=== PATIENT | female | born 1970 | race African-American/Black ===

== ENCOUNTER 2016-12-18 13:47 | Inpatient (IN) ==
[2016-12-18 15:35] LABS: URINE CULTURE PL NEEDED? NO
[2016-12-18 15:44] LABS: MANUAL DIFF NEEDED? NO
[2016-12-18 15:45] LABS: BILIRUBIN URINE NEGATIVE (NEGATIVE); BLOOD URINE NEGATIVE (NEGATIVE); CLARITY CLEAR (CLEAR); COLOR YELLOW; GLUCOSE URINE NEGATIVE (NEGATIVE); LEUKOCYTES URINE NEGATIVE (NEGATIVE); NITRITE URINE NEGATIVE (NEGATIVE); PROTEIN URINE 2+(100 mg/dL) mg/dL (NEGATIVE); SP GRAVITY URINE 1.015; UROBILINOGEN URINE NORMAL
[2016-12-18 15:47] LABS: URINE EPITHELIAL CELLS >10 /HPF (<10); URINE RBC <10 /HPF (<10); URINE WBC <10 /HPF (<10)
[2016-12-18 15:47] LABS: BASO% 0.6 % (0.0-0.8); EOS# 0.23 X1000 (0.0-0.7); EOS% 3.5 % (0.0-10.0); HEMATOCRIT 37.5 % (37.0-47.0); IMM GRAN# 0.02 X1000 (0.0-0.04); IMM GRAN% 0.3 % (0.0-0.5); LYMPH# 1.84 X1000 (1.2-3.4); LYMPH% 28.4 % (20.5-51.1); MCH 28.6 PG (27-31); MCHC 29.3 g/dL (33-37); MCV 97.7 FL (81-99); MONO# 0.51 X1000 (0.11-0.59); MONO% 7.9 % (1.7-9.3); NEUT% 59.3 % (42.2-75.2); PLT 198 X1000 (130-400); RBC 3.84 XMIL (4.2-5.4)
[2016-12-18 15:48] LABS: URINE CAST NONE SEEN /LPF; URINE CRYSTAL NONE SEEN /HPF; URINE SOURCE CLEAN CATCH
[2016-12-18 16:03] LABS: CALCIUM 9.2 mg/dL (8.8-10.2); POTASSIUM 4.4 mmol/L (3.5-5.1); TOTAL BILIRUBIN 0.2 mg/dL (0.20-1.00)
[2016-12-18] MEDS ORDERED: DILAUDID IM ONE (19:01)
[2016-12-18] MEDS ORDERED: ZOFRAN ODT PO ONE (19:01)
[2016-12-18] MEDS ORDERED: RELISTOR SUBQ ONE (19:03)
--- NOTE | 2016-12-18 19:21 | Diag Imaging Result Doc PS360 ---
EXAM: US ABDOMEN-COMPLETE - 12/18/2016 HISTORY: epigastric/RUQ pain TECHNIQUE: Ultrasound abdomen COMPARISON: Ultrasound gallbladder of 07/21/2013 FINDINGS: There is some limitation of detail due to artifacts from the patient's body habitus and bowel gas and due to the limited mobility of the patient. The gallbladder is visualized and demonstrates no definite abnormality. There are no gallstones identified. There is no definite gallbladder wall thickening or pericholecystic fluid identified. The technologist reports negative sonographic Welch's sign. The common bile duct is normal caliber at 3 mm. There are no abnormalities of the liver or spleen identified. There is no ascites seen. The pancreas and abdominal aorta are largely obscured by artifacts. The visualized portion of the IVC is unremarkable. IMPRESSION: There is no definite abnormality identified. Electronically signed by Adan Lind 12/18/2016 7:19 PM
[2016-12-18] MEDS ORDERED: PHENERGAN IM ONE (20:07)
[2016-12-18] MEDS ORDERED: G.I. COCKTAIL PO ONE (20:18)
--- NOTE | 2016-12-18 20:52 | Diag Imaging Result Doc PS360 ---
EXAM: CHEST-2 VIEWS - 12/18/2016 HISTORY: CHEST PAIN TECHNIQUE: Chest two views COMPARISON: Portable exam of 11/21/2016 FINDINGS: There is substantial cardiomegaly similar to the previous exam. There is central vascular congestion similar to the previous exam. There is scattered subsegmental atelectasis which has increased. There is no discrete consolidation, pleural effusion, or pneumothorax identified. IMPRESSION: Cardiomegaly and central vascular congestion similar to the previous exam. Scattered subsegmental atelectasis which has increased. Electronically signed by Adan Lind 12/18/2016 8:50 PM
[2016-12-18 21:11] LABS: BE 8.2 mmoll (-3.0-3.0); BLOOD TYPE ARTERIAL; DRAW SITE R RADIAL; METHB 1.6 % (0.0-1.5); SAMPLE BLOOD; SAO2 57.3 % (95.0-100.0); THB 11.6 g/dL (11.5-17.4); pH(98.6) 7.31 (7.35-7.45)
[2016-12-18 21:17] LABS: PO2(98.6) 23 mmHg (60-100)
[2016-12-18 21:19] LABS: ALLEN TEST YES; MODALITY ROOM AIR; PCO2(98.6) 73 mmHg (35-45)
[2016-12-18] MEDS ORDERED: LASIX IV ONE (22:47)
[2016-12-19 06:25] LABS: BE 7.7 mmoll (-3.0-3.0); BLOOD TYPE ARTERIAL; DRAW SITE R RADIAL; METHB 1.2 % (0.0-1.5); O2(CT) 14.6 mL/dL (15.0-23.0); PO2(98.6) 53 mmHg (60-100); SAMPLE BLOOD; SAO2 91.8 % (95.0-100.0); THB 11.8 g/dL (11.5-17.4); pH(98.6) 7.25 (7.35-7.45)
[2016-12-19 06:25] LABS: BE 7.3 mmoll (-3.0-3.0); BLOOD TYPE ARTERIAL; DRAW SITE R RADIAL; METHB 1.4 % (0.0-1.5); O2(CT) 16.2 mL/dL (15.0-23.0); PO2(98.6) 77 mmHg (60-100); SAMPLE BLOOD; SRATE 16 BPM; THB 12.3 g/dL (11.5-17.4); pH(98.6) 7.21 (7.35-7.45)
[2016-12-19 06:31] LABS: ALLEN TEST YES; MODALITY CANNULA
[2016-12-19 06:33] LABS: ALLEN TEST YES; MODALITY BI PAP
[2016-12-19 07:34] LABS: MANUAL DIFF NEEDED? NO
[2016-12-19 07:36] LABS: BASO% 0.3 % (0.0-0.8); EOS# 0.05 X1000 (0.0-0.7); EOS% 0.7 % (0.0-10.0); HEMATOCRIT 39.8 % (37.0-47.0); HEMOGLOBIN 11.7 g/dL (12.0-16.0); IMM GRAN# 0.02 X1000 (0.0-0.04); IMM GRAN% 0.3 % (0.0-0.5); LYMPH# 1.58 X1000 (1.2-3.4); LYMPH% 21.2 % (20.5-51.1); MCH 28.9 PG (27-31); MCHC 29.4 g/dL (33-37); MCV 98.3 FL (81-99); MONO# 0.42 X1000 (0.11-0.59); MONO% 5.6 % (1.7-9.3); MPV 10.9 FL (7.4-10.4); NEUT% 71.9 % (42.2-75.2); PLT 213 X1000 (130-400); RBC 4.05 XMIL (4.2-5.4)
[2016-12-19 07:57] LABS: ALBUMIN 4.2 g/dL (3.5-5.0); CALCIUM 9.3 mg/dL (8.8-10.2); POTASSIUM 5.2 mmol/L (3.5-5.1); TOTAL BILIRUBIN 0.3 mg/dL (0.20-1.00); TOTAL PROTEIN 9.6 g/dL (6.3-8.3)
[2016-12-19 08:21] LABS: CK INDEX 1.1 (0.0-2.5); CK-MB 2.01 ng/mL (0.0-5.0)
[2016-12-19] MEDS: MORPHINE IV PRN ×2 (08:59→09:20)
[2016-12-19] MEDS: LASIX IV SCH ×3 (08:59→21:55)
[2016-12-19] MEDS: CARDIZEM CD PO SCH (09:21)
[2016-12-19] MEDS ORDERED: LASIX IM ONE (09:36)
[2016-12-19 10:16] LABS: INR 0.97 (0.86-1.15); PROTIME 13.7 Seconds (12.1-15.5)
[2016-12-19] MEDS: ZOFRAN ODT PO PRN (10:23)
[2016-12-19] MEDS ORDERED: NS 250 ML ONE ×2 (10:46→15:07)
[2016-12-19 14:59] LABS: PCO2(98.6) 86 mmHg (35-45)
[2016-12-19 15:04] LABS: PCO2(98.6) 96 mmHg (35-45)
[2016-12-19] MEDS: COREG PO SCH ×2 (15:34→21:55)
[2016-12-19] MEDS ORDERED: SODIUM CHLORIDE 0.9% INJ SCH (16:00)
[2016-12-19] MEDS ORDERED: DUONEB (A & A) INH PRN (16:03)
--- NOTE | 2016-12-19 16:03 | Diag Imaging Result Doc PS360 ---
EXAM: CHEST-PORTABLE HISTORY: dyspnea TECHNIQUE: AP portable COMMENT: The study is suboptimal technically and the inspiration is suboptimal. There is cardiomegaly. Possibility of pulmonary edema or pneumonia in the lung bases cannot be excluded. There is a right internal jugular line was tip in the superior vena cava. IMPRESSION: Technically suboptimal study. Cardiomegaly. Electronically signed by George Gentile 12/19/2016 4:01 PM
[2016-12-19 17:42] LABS: ALLEN TEST YES; BE 12.9 mmoll (-3.0-3.0); BLOOD TYPE ARTERIAL; DRAW SITE R RADIAL; METHB 0.9 % (0.0-1.5); O2(CT) 15.2 mL/dL (15.0-23.0); PO2(98.6) 79 mmHg (60-100); SAMPLE BLOOD; SAO2 97.6 % (95.0-100.0); THB 11.3 g/dL (11.5-17.4); pH(98.6) 7.27 (7.35-7.45)
[2016-12-19 17:43] LABS: MODALITY CANNULA
[2016-12-19 17:45] LABS: PCO2(98.6) 94 mmHg (35-45)
[2016-12-19 18:33] LABS: URINE CULTURE NEEDED? NO; URINE MICRO REVIEW NEEDED? NO; URINE SOURCE CATH
[2016-12-19] MEDS: PROTONIX IV SCH (18:34)
[2016-12-19] MEDS: ASPIRIN PO SCH (18:38)
[2016-12-19] MEDS: DUONEB (A & A) INH SCH ×2 (18:58→22:35)
[2016-12-19 19:11] LABS: BILIRUBIN URINE NEGATIVE (NEGATIVE); BLOOD URINE NEGATIVE (NEGATIVE); COLOR YELLOW; GLUCOSE URINE NEGATIVE (NEGATIVE); LEUKOCYTES URINE NEGATIVE (NEGATIVE); NITRITE URINE NEGATIVE (NEGATIVE); PROTEIN URINE 50 mg/dL (NEGATIVE); SP GRAVITY URINE 1.007; TURBIDITY URINE CLEAR (CLEAR); UR EPITHELIAL CELLS <10 /HPF (<10); URINE BACTERIA NEGATIVE /HPF; URINE RBC <10 /HPF (<10); URINE WBC <10 /HPF (<10); UROBILINOGEN URINE NORMAL (NORMAL)
[2016-12-19] MEDS: XANAX PO SCH (21:55)
[2016-12-20] MEDS: DUONEB (A & A) INH SCH ×6 (03:41→23:10)
[2016-12-20 06:58] LABS: HEMATOCRIT 35.4 % (37.0-47.0); HEMOGLOBIN 10.2 g/dL (12.0-16.0); MCH 29.4 PG (27-31); MCHC 28.8 g/dL (33-37); MPV 11.2 FL (7.4-10.4); RBC 3.47 XMIL (4.2-5.4)
[2016-12-20 07:14] LABS: HEMOGLOBIN A1C 5.3 % (4.8-6.0)
[2016-12-20 07:40] LABS: AGAP 8; BUN 24 mg/dL (8-22); CALCIUM 8.9 mg/dL (8.8-10.2); CHLORIDE 96 mmol/L (98-107); COSMO 288; HDL 36 mg/dL (45-65); LDL 181 mg/dL; POTASSIUM 4.4 mmol/L (3.5-5.1); SODIUM 141 mmol/L (136-145); TCO2 37 mmol/L (25-35); TRIGLYCERIDES 90 mg/dL (35-135); VLDL 18 mg/dL
[2016-12-20] MEDS: COREG PO SCH ×2 (09:09→21:13)
[2016-12-20] MEDS: LASIX IV SCH ×2 (09:09→21:14)
[2016-12-20] MEDS: LOVENOX SUBQ SCH (09:09)
[2016-12-20] MEDS: CARDIZEM CD PO SCH (09:09)
[2016-12-20] MEDS: ASPIRIN PO SCH (09:09)
[2016-12-20] MEDS: PROTONIX IV SCH (11:13)
[2016-12-20] MEDS ORDERED: CALMOSEPTINE OINTMENT TOP PRN (13:38)
[2016-12-20] MEDS: MORPHINE IV PRN (13:50)
[2016-12-20] MEDS: LIPITOR PO SCH (21:13)
[2016-12-20] MEDS: XANAX PO SCH (21:14)
[2016-12-21] MEDS: DUONEB (A & A) INH SCH ×6 (03:46→23:10)
[2016-12-21 04:53] LABS: ALLEN TEST YES; BE 15.7 mmoll (-3.0-3.0); BLOOD TYPE ARTERIAL; DRAW SITE R RADIAL; METHB 0.4 % (0.0-1.5); O2(CT) 13.5 mL/dL (15.0-23.0); PO2(98.6) 52 mmHg (60-100); SAMPLE BLOOD; SAO2 93.9 % (95.0-100.0); THB 10.6 g/dL (11.5-17.4); pH(98.6) 7.42 (7.35-7.45)
[2016-12-21 04:54] LABS: MODALITY BI PAP
[2016-12-21 04:55] LABS: PCO2(98.6) 66 mmHg (35-45)
[2016-12-21 06:56] LABS: HEMATOCRIT 34.6 % (37.0-47.0); HEMOGLOBIN 9.9 g/dL (12.0-16.0); MCH 28.9 PG (27-31); MCHC 28.6 g/dL (33-37); MCV 100.9 FL (81-99); RBC 3.43 XMIL (4.2-5.4)
[2016-12-21 07:11] LABS: CALCIUM 9.3 mg/dL (8.8-10.2); POTASSIUM 3.7 mmol/L (3.5-5.1)
[2016-12-21] MEDS: MORPHINE IV PRN (07:58)
[2016-12-21] MEDS: ZOFRAN IV PRN (08:02)
[2016-12-21] MEDS: COREG PO SCH ×2 (11:54→20:14)
[2016-12-21] MEDS: LASIX IV SCH (11:54)
[2016-12-21] MEDS: ASPIRIN PO SCH (11:54)
[2016-12-21] MEDS: CARDIZEM CD PO SCH (11:54)
[2016-12-21] MEDS: LOVENOX SUBQ SCH (11:55)
[2016-12-21] MEDS: ZOFRAN ODT PO PRN (12:15)
[2016-12-21] MEDS: PROTONIX IV SCH (17:14)
[2016-12-21] MEDS: LIPITOR PO SCH (20:14)
[2016-12-21] MEDS: XANAX PO SCH (20:14)
[2016-12-22] MEDS: DUONEB (A & A) INH SCH ×6 (03:46→23:17)
[2016-12-22 05:02] LABS: ALLEN TEST YES; BE 16.2 mmoll (-3.0-3.0); BLOOD TYPE ARTERIAL; DRAW SITE R RADIAL; METHB 0.9 % (0.0-1.5); O2(CT) 14.7 mL/dL (15.0-23.0); PO2(98.6) 70 mmHg (60-100); SAMPLE BLOOD; SAO2 96.9 % (95.0-100.0); THB 11.1 g/dL (11.5-17.4); pH(98.6) 7.32 (7.35-7.45)
[2016-12-22 05:03] LABS: MODALITY BI PAP; PCO2(98.6) 89 mmHg (35-45)
[2016-12-22 07:02] LABS: HEMATOCRIT 34.1 % (37.0-47.0); HEMOGLOBIN 9.8 g/dL (12.0-16.0); MCH 29.3 PG (27-31); MCHC 28.7 g/dL (33-37); MCV 102.1 FL (81-99); MPV 10.8 FL (7.4-10.4); RBC 3.34 XMIL (4.2-5.4)
[2016-12-22 07:05] LABS: INR 1.07; PROTIME 11.3 Seconds (9.2-11.7)
[2016-12-22 07:30] LABS: FERRITIN 134 ng/mL (13-150)
[2016-12-22 07:31] LABS: MAGNESIUM 1.8 mg/dL (1.5-2.7)
[2016-12-22 07:34] LABS: CALCIUM 8.6 mg/dL (8.8-10.2); POTASSIUM 4.4 mmol/L (3.5-5.1)
[2016-12-22] MEDS: CARDIZEM CD PO SCH (08:07)
[2016-12-22] MEDS: COREG PO SCH ×2 (08:07→20:12)
[2016-12-22] MEDS: LASIX IV SCH (08:08)
[2016-12-22] MEDS: LOVENOX SUBQ SCH (08:08)
[2016-12-22] MEDS: ZOFRAN ODT PO PRN (08:08)
[2016-12-22] MEDS: ASPIRIN PO SCH (08:08)
[2016-12-22] MEDS: MORPHINE IV PRN ×2 (08:09→23:40)
--- NOTE | 2016-12-22 08:39 | Diag Imaging Result Doc PS360 ---
CHEST-PORTABLE - 12/22/2016 INDICATION: SOB TECHNIQUE: COMPARISON: 12/19/2016 FINDINGS: Stable right PICC line in good position. Stable severe cardiomegaly and pulmonary vascular congestion. Detail is poor. IMPRESSION: No definite change from prior. Electronically signed by Dean Virk 12/22/2016 8:37 AM
[2016-12-22] MEDS: PROTONIX IV SCH (16:35)
[2016-12-22] MEDS: LIPITOR PO SCH (20:12)
[2016-12-22] MEDS: XANAX PO SCH (20:12)
[2016-12-22] MEDS: ZOFRAN IV PRN (23:40)
[2016-12-23] MEDS: DUONEB (A & A) INH SCH ×4 (03:15→15:46)
[2016-12-23 07:17] LABS: BASO% 0.3 % (0.0-0.8); EOS# 0.24 X1000 (0.0-0.7); EOS% 3.5 % (0.0-10.0); HEMATOCRIT 35.6 % (37.0-47.0); HEMOGLOBIN 10.1 g/dL (12.0-16.0); LYMPH# 1.69 X1000 (1.2-3.4); LYMPH% 24.8 % (20.5-51.1); MANUAL DIFF NEEDED? YES; MCH 28.6 PG (27-31); MCHC 28.4 g/dL (33-37); MCV 100.8 FL (81-99); MONO# 0.48 X1000 (0.11-0.59); MPV 10.6 FL (7.4-10.4); NEUT% 64.4 % (42.2-75.2); PLT 199 X1000 (130-400); RBC 3.53 XMIL (4.2-5.4)
[2016-12-23 07:33] LABS: CALCIUM 9.5 mg/dL (8.8-10.2); POTASSIUM 4.8 mmol/L (3.5-5.1)
[2016-12-23 07:53] LABS: BANDS 4 % (0-1); EOS 6 % (1-10); LYMPHS 28 % (21-51)
[2016-12-23 08:09] VITALS: BP 135/76
[2016-12-23] MEDS: COREG PO SCH (08:25)
[2016-12-23] MEDS: LASIX IV SCH (08:25)
[2016-12-23] MEDS: CARDIZEM CD PO SCH (08:25)
[2016-12-23] MEDS: ASPIRIN PO SCH (08:25)
[2016-12-23] MEDS: MORPHINE IV PRN (11:15)
[2016-12-23] MEDS: ZOFRAN ODT PO PRN (11:19)
[2016-12-23] MEDS ORDERED: XARELTO PO SCH (17:00)
[2016-12-23] MEDS: PROTONIX IV SCH (18:08)
[2016-12-23] MEDS ORDERED: LASIX PO SCH (21:00)
== END 2016-12-23 18:10 | disposition home or self-care (01) ==
LOC: P.ED 13:47 → SUATTDRO 23:23 → P.MEDSURG 23:23 → 3N 12-19 13:57
PROVIDERS: ATTEND Internal Medicine

== ENCOUNTER 2018-05-08 15:32 | Inpatient (IN) ==
[2018-05-08 16:39] LABS: BASO# 0.04 X1000 (0.0-0.2); BASO% 0.8 % (0.0-0.8); EOS# 0.12 X1000 (0.0-0.7); EOS% 2.5 % (0.0-10.0); HEMATOCRIT 40.4 % (37.0-47.0); HEMOGLOBIN 11.8 g/dL (12.0-16.0); IMM GRAN# 0.01 X1000 (0.0-0.04); IMM GRAN% 0.2 % (0.0-0.5); LYMPH# 1.45 X1000 (1.2-3.4); LYMPH% 30.3 % (20.5-51.1); MCHC 29.2 g/dL (33-37); MCV 89.2 FL (81-99); MONO# 0.29 X1000 (0.11-0.59); MONO% 6.1 % (1.7-9.3); MPV 11.2 FL (7.4-10.4); NEUT# 2.88 X1000 (1.4-6.5); NEUT% 60.1 % (42.2-75.2); PLT 205 X1000 (130-400); RBC 4.53 XMIL (4.2-5.4); RDW 16.7 % (11.5-14.5); WBC 4.79 X1000 (4.8-10.8)
[2018-05-08 16:42] LABS: INR 1.06; PROTIME 14.3 Seconds (11.0-16.0)
[2018-05-08 16:43] LABS: PTT 39.4 Seconds (22.3-41.8)
[2018-05-08] MEDS ORDERED: LABETALOL IV ONE (16:43)
--- NOTE | 2018-05-08 16:43 | PROVIDER DOCUMENTATION ---
HPI-Respiratory General - General Chief Complaint: Shortness of Breath Stated Complaint: SOB Time Seen by Provider: 05/08/18 16:31 Source: patient Allergies/Adverse Reactions: Patient Allergies Allergy/AdvReac Type Severity Reaction Status Date / Time cephalexin monohydrate * Allergy Severe SHORTNESS Verified 05/08/18 15:44 [From Keflex] OF BREATH propoxyphene napsylate * Allergy Mild HIVES Verified 05/08/18 15:44 [From Darvocet-N 100] Home Medications: Home Medication List Medication Instructions Recorded Confirmed Last Taken Type Carvedilol [Coreg] 3.125 mg PO BID #180 tablet 12/23/16 05/08/18 09/01/17 Rx Furosemide [Lasix] 40 mg PO DAILY 09/01/17 05/08/18 09/01/17 History Pantoprazole [Protonix] 40 mg PO DAILY 09/01/17 05/08/18 09/01/17 History Levothyroxine Sodium [Synthroid] 50 mcg PO DAILY #30 tab 10/08/17 05/08/18 Unknown Rx Diltiazem C.d. [Cardizem Cd] 180 mg PO DAILY 11/05/17 05/08/18 Unknown History Hydrocodone/Acetaminophen [[place] 10 - 325 mg PO TID PRN 11/05/17 05/08/18 Unknown History 10-325 Tablet] Nitroglycerin 0.4 mg PO PRN PRN 11/05/17 05/08/18 Unknown History Aspirin [Low Dose Aspirin EC] 81 mg pe PO DAILY 12/31/17 05/08/18 Unknown History Polyethylene Glycol 3350 [Clearlax] 17 gm PO PRN PRN 12/31/17 05/08/18 Unknown History Torsemide 40 mg PO DAILY 12/31/17 05/08/18 Unknown History Zolpidem [Ambien] 10 mg PO HS 12/31/17 05/08/18 Unknown History Sucralfate [Carafate] 1 gm PO Q6H #120 tab 01/03/18 05/08/18 Unknown Rx - History of Present Illness-Resp Nature of Presenting Problem: pt is 47 yo morbidly obese AAF with c/o BARRY, upper abdominal pain, worsening SOB , and elevated BP over past few days, pt. reports worsening pain in abdomen and back but denies productive cough or fever at this time. Quality of Pain: reports: cramping, pressure, sharp Severity in ED: reports: moderate Onset/Duration: reports: 4 days ago Timing: reports: still present, intermittent Cough Quality/Degree: reports: no cough Episode Frequency: chronic episodes Current Respiratory Medication Therapy: Initiated see nurses note Modifying Factors: improves with: exertion, lying down (orthopnea worsening) Associated Symptoms: reports: dizziness, headache, heart racing, shortness of breath Similar Symptoms Previously?: Yes Recently seen or treated by another doctor?: No Review of Systems - Adult - REVIEW OF SYSTEMS - ADULT Constitutional: reports: no symptoms reported Eyes: reports: no symptoms reported Ears, Nose, Mouth & Throat: reports: no symptoms reported Cardiovascular: reports: see HPI Respiratory: reports: see HPI Gastrointestinal: reports: see HPI Genitourinary: reports: no symptoms reported Musculoskeletal: reports: no symptoms reported Integumentary: reports: no symptoms reported Neurological: reports: headache/migraines Psychiatric: reports: no symptoms reported Endocrine: reports: no symptoms reported Hematologic/Lymphatic: reports: no symptoms reported Allergic/Immunologic: reports: no symptoms reported All Other Systems: Reviewed and Negative Past History - Adult - PAST MEDICAL HISTORY-ADULT Review of Records: reports: Old Records Reviewed, Nursing Assessment Review, Medications Reviewed Major Childhood Illnesses: reports: denies history Cardiovascular: reports: CAD, CHF, HTN, MD Respiratory: reports: asthma, COPD, sleep apnea Gastrointestinal: reports: GERD Obstetrical/Gynecological: reports: denies history Genitourinary: reports: dialysis, kidney disease (previous renal failure, with last dialysis 11/2014 which she was told she was done) Musculoskeletal: reports: denies history Neurological: reports: CVA Psychiatric: reports: anxiety, depression Endocrine/Immune: reports: Diabetes, thyroid disorder Other Conditions: reports: denies history Additional History: frequent ER visits - PRIOR SURGERIES/PROCEDURES Surgical/Procedure History: reports: indwelling device (vas cath), other (trach) - IMMUNIZATION STATUS Childhood Immunizations: See Nurse Assessment Flu Vaccine: See Nurse Assessment - FAMILY HISTORY Family History: reviewed, not pertinent - SOCIAL HISTORY Smoking: denies Substance Use: none/never Alcohol Use Frequency: never Physical Exam-General - PHYSICAL EXAM-ADULT Initial Vital Signs Reviewed: Yes (tachycardic, hypertensive, tachypnic) - CONSTITUTIONAL General Appearance: alert, mild distress, other (pt morbidly obese) - EYES Eyes: PERRL/EOMI, pink conjunctivae. negative: anisocoria, conjuctival exudate , photophobia, sclera injected - HEAD, EARS, NOSE, MOUTH & THROAT HENMT: normocephalic/atraumatic, moist mucous membranes, normal ENT inspection - NECK Neck: non-tender, full range of motion, supple - RESPIRATORY Respiratory: decreased breath sounds (bilateral bases), rhonchi, wheezing, increased rate. negative: accessory muscle use, crackles, pain on inspiration, pleural rub, retractions - CARDIOVASCULAR Cardiovascular: normal peripheral pulses, tachycardia, irregularly irregular - GASTROINTESTINAL (ABDOMEN) Abdominal Exam: normal bowel sounds, soft, tenderness (generalized tenderness, exam limited due to morbid obesity). negative: rebound - LYMPHATIC Lymphatic: no adenopathy - MUSCULOSKELETAL Back Exam: normal inspection, no CVA tenderness, no vertebral tenderness Extremity: non-tender, no calf tenderness, inflammation, other (pt has limited ROM due to obesity, states she is ambulatory with assistance, exam limited due to morbid obesity). negative: deformity, erythema Peripheral Pulses: radial (R): 1+, radial (L): 1+, dorsalis-pedis (R): 1+, dorsalis-pedis (L): 1+ - SKIN Integumentary: normal color, normal turgor - NEUROLOGIC Neurologic: grossly normal, no motor/sensory deficits. negative: aphasia, EOM palsy, facial droop, focal weakness, motor weakness, sensory deficit - PSYCHIATRIC Psych/Mental Status: normal mood/affect, normal thought content, normal thought process, oriented x 3 Progress - PLAN OF CARE/RESULTS Progress/Plan/Lab Results: Vital Signs - 8 hr 05/08/18 15:38 05/08/18 18:00 Temperature 98.6 F Pulse Rate 118 H 85 Respiratory Rate 25 H 24 Blood Pressure 159/117 138/98 O2 Sat by Pulse Oximetry 96 94 L Laboratory Results - last 24 hr 05/08/18 05/08/18 05/08/18 16:16 16:16 16:16 WBC 4.79 L RBC 4.53 Hgb 11.8 L Hct 40.4 MCV 89.2 MCH 26.0 L MCHC 29.2 L RDW Std Deviation 16.7 H Plt Count 205 MPV 11.2 H Immature Gran % (Auto) 0.2 Neut % (Auto) 60.1 Lymph % (Auto) 30.3 [place] % (Auto) 6.1 Eos % (Auto) 2.5 Baso % (Auto) 0.8 Immature Gran # (Auto) 0.01 Neut # (Auto) 2.88 Lymph # (Auto) 1.45 [place] # (Auto) 0.29 Eos # (Auto) 0.12 Baso # (Auto) 0.04 PT INR PTT (Actin FS) Specimen Type Sample Site pH pCO2 pO2 HCO3 Base Excess Oxyhemoglobin ABG O2 Sat (Calculated) ABG O2 Saturation ABG Carboxyhemoglobin ABG Methemoglobin Nikunj Test A-a O2 Difference Total Hemoglobin Lactate Liter Flow Blood Gas Modality FiO2 % Sodium 142 Potassium 4.2 Chloride 101 Carbon Dioxide 34 Anion Gap 7 BUN 10 Creatinine 1.0 H Estimated GFR/1.73 m2 59 BUN/Creatinine Ratio 10 Glucose 117 H Calculated Osmolality 283 Calcium 9.4 Total Bilirubin 0.30 AST 15 ALT 9 L Alkaline Phosphatase 125 H Creatine Kinase 113 Troponin T Raj-M-Jxmztgrgdgh Pept 1738 H Total Protein 7.9 Albumin 3.5 Globulin 4.0 Albumin/Globulin Ratio 1.0 Amylase Lipase Plasma Lactate Urine Source Urine Color Urine Clarity Urine pH Ur Specific [place] Urine Protein Urine Ketones Urine Blood Urine Nitrite Urine Bilirubin Urine Urobilinogen Urine Microscopic RBC Urine WBC Urine Microscopic WBC Ur Epithelial Cells Urine Crystals Urine Bacteria Urine Casts Urine Yeast Urine Glucose 05/08/18 05/08/18 05/08/18 16:16 16:16 16:16 WBC RBC Hgb Hct MCV MCH MCHC RDW Std Deviation Plt Count MPV Immature Gran % (Auto) Neut % (Auto) Lymph % (Auto) [place] % (Auto) Eos % (Auto) Baso % (Auto) Immature Gran # (Auto) Neut # (Auto) Lymph # (Auto) [place] # (Auto) Eos # (Auto) Baso # (Auto) PT 14.3 INR 1.06 PTT (Actin FS) 39.4 Specimen Type Sample Site pH pCO2 pO2 HCO3 Base Excess Oxyhemoglobin ABG O2 Sat (Calculated) ABG O2 Saturation ABG Carboxyhemoglobin ABG Methemoglobin [place]j Test A-a O2 Difference Total Hemoglobin Lactate Liter Flow Blood Gas Modality FiO2 % Sodium Potassium Chloride Carbon Dioxide Anion Gap BUN Creatinine Estimated GFR/1.73 m2 BUN/Creatinine Ratio Glucose Calculated Osmolality Calcium Total Bilirubin AST ALT Alkaline Phosphatase Creatine Kinase Troponin T < 0.010 Irq-I-Rwnucephher Pept Total Protein Albumin Globulin Albumin/Globulin Ratio Amylase 99 Lipase 37 Plasma Lactate Urine Source Urine Color Urine Clarity Urine pH Ur Specific [place] Urine Protein Urine Ketones Urine Blood Urine Nitrite Urine Bilirubin Urine Urobilinogen Urine Microscopic RBC Urine WBC Urine Microscopic WBC Ur Epithelial Cells Urine Crystals Urine Bacteria Urine Casts Urine Yeast Urine Glucose 05/08/18 05/08/18 05/08/18 16:36 16:40 17:45 WBC RBC Hgb Hct MCV MCH MCHC RDW Std Deviation Plt Count MPV Immature Gran % (Auto) Neut % (Auto) Lymph % (Auto) [place] % (Auto) Eos % (Auto) Baso % (Auto) Immature Gran # (Auto) Neut # (Auto) Lymph # (Auto) [place] # (Auto) Eos # (Auto) Baso # (Auto) PT INR PTT (Actin FS) Specimen Type ARTERIAL Sample Site R RADIAL pH 7.40 pCO2 61 H* pO2 66 HCO3 33.2 H Base Excess 10.8 H Oxyhemoglobin 92.6 L ABG O2 Sat (Calculated) 15.9 ABG O2 Saturation 96.2 ABG Carboxyhemoglobin 2.50 ABG Methemoglobin 1.2 Nik[place]j Test YES A-a O2 Difference 86.0 Total Hemoglobin 12.2 Lactate 0.60 Liter Flow 4.0 Blood Gas Modality CANNULA FiO2 % 36.0 Sodium Potassium Chloride Carbon Dioxide Anion Gap BUN Creatinine Estimated GFR/1.73 m2 BUN/Creatinine Ratio Glucose Calculated Osmolality Calcium Total Bilirubin AST ALT Alkaline Phosphatase Creatine Kinase Troponin T [id number]-L-Tcshjqnihgo Pept Total Protein Albumin Globulin Albumin/Globulin Ratio Amylase Lipase Plasma Lactate 0.9 Urine Source CATH Urine Color YELLOW Urine Clarity CLEAR Urine pH 8.0 Ur Specific [place] 1.010 Urine Protein 3+(500 mg/dL) A Urine Ketones NEGATIVE Urine Blood NEGATIVE Urine Nitrite NEGATIVE Urine Bilirubin NEGATIVE Urine Urobilinogen NORMAL Urine Microscopic RBC <10 Urine WBC NEGATIVE Urine Microscopic WBC <10 Ur Epithelial Cells <10 Urine Crystals NONE SEEN Urine Bacteria NEGATIVE Urine Casts NONE SEEN Urine Yeast NONE SEEN Urine Glucose NEGATIVE 05/08/18 05/08/18 19:26 19:26 WBC RBC Hgb Hct MCV MCH MCHC RDW Std Deviation Plt Count MPV Immature Gran % (Auto) Neut % (Auto) Lymph % (Auto) [place] % (Auto) Eos % (Auto) Baso % (Auto) Immature Gran # (Auto) Neut # (Auto) Lymph # (Auto) [place] # (Auto) Eos # (Auto) Baso # (Auto) PT INR PTT (Actin FS) Specimen Type Sample Site pH pCO2 pO2 HCO3 Base Excess Oxyhemoglobin ABG O2 Sat (Calculated) ABG O2 Saturation ABG Carboxyhemoglobin ABG Methemoglobin [place] Test A-a O2 Difference Total Hemoglobin Lactate Liter Flow Blood Gas Modality FiO2 % Sodium Potassium Chloride Carbon Dioxide Anion Gap BUN Creatinine Estimated GFR/1.73 m2 BUN/Creatinine Ratio Glucose Calculated Osmolality Calcium Total Bilirubin AST ALT Alkaline Phosphatase Creatine Kinase 107 Troponin T < 0.010 Hbx-V-Zyryxwwhaod Pept Total Protein Albumin Globulin Albumin/Globulin Ratio Amylase Lipase Plasma Lactate Urine Source Urine Color Urine Clarity Urine pH Ur Specific [place] Urine Protein Urine Ketones Urine Blood Urine Nitrite Urine Bilirubin Urine Urobilinogen Urine Microscopic RBC Urine WBC Urine Microscopic WBC Ur Epithelial Cells Urine Crystals Urine Bacteria Urine Casts Urine Yeast Urine Glucose Orders Category Date Time Status Cardiac Monitoring DIRECTED Care 05/08/18 16:25 Active Robison Cath Insertion ORDERED Care 05/08/18 17:30 Active Oxygen Therapy- ED Nursing DIRECTED Care 05/08/18 16:25 Active Saline Loc NOW Care 05/08/18 16:25 Active CHEST-PORTABLE [RAD] Stat Exams 05/08/18 16:25 Completed AMYLASE [CHEM] Stat Lab 05/08/18 16:16 Completed BLOOD CULTURE [BLDCUL] Stat Lab 05/08/18 17:02 Received Blood Gas [ABG] [RESP] Routine Lab 05/08/18 16:40 Completed CBC WITH ELECTRONIC DIFF [HEME] Stat Lab 05/08/18 16:16 Completed CK PROFILE [SP CHEM] Stat Lab 05/08/18 16:16 Completed CK PROFILE [SP CHEM] Stat Lab 05/08/18 19:26 Completed COMPREHENSIVE METABOLIC PANEL [CHEM] Stat Lab 05/08/18 16:16 Completed LACTATE, PLASMA [CHEM] Stat Lab 05/08/18 16:36 Completed LIPASE [CHEM] Stat Lab 05/08/18 16:16 Completed PRO B-NATRIURETIC PEPTIDE Stat Lab 05/08/18 16:16 Completed PROTIME WITH INR [COAG] Stat Lab 05/08/18 16:16 Completed PTT [COAG] Stat Lab 05/08/18 16:16 Completed TROPONIN T Stat Lab 05/08/18 16:16 Completed TROPONIN T Stat Lab 05/08/18 19:[address] W/POSS RFLX CULT [URINALYSIS] Stat Lab 05/08/18 17:45 Completed Furosemide [Lasix] Med 05/08/18 17:30 Discontinued 40 mg IV NOW ONE Labetalol Med 05/08/18 16:43 Discontinued 20 mg IV NOW ONE Lido/Huang Alk/Al&mg Hydrox [G.i. Cocktail] Med 05/08/18 17:35 Discontinued 30 ml PO NOW ONE CP/SOB/Palp >45 yrs of Age Stat Oth 05/08/18 16:22 Ordered EKG [EKG] Stat Ther 05/08/18 16:25 Draft EKG [EKG] Stat Ther 05/08/18 18:55 Ordered Result Diagrams: 05/08/18 16:16 05/08/18 16:16 - EKG 1 Time of EKG reading by physician:: 15:44 EKG Read and Signed by:: Darian Valderrama EKG Interpretation (*Must complete 3 of following elements*): Abnormal Rate: 90 Rhythm: a-fib [place]: normal QRS: normal ST Wave: non-specific ST changes Prior EKG Comparison: changes noted (No a-fib on prior EKG) - XRAY 1 XRAY Study: Chest Impression: Abnormal Comparison with other Films: changes noted XRAY Interpretation: cardiomegaly and pulmonary edema - CONSULTS/PCP/HOSPITALIST Notification #1 *Consult/PCP/Hospitalist*: shady Time Discussed: 22:01 Reason/Comments: CHF exacerbation, abd pain Consult Disposition: Admit Departure - Departure Date of Disposition Decision: 05/08/18 Time of Disposition Decision: 22:01 DIAGNOSIS: CHF (congestive heart failure), A-fib, Epigastric abdominal pain, Hypertension Disposition: ADMITTED INPATIENT 09 Certified Medical Emergency: Emergent Condition: Stable Referrals and Follow-Ups: Otoniel Gamez MD [Primary Care Provider] - Work Excuses: Return to School/Parent Work - Critical Care Note This patient required my direct & personal management of CC.: No Attestation - Physician/ ROSE Attestation Patient care was provided by Advanced Practice Provider:: Yes Advanced Practice Provider:: Filiberto Medina Advanced Practice Provider documentation review:: The Mid-level provider documentation, treatment plan and medical decision making was reviewed by the physician who agrees with all treatment and medical decision making by the MLP. The physician spent face to face time with patient:: No Advanced Practice Provider documentation review:: Supervising physician onsite and consulted in the evaluation and care of this patient. The physician did not have a face to face encounter with the patient.
[2018-05-08 16:54] LABS: ALBUMIN 3.5 g/dL (3.5-5.0); CALCIUM 9.4 mg/dL (8.8-10.2); POTASSIUM 4.2 mmol/L (3.5-5.1); TOTAL BILIRUBIN 0.3 mg/dL (0.20-1.00); TOTAL PROTEIN 7.9 g/dL (6.3-8.3)
[2018-05-08 17:07] LABS: BE 10.8 mmoll (-3.0-3.0); BLOOD TYPE ARTERIAL; HCO3-(ACT) 33.2 mmoll (20.0-26.0); METHB 1.2 % (0.0-1.5); O2(CT) 15.9 mL/dL (15.0-23.0); O2HB 92.6 % (95.0-99.0); PO2(98.6) 66 mmHg (60-100); SAMPLE BLOOD; SAO2 96.2 % (95.0-100.0); THB 12.2 g/dL (11.5-17.4)
[2018-05-08 17:14] LABS: MODALITY CANNULA; PCO2(98.6) 61 mmHg (35-45)
[2018-05-08 17:15] LABS: ALLEN TEST YES
--- NOTE | 2018-05-08 17:22 | Diag Imaging Result Doc PS360 ---
EXAM: CHEST-PORTABLE HISTORY: dyspnea TECHNIQUE: Chest two views COMPARISON: 12/31/2017 FINDINGS: Poor inspiratory effort. The heart is enlarged. There is pulmonary edema. Questionable small left pleural effusion. IMPRESSION: Cardiomegaly with pulmonary edema. Follow-up PA and lateral recommended. Electronically signed by Patrick Cárdenas 05/08/2018 5:20 PM
[2018-05-08] MEDS ORDERED: LASIX IV ONE (17:30)
[2018-05-08 17:34] LABS: AMYLASE 99 U/L (20-200); LIPASE 37 U/L (13-60)
[2018-05-08] MEDS ORDERED: G.I. COCKTAIL PO ONE (17:35)
--- NOTE | 2018-05-08 17:55 | EKG Report ---
Test Performed on : 05/08/2018 3:44:19 PM Test Reason : dyspnea Blood Pressure : / mmHG Vent. Rate : 090 BPM Atrial Rate : 083 BPM P-R Int : 000 ms QRS Dur : 094 ms QT Int : 408 ms P-R-T Axes : 000 -22 080 degrees QTc Int : 499 ms Atrial fibrillation. Nonspecific ST and T wave abnormality Abnormal ECG When compared with ECG of 05-NOV-2017 12:56, (Unconfirmed) Atrial fibrillation. has replaced Sinus rhythm. Unconfirmed Result
[2018-05-08 18:14] LABS: BILIRUBIN URINE NEGATIVE (NEGATIVE); BLOOD URINE NEGATIVE (NEGATIVE); COLOR YELLOW; GLUCOSE URINE NEGATIVE (NEGATIVE); KETONE URINE NEGATIVE (NEGATIVE); LEUKOCYTES URINE NEGATIVE (NEGATIVE); NITRITE URINE NEGATIVE (NEGATIVE); UROBILINOGEN URINE NORMAL
[2018-05-08 18:17] LABS: CLARITY CLEAR (CLEAR); URINE BACTERIA NEGATIVE /HFP; URINE CAST NONE SEEN /LPF; URINE CRYSTAL NONE SEEN /HPF; URINE EPITHELIAL CELLS <10 /HPF (<10); URINE RBC <10 /HPF (<10); URINE SOURCE CATH; URINE WBC <10 /HPF (<10); URINE YEAST NONE SEEN /HPF
--- NOTE | 2018-05-08 22:25 | ED EKG INTERP ---
EKG Interpretation - EKG EKG Read and Signed by:: Jose Antonio Rossi EKG Interpretation (*Must complete 3 of following elements*): Abnormal Rate: 77 Rhythm: a- flutter [place]: normal QRS: normal [place] Interval: normal ST Wave: non-specific ST changes Prior EKG Comparison: changes noted Comments: a flutter Attestation - Physician/ ROSE Attestation Patient care was provided by Advanced Practice Provider:: Yes Advanced Practice Provider:: Filiberto Medina Advanced Practice Provider documentation review:: The Mid-level provider documentation, treatment plan and medical decision making was reviewed by the physician who agrees with all treatment and medical decision making by the MLP. The physician spent face to face time with patient:: No Advanced Practice Provider documentation review:: Supervising physician onsite and consulted in the evaluation and care of this patient. The physician did not have a face to face encounter with the patient.
[2018-05-09] MEDS: ZOFRAN IV PRN (01:03)
[2018-05-09] MEDS: MORPHINE IV PRN ×2 (01:03→20:25)
[2018-05-09] MEDS: LASIX IV SCH ×2 (10:00→20:25)
[2018-05-09] MEDS: COREG PO SCH ×2 (10:00→20:27)
[2018-05-09] MEDS ORDERED: BLISTEX MEDICATED BERRY LIP BALM TOP PRN (16:07)
--- NOTE | 2018-05-09 19:15 | HISTORY AND PHYSICAL ---
CHIEF COMPLAINT: Shortness of breath and abdominal pain. HISTORY OF PRESENT ILLNESS: This is a 47-year-old morbidly obese female who is well known to our service who presents to the emergency room complaining of upper abdominal pain. She points to her epigastric area as area of pain. She states that she has had increasing shortness of breath and blood pressure over the last few days. She describes this pain as a crampy type pressure pain. It is intermittent. She states that it increases with any exertion, lying down flat. She has accompanying dizziness, headache, heart racing. She was found to have cardiomegaly with pulmonary edema on her chest x-ray for which she was given Lasix 40 mg and a [place] was inserted for accurate I and O. On arrival her blood pressure was 159/117. She was given labetalol in the emergency room and blood pressure now is 121/80. PAST MEDICAL HISTORY: Coronary artery disease, congestive heart failure, COPD, hypothyroid, Pickwickian syndrome, gastroesophageal reflux disease, chronic kidney disease stage 3, anxiety, atrial fibrillation and gastroesophageal reflux disease. PAST SURGICAL HISTORY: She has a Vas-Cath placement and removal. SOCIAL HISTORY: She lives at home alone. She denies alcohol, tobacco, or illicit drug use. ALLERGIES: Keflex and propoxyphene. HOME MEDICATIONS: A list will be obtained by the nursing staff and once reviewed will restart as appropriate. REVIEW OF SYSTEMS: Discussed with patient with pertinent positives stated in the HPI. She denies any syncope or dizziness, any vomiting, diarrhea, constipation, diarrhea, black or bloody vomitus or stools, any hematuria, dysuria, frequency, urgency. PHYSICAL EXAMINATION: GENERAL: This is a morbidly obese female who is sitting up in the hospital bed in no distress. VITAL SIGNS: Blood pressure is 121/80 with a heart rate of 88, respirations are 18, temperature is 99 degrees oral with O2 saturation of 100% on 4 L nasal cannula. HEENT: Pupils are equal, round, react to light. EOMs are intact. Sclerae are anicteric. Head is normocephalic, atraumatic. Mucous membranes are moist. NECK: Supple with trachea midline. CARDIOVASCULAR: Irregularly irregular rate and rhythm. S1 and S2 appreciated. PULMONARY: Breath sounds are diminished throughout. She does have some wheezing. ABDOMEN: Large, soft. She has tenderness to the bilateral upper quadrants with bowel sounds in all 4 quadrants. NEUROLOGIC: She is alert, oriented x3. SKIN: Warm and dry. LABS: WBC is 4.7 with hemoglobin 11.8, hematocrit 40.4, platelets of 205,000. Sodium is 142, potassium 4.2, BUN 10, creatinine 1 with a glucose of 117. Troponins are negative on multiple occasions. Her proBNP is 1738. Urinalysis is essentially negative. Chest x-ray reveals pulmonary edema. ASSESSMENT AND PLAN: 1. Congestive heart failure acute exacerbation. 2. Chronic atrial fibrillation. 3. Chronic bilateral epigastric abdominal pain. 4. Hypertension. 5. Chronic hypercarbic respiratory failure, CO2 is 61. 6. Chronic obstructive pulmonary disease with home O2 and nighttime continuous positive airway pressure. 7. Chronic systolic heart failure with an ejection fraction of 30%. 8. Chronic kidney disease stage 3. 9. Pickwickian syndrome. 10. Hypothyroid. 11. Morbid obesity. 12. Diabetes mellitus. PLAN: The patient has been admitted to the medical/surgical floor and we will place her on telemetry. We will identify her home medications and continue as appropriate. We will continue Lasix 40 mg IV b.i.d. We will trend her I and O as well as daily weights. The patient has a known hiatal hernia. She has been told that she is not a surgical candidate. She also states that she has been told that this is the cause of her epigastric pain. She continues to have to take [place] for this pain. We will start Carafate q.6 hours. Give Protonix IV b.i.d. and follow. We will give supplemental oxygen. We will courage her to bring her CPAP to use, give DuoNeb q.4 hours with q.2 p.r.n. with steroids to taper. We will monitor I and O and renal dose medications as appropriate. Further treatments pending hospital course. Dictated by FIONA Ordonez for Bobby Syed MD This chart was documented by, FIONA Ordonez and accurately reflects the services performed, treatment plan and medical decisions as attested by the providers signature Bobby Syed MD. cc: FIONA Ordonez MD
--- NOTE | 2018-05-09 21:40 | HISTORY AND PHYSICAL ---
ADDENDUM: This is a 47-year-old female with CHF exacerbation and medical noncompliance. I saw the patient [id number] and fully agree with the assessment and plan of nurse practitioner Negar Sawyer. cc: Bobby Syed MD
[2018-05-09] MEDS ORDERED: NITROGLYCERIN SL PRN (22:12)
[2018-05-09] MEDS ORDERED: MIRALAX PO PRN (22:12)
[2018-05-09] MEDS ORDERED: AMBIEN PO PRN (22:12)
[2018-05-09] MEDS: CARAFATE PO SCH (23:11)
[2018-05-10] MEDS: CARAFATE PO SCH ×5 (06:50→22:09)
[2018-05-10] MEDS: PRILOSEC PO SCH (06:51)
[2018-05-10] MEDS: ASPIRIN EC PO SCH (09:27)
[2018-05-10] MEDS: COREG PO SCH ×2 (09:27→21:00)
[2018-05-10] MEDS: LASIX IV SCH ×2 (09:27→20:59)
--- NOTE | 2018-05-10 16:00 | PROGRESS NOTE ---
DATE: 05/10/2018 SUBJECTIVE: Patient denies having any acute complaints. She states that her breathing is somewhat better this morning . OBJECTIVE: Vital Signs: Temperature 97.5 degrees, pulse 115, respiratory rate 20 per minute, blood pressure 130/90, pulse oximetry 100% on 4 L of oxygen by nasal cannula. General: Patient is alert, oriented x3. She does not appear to be in any acute distress. Cardiovascular: First and second heart sounds are audible with regular tachycardia. No murmurs are present. Respiratory: No respiratory distress noted. Bilateral lung air entry slightly decreased but there are no rales or rhonchi present on auscultation. Gastrointestinal: Patient is morbidly obese. Abdomen is soft and nondistended. It is nontender on palpation and normal bowel sounds are present . DIAGNOSTIC DATA: No new labs done. IMPRESSION: 1. Dyspnea secondary to acute on chronic diastolic congestive heart failure. 2. Medical noncompliance. 3. Chronic atrial fibrillation. 4. Chronic obstructive pulmonary disease. 5. Hypertension. 6. Stage 3 chronic kidney disease. 7. Type 2 diabetes mellitus . 8. Hypothyroidism. 9. Morbid obesity. PLAN: Patient be continued on IV furosemide 40 mg twice daily since her condition has improved . Will continue with carvedilol 3.125 mg twice daily along with furosemide 40 mg IV twice daily. I am going to add enoxaparin 40 mg subcutaneously every 24 hours since patient is at risk of having venous thromboembolism. We will continue with rest of her routine medications and I am going to add sliding scale lispro insulin since patient is diabetic. We are going to have repeat chest x-ray along with CBC and BMP tomorrow. Further recommendations will be as per hospital course. cc: Bobby Syed MD [facility]
[2018-05-10] MEDS: HUMALOG DOSE (PARKWAY) SUBQ SCH ×2 (17:40→21:11)
[2018-05-10] MEDS: MORPHINE IV PRN (21:00)
[2018-05-10] MEDS: ZOFRAN IV PRN (21:07)
[2018-05-11] MEDS: CARAFATE PO SCH ×3 (04:22→18:27)
[2018-05-11] MEDS: PRILOSEC PO SCH (06:07)
[2018-05-11] MEDS: HUMALOG DOSE (PARKWAY) SUBQ SCH ×4 (06:08→20:08)
--- NOTE | 2018-05-11 06:26 | Diag Imaging Result Doc PS360 ---
EXAM: CHEST-PORTABLE HISTORY: CHF TECHNIQUE: Chest single view COMPARISON: 05/08/2018 FINDINGS: The heart remains enlarged. Vascular distention persists. There are infiltrates or atelectasis in the left base with a small effusion. The appearance is similar to the prior exam. IMPRESSION: No interval improvement. Electronically signed by Patrick Cárdenas 05/11/2018 6:23 AM
[2018-05-11 07:29] LABS: CALCIUM 9.3 mg/dL (8.8-10.2); CREATININE 1.7 mg/dL (0.5-0.9); POTASSIUM 4.7 mmol/L (3.5-5.1)
[2018-05-11 07:30] LABS: BASO# 0.04 X1000 (0.0-0.2); BASO% 0.7 % (0.0-0.8); EOS# 0.19 X1000 (0.0-0.7); EOS% 3.3 % (0.0-10.0); HEMOGLOBIN 10.6 g/dL (12.0-16.0); IMM GRAN# 0.01 X1000 (0.0-0.04); IMM GRAN% 0.2 % (0.0-0.5); LYMPH# 1.71 X1000 (1.2-3.4); LYMPH% 29.4 % (20.5-51.1); MCH 25.5 PG (27-31); MCHC 27.2 g/dL (33-37); MONO# 0.42 X1000 (0.11-0.59); MONO% 7.2 % (1.7-9.3); MPV 10.8 FL (7.4-10.4); NEUT# 3.44 X1000 (1.4-6.5); NEUT% 59.2 % (42.2-75.2); PLT 199 X1000 (130-400); RBC 4.15 XMIL (4.2-5.4); RDW 16.5 % (11.5-14.5); WBC 5.81 X1000 (4.8-10.8)
--- NOTE | 2018-05-11 08:56 | EKG Report ---
Test Performed on : 05/08/2018 7:45:09 PM Test Reason : CP Blood Pressure : / mmHG Vent. Rate : 077 BPM Atrial Rate : 231 BPM P-R Int : 000 ms QRS Dur : 094 ms QT Int : 422 ms P-R-T Axes : 000 -24 101 degrees QTc Int : 477 ms Atrial flutter. with variable AV block. Nonspecific ST and T wave abnormality Abnormal ECG When compared with ECG of 08-MAY-2018 19:44, (Unconfirmed) No significant change was found Unconfirmed Result
[2018-05-11] MEDS: LASIX IV SCH ×2 (09:21→20:12)
[2018-05-11] MEDS: ASPIRIN EC PO SCH (09:21)
[2018-05-11] MEDS: COREG PO SCH ×2 (09:21→20:12)
[2018-05-11] MEDS: MIRALAX PO SCH ×2 (14:23→20:10)
[2018-05-11] MEDS: LACTULOSE PO SCH ×2 (14:23→20:09)
--- NOTE | 2018-05-11 19:35 | PROGRESS NOTE ---
DATE: 05/11/2018 SUBJECTIVE: The patient has a lot of complaints mostly of abdominal pain. Her breathing is stable, somewhat improved but not drastically so. She got upset and I think called her primary care physician because she felt we were not taking care of her. OBJECTIVE: Blood pressure is 128/91, heart rate of 118, respiratory rate of 20, temperature 97.9 degrees, 98% on 4 L. PROBLEM LIST: 1. Diastolic congestive heart failure acute on chronic. We will continue diuresis. Her creatinine has increased but she has chronic renal failure around stage 3 especially based on her weight. 2. Abdominal pain. She has not had a bowel movement in 4 days so I think we are going to work on constipation. She requested abdominal ultrasound. Discussed about doing a CT but she already knows that she will not be able to get a CT because of her weight. Will start off with an abdominal ultrasound and will see how she does subsequently. 3. Morbid obesity with Pickwickian syndrome. We will continue to follow. Obviously there is going be concern over breathing issues. 4. Disposition pending her clinical status. 5. Diabetes is overall well controlled. Continue to monitor closely. cc: Ousmane Sorenson MD
[2018-05-11 20:03] LABS: ALBUMIN 3.3 g/dL (3.5-5.0); CALCIUM 8.9 mg/dL (8.8-10.2); CREATININE 1.6 mg/dL (0.5-0.9); TOTAL BILIRUBIN 0.3 mg/dL (0.20-1.00); TOTAL PROTEIN 7.8 g/dL (6.3-8.3)
[2018-05-11] MEDS: HEPARIN SUBQ SCH (20:12)
[2018-05-12] MEDS: CARAFATE PO SCH ×4 (00:25→17:31)
[2018-05-12] MEDS ORDERED: PREPARATION H OINT TOP PRN (00:33)
[2018-05-12] MEDS: HUMALOG DOSE (PARKWAY) SUBQ SCH ×2 (06:07→11:17)
[2018-05-12] MEDS ORDERED: PRILOSEC PO SCH (07:00)
[2018-05-12 07:23] LABS: BASO# 0.02 X1000 (0.0-0.2); BASO% 0.3 % (0.0-0.8); EOS# 0.18 X1000 (0.0-0.7); EOS% 2.8 % (0.0-10.0); HEMATOCRIT 36.3 % (37.0-47.0); HEMOGLOBIN 9.9 g/dL (12.0-16.0); LYMPH# 1.53 X1000 (1.2-3.4); MCH 25.4 PG (27-31); MCHC 27.3 g/dL (33-37); MCV 93.3 FL (81-99); MONO# 0.34 X1000 (0.11-0.59); MONO% 5.3 % (1.7-9.3); MPV 11.4 FL (7.4-10.4); NEUT# 4.31 X1000 (1.4-6.5); NEUT% 67.6 % (42.2-75.2); PLT 200 X1000 (130-400); RBC 3.89 XMIL (4.2-5.4); RDW 16.4 % (11.5-14.5); WBC 6.38 X1000 (4.8-10.8)
[2018-05-12] MEDS: ASPIRIN EC PO SCH (08:01)
[2018-05-12] MEDS: CARDIZEM CD PO SCH (08:01)
[2018-05-12] MEDS: LACTULOSE PO SCH ×2 (08:01→22:10)
[2018-05-12] MEDS: MIRALAX PO SCH ×2 (08:02→22:10)
[2018-05-12] MEDS: HEPARIN SUBQ SCH ×2 (08:02→22:10)
[2018-05-12] MEDS: COREG PO SCH ×2 (08:02→22:09)
[2018-05-12] MEDS: LASIX IV SCH ×2 (08:18→19:49)
[2018-05-12] MEDS ORDERED: LASIX PO SCH (09:00)
[2018-05-12 10:57] LABS: CALCIUM 9.2 mg/dL (8.8-10.2); CREATININE 1.5 mg/dL (0.5-0.9); POTASSIUM 4.2 mmol/L (3.5-5.1)
[2018-05-12] MEDS ORDERED: G.I. COCKTAIL PO ONE (13:55)
--- NOTE | 2018-05-12 14:25 | Diag Imaging Result Doc PS360 ---
EXAM: US ABDOMEN-COMPLETE HISTORY: abdominal pain TECHNIQUE: Abdominal ultrasound COMPARISON: None. FINDINGS: Difficult exam due to patient's body habitus. Normal inferior vena cava. No focal hepatic lesion. The liver is prominent measuring over 20 cm and there is fatty infiltration. Common bile duct measures 3 mm. Normal gallbladder. No stones. Normal right kidney. No hydronephrosis. Normal left kidney. No hydronephrosis. Spleen measures 13.5 cm in length. Pancreas and aorta are obscured. IMPRESSION: Hepatosplenomegaly. Electronically signed by Patrick Cárdenas 05/12/2018 2:23 PM
--- NOTE | 2018-05-12 14:28 | PROGRESS NOTE ---
DATE: 05/12/2018 SUBJECTIVE: She is still complaining of epigastric pain which I am not sure is not entirely reflux because it is longitudinal pain in her epigastrium up into her chest but no vomiting. OBJECTIVE: Vital signs: Blood pressure is 127/75, heart rate 118, respiratory rate 20, temperature 97.7, and 100% on 4 L. Cardiovascular: Regular rate and rhythm. Pulmonary: Bilateral breath sounds clear to auscultation. GI: Abdomen is soft, nontender, and nondistended. Bowel sounds are positive. LABORATORY DATA: White count is 6, hemoglobin and hematocrit 10 and 36, and platelets 200. Creatinine is 1.5 despite Lasix. Overall, she is improved. PROBLEM LIST: 1. Acute congestive heart failure exacerbation, diastolic. We will continue diuretics and follow. Her kidney function is stable compared to her relative kidney dysfunction. She is morbidly obese and that is definitely having an impact on her. 2. Abdominal pain. This is a fairly chronic issue with her. She has had a bowel movement. She is describing a symptomatology that is more consistent with gastroesophageal reflux disease. There has been no nausea or vomiting. She is on sucralfate. She is on Prilosec which I will increase to twice a day. Abdominal ultrasound is pending. If that is negative we may need to consider an upper gastrointestinal series and follow closely. 3. Diabetes, appears to be relatively stable. I am not sure if she truly has diabetes. They are checking and she is on sliding scale but I do not think she actually has hyperglycemia. 4. Hypothyroidism, stable. DISPOSITION: Pending her clinical status we will see how she does. cc: Ousmane Sorenson MD
[2018-05-12] MEDS ORDERED: DITROPAN PO ONE (19:29)
--- NOTE | 2018-05-12 19:47 | ED EKG INTERP ---
This chart was entered by Erica Freeman Scribe, acting as scribe for Jose Antonio Rossi MD. EKG Interpretation - EKG Time of EKG reading by physician:: 19:45 EKG Read and Signed by:: Jose Antonio Rossi EKG Interpretation (*Must complete 3 of following elements*): Abnormal (non specific st and t wave abnormailty) Rate: 77 Rhythm: atrial flutter with variable AV block [place]: normal Attestation - Physician/ ROSE Attestation Patient care was provided by Advanced Practice Provider:: Yes Advanced Practice Provider documentation review:: The Mid-level provider documentation, treatment plan and medical decision making was reviewed by the physician who agrees with all treatment and medical decision making by the MLP. The physician spent face to face time with patient:: No Advanced Practice Provider documentation review:: Supervising physician onsite and consulted in the evaluation and care of this patient. The physician did not have a face to face encounter with the patient. This chart was documented by the indicated scribe, (Erica Freeman Scribe) and accurately reflects the services I performed and decisions made by me, Jose Antonio Rossi MD, as attested by the provider's signature.
[2018-05-12] MEDS: PRILOSEC PO SCH (22:10)
[2018-05-13] MEDS: CARAFATE PO SCH ×4 (00:05→20:23)
[2018-05-13] MEDS: TYLENOL PO PRN (00:14)
[2018-05-13] MEDS: DITROPAN PO SCH ×3 (06:00→20:24)
[2018-05-13 07:56] LABS: BASO# 0.04 X1000 (0.0-0.2); BASO% 0.8 % (0.0-0.8); EOS# 0.17 X1000 (0.0-0.7); EOS% 3.4 % (0.0-10.0); IMM GRAN# 0.01 X1000 (0.0-0.04); IMM GRAN% 0.2 % (0.0-0.5); LYMPH# 1.32 X1000 (1.2-3.4); LYMPH% 26.5 % (20.5-51.1); MCH 25.3 PG (27-31); MCV 93.4 FL (81-99); MONO# 0.42 X1000 (0.11-0.59); MONO% 8.4 % (1.7-9.3); MPV 11.3 FL (7.4-10.4); NEUT# 3.02 X1000 (1.4-6.5); NEUT% 60.7 % (42.2-75.2); PLT 216 X1000 (130-400); RBC 3.96 XMIL (4.2-5.4); RDW 16.3 % (11.5-14.5); WBC 4.98 X1000 (4.8-10.8)
[2018-05-13 08:03] LABS: CALCIUM 9.1 mg/dL (8.8-10.2); CREATININE 1.4 mg/dL (0.5-0.9); POTASSIUM 4.1 mmol/L (3.5-5.1)
[2018-05-13] MEDS: LACTULOSE PO SCH ×2 (10:19→19:02)
[2018-05-13] MEDS: ASPIRIN EC PO SCH (10:19)
[2018-05-13] MEDS: LASIX IV SCH (10:19)
[2018-05-13] MEDS: CARDIZEM CD PO SCH (10:19)
[2018-05-13] MEDS: COREG PO SCH ×2 (10:19→20:25)
[2018-05-13] MEDS: MIRALAX PO SCH ×3 (10:20→20:24)
[2018-05-13] MEDS: PRILOSEC PO SCH ×2 (10:20→20:24)
[2018-05-13] MEDS: HEPARIN SUBQ SCH ×2 (10:20→20:24)
--- NOTE | 2018-05-13 15:18 | PROGRESS NOTE ---
DATE: 05/13/2018 SUBJECTIVE: The patient has no major complaints, except for her epigastric discomfort. OBJECTIVE: Blood pressure is 127/82, heart rate of 113, respiratory rate is 22, temperature 97.9, 97% on 4 L.Cardiovascular: Regular rate and rhythm. Pulmonary: Bilateral breath sounds. Clear to auscultation Gastrointestinal: Soft, nontender, nondistended. Bowel sounds are positive. White count 4, hemoglobin and hematocrit 10 and 37, platelets 216,000. Creatinine is 1.4 today. PROBLEM LIST: 1. Acute diastolic CHF. We will continue diuretics and follow. 2. Abdominal discomfort, which frankly I think may be related to chronic GERD and possibly constipation. We will continue current medications and follow. 3. Diabetes, appears to be stable. Continue to see how she does and, again, I do not think she actually has diabetes despite her morbid obesity. 4. Hypothyroidism, is currently stable. We will pursue upper GI series. I am going to switch her to p.o. Lasix and we will continue to monitor. If stable, possibly home in the next 1 to 2 days. cc: Ousmane Sorenson MD
[2018-05-13] MEDS: LASIX PO SCH (20:25)
[2018-05-14] MEDS: CARAFATE PO SCH ×3 (00:07→18:55)
[2018-05-14] MEDS: TYLENOL PO PRN ×2 (05:56→17:08)
[2018-05-14] MEDS: PRILOSEC PO SCH ×2 (06:05→20:13)
[2018-05-14 07:39] LABS: CALCIUM 9.2 mg/dL (8.8-10.2); CREATININE 1.4 mg/dL (0.5-0.9)
[2018-05-14 07:55] LABS: BASO# 0.02 X1000 (0.0-0.2); BASO% 0.4 % (0.0-0.8); EOS# 0.15 X1000 (0.0-0.7); EOS% 2.7 % (0.0-10.0); HEMATOCRIT 38.1 % (37.0-47.0); HEMOGLOBIN 10.4 g/dL (12.0-16.0); IMM GRAN# 0.01 X1000 (0.0-0.04); IMM GRAN% 0.2 % (0.0-0.5); LYMPH# 1.41 X1000 (1.2-3.4); LYMPH% 25.5 % (20.5-51.1); MCH 25.4 PG (27-31); MCHC 27.3 g/dL (33-37); MCV 92.9 FL (81-99); MONO# 0.46 X1000 (0.11-0.59); MONO% 8.3 % (1.7-9.3); MPV 10.9 FL (7.4-10.4); NEUT# 3.47 X1000 (1.4-6.5); NEUT% 62.9 % (42.2-75.2); PLT 215 X1000 (130-400); RDW 16.4 % (11.5-14.5); WBC 5.52 X1000 (4.8-10.8)
[2018-05-14] MEDS: HEPARIN SUBQ SCH ×2 (09:22→20:14)
[2018-05-14] MEDS: CARDIZEM CD PO SCH (09:26)
[2018-05-14] MEDS: LASIX PO SCH ×2 (09:26→20:14)
[2018-05-14] MEDS: DITROPAN PO SCH ×2 (09:27→20:14)
[2018-05-14] MEDS: COREG PO SCH ×2 (09:27→20:14)
[2018-05-14] MEDS: ASPIRIN EC PO SCH (09:27)
[2018-05-14] MEDS: MIRALAX PO SCH ×2 (09:27→20:13)
[2018-05-14] MEDS: LACTULOSE PO SCH ×3 (09:27→18:55)
--- NOTE | 2018-05-14 16:12 | PROGRESS NOTE ---
DATE: 05/14/2018 CHIEF COMPLAINT: The patient is complaining of chest pain. It is a different issue most of the days. OBJECTIVE: Vital Signs: Blood pressure is 126/71, heart rate of 89, respiratory rate of 18, temperature was 97.6 degrees. Cardiovascular: Regular rate and rhythm. Pulmonary: Bilateral breath sounds. Clear to auscultation. Gastrointestinal: Abdomen soft, nontender, nondistended. Bowel sounds were positive. LABORATORY DATA: White count 5.5, 10 and 38, platelets 215,000. Creatinine is 1.4. PROBLEM LIST: 1. Acute diastolic heart failure. She is doing a little better, patient doing okay. 2. Abdominal discomfort. We attempted an upper GI series, but she could not cooperate with standing up for the test. The patient is stable. We will just give her Prilosec and have her follow up with GI. DISPOSITION: I think we will probably let her go home soon in the next 24 hours. She has a lot of chronic complaints, but I do not think they are issues that would necessarily keep her in the hospital, at this point. A lot of her complaints I think are related to her weight, unfortunately, and we will see how she does accordingly. In any case, anticipate discharge tomorrow. cc: Ousmane Sorenson MD
--- NOTE | 2018-05-14 16:30 | EKG Report ---
Test Performed on : 05/14/2018 4:11:25 PM Test Reason : CP Blood Pressure : / mmHG Vent. Rate : 117 BPM Atrial Rate : 117 BPM P-R Int : 178 ms QRS Dur : 104 ms QT Int : 296 ms P-R-T Axes : 027 -33 106 degrees QTc Int : 412 ms Sinus tachycardia. Left axis deviation Nonspecific ST and T wave abnormality Abnormal ECG When compared with ECG of 08-MAY-2018 19:45, (Unconfirmed) Sinus rhythm. has replaced Atrial flutter. Vent. rate has increased BY 40 BPM Confirmed by Darian Valderrama MD ([id number]) on 05/17/2018 9:46:46 AM
[2018-05-14] MEDS ORDERED: NORCO-7.5 PO PRN (18:19)
[2018-05-14] MEDS ORDERED: ORAJEL MAXIMUM ST 20% GEL TOP PRN (18:19)
[2018-05-15] MEDS: CARAFATE PO SCH ×3 (00:36→14:08)
[2018-05-15] MEDS: PRILOSEC PO SCH (06:40)
[2018-05-15] MEDS: HEPARIN SUBQ SCH (09:35)
[2018-05-15] MEDS: DITROPAN PO SCH (09:35)
[2018-05-15] MEDS: MIRALAX PO SCH (09:35)
[2018-05-15] MEDS: LACTULOSE PO SCH ×2 (09:35→14:07)
[2018-05-15] MEDS: COREG PO SCH (09:36)
[2018-05-15] MEDS: LASIX PO SCH (09:36)
[2018-05-15] MEDS: ASPIRIN EC PO SCH (09:37)
[2018-05-15] MEDS: CARDIZEM CD PO SCH (09:37)
[2018-05-15 13:31] VITALS: BP 127/96
--- NOTE | 2018-05-15 18:56 | DISCHARGE SUMMARY ---
ADMISSION DATE: 05/08/2018 DISCHARGE DATE: 05/15/2018 ADDENDUM: The patient was examined and discussed. She looks stable and is breathing comfortably. She is giving herself a bath. Blood pressure is 145/105, heart rate 115, and saturations are 96% on 4 L. I think that is her baseline for her problem list. She is stable. I am going to bump up her Coreg to 6.25 mg b.i.d. and increase her Lasix to 40 mg b.i.d. She is to follow up with Otoniel Gamez MD in one week and [facility], her primary maintenance director. This is a [id number] encounter with FIONA Lopez. cc: Ousmane Sorenson MD
--- NOTE | 2018-05-16 09:41 | DISCHARGE SUMMARY ---
ADMISSION DATE: 05/08/2018 DISCHARGE DATE: 05/15/2018 CONSULTATIONS: None. PERTINENT PROCEDURES: 1. Initial chest x-ray, cardiomegaly, with pulmonary edema. 2. Abdominal ultrasound, hepatosplenomegaly. DISCHARGE DIAGNOSES: 1. Acute diastolic heart failure. The patient has been diuresed with IV Lasix, transitioned to oral. She has had a negative I and O balance. Following a healthy heart diet. Her breathing has improved. She will be discharged back home today with home health to follow up with her primary care physician. 2. Abdominal discomfort. Attempted upper GI series, however, the patient could not cooperate with standing for the test. She was started on a PPI. We will have her follow up with GI on an outpatient basis. 3. Diabetes. Stable. Continue home regimen. 4. Hypothyroidism. Stable. Continue proton pump inhibitor. 5. Chronic atrial fibrillation, rate controlled. 6. Hypertension. 7. Chronic hypercarbic respiratory failure, stable. 8. Chronic obstructive pulmonary disease, on home O2, and nighttime continuous positive airway pressure. 9. Chronic kidney disease, stage 3, stable. 10. Pickwickian syndrome. 11. Hypothyroidism. 12. Morbid obesity. The patient has been educated to be compliant with her diet as well as fluid intake. 13. Diabetes mellitus. HOSPITAL COURSE: Briefly, Ms. Rios is a 47-year-old female, who is well known to our service from multiple admissions for congestive heart failure exacerbation. She reported to the ED with complaints of epigastric pain, increasing shortness of breath, as well as elevated blood pressures over a few days. In the ED chest x-ray showed cardiomegaly with pulmonary edema. She was initiated on IV Lasix. She has been diuresed appropriately and transitioned to oral, she is tolerating. Did attempt to address her abdominal pain, however, she did not tolerate standing for the GI series. She will continue on a PPI. Her Coreg was increased to 6.25 b.i.d. She has had a stable hospital course and will be discharged home today with home health. VITAL SIGNS AT TIME OF DISCHARGE: Temperature is 97.6 degrees, blood pressure is 148/91, O2 is 97% on 4 L nasal cannula. DISCHARGE DIET: Healthy heart. DISCHARGE MEDICATIONS: Aspirin 81 mg p.o. daily. Cardizem CD 180 mg p.o. daily. [place] 10/325, one each p.o. q.8 hours p.r.n. Nitroglycerin 0.4 mg p.o. p.r.n. chest pain. Protonix 40 mg p.o. daily. ClearLax 17 g p.o. p.r.n. constipation. Torsemide 40 mg p.o. b.i.d. Ambien 10 mg p.o. at bedtime. Coreg 6.25 mg p.o. b.i.d. Lasix 40 mg p.o. b.i.d. Synthroid 50 mcg p.o. daily. Carafate 1 g p.o. q.6h. FOLLOW UP: Ms. Rios is being discharged home with home health. She is to follow up with her primary care provider, Dr. Otoniel Gamez, as well as her inspector filter tip, within the month. She has been educated on diet compliance as well as fluid volume intake. We have increased her Coreg to 6.25 b.i.d. She will also need to follow up with GI as an outpatient as she was not able to tolerate upper GI series. She can return to the ED or call 911 for any worsening of symptoms. Dictated by FIONA Lopez for Ousmane Sorenson MD cc: MD Otoniel Estrada MD
== END 2018-05-15 16:08 | disposition home health service (06) | DRG 291 ==
LOC: P.ED 15:32 → P.MEDSURG 15:32 → OBSVTOIN 22:52 → SUATTDRO 22:52 → P.MEDSURG 05-09 19:45
PROVIDERS: ATTEND Internal Medicine
CPT/HCPCS: 51702; 71010; 71045; 76700; 80048; 80053; 81001; 82150; 82550; 82805; 82948; 83605; 83690; 83735; 83880; 84484; 85025; 85610; 85730; 87040; 93005; 93010; 94761; 96374; 96375; 99285; A9270; J1644; J1940; J2270; J2405; XXXXX

== ENCOUNTER 2018-06-17 15:30 | Inpatient (IN) ==
--- NOTE | 2018-06-17 18:29 | PROVIDER DOCUMENTATION ---
HPI-Abdominal Pain/GI Problem - General Chief Complaint: N/V/D Stated Complaint: SOB Time Seen by Provider: 06/17/18 18:29 Source: patient Allergies/Adverse Reactions: Patient Allergies Allergy/AdvReac Type Severity Reaction Status Date / Time cephalexin monohydrate * Allergy Severe SHORTNESS Verified 05/08/18 15:44 [From Keflex] OF BREATH propoxyphene napsylate * Allergy Mild HIVES Verified 05/08/18 15:44 [From Darvocet-N 100] Home Medications: Home Medication List Medication Instructions Recorded Confirmed Last Taken Type Pantoprazole [Protonix] 40 mg PO DAILY@1700 09/01/17 06/17/18 09/01/17 History Diltiazem C.d. [Cardizem Cd] 180 mg PO DAILY 11/05/17 06/17/18 Unknown History Aspirin [Low Dose Aspirin EC] 81 mg pe PO DAILY 12/31/17 06/17/18 Unknown History Zolpidem [Ambien] 10 mg PO HS 12/31/17 06/17/18 Unknown History Sucralfate [Carafate] 1 gm PO Q6H #120 tab 01/03/18 06/17/18 Unknown Rx Carvedilol [Coreg] 6.25 mg PO BID #60 tab 05/15/18 06/17/18 Unknown Rx Furosemide [Lasix] 40 mg PO BID #60 tab 05/15/18 06/17/18 Unknown Rx Hydrocodone/Acetaminophen 1 each PO BID 06/17/18 06/17/18 Unknown History [Hydrocodon-Acetaminophn 10-325] Levothyroxine Sodium [Synthroid] 50 mcg PO DAILY@0700 06/17/18 06/17/18 Unknown History - History of Present Illness-ABD Nature of Presenting Problems: Vomiting non bloody non bilious and non bloody not black diarrhea for 5 days with generalized abdominal pain. In the past 24 hours emesis x3 and diarrhea x4, no known fever, has PMH CHF and still taking Lasix as prescribed during this. Report abdominal hernia. Pt feels bad and speaking softly, difficult to get detailed information. LMP 4 months ago Abdominal Pain Onset Location: reports: generalized abdomen Pain Radiation: reports: no radiation Quality of Pain: reports: aching Timing: reports: still present Activities at Onset: reports: none Modifying Factors: improves with: nothing Review of Systems - Adult - REVIEW OF SYSTEMS - ADULT Constitutional: reports: no symptoms reported, fatique. denies: chills, fever, night sweats Eyes: reports: no symptoms reported. denies: discharge Ears, Nose, Mouth & Throat: reports: no symptoms reported. denies: sinus problem, hoarseness Cardiovascular: reports: no symptoms reported. denies: chest pain Respiratory: reports: no symptoms reported, cough, shortness of breath Gastrointestinal: reports: abdominal pain, diarrhea, nausea, poor appetite, vomiting. denies: hematemesis, constipation, difficulty swallowing, frequent heartburn, rectal bleeding Genitourinary: reports: no symptoms reported Musculoskeletal: reports: no symptoms reported. denies: back pain Integumentary: reports: no symptoms reported. denies: rash Neurological: reports: no symptoms reported. denies: ataxia, dizziness/vertigo, loss of balance, numbness, paresthesia, seizure, syncope, tremors Psychiatric: reports: no symptoms reported Endocrine: reports: no symptoms reported Hematologic/Lymphatic: reports: no symptoms reported Allergic/Immunologic: reports: no symptoms reported All Other Systems: Reviewed and Negative Past History - Adult - PAST MEDICAL HISTORY-ADULT Review of Records: reports: Nursing Assessment Review, Medications Reviewed Major Childhood Illnesses: reports: denies history Cardiovascular: reports: CAD, CHF, HTN, MT Respiratory: reports: asthma, COPD, sleep apnea Gastrointestinal: reports: GERD Obstetrical/Gynecological: reports: denies history Genitourinary: reports: dialysis, kidney disease (previous renal failure, with last dialysis 11/2014 which she was told she was done) Musculoskeletal: reports: denies history Neurological: reports: CVA Psychiatric: reports: anxiety, depression Endocrine/Immune: reports: Diabetes, thyroid disorder Other Conditions: reports: denies history Additional History: frequent ER visits - PRIOR SURGERIES/PROCEDURES Surgical/Procedure History: reports: indwelling device (vas cath), other (trach) - IMMUNIZATION STATUS Childhood Immunizations: See Nurse Assessment Flu Vaccine: See Nurse Assessment - FAMILY HISTORY Family History: reviewed, not pertinent Physical Exam-General - PHYSICAL EXAM-ADULT Initial Vital Signs Reviewed: Yes - CONSTITUTIONAL General Appearance: moderate distress, other (morbidly obese) - EYES Eyes: pink conjunctivae - HEAD, EARS, NOSE, MOUTH & THROAT HENMT: other (very dry mucus membranes, cracked lips) - NECK Neck: supple - RESPIRATORY Respiratory: chest non-tender, no respiratory distress, no accessory muscle use, other (distant breath sounds) - CARDIOVASCULAR Cardiovascular: normal peripheral pulses, regular rate, rhythm, no gallop, other (distant cardiac sounds) - GASTROINTESTINAL (ABDOMEN) Abdominal Exam: abnormal bowel sounds (diminished diffusely), other (generalized tenderness with mild rebound tenderness) - MUSCULOSKELETAL Extremity: non-tender Peripheral Pulses: radial (R): 2+, radial (L): 2+ - SKIN Integumentary: warm/dry - NEUROLOGIC Neurologic: grossly normal, no motor/sensory deficits - PSYCHIATRIC Psych/Mental Status: normal mood/affect, normal thought content, normal thought process, oriented x 3, other (speaking softly, difficult to hear) Progress - PLAN OF CARE/RESULTS Progress/Plan/Lab Results: Vital Signs - 8 hr 06/17/18 15:36 06/17/18 15:46 Temperature 97.6 F Pulse Rate 96 H Respiratory Rate 22 Blood Pressure 144/96 O2 Sat by Pulse Oximetry 96 96 Result Diagrams: 06/18/18 05:16 06/18/18 05:16 - CHANGE OF SHIFT REPORT (ED Provider) 1 Report Given and Care Transferred to:: [facility] Time of Transfer: 19:02 Items Pending: Labs, XRAY Results, Pain Control Departure - Departure Date of Disposition Decision: 06/17/18 Time of Disposition Decision: 22:16 DIAGNOSIS: Vomiting and diarrhea Abdominal pain Qualifiers: Abdominal location: unspecified location Qualified Code(s): R10.9 - Unspecified abdominal pain UTI (urinary tract infection) Qualifiers: Urinary tract infection type: site unspecified Hematuria presence: without hematuria Qualified Code(s): N39.0 - Urinary tract infection, site not specified Disposition: ADMITTED INPATIENT 09 Certified Medical Emergency: Emergent Condition: Stable - Critical Care Note This patient required my direct & personal management of CC.: No Attestation - Physician/ RSOE Attestation Patient care was provided by Advanced Practice Provider:: No The physician spent face to face time with patient:: Yes Advanced Practice Provider documentation review:: Supervising physician onsite and consulted in the evaluation and care of this patient. The physician did have a face to face encounter with the patient.
[2018-06-17] MEDS ORDERED: NS 1,000 ML IV ONE (18:40)
[2018-06-17] MEDS ORDERED: ZOFRAN IV ONE (18:41)
[2018-06-17] MEDS ORDERED: DILAUDID IV ONE (18:41)
[2018-06-17 19:50] LABS: BASO# 0.03 X1000 (0.0-0.2); BASO% 0.4 % (0.0-0.8); EOS# 0.12 X1000 (0.0-0.7); EOS% 1.8 % (0.0-10.0); HEMOGLOBIN 11.3 g/dL (12.0-16.0); IMM GRAN# 0.01 X1000 (0.0-0.04); IMM GRAN% 0.1 % (0.0-0.5); LYMPH# 2.08 X1000 (1.2-3.4); LYMPH% 30.9 % (20.5-51.1); MCH 26.3 PG (27-31); MCV 90.7 FL (81-99); MONO# 0.56 X1000 (0.11-0.59); MONO% 8.3 % (1.7-9.3); MPV 10.8 FL (7.4-10.4); NEUT# 3.94 X1000 (1.4-6.5); NEUT% 58.5 % (42.2-75.2); PLT 253 X1000 (130-400); RDW 18.1 % (11.5-14.5); WBC 6.74 X1000 (4.8-10.8)
[2018-06-17 20:07] LABS: ALBUMIN 3.9 g/dL (3.5-5.0); CALCIUM 8.7 mg/dL (8.8-10.2); CREATININE 1.8 mg/dL (0.5-0.9); POTASSIUM 4.4 mmol/L (3.5-5.1); TOTAL BILIRUBIN 0.4 mg/dL (0.20-1.00); TOTAL PROTEIN 7.8 g/dL (6.3-8.3)
--- NOTE | 2018-06-17 20:12 | Diag Imaging Result Doc PS360 ---
EXAM: CHEST-PORTABLE HISTORY: dyspnea TECHNIQUE: Chest single view COMPARISON: 05/11/2018 FINDINGS: The heart is enlarged. The vessels aren't distended. There are small pleural effusions with basilar atelectasis. IMPRESSION: Cardiomegaly with pulmonary edema and small pleural effusions Electronically signed by Patrick Cárdenas 06/17/2018 8:10 PM
[2018-06-17 20:29] LABS: INFLUENZA A NEGATIVE (NEGATIVE); INFLUENZA B NEGATIVE (NEGATIVE)
[2018-06-17] MEDS ORDERED: LASIX IV ONE (21:03)
[2018-06-17 21:24] LABS: BILIRUBIN URINE NEGATIVE (NEGATIVE); BLOOD URINE NEGATIVE (NEGATIVE); CLARITY CLEAR (CLEAR); COLOR YELLOW; GLUCOSE URINE NEGATIVE (NEGATIVE); KETONE URINE TRACE mg/dL (NEGATIVE); LEUKOCYTES URINE 1+ (NEGATIVE); NITRITE URINE NEGATIVE (NEGATIVE); PROTEIN URINE 2+(100 mg/dL) mg/dL (NEGATIVE); UROBILINOGEN URINE 1 mg/dL
[2018-06-17 21:35] LABS: URINE SOURCE CATH
[2018-06-17 21:36] LABS: URINE BACTERIA 4+ /HFP; URINE CAST NONE SEEN /LPF; URINE CRYSTAL NONE SEEN /HPF; URINE EPITHELIAL CELLS <10 /HPF (<10); URINE RBC <10 /HPF (<10); URINE YEAST NONE SEEN /HPF
[2018-06-17] MEDS ORDERED: ZOFRAN IV PRN (22:10)
[2018-06-17] MEDS ORDERED: LEVAQUIN 750 MG/D5W 750 MG/150 ML IVPB IV ONE (22:15)
[2018-06-17] MEDS ORDERED: LASIX IV SCH (22:15)
[2018-06-18 00:01] LABS: BE 5.1 mmoll (-3.0-3.0); BLOOD TYPE ARTERIAL; HCO3-(ACT) 27.9 mmoll (20.0-26.0); METHB 0.9 % (0.0-1.5); O2(CT) 11.1 mL/dL (15.0-23.0); SAMPLE BLOOD; SAO2 62.3 % (95.0-100.0); THB 13.2 g/dL (11.5-17.4)
[2018-06-18 00:06] LABS: pH(98.6) 7.04 (7.35-7.45)
[2018-06-18 00:07] LABS: ALLEN TEST YES; MODALITY NRB; O2HB 59.8 % (95.0-99.0); PCO2(98.6) 150 mmHg (35-45); PO2(98.6) 41 mmHg (60-100)
[2018-06-18] MEDS ORDERED: LASIX ONE ×3 (00:08→03:47)
[2018-06-18] MEDS ORDERED: AMIDATE ONE (00:41)
[2018-06-18] MEDS ORDERED: VERSED ONE (00:41)
[2018-06-18] MEDS ORDERED: NORCURON ONE (00:42)
[2018-06-18] MEDS ORDERED: QUELICIN ONE (00:43)
[2018-06-18] MEDS ORDERED: STERILE WATER INJ. ONE (00:44)
[2018-06-18] MEDS ORDERED: EPINEPHRINE SYRINGE ONE (01:00)
[2018-06-18 01:03] LABS: BE 4.2 mmoll (-3.0-3.0); BLOOD TYPE ARTERIAL; HCO3-(ACT) 27.9 mmoll (20.0-26.0); METHB 1.2 % (0.0-1.5); PO2(98.6) 64 mmHg (60-100); SAMPLE BLOOD; SAO2 87.8 % (95.0-100.0); SRATE 16 BPM; THB 12.7 g/dL (11.5-17.4)
[2018-06-18 01:06] LABS: PCO2(98.6) 141 mmHg (35-45); pH(98.6) 7.05 (7.35-7.45)
[2018-06-18 01:07] LABS: ALLEN TEST YES; MODALITY BI PAP; O2HB 84.1 % (95.0-99.0)
[2018-06-18] MEDS ORDERED: VERSED 100 MG in NS 80 ML IV SCH (01:30)
[2018-06-18] MEDS ORDERED: LASIX IV ONE (03:40)
[2018-06-18] MEDS: LEVOPHED 8 MG in D5 1/2 NS 250 ML IV SCH ×2 (03:40→07:47)
[2018-06-18] MEDS ORDERED: NS ONE ×2 (03:48)
[2018-06-18] MEDS: DIPRIVAN 1% 1,000 MG/100 ML BOTTLE IV SCH ×8 (05:41→21:58)
--- NOTE | 2018-06-18 05:43 | HISTORY AND PHYSICAL ---
REASON FOR ADMISSION: Acute shortness of breath for about a week. PRIMARY CARE PHYSICIAN: Otoniel Gamez MD HISTORY OF PRESENT ILLNESS: Ms. Vicki Rios is a 47-year-old, morbidly obese woman who is well known to our facility and has been admitted on multiple times for congestive heart failure exacerbation. She also has a history of COPD, coronary artery disease, hypothyroidism, atrial fibrillation and CKD stage 3. She was brought into the ER today because she was profoundly short of breath requiring a 100% nonrebreather. She was sent to the medical floor at [facility] initially and later became unresponsive. She then required intubation and then was transferred to our ICU. On arrival here the patient went into cardiac arrest and was coded for about 15-20 minutes. Since regaining the pulse she is on maximum doses of Levophed. She had to be given 200 mg Lasix. Her x-rays showed that she was in florid pulmonary edema. We have had to suction her airway multiple times to achieve optimal oxygenation. She has now been reinstated on the ventilator for now and her blood pressure is in the 120/90 range. Heart rate is 124. Her O2 saturations are 92% on 100% the ventilator. She is deemed to be afebrile. REVIEW OF SYSTEMS: Could not be obtained for obvious reasons. We tried contacting family to get history updated and what the situation was during the code, but nobody picked up their phones. PAST SURGICAL HISTORY: Based on her old records, her surgical history is that she has a Vas-Cath placement and removal. SOCIAL HISTORY: She lives at home and there is no reported history of alcohol, tobacco or illicit drug use. ALLERGIES: Keflex and propoxyphene. HOME MEDICATIONS: List is yet to be officially reconciled. LAB WORK: The most recent chest film now showed florid pulmonary edema, and this is a poorly penetrated film with possible cardiomegaly. Positive findings include BUN of 34, creatinine of 1.8. White count is 6000, hemoglobin 11, hematocrit 39, platelets 253,000. Her blood gas on 100% nonrebreather was 7.04, pCO2 150, pO2 41, bicarbonate 27. This was on 100% nonrebreather prior to intubation. The post code blood gas is pending at this time. PHYSICAL EXAMINATION: GENERAL: Morbidly obese woman who is on ventilator. She has an ET tube in place with lots of copious frothy bloody secretions requiring multiple suctioning. She is barely responsive and occasionally does flinching. CARDIOVASCULAR: First and second heart sounds heard. No gallops, murmurs or rubs appreciated. She has irregular rhythm. CHEST: The patient has decreased air entry in both lung perry with scattered wheezes. ABDOMEN: Pendulous. It is soft. NEUROLOGICAL: Cannot be fully assessed because the patient is sedated and unresponsive. EXTREMITIES: The patient's pulses are barely palpable and irregular. She has trace edema of her lower extremities. No clubbing noted. ASSESSMENT: 1. Acute on chronic respiratory failure secondary to congestive heart failure exacerbation and chronic obstructive pulmonary disease. 2. Cardiac arrest secondary to #1. 3. Chronic kidney disease stage 3. 4. Morbid obesity compounded by sleep apnea. 5. Coronary artery disease. 6. Atrial fibrillation with rapid ventricular rate. PLAN: The patient is going to continue on mechanical ventilation support. Aggressive diuresis will be needed, and if this fails, she will need to proceed with ultrafiltration with Nephrology. The patient is on pressor support at this time to maintain blood pressure. This will allow us to achieve optimal diuresis or ultrafiltration. DuoNebs will be also instituted. Will consult Cardiology, Pulmonology and Nephrology to see the patient. Lab work will need to be monitored closely. Serial ABGs and chest films will be ordered. DVT and ulcer prophylaxes will also be instituted. CRITICAL CARE TIME: A total of 45 minutes including the code. cc: MD Otoniel Patten MD
[2018-06-18] MEDS ORDERED: DIPRIVAN 1% 1,000 MG/100 ML BOTTLE ONE ×2 (05:44)
--- NOTE | 2018-06-18 06:05 | Diag Imaging Result Doc PS360 ---
EXAM: CHEST-PORTABLE HISTORY: tube placement confirmation TECHNIQUE: Portable chest single view COMPARISON: 06/17/2018 FINDINGS: Suboptimal exam due to patient body habitus. Interval placement of an endotracheal tube. The tip is located approximately 4 cm above the damaris. Cardiomegaly remains. Pulmonary edema persists. There is a small left pleural effusion. IMPRESSION: Endotracheal tube in good position. Electronically signed by Patrick Cárdenas 06/18/2018 6:03 AM
[2018-06-18 06:51] LABS: BASO# 0.01 X1000 (0.0-0.2); BASO% 0.1 % (0.0-0.8); EOS# 0.01 X1000 (0.0-0.7); EOS% 0.1 % (0.0-10.0); HEMATOCRIT 44.1 % (37.0-47.0); HEMOGLOBIN 12.1 g/dL (12.0-16.0); IMM GRAN# 0.05 X1000 (0.0-0.04); IMM GRAN% 0.3 % (0.0-0.5); LYMPH# 0.96 X1000 (1.2-3.4); LYMPH% 6.6 % (20.5-51.1); MCH 25.7 PG (27-31); MCHC 27.4 g/dL (33-37); MCV 93.8 FL (81-99); MONO# 1.02 X1000 (0.11-0.59); MPV 11.2 FL (7.4-10.4); NEUT# 12.59 X1000 (1.4-6.5); NEUT% 85.9 % (42.2-75.2); PLT 291 X1000 (130-400); RDW 18.2 % (11.5-14.5); WBC 14.64 X1000 (4.8-10.8)
[2018-06-18 06:54] LABS: CALCIUM 8.7 mg/dL (8.8-10.2); CREATININE 2.2 mg/dL (0.5-0.9); POTASSIUM 4.5 mmol/L (3.5-5.1)
[2018-06-18 07:02] LABS: ALLEN TEST YES; BLOOD TYPE ARTERIAL; HCO3-(ACT) 25.5 mmoll (20.0-26.0); O2(CT) 15.3 mL/dL (15.0-23.0); PO2(98.6) 58 mmHg (60-100); SAMPLE BLOOD; SAO2 93.6 % (95.0-100.0); SRATE 18 BPM; THB 12.1 g/dL (11.5-17.4); TVOL 600 mL; pH(98.6) 7.23 (7.35-7.45)
[2018-06-18 07:03] LABS: PCO2(98.6) 72 mmHg (35-45)
[2018-06-18 07:04] LABS: MODALITY VENTILATOR; O2HB 89.7 % (95.0-99.0)
[2018-06-18 07:07] LABS: INR 1.22; PROTIME 16.4 Seconds (11.0-16.0)
[2018-06-18] MEDS ORDERED: BROVANA NEB ONE (07:25)
[2018-06-18] MEDS: PROTONIX IV SCH (07:26)
[2018-06-18] MEDS: LOVENOX SUBQ SCH (07:27)
[2018-06-18] MEDS: SODIUM CHLORIDE 0.9% INJ SCH (07:27)
[2018-06-18] MEDS: LASIX 100 MG in NS 90 ML IV SCH ×2 (07:47→15:43)
[2018-06-18] MEDS: BROVANA NEB INH SCH ×3 (08:47→19:46)
[2018-06-18] MEDS: ASPIRIN EC PO SCH (08:55)
[2018-06-18] MEDS: COREG PO SCH ×2 (08:55→22:09)
[2018-06-18] MEDS: CARDIZEM CD PO SCH ×2 (08:55→12:07)
[2018-06-18] MEDS ORDERED: DUONEB (A & A) ONE (09:24)
--- NOTE | 2018-06-18 09:35 | EKG Report ---
Test Performed on : 06/17/2018 7:51:02 PM Test Reason : chest pain Blood Pressure : / mmHG Vent. Rate : 095 BPM Atrial Rate : 091 BPM P-R Int : 000 ms QRS Dur : 106 ms QT Int : 368 ms P-R-T Axes : 000 -41 126 degrees QTc Int : 462 ms Atrial fibrillation. with premature ventricular or aberrantly conducted complexes. Left axis deviation Cannot rule out Anterior infarct , age undetermined T wave abnormality, consider lateral ischemia Abnormal ECG When compared with ECG of 14-MAY-2018 16:11, Atrial fibrillation. has replaced Sinus rhythm. Non-specific change in ST segment in Inferior leads Unconfirmed Result
[2018-06-18] MEDS: DUONEB (A & A) INH SCH ×4 (10:03→19:46)
[2018-06-18] MEDS: ZYVOX 600 MG/D5W 600 MG/300 ML IVPB IV SCH ×2 (10:47→22:00)
[2018-06-18] MEDS: MAXIPIME 1 GM in NS 50 ML IV SCH ×2 (10:47→21:58)
--- NOTE | 2018-06-18 10:52 | PROGRESS NOTE ---
DATE: 06/18/2018 SUBJECTIVE: This morning, Ms. Rios is seen in the ICU. She is currently intubated and sedated on propofol. Per the nursing staff, when she is off the propofol, she is very agitated and moving all over. Briefly, Ms. Rios appears to have reported to [facility] yesterday because of shortness of breath and diarrhea for about 5 days. While in the ER, she was found to be altered and ABGs were done which revealed initial pH of 7.04, pCO2 of 150, a PO2 of 41. Patient was put on BiPAP. Repeat ABGs were done which showed pretty much almost the same pCO2, but the PO2 had slightly improved. She subsequently got intubated and transferred over to [facility]. Over here, I understand she went into cardiac arrest. I do not know the circumstances very well yet, but I understand she was down for about 4 minutes. She got about 2 rounds of epinephrine and the ET tube was readjusted. A lot of suctioning was done and apparently that got her back with ROSC. OBJECTIVE: Vital signs: Currently, her blood pressure is 129/98, pulse is 93, respirations 18, temperature is 97.5 degrees. General: Ms. Rios is a 47-year-old, morbidly obese, female. She is in bed, currently intubated and sedated on propofol. HEENT: Mucosa is pink and moist. Anicteric. Acyanotic. Neck: Supple. Chest: Air entry is bilaterally reduced. There is some expiratory wheezing and rhonchi as well as some transmitted sounds from the ventilator. Cardiovascular: Irregularly irregular but rate controlled. Abdomen: Soft, distended. Bowel sounds are present. Extremities: No pedal edema. Central nervous system: The patient is currently intubated and sedated on propofol. She will, however, withdrawal extremities to painful stimulation. Pupils are equal and they are reactive. LABORATORY DATA: WBC is 14.64, hemoglobin is 12.1, platelet count of 299,000. Chemistry is also reviewed. Sodium is 141, potassium is 4.5, chloride is 100, bicarb is 29, creatinine is up to 2.2. The patient's proBNP is 4438. A chest x-ray which was done early this morning did show small pleural effusions and persistent pulmonary edema. ASSESSMENT AND PLAN: 1. Acute on chronic hypercarbic respiratory failure. The patient failed BiPAP therapy and is currently intubated. Pulmonary Medicine is on board. 2. Acute hypoxemic respiratory failure. We will continue with mechanical ventilation. 3. Status post cardiac arrest. I am still yet to know the circumstances and the initial rhythm. I understand the down time was about 4 minutes. 4. Morbid obesity associated with obstructive sleep apnea and possibly obesity hypoventilation syndrome. 5. History of atrial fibrillation. The patient is with a rate of about 100. We are going to put her on a Cardizem drip. Cardiology has been consulted as well. 6. History of coronary artery disease. 7. Altered mental status, likely due to CO2 narcosis. We will re-evaluate this once patient is off sedation and will also be looking out for possibilities of anoxic brain injury. Today, Ms. Rios continues to be critically sick. We will continue with the ventilatory support. We will do a tracheal aspirate for culture and Gram stain. I will prophylactically start the patient on antibiotics. Venous Doppler ultrasounds have been ordered. We will also do an echocardiogram. cc: Zafar Ma MD
--- NOTE | 2018-06-18 11:16 | Diag Imaging Result Doc PS360 ---
EXAM: CHEST-PORTABLE HISTORY: chf TECHNIQUE: Chest single view COMPARISON: 1:40 AM FINDINGS: Suboptimal exam due to the patient's body habitus. Cardiomegaly and pulmonary edema remain. No change in the endotracheal tube or nasogastric tube. There is likely a small left pleural effusion. IMPRESSION: No definite interval change. Electronically signed by Patrick Cárdenas 06/18/2018 11:13 AM
--- NOTE | 2018-06-18 11:58 | Diag Imaging Result Doc PS360 ---
EXAM: CHEST-PORTABLE HISTORY: ET TUBE PLACEMENT TECHNIQUE: Portable chest COMPARISON: 1:40 AM FINDINGS: Suboptimal exam due to the patient's body habitus and technique. Endotracheal tube is in good position with the tip several centimeters above the damaris. There are dense bilateral infiltrates similar to the prior exam. IMPRESSION: Endotracheal tube in good position. Electronically signed by Patrick Cárdenas 06/18/2018 11:56 AM
[2018-06-18] MEDS ORDERED: NS 250 ML ONE (13:45)
--- NOTE | 2018-06-18 14:37 | Diag Imaging Result Doc PS360 ---
EXAM: CHEST-PORTABLE HISTORY: PICC placement TECHNIQUE: Chest single view COMPARISON: 10:54 AM FINDINGS: Interval placement of a right-sided PICC line. The tip overlies the right atrium. There has been no other interval change. IMPRESSION: Right-sided PICC line in good position. Electronically signed by Patrick Cárdenas 06/18/2018 2:34 PM
[2018-06-18] MEDS: CARDIZEM PO SCH (20:03)
--- NOTE | 2018-06-18 20:29 | Extremity Venous Study ---
PROCEDURE NAME: Venous U/S Bilateral Legs - 06/18/2018 BILATERAL LOWER EXTREMITY VENOUS DUPLEX STUDY: REFERRING PHYSICIAN: Dr. Chambers. READING PHYSICIAN: Dr. Hamilton. MEDICAL PROGRAM SPECIALIST: Sameera. INDICATION: Morbid obesity, respiratory failure. FINDINGS: The bindery technician noted that this was an extremely limited study given the patient's body habitus and inability to Valsalva. The right common femoral vein, superficial femoral vein, greater saphenous vein, deep vein were imaged first. They were compressible and appear patent. The distal superficial femoral vein and popliteal vein were really not well visualized. A signal was noted in the right popliteal vein. The posterior tibial and peroneal veins were too deep to see on the right side. On the left side, the left common femoral vein, superficial femoral, greater saphenous, deep femoral veins were compressible and patent and the distal superficial femoral vein was too deep to see. The popliteal and posterior tibial and peroneal veins were too deep to see on the left. INTERPRETATION: Extremely limited study, but no definite proximal deep vein thromboses identified. cc: MD Melinda Graham MD
--- NOTE | 2018-06-18 22:39 | CONSULTATION ---
DATE OF CONSULTATION: 06/18/2018 REQUESTING PROVIDER: Dr. Richi Tapia. REASON FOR CONSULTATION: Acute on chronic respiratory failure. HISTORY OF PRESENT ILLNESS: This is a 47-year-old female with a medical history of morbid obesity with obesity hypoventilation syndrome, chronic obstructive pulmonary disease, coronary artery disease, congestive heart failure, atrial fibrillation, chronic kidney disease, hypothyroidism, gastroesophageal reflux disease, and anxiety. She presented to the [facility] yesterday afternoon with nausea, vomiting, diarrhea, and shortness of breath for 5 days. In the ER, she initially required a nasal cannula at 4 L. Chest x-ray revealed cardiomegaly with pulmonary edema and small pleural effusions. Lab revealed BUN 34, creatinine 1.8, and proBNP 4438. Later at night her respiratory status kept declining, her ABG showed pH 7.04, pCO2 of 150, PO2 of 41, HCO3 of 27.9, base excess 5.1, and oxyhemoglobin 59.8 on a non- rebreather with FiO2 100%. She was intubated today at 0115. She was transferred to the ICU in our facility at 0320. Soon after arrival, the patient went into cardiac arrest and was coded for about 15 to 20 minutes. She is currently sedated with Diprivan. She is also on Lasix drip and Levophed drip. She is unresponsive to verbal or physical stimuli. There is no family at the bedside. All information is obtained from the E-chart. PAST MEDICAL AND SURGICAL HISTORY: 1. Morbid obesity with obesity hypoventilation syndrome, current BMI 70.9. 2. COPD. 3. Coronary artery disease. 4. Congestive heart failure. 5. Atrial fibrillation. 6. Chronic kidney disease stage 3. 7. Hypothyroidism. 8. Gastroesophageal reflux disease. 9. Anxiety. 10. Left cath placement and removal. SOCIAL HISTORY: She lives at home alone. She has no alcohol, tobacco, or illicit drug use. FAMILY HISTORY: Unknown. ALLERGIES: Keflex and propoxyphene. REVIEW OF SYSTEMS: Unable to be obtained. PHYSICAL EXAMINATION: Vital Signs: Temperature 97.5 degrees, blood pressure 129/98, pulse 93, respiratory rate 18, oxygen saturation 99% on AC mechanical ventilator with spontaneous rate 18, FiO2 70%, tidal volume 600, and PEEP 10.0. General: Morbidly obese, intubated, and sedated. HEENT: Atraumatic. Trachea midline. ET tube in place. Mucosa pink and moist. Respiratory: Lung expansion equal bilaterally. Auscultation reveals coarse and diminished breathing sounds bilaterally. Cardiovascular: Sinus tachycardia with regular rate and rhythm. Gastrointestinal: Bowel sounds normoactive in all 4 quadrants. Soft and obese. Extremities: Trace pedal edema. No cyanosis. No clubbing. Neurologic: Sedated, unresponsive to verbal or physical stimuli. IMAGING DATA: Chest x-ray reveals cardiomegaly, stable pulmonary edema, and a small left pleural effusion. LAB DATA: White blood cell 14.64, hemoglobin 12.1, hematocrit 44.1, platelet 291,000. Sodium 141, potassium 4.5, chloride 100, carbon dioxide 29, BUN 36, creatinine 2.2, and glucose 121. ABG, pH 7.23, pCO2 of 72, PO2 of 58, HCO3 of 25.5, base excess 1.0, and oxyhemoglobin 89.7. ASSESSMENT AND PLAN: This is a 47-year-old female with medical history of morbid obesity with obesity hypoventilation syndrome, chronic obstructive pulmonary disease, coronary artery disease, congestive heart failure, atrial fibrillation, chronic kidney disease, hypothyroidism, gastroesophageal reflux disease, and anxiety. She has been admitted to the ICU with respiratory failure, congestive heart failure exacerbation, and status post cardiac arrest. 1. Acute hypoxemic hypercapnic on chronic hypercapnic respiratory failure. Continue AC mechanical ventilator and consider to start weaning trials when appropriate. Follow up with ABG, chest x-ray, CBC, and BMP. 2. Congestive heart failure exacerbation. Continue diuretic. Follow up with BMP for kidney function and proBNP. 3. Status post cardiac arrest, aware. 4. Morbid obesity with obesity hypoventilation syndrome and likely obstructive sleep apnea. Aware. 5. Urinary tract infection. She is already on linezolid and cefepime. 6. Shock. Continue pressor. 7. Continue gastrointestinal and deep venous thrombosis prophylaxis. 8. Further recommendations pending hospital course. Thank you for the courtesy of this consult. Dictated by FIONA Montalvo for Melinda Chambers MD cc: FIONA Montalvo MD [facility]
[2018-06-19] MEDS: DIPRIVAN 1% 1,000 MG/100 ML BOTTLE IV SCH ×4 (00:46→09:07)
[2018-06-19] MEDS: LASIX 100 MG in NS 90 ML IV SCH (01:44)
[2018-06-19] MEDS: CARDIZEM PO SCH ×4 (02:58→20:47)
[2018-06-19] MEDS: DUONEB (A & A) INH SCH ×4 (03:07→21:23)
[2018-06-19 04:25] LABS: ALLEN TEST YES; BE 8.3 mmoll (-3.0-3.0); BLOOD TYPE ARTERIAL; HCO3-(ACT) 31.4 mmoll (20.0-26.0); METHB 0.7 % (0.0-1.5); O2(CT) 15.5 mL/dL (15.0-23.0); O2HB 97.3 % (95.0-99.0); PCO2(98.6) 44 mmHg (35-45); PO2(98.6) 154 mmHg (60-100); SAMPLE BLOOD; SAO2 99.6 % (95.0-100.0); SRATE 18 BPM; THB 11.1 g/dL (11.5-17.4); TVOL 500 mL; pH(98.6) 7.48 (7.35-7.45)
[2018-06-19 04:26] LABS: MODALITY VENTILATOR
[2018-06-19 04:33] LABS: BASO# 0.01 X1000 (0.0-0.2); BASO% 0.1 % (0.0-0.8); EOS# 0.01 X1000 (0.0-0.7); EOS% 0.1 % (0.0-10.0); IMM GRAN# 0.02 X1000 (0.0-0.04); IMM GRAN% 0.2 % (0.0-0.5); LYMPH% 10.7 % (20.5-51.1); MCHC 29.7 g/dL (33-37); MCV 87.5 FL (81-99); MONO# 0.82 X1000 (0.11-0.59); MPV 10.5 FL (7.4-10.4); NEUT% 80.9 % (42.2-75.2); PLT 204 X1000 (130-400); RBC 4.23 XMIL (4.2-5.4); RDW 17.7 % (11.5-14.5); WBC 10.26 X1000 (4.8-10.8)
[2018-06-19 04:52] LABS: CALCIUM 8.9 mg/dL (8.8-10.2); CREATININE 2.1 mg/dL (0.5-0.9); MAGNESIUM 1.9 mg/dL (1.5-2.7); POTASSIUM 3.8 mmol/L (3.5-5.1)
[2018-06-19] MEDS: LEVOPHED 8 MG in D5 1/2 NS 250 ML IV SCH (05:16)
[2018-06-19] MEDS: PROTONIX IV SCH (05:26)
[2018-06-19] MEDS: LOVENOX SUBQ SCH (05:26)
--- NOTE | 2018-06-19 06:51 | Diag Imaging Result Doc PS360 ---
EXAM: CHEST-PORTABLE HISTORY: CHF TECHNIQUE: Portable chest single view COMPARISON: 06/18/2018 FINDINGS: Suboptimal exam due to the patient's body habitus. Endotracheal and nasogastric tubes are in good position. Heart remains enlarged. Pulmonary edema persists. No pleural effusions identified. There is a right-sided PICC line. IMPRESSION: No interval improvement. Electronically signed by Patrick Cárdenas 06/19/2018 6:48 AM
[2018-06-19] MEDS ORDERED: LANOXIN PO ONE (08:33)
[2018-06-19] MEDS: ASPIRIN EC PO SCH (09:06)
[2018-06-19] MEDS: LASIX IV SCH ×2 (09:06→20:46)
--- NOTE | 2018-06-19 09:17 | PROGRESS NOTE ---
DATE: 06/19/2018 SUBJECTIVE: This morning, Ms. Rios continues to be fairly the same. She is intubated and she is in the ICU. There is no family member at the bedside at the time of the encounter. I have been told that Ms. Rios's blood pressure went down yesterday and needed to be started back on Levophed. Her saturation also had gone down to about 88 so they bumped up her FiO2 to 50%. OBJECTIVELY: Current vital signs: Blood pressure is 104/73, pulse is 117, respiration is 18, temperature is 97.7 degrees. General: Ms. Rios is a 47-year-old female, morbidly obese, BMI 70.9. She is in bed, currently intubated and sedated on propofol. HEENT: Mucosa is pink and moist. Anicteric. Acyanotic. Neck: Supple. Respiratory: Air entry is bilaterally reduced. There are some transmitted sounds from the ventilator. Cardiovascular: Irregularly irregular, varies between 122 to 100. Abdomen: Soft, is distended. Bowel sounds present. Extremities: No pedal edema. Central nervous system: Patient is currently under sedation but she would move her extremities to painful stimulation. Pupils are equal and they are reactive. INTAKE AND OUTPUT: Urine output was 2540. The patient is currently negative balance of -591. Venous study done yesterday was limited, but there was no definite DVT noted. LABORATORY DATA: This morning, WBC is 10.26, hemoglobin is 11.0, platelet count of 204,000. pH is 7.48, pCO2 of 44, PaO2 was 154. This was on AC mode at a rate of 18, FiO2 of 50, tidal volume of 500 and a PEEP of 5. Chemistry is also reviewed, unremarkable except for creatinine of 2.1. DIAGNOSTIC STUDIES: A chest x-ray this morning shows no interval improvement but persistence of pulmonary edema. ASSESSMENT: 1. Acute on chronic hypercarbic respiratory failure that failed BiPAP therapy. Patient was subsequently intubated. 2. Acute hypoxemic respiratory failure. 3. Status post cardiac arrest. Down time is about 4 minutes. Per the code sheet, it appears the patient just desaturated, was unable to obtain blood pressure, PEA on monitor, so there was some cardiac activity but no pulse. The type of activity, however, was not documented. It sounded more of respiratory arrest. 4. Morbid obesity with obstructive sleep apnea and obesity hypoventilation syndrome. 5. Chronic atrial fibrillation. The patient is on p.o. medications. Cardiology is on board. 6. History of coronary artery disease. 7. Altered mental status on presentation secondary to CO2 narcosis, improved. 8. Pulmonary edema, likely due to congestive heart failure, presumably with preserved ejection fraction. We are going to repeat an echocardiogram. 9. Acute on chronic kidney failure. Creatinine is 2.1 today. We are going to continue monitoring and also try to avoid any nephrotoxin drugs. 10. Hypotension. Not very clear the cause of this. The patient does not seem to be septic, so I presume it is probably cardiac related. We will try and control the heart rate and also get an echocardiogram to check on the EF. cc: Zafar Ma MD MTDD
[2018-06-19] MEDS: COREG PO SCH ×2 (09:20→20:47)
--- NOTE | 2018-06-19 09:28 | Diag Imaging Result Doc PS360 ---
EXAM: CHEST-1 VIEW HISTORY: SOB TECHNIQUE: Single view COMPARISON: 5:19 AM FINDINGS: Endotracheal and nasogastric tubes are in good position. Right-sided PICC line in good position. Cardiomegaly remains. Pulmonary edema persists although it may be slightly less prominent. There is a small right pleural effusion. IMPRESSION: Slight interval improvement. Electronically signed by Patrick Cárdenas 06/19/2018 9:26 AM
[2018-06-19] MEDS: SOLU-MEDROL IV SCH ×3 (10:09→20:47)
[2018-06-19] MEDS: MAXIPIME 1 GM in NS 50 ML IV SCH (10:09)
[2018-06-19] MEDS: ZYVOX 600 MG/D5W 600 MG/300 ML IVPB IV SCH ×2 (10:51→23:29)
[2018-06-19] MEDS ORDERED: BROVANA NEB ONE (11:00)
[2018-06-19] MEDS: ATIVAN 20 MG in NS 190 ML IV SCH ×2 (11:11→18:32)
[2018-06-19] MEDS: BROVANA NEB INH SCH ×2 (11:37→21:23)
[2018-06-19] MEDS: MERREM 500 MG in NS 50 ML IV SCH ×2 (15:58→22:47)
[2018-06-20] MEDS: CARDIZEM PO SCH ×4 (02:37→20:17)
[2018-06-20] MEDS: SOLU-MEDROL IV SCH ×4 (02:39→22:07)
[2018-06-20] MEDS: ATIVAN 20 MG in NS 190 ML IV SCH ×5 (02:54→23:41)
[2018-06-20] MEDS: DUONEB (A & A) INH SCH ×4 (03:39→21:10)
[2018-06-20 04:46] LABS: ALLEN TEST YES; BE 11.3 mmoll (-3.0-3.0); BLOOD TYPE ARTERIAL; HCO3-(ACT) 33.7 mmoll (20.0-26.0); METHB 1.3 % (0.0-1.5); O2(CT) 12.6 mL/dL (15.0-23.0); O2HB 91.9 % (95.0-99.0); PO2(98.6) 63 mmHg (60-100); SAMPLE BLOOD; SAO2 94.9 % (95.0-100.0); SRATE 18 BPM; THB 9.7 g/dL (11.5-17.4); TVOL 500 mL; pH(98.6) 7.45 (7.35-7.45)
[2018-06-20 04:47] LABS: MODALITY VENTILATOR
[2018-06-20 04:48] LABS: PCO2(98.6) 53 mmHg (35-45)
[2018-06-20 04:53] LABS: HEMATOCRIT 35.2 % (37.0-47.0); HEMOGLOBIN 10.4 g/dL (12.0-16.0); LYMPH# 0.52 X1000 (1.2-3.4); LYMPH% 6.7 % (20.5-51.1); MCH 25.6 PG (27-31); MCHC 29.5 g/dL (33-37); MCV 86.7 FL (81-99); MONO# 0.17 X1000 (0.11-0.59); MONO% 2.2 % (1.7-9.3); MPV 10.8 FL (7.4-10.4); NEUT# 7.06 X1000 (1.4-6.5); NEUT% 91.1 % (42.2-75.2); PLT 211 X1000 (130-400); RBC 4.06 XMIL (4.2-5.4); RDW 17.8 % (11.5-14.5); WBC 7.75 X1000 (4.8-10.8)
[2018-06-20 05:13] LABS: CALCIUM 8.6 mg/dL (8.8-10.2); MAGNESIUM 1.7 mg/dL (1.5-2.7); PHOSPHORUS 3.3 mg/dL (2.7-4.5); POTASSIUM 3.1 mmol/L (3.5-5.1); PREALBUMIN 8.9 mg/dL (20-40)
[2018-06-20] MEDS: SODIUM CHLORIDE 0.9% INJ SCH (06:34)
[2018-06-20] MEDS: PROTONIX IV SCH (06:34)
[2018-06-20] MEDS: LOVENOX SUBQ SCH (06:34)
[2018-06-20] MEDS: MERREM 500 MG in NS 50 ML IV SCH ×4 (07:01→23:52)
--- NOTE | 2018-06-20 07:19 | Diag Imaging Result Doc PS360 ---
EXAM: CHEST-1 VIEW 06/20/2018 HISTORY: SOB TECHNIQUE: AP portable at 0526 COMMENT: There is an endotracheal tube with its tip at thoracic inlet. There is an NG tube which passes below the diaphragm. There is a PICC line on the right with its tip in the right atrium. The heart size is enlarged. Compared to 06/19/2018 there has been some clearing of the right base. There is still hazy opacity throughout both lungs however. IMPRESSION: Improved atelectasis right lower lobe. Pulmonary edema and cardiomegaly. Electronically signed by George Gentile 06/20/2018 7:17 AM
[2018-06-20] MEDS ORDERED: ALBUTEROL NEB ONE (07:27)
[2018-06-20] MEDS ORDERED: BROVANA NEB ONE (07:29)
[2018-06-20] MEDS: BROVANA NEB INH SCH ×2 (07:55→21:10)
[2018-06-20] MEDS: ASPIRIN EC PO SCH (08:35)
[2018-06-20] MEDS: LASIX IV SCH ×2 (08:35→20:18)
[2018-06-20] MEDS ORDERED: MAGNESIUM SULFATE 2 GM/S.W.I. 2 GM/50 ML IVPB IV ONE (08:38)
[2018-06-20] MEDS: COREG PO SCH ×2 (08:45→20:18)
[2018-06-20] MEDS: POTASSIUM CHLORIDE 20 MEQ/SWI 20 MEQ/100 ML IVPB IV SCH ×2 (09:07→10:21)
--- NOTE | 2018-06-20 09:35 | PROGRESS NOTE ---
DATE: 06/20/2018 SUBJECTIVE: This morning Ms. Rios continues to be fairly stable. She is still in the ICU and intubated. No changes overnight and no acute complaints except that the patient's FiO2 was bumped up to 60% late yesterday evening. OBJECTIVE: Vital signs: Blood pressure is 103/78, pulse 83 respiration is 19, temperature 97.6 degrees. Patient is saturating about 94% on mechanical ventilation. General: Ms. Rios is a 47- year-old morbidly obese, female. She is in bed, currently intubated and sedated on propofol. HEENT: Mucosa is pink and moist. Anicteric. Acyanotic. Neck: Supple. Chest: Air entry is bilaterally reduced but no crepitations. No rhonchi. Cardiovascular: Irregularly irregular but rate is controlled. Abdomen: Soft, distended. Bowel sounds are hypoactive. Extremities: No pedal edema. REGIONAL TRAINER: Patient is currently under sedation. Will move extremities to painful stimulation and will actively also move upper extremities. The patient's I's and O's: Urine output is 3575. Patient is currently negative balance of 2159. LABORATORY DATA: WBC is 7.75, hemoglobin is 10.4, platelet count of 221,000. Chemistry is also reviewed. Potassium is 3.1. Creatinine is 2.0. Prealbumin is 8.9. Rest of chemistry is unremarkable. So far blood culture has been 48 hours negative. Urine shows Klebsiella pneumoniae which is ESBL. Sputum is negative. DIAGNOSTIC STUDIES: A chest x-ray this morning shows improved atelectasis right lower lobe. There is pulmonary edema and cardiomegaly. ASSESSMENT: 1. Acute on chronic hypercarbic respiratory failure. The patient failed BiPAP therapy, is currently intubated. 2. Acute hypoxemic respiratory failure, improved. The patient continues to be on mechanical ventilation. FiO2 is 60. 3. Status post cardiopulmonary arrest. Down time was about 4 minutes. Documentation reveals initial rhythm was PEA. It stated that the ET tube was readjust; pull up a few centimeters and patient improved. 4. Morbid obesity with obstructive sleep apnea and obesity hypoventilation syndrome, noted. 5. Chronic atrial fibrillation currently rate controlled. We will continue with the patient's rate control medications. 6. History of coronary artery disease. 7. Altered mental status on presentation secondary to CO2 narcosis. 8. Congestive heart failure with preserved ejection fraction. 9. Acute on chronic kidney failure. Creatinine is down to 2.2 0.0. 10. Hypotension improved. 11. Protein calorie malnutrition with prealbumin of 8.9. Patient is on tube feedings and dietitian is on board. cc: Zafar Ma MD MTDD
[2018-06-20] MEDS: ZYVOX 600 MG/D5W 600 MG/300 ML IVPB IV SCH ×2 (10:21→22:07)
--- NOTE | 2018-06-20 17:54 | ECHO REPORT ---
ORDER DATE: 06/19/2018 INTERPRETING PHYSICIAN: Pavel Reinoso MD ECHOCARDIOGRAPHIC MEASUREMENTS: Interventricular septum 1.3 cm. Left ventricular posterior wall 1.4 cm. Diastolic diameter 4.9 cm. Left atrium 3.4 cm. Aortic root 2.8 cm. SUMMARY OF TWO-DIMENSIONAL IMAGING: Aortic valve leaflets are trileaflet. Pulmonic valve was normal. Tricuspid valve was normal. Technically suboptimal study. Poor acoustic window. Ultrasound was used to assess left ventricular systolic function. Normal left ventricular cavity size. There is concentric left ventricular hypertrophy. Estimated ejection fraction of 45% to 50%. There is mild global hypokinesis. By Doppler studies there is no aortic stenosis or regurgitation. There is mild mitral regurgitation. Mild to moderate tricuspid regurgitation. Peak velocity across the tricuspid valve was 3.7 m/sec. Pulmonary artery systolic pressure of 55 mmHg. Inferior vena cava was dilated, greater than 2.5 cm. Technically suboptimal study. Very poor acoustic window. There is no pericardial effusion. cc: MD Zafar Herrera MD
[2018-06-21] MEDS: CARDIZEM PO SCH ×4 (03:31→19:59)
[2018-06-21] MEDS: SOLU-MEDROL IV SCH ×4 (03:31→20:06)
[2018-06-21] MEDS: DUONEB (A & A) INH SCH ×4 (03:40→21:00)
[2018-06-21 04:58] LABS: HEMATOCRIT 35.2 % (37.0-47.0); HEMOGLOBIN 10.6 g/dL (12.0-16.0); LYMPH# 0.47 X1000 (1.2-3.4); LYMPH% 5.7 % (20.5-51.1); MCH 25.9 PG (27-31); MCHC 30.1 g/dL (33-37); MCV 85.9 FL (81-99); MONO# 0.29 X1000 (0.11-0.59); MONO% 3.5 % (1.7-9.3); NEUT# 7.49 X1000 (1.4-6.5); NEUT% 90.8 % (42.2-75.2); PLT 218 X1000 (130-400); RDW 17.6 % (11.5-14.5); WBC 8.25 X1000 (4.8-10.8)
[2018-06-21 05:17] LABS: ALLEN TEST YES; BE 12.7 mmoll (-3.0-3.0); BLOOD TYPE ARTERIAL; HCO3-(ACT) 34.7 mmoll (20.0-26.0); METHB 1.3 % (0.0-1.5); O2(CT) 13.8 mL/dL (15.0-23.0); PCO2(98.6) 48 mmHg (35-45); PO2(98.6) 59 mmHg (60-100); SAMPLE BLOOD; SAO2 92.9 % (95.0-100.0); SRATE 18 BPM; THB 10.9 g/dL (11.5-17.4); TVOL 500 mL
[2018-06-21 05:20] LABS: MODALITY VENTILATOR
[2018-06-21 05:24] LABS: CALCIUM 8.3 mg/dL (8.8-10.2); CREATININE 1.8 mg/dL (0.5-0.9); POTASSIUM 3.1 mmol/L (3.5-5.1)
[2018-06-21] MEDS: PROTONIX IV SCH (05:34)
[2018-06-21] MEDS: LOVENOX SUBQ SCH (05:35)
[2018-06-21 05:37] LABS: PHOSPHORUS 2.5 mg/dL (2.7-4.5)
[2018-06-21] MEDS: ATIVAN 20 MG in NS 190 ML IV SCH ×5 (05:44→21:57)
--- NOTE | 2018-06-21 07:14 | Diag Imaging Result Doc PS360 ---
EXAM: CHEST-1 VIEW 06/21/2018 HISTORY: SOB TECHNIQUE: AP portable at 0533 COMMENT: There is an endotracheal tube with its tip at thoracic inlet and an NG tube with its tip below the diaphragm. There is alveolar and interstitial pulmonary edema. Compared to 06/20/2018 there is more focal opacity in the mid left lung field. This may be due to atelectasis. IMPRESSION: Cardiomegaly and pulmonary edema. Lingular atelectasis. Electronically signed by George Gentile 06/21/2018 7:12 AM
[2018-06-21] MEDS: LASIX IV SCH ×2 (08:00→20:06)
[2018-06-21] MEDS: ASPIRIN EC PO SCH (08:01)
[2018-06-21] MEDS: MERREM 500 MG in NS 50 ML IV SCH ×2 (08:01→15:31)
[2018-06-21] MEDS: COREG PO SCH ×2 (08:02→20:06)
[2018-06-21] MEDS ORDERED: POTASSIUM PHOSPHATE 30 MEQ in NS 250 ML IV ONE (08:05)
[2018-06-21] MEDS: ZYVOX 600 MG/D5W 600 MG/300 ML IVPB IV SCH (10:04)
--- NOTE | 2018-06-21 10:16 | PROGRESS NOTE ---
DATE: 06/21/2018 SUBJECTIVE: This morning, Ms. Rios continues to be intubated and sedated on Ativan. OBJECTIVE: Vital Signs: Blood pressure is 103/67, pulse 84, respiratory rate is 16, temperature is 97.8 degrees. General Examination: Ms. Rois is a 47-year-old, female, morbidly obese with a BMI of 62.2. She is currently on the ventilator, seems to be synchronizing well. Respiratory System: Good air entry bilaterally. Some transmitted sounds from the ventilator but no wheezing, no rhonchi. Cardiovascular: Irregularly irregular but rate controlled. No murmurs, no rubs, no gallops. GI: Abdomen is soft, distended, slightly hypoactive. Extremities: No pedal edema. 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 Will move all extremities upon stimulation. Is and Os: Urine output was 2575. The patient is tolerating her tube feeding. She is currently negative balance of 1739 during the hospital stay. Laboratory Data: WBC is 8.25, hemoglobin is 10.6, platelet count of 218,000. The pH has been reviewed. Patient is currently on FiO2 of 40% with a tidal volume of 500, a PEEP of 5. Chemistry has been reviewed. Potassium is 3.1, creatinine is down to 1.8. ASSESSMENT: 1. Acute on chronic hypercarbic respiratory failure. The patient did fail BiPAP therapy and was subsequently intubated. 2. Acute hypoxemic respiratory failure, currently under mechanical ventilation. 3. Status post cardiopulmonary arrest. Down time, I understand, was about 4 minutes. Documentation revealed a pulseless electrical activity. It is also stated that the patient had to have her endotracheal tube readjusted. 4. Morbid obesity with obstructive sleep apnea and obesity hypoventilation syndrome. 5. Chronic atrial fibrillation, currently rate controlled. We will continue with her medications. 6. History of coronary artery disease. 7. Altered mental status on presentation secondary to CO2 narcosis. 8. Congestive heart failure with preserved ejection fraction. Continues to be on diuretic therapy. 9. Hypotension on presentation, resolved. 10. Protein calorie malnutrition with prealbumin of 8.9. Patient is on tube feedings. Seems to be tolerating this well. 11. Constipation. The patient has not had any bowel movement at least documented so we will start her on some bowel regimen. 12. Mild hypokalemia and hypophosphatemia. We will replace these. PLAN: Ms. Rios is a 47-year-old, female who initially presented to [facility]. I understand she was found to have altered mental status which got worse, associated with some shortness of breath and patient ended up having to be intubated at [place]. Was brought to [facility] for a higher level of care. Upon arrival to the ICU, she coded, which it looks like it was more of a respiratory arrest than cardiac. At any point, down time was about 4 minutes and since then, Ms. Rios has been in the ICU. She is day 3 on mechanical ventilation. She seems to be fairly stable. We are going to continue to follow up with further recommendations from pulmonary medicine. The patient is being seen by pulmonary medicine. cc: Zafar Ma MD MTDD
[2018-06-21] MEDS: BROVANA NEB INH SCH ×2 (10:55→21:00)
[2018-06-22] MEDS: MERREM 500 MG in NS 50 ML IV SCH ×4 (00:42→23:00)
[2018-06-22] MEDS: ATIVAN 20 MG in NS 190 ML IV SCH ×9 (00:42→23:28)
[2018-06-22] MEDS: DUONEB (A & A) INH SCH ×4 (03:02→18:59)
[2018-06-22] MEDS: CARDIZEM PO SCH ×4 (03:13→20:21)
[2018-06-22] MEDS: SOLU-MEDROL IV SCH ×4 (03:13→20:20)
[2018-06-22 04:53] LABS: ALLEN TEST YES; BE 12.1 mmoll (-3.0-3.0); BLOOD TYPE ARTERIAL; HCO3-(ACT) 34.3 mmoll (20.0-26.0); METHB 1.3 % (0.0-1.5); O2(CT) 14.5 mL/dL (15.0-23.0); O2HB 92.7 % (95.0-99.0); PCO2(98.6) 50 mmHg (35-45); PO2(98.6) 68 mmHg (60-100); SAMPLE BLOOD; SAO2 95.8 % (95.0-100.0); SRATE 18 BPM; THB 11.1 g/dL (11.5-17.4); TVOL 500 mL; pH(98.6) 7.48 (7.35-7.45)
[2018-06-22 04:55] LABS: MODALITY VENTILATOR
[2018-06-22] MEDS: LOVENOX SUBQ SCH (05:54)
[2018-06-22] MEDS: PROTONIX IV SCH (05:54)
[2018-06-22 06:05] LABS: HEMATOCRIT 36.4 % (37.0-47.0); HEMOGLOBIN 10.8 g/dL (12.0-16.0); IMM GRAN# 0.02 X1000 (0.0-0.04); IMM GRAN% 0.3 % (0.0-0.5); LYMPH# 0.34 X1000 (1.2-3.4); LYMPH% 5.2 % (20.5-51.1); MCHC 29.7 g/dL (33-37); MCV 87.7 FL (81-99); MONO# 0.22 X1000 (0.11-0.59); MONO% 3.4 % (1.7-9.3); NEUT# 5.93 X1000 (1.4-6.5); NEUT% 91.1 % (42.2-75.2); PLT 214 X1000 (130-400); RBC 4.15 XMIL (4.2-5.4); RDW 17.6 % (11.5-14.5); WBC 6.51 X1000 (4.8-10.8)
[2018-06-22 06:35] LABS: CALCIUM 8.6 mg/dL (8.8-10.2); CREATININE 1.8 mg/dL (0.5-0.9); POTASSIUM 3.4 mmol/L (3.5-5.1)
--- NOTE | 2018-06-22 07:35 | Diag Imaging Result Doc PS360 ---
EXAM: CHEST-1 VIEW INDICATION: SOB TECHNIQUE: One view COMPARISON: 06/21/2018 FINDINGS: Support tubes and lines are in stable positions. Pulmonary edema is essentially stable. No new consolidation is identified. Cardiac silhouette is stable. IMPRESSION: Essentially stable chest. Electronically signed by Jann Mcknight 06/22/2018 7:33 AM
[2018-06-22] MEDS: BROVANA NEB INH SCH ×2 (07:45→18:59)
[2018-06-22] MEDS: COREG PO SCH ×2 (08:10→20:21)
[2018-06-22] MEDS: ASPIRIN EC PO SCH (08:11)
[2018-06-22 08:37] LABS: LYMPHS 6 % (21-51); MONO 4 % (1-9); SEGS 90 % (42-75)
--- NOTE | 2018-06-22 09:36 | PROGRESS NOTE ---
DATE: 06/22/2018 SUBJECTIVE: This morning, Ms. Rios continues to be in the ICU, intubated. No changes overnight. Per the nursing staff, she is stable. OBJECTIVE: Vital Signs: Blood pressure is 133/79, pulse is 102, respirations are 22, temperature is 97.6 degrees, the patient was saturating about 86 to low 90s on mechanical ventilation. General: Ms. Rios is a 47-year-old, morbidly obese, female. She has a BMI of 62.2. She is intubated and sedated on Ativan. HEENT: Mucosa is pink and moist. Anicteric. Acyanotic. Neck: Supple. No JVD. Respiratory: There is good air entry bilaterally. No crepitations. No rhonchi. There are some transmitted sounds from the ventilator. Cardiovascular: Irregularly irregular, but rate controlled. There are no murmurs, no rubs, no gallops. GI: Abdomen is soft, distended, but nontender. Bowel sounds are present, but hypoactive. Extremities: No pedal edema. 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 I's and O's: Urine output was 2950. The patient has negative balance of 849 during the hospital course. Bowel movement, one has been documented today. LABORATORY DATA: WBC 6.51, hemoglobin is 10.8, platelet count of 218,000. Chemistry is also reviewed. Sodium is 148, potassium is 3.4, chloride is 102, bicarb is 32, BUN is 51, creatinine is 1.8, just like yesterday. MICROBIOLOGY DATA: Blood cultures have been negative for 48 hours. Urine culture is positive for Klebsiella pneumonia, which is positive for ESBL. Sputum culture is no growth. CURRENT MEDICATIONS: Include: 1. Aspirin 81 mg daily. 2. Coreg 6.25 b.i.d. 3. Cardizem 30 mg every 6 hours. 4. Lovenox 40 subcutaneously every 24 hours. 5. Zyvox 600 every 12 hours. 6. Ativan drip. 7. Meropenem 500 every 8 hours. 8. Methylprednisolone 40 mg IV every 6 hours. 9. Protonix 40 mg IV every 12 hours. 10. Lasix has been discontinued this morning. ASSESSMENT: 1. Acute on chronic hypercarbic respiratory failure. The patient failed bilevel positive airway pressure therapy at [place], was subsequently intubated. She is currently day 4 on mechanical ventilation. Pulmonary Medicine is on board. 2. Acute hypoxemic respiratory failure. Will continue with mechanical ventilation. The patient's saturations continue to be low today. Will be waiting on Pulmonary Medicine for readjustment on the parameters. 3. Status post cardiopulmonary arrest. Down time is said to be about 4 minutes with pulseless electrical activity. 4. Morbid obesity with obstructive sleep apnea and obesity hypoventilation syndrome. 5. Chronic atrial fibrillation. Currently rate controlled. The patient is on Coreg and Cardizem. Cardiology is on board. 6. History of coronary artery disease, stable. 7. Altered mental status on presentation secondary to CO2 narcosis. CO2 is now normalized. 8. Congestive heart failure with preserved ejection fraction. The patient's fluid overload status has significantly improved. She is currently in negative balance. We have discontinued the Lasix. 9. Hypotension on presentation, resolved. 10. Protein calorie malnutrition with prealbumin of 8.9. The patient is on tube feedings, and seems to be tolerating this well. 11. Chronic constipation. The patient is on bowel regimen. 12. Hypernatremia with mildly elevated BUN and creatinine. I think this is all a reflection of intravascular depletion from the diuretic therapy. Lasix has been discontinued, and will go up on her flushes through the nasogastric tube feedings. I will be reluctant to start her on any intravenous fluid since she has fluid already in the lung space. In general, Ms. Rios has been here 4 days, was initially admitted to [place] for a day, and transferred to [facility] for higher level of care. She has been remaining in the intensive care unit, intubated since. There is a plan to start spontaneous breathing trials, and hopefully get her extubated in the next couple of days. The patient is being seen by Pulmonary Medicine. Ms. Rios's disposition is going to depend on the rest of her hospital course. cc: Zafar Ma MD
[2018-06-22 09:57] LABS: ALLEN TEST YES; BE 11.9 mmoll (-3.0-3.0); BLOOD TYPE ARTERIAL; HCO3-(ACT) 33.9 mmoll (20.0-26.0); O2(CT) 13.2 mL/dL (15.0-23.0); PO2(98.6) 50 mmHg (60-100); SAMPLE BLOOD; SAO2 85.8 % (95.0-100.0); THB 11.3 g/dL (11.5-17.4); pH(98.6) 7.33 (7.35-7.45)
[2018-06-22 10:00] LABS: MODALITY VENTILATOR; O2HB 83.3 % (95.0-99.0); PCO2(98.6) 77 mmHg (35-45)
[2018-06-22] MEDS: ZYVOX 600 MG/D5W 600 MG/300 ML IVPB IV SCH ×3 (11:28→22:49)
[2018-06-22] MEDS: HALDOL IV PRN ×2 (12:16→20:20)
[2018-06-23] MEDS: ATIVAN 20 MG in NS 190 ML IV SCH ×3 (01:36→07:04)
[2018-06-23] MEDS: CARDIZEM PO SCH ×4 (02:42→21:46)
[2018-06-23] MEDS: SOLU-MEDROL IV SCH ×4 (02:42→21:45)
[2018-06-23] MEDS: DUONEB (A & A) INH SCH ×4 (03:05→21:12)
[2018-06-23 04:42] LABS: ALLEN TEST YES; BE 10.5 mmoll (-3.0-3.0); BLOOD TYPE ARTERIAL; HCO3-(ACT) 33.1 mmoll (20.0-26.0); METHB 1.1 % (0.0-1.5); O2(CT) 15.3 mL/dL (15.0-23.0); O2HB 94.8 % (95.0-99.0); PO2(98.6) 78 mmHg (60-100); SAMPLE BLOOD; SAO2 97.5 % (95.0-100.0); SRATE 18 BPM; THB 11.4 g/dL (11.5-17.4); TVOL 500 mL; pH(98.6) 7.45 (7.35-7.45)
[2018-06-23 04:43] LABS: MODALITY VENTILATOR; PCO2(98.6) 52 mmHg (35-45)
[2018-06-23] MEDS: SODIUM CHLORIDE 0.9% INJ SCH (05:39)
[2018-06-23] MEDS: PROTONIX IV SCH (05:39)
[2018-06-23] MEDS: LOVENOX SUBQ SCH (05:39)
[2018-06-23 05:48] LABS: HEMATOCRIT 38.4 % (37.0-47.0); HEMOGLOBIN 11.1 g/dL (12.0-16.0); LYMPH# 0.38 X1000 (1.2-3.4); LYMPH% 9.5 % (20.5-51.1); MCH 25.8 PG (27-31); MCHC 28.9 g/dL (33-37); MCV 89.3 FL (81-99); MONO# 0.13 X1000 (0.11-0.59); MONO% 3.2 % (1.7-9.3); MPV 10.6 FL (7.4-10.4); NEUT# 3.51 X1000 (1.4-6.5); NEUT% 87.3 % (42.2-75.2); PLT 179 X1000 (130-400); WBC 4.02 X1000 (4.8-10.8)
[2018-06-23 06:47] LABS: CALCIUM 8.1 mg/dL (8.8-10.2); CREATININE 1.5 mg/dL (0.5-0.9); POTASSIUM 3.3 mmol/L (3.5-5.1)
[2018-06-23] MEDS: MERREM 500 MG in NS 50 ML IV SCH ×2 (07:40→15:21)
--- NOTE | 2018-06-23 08:06 | Diag Imaging Result Doc PS360 ---
EXAM: CHEST-1 VIEW - 06/23/2018 HISTORY: SOB TECHNIQUE: Portable chest COMPARISON: 06/22/2018 FINDINGS: There is an endotracheal tube in place with its tip approximately 5 cm above the damaris. There is a nasogastric tube can be followed to the proximal stomach, although the distal tube is located below the bottom the image. PICC remains in place. There is cardiomegaly similar to prior. There is vascular congestion/pulmonary edema which is most prominent on the right, similar to prior. There is no large pleural effusion or pneumothorax identified. IMPRESSION: Cardiomegaly with vascular congestion/pulmonary edema, most prominent on the right, similar to prior. Electronically signed by Adan Lind 06/23/2018 8:04 AM
[2018-06-23] MEDS: COREG PO SCH ×2 (08:11→21:45)
[2018-06-23] MEDS: ASPIRIN EC PO SCH (08:11)
[2018-06-23] MEDS: HALDOL IV PRN (08:58)
[2018-06-23] MEDS ORDERED: POTASSIUM CHLORIDE 40 MEQ/SWI 40 MEQ/100 ML IVPB IV ONE (09:49)
[2018-06-23] MEDS: BROVANA NEB INH SCH ×2 (09:52→19:40)
[2018-06-23] MEDS: ZYVOX 600 MG/D5W 600 MG/300 ML IVPB IV SCH ×2 (10:24→23:24)
[2018-06-23 11:07] LABS: ALLEN TEST YES; BE 9.8 mmoll (-3.0-3.0); BLOOD TYPE ARTERIAL; HCO3-(ACT) 32.5 mmoll (20.0-26.0); O2(CT) 15.3 mL/dL (15.0-23.0); O2HB 91.9 % (95.0-99.0); PO2(98.6) 71 mmHg (60-100); SAMPLE BLOOD; SAO2 94.8 % (95.0-100.0); THB 11.8 g/dL (11.5-17.4); pH(98.6) 7.31 (7.35-7.45)
[2018-06-23 11:08] LABS: MODALITY VENTILATOR; PCO2(98.6) 77 mmHg (35-45)
[2018-06-23] MEDS: ROMAZICON IV ONE ×2 (11:27→11:45)
[2018-06-23] MEDS ORDERED: ROMAZICON ONE (11:44)
--- NOTE | 2018-06-23 12:30 | PROGRESS NOTE ---
DATE: 06/23/2018 HISTORY OF PRESENT ILLNESS: Ms. Rios was admitted on 06/18/2018. She came in with acute shortness of breath. She is followed by Dr. Otoniel Gamez. She is a 47-year-old morbidly obese female, who is well known to our facility, who was admitted multiple times for congestive heart failure exacerbation. She also has a history of COPD, coronary artery disease, hypothyroidism, atrial fibrillation, chronic kidney disease stage 3. She was brought into the emergency room on 06/17/2018 because she was profoundly short of breath, requiring 100% nonrebreather. Sent to the medical floor in [place] and later became unresponsive, required intubation, and the was transferred to our hospital with ICU. On arrival here, she went into cardiac arrest and was coded for about 15 to 20 minutes. She has regained a pulse. Maximum dose Levophed required for blood pressure, and she had been given 200 mg IV of Lasix. She was in florid pulmonary edema, suctioned multiple times. She has been restraints. They are trying to extubate. They failed, I think extubation trial yesterday failed. PAST MEDICAL AND SURGICAL HISTORY: On again a review of her past medical and past surgical history: 1. She has had a Vas-Cath placement and removal in the past. 2. So admitted with acute on chronic respiratory failure secondary to congestive heart failure exacerbation and chronic obstructive pulmonary disease. 3. Cardiac arrest secondary to admitted with acute on chronic respiratory failure secondary to congestive heart failure exacerbation and chronic obstructive pulmonary disease. 4. Chronic kidney disease stage 3. 5. Morbid obesity compound by sleep apnea. 6. Coronary artery disease. 7. Atrial fibrillation with rapid ventricular rate. PHYSICAL EXAMINATION: Vital Signs: Temperature 96.1 degrees, pulse 85, respirations 44, blood pressure 110/75. HEENT: Pupils are equal and round. Lungs: Clear in all lung perry. Cardiovascular: Regular rhythm and rate without murmur or S3. DIAGNOSTIC DATA: Urine output was 3400 mL. Chest x-ray from this morning, cardiomegaly with vascular congestion and pulmonary edema most prominent on the right similar to prior x-ray yesterday. ASSESSMENT AND PLAN: 1. Acute on chronic hypercarbic respiratory failure. The patient failed bilevel positive airway pressure therapy at [place] and was intubated. This is currently the 5th day on mechanical ventilation. Attempting to wean her off of the ventilator. Pulmonary following. 2. Acute hypoxemic respiratory failure. Continue mechanical ventilation. The patient's O2 saturations continue to be fairly low, poor gas exchange. Pulmonary is managing. 3. Status post cardiopulmonary arrest. Down time seems to be about 4 minutes with pulseless electrical activity. 4. Morbid obesity, obstructive sleep apnea, obesity hypoventilation syndrome. 5. Chronic atrial fibrillation, currently rate is controlled. She is on Coreg and Cardizem. Cardiology following. 6. History of coronary artery disease, stable. 7. Altered mental status on presentation secondary to CO2 narcosis. CO2 is now normalized. 8. Congestive heart failure. Preserved ejection fraction. Patient's fluid overload status significantly improved. She has a negative fluid balance. Continue diuresis. 9. Hypotension, which is resolved. She was on pressors initially. 10. Protein-calorie malnutrition with a prealbumin 8.9. Patient is on tube feedings and seems to be tolerating this well. 11. Chronic constipation. She is on a bowel regimen. 12. Hypernatremia with mildly elevated BUN and creatinine, and this probably all reflects her intravascular depletion from diuretic therapy. Lasix has been discontinued, and we will go up, have increased her flushes through the nasogastric tube. I would like to not give her any more intravenous fluids since she already has quite a bit of fluid in the lung space, so continue present management. 13. Review of her orders. She is on diltiazem 30 mg by mouth every 6 hours, nebulized treatment every 6 hours, aspirin 81 mg a day, Coreg 6.25 mg twice daily, meropenem 500 mg intravenously every 8 hours, methylprednisone 40 mg intravenously every 6 hours, Protonix 40 mg daily, linezolid 600 mg intravenously every 12 hours, and Romazicon 0.4 mg, they gave I think a 1 time dose. I think that was probably on admission. cc: Nikunj Pittman MD
[2018-06-23 13:04] LABS: ALLEN TEST YES; BE 8.8 mmoll (-3.0-3.0); BLOOD TYPE ARTERIAL; HCO3-(ACT) 31.6 mmoll (20.0-26.0); METHB 0.5 % (0.0-1.5); O2(CT) 15.2 mL/dL (15.0-23.0); O2HB 90.2 % (95.0-99.0); PO2(98.6) 60 mmHg (60-100); SAMPLE BLOOD; SAO2 92.5 % (95.0-100.0)
[2018-06-23 13:05] LABS: MODALITY VENTILATOR; PCO2(98.6) 77 mmHg (35-45)
[2018-06-23] MEDS: DIPRIVAN 1% 1,000 MG/100 ML BOTTLE IV SCH ×5 (13:19→23:24)
[2018-06-23] MEDS: CALMOSEPTINE OINTMENT TOP PRN (15:36)
[2018-06-23] MEDS ORDERED: BROVANA NEB ONE (21:12)
[2018-06-24] MEDS: MERREM 500 MG in NS 50 ML IV SCH ×4 (00:56→23:37)
[2018-06-24] MEDS: DIPRIVAN 1% 1,000 MG/100 ML BOTTLE IV SCH ×2 (01:42→05:51)
[2018-06-24] MEDS: CARDIZEM PO SCH ×4 (03:02→21:51)
[2018-06-24] MEDS: DUONEB (A & A) INH SCH ×4 (03:15→21:00)
[2018-06-24] MEDS: SOLU-MEDROL IV SCH ×4 (04:00→21:53)
[2018-06-24 04:36] LABS: ALLEN TEST YES; BE 8.9 mmoll (-3.0-3.0); BLOOD TYPE ARTERIAL; HCO3-(ACT) 31.8 mmoll (20.0-26.0); METHB 1.2 % (0.0-1.5); O2(CT) 17.5 mL/dL (15.0-23.0); O2HB 94.1 % (95.0-99.0); PO2(98.6) 77 mmHg (60-100); SAMPLE BLOOD; SRATE 18 BPM; THB 13.2 g/dL (11.5-17.4); TVOL 500 mL; pH(98.6) 7.41 (7.35-7.45)
[2018-06-24 04:37] LABS: MODALITY VENTILATOR; PCO2(98.6) 56 mmHg (35-45)
[2018-06-24 05:38] LABS: HEMATOCRIT 41.6 % (37.0-47.0); HEMOGLOBIN 12.2 g/dL (12.0-16.0); IMM GRAN# 0.03 X1000 (0.0-0.04); IMM GRAN% 0.8 % (0.0-0.5); LYMPH# 0.33 X1000 (1.2-3.4); MCH 25.9 PG (27-31); MCHC 29.3 g/dL (33-37); MCV 88.3 FL (81-99); MONO# 0.16 X1000 (0.11-0.59); MONO% 4.4 % (1.7-9.3); MPV 10.9 FL (7.4-10.4); NEUT# 3.15 X1000 (1.4-6.5); NEUT% 85.8 % (42.2-75.2); PLT 184 X1000 (130-400); RBC 4.71 XMIL (4.2-5.4); RDW 18.1 % (11.5-14.5); WBC 3.67 X1000 (4.8-10.8)
[2018-06-24] MEDS: LOVENOX SUBQ SCH (05:50)
[2018-06-24] MEDS: PROTONIX IV SCH (05:50)
[2018-06-24 05:54] LABS: CALCIUM 8.8 mg/dL (8.8-10.2); CREATININE 1.4 mg/dL (0.5-0.9); POTASSIUM 3.6 mmol/L (3.5-5.1)
[2018-06-24 06:01] LABS: ANISOCYTOSIS 1+; BANDS 1 % (0-1); LYMPHS 10 % (21-51); SEGS 88 % (42-75)
[2018-06-24 06:36] LABS: MAGNESIUM 2.2 mg/dL (1.5-2.7); PHOSPHORUS 2.9 mg/dL (2.7-4.5)
--- NOTE | 2018-06-24 07:52 | Diag Imaging Result Doc PS360 ---
EXAM: CHEST-1 VIEW INDICATION: SOB TECHNIQUE: One view COMPARISON: 06/23/2018 FINDINGS: Support tubes and lines are in stable positions. Pulmonary edema and pulmonary venous congestion is stable. There is stable cardiomegaly. No new consolidation is identified. IMPRESSION: Stable chest. Electronically signed by Jann Mcknight 06/24/2018 7:49 AM
[2018-06-24] MEDS: ASPIRIN EC PO SCH (08:02)
[2018-06-24] MEDS: COREG PO SCH ×2 (08:02→21:52)
[2018-06-24] MEDS ORDERED: BROVANA NEB ONE (09:02)
[2018-06-24] MEDS: BROVANA NEB INH SCH ×2 (09:44→21:00)
--- NOTE | 2018-06-24 10:31 | PROGRESS NOTE ---
DATE: 06/24/2018 SUBJECTIVE: Ms. Rios was still on the ventilator. She is sedated. OBJECTIVE: Lungs are clear in all lung perry anterolateral. Cardiovascular Examination: Regular rhythm and rate without murmur or S3. Abdomen is soft. Temperature 96.3 degrees, pulse 76, respirations 18, blood pressure 110/82. Urine output is 3200 mL. Chest x-ray, stable chest, support lines and tubes all in good position, pulmonary edema, pulmonary venous congestion is stable. Stable cardiomegaly. ASSESSMENT AND PLAN: 1. Acute on chronic hypercapnic respiratory failure. Patient has failed bilevel positive airway pressure therapy and was intubated, and was tried trying to wean her off the ventilator, so far unsuccessful. 2. Acute hypoxemic respiratory failure. Continue mechanical ventilation. 3. Status post cardiopulmonary arrest. Down time seemed to be about 4 minutes. Presently, electrically stable. 4. Morbid obesity, obstructive apnea, obstructive hypoventilation syndrome. 5. Chronic atrial fibrillation, rate is controlled. 6. History of coronary artery disease, stable. 7. Altered mental status on presentation. I suspect that was secondary to the elevated CO2 or CO2 narcosis. CO2 has not normalized. 8. Congestive heart failure, preserved ejection fraction. Her volume status seems to be okay. 9. Hypotension, which is improved. 10. Protein calorie malnutrition. 11. Note, her volume status has improved. The x-ray still suggests some pulmonary venous hypertension. Continue to try to wean her off the ventilator. cc: Nikunj Pittman MD
[2018-06-24] MEDS: ZYVOX 600 MG/D5W 600 MG/300 ML IVPB IV SCH ×2 (10:39→23:38)
[2018-06-24] MEDS: HALDOL IV PRN ×2 (10:40→19:52)
[2018-06-24 11:43] LABS: ALLEN TEST YES; BE 8.9 mmoll (-3.0-3.0); BLOOD TYPE ARTERIAL; HCO3-(ACT) 31.7 mmoll (20.0-26.0); METHB 1.1 % (0.0-1.5); O2(CT) 16.6 mL/dL (15.0-23.0); O2HB 90.2 % (95.0-99.0); PO2(98.6) 62 mmHg (60-100); SAMPLE BLOOD; SAO2 93.2 % (95.0-100.0); THB 13.1 g/dL (11.5-17.4); pH(98.6) 7.36 (7.35-7.45)
[2018-06-24 11:46] LABS: PCO2(98.6) 65 mmHg (35-45)
[2018-06-24 11:47] LABS: MODALITY VENTILATOR
[2018-06-25] MEDS: SOLU-MEDROL IV SCH ×4 (02:38→21:02)
[2018-06-25] MEDS: CARDIZEM PO SCH ×4 (02:40→21:02)
[2018-06-25] MEDS: HALDOL IV PRN ×2 (03:02→21:27)
[2018-06-25] MEDS: DUONEB (A & A) INH SCH ×3 (03:28→15:40)
[2018-06-25 05:12] LABS: HEMATOCRIT 43.2 % (37.0-47.0); HEMOGLOBIN 12.7 g/dL (12.0-16.0); IMM GRAN# 0.02 X1000 (0.0-0.04); IMM GRAN% 0.4 % (0.0-0.5); LYMPH# 0.33 X1000 (1.2-3.4); MCHC 29.4 g/dL (33-37); MCV 88.5 FL (81-99); MONO# 0.09 X1000 (0.11-0.59); MONO% 1.6 % (1.7-9.3); MPV 11.1 FL (7.4-10.4); NEUT# 5.08 X1000 (1.4-6.5); PLT 180 X1000 (130-400); RBC 4.88 XMIL (4.2-5.4); WBC 5.52 X1000 (4.8-10.8)
[2018-06-25 05:18] LABS: ALLEN TEST YES; BE 11.5 mmoll (-3.0-3.0); BLOOD TYPE ARTERIAL; HCO3-(ACT) 33.8 mmoll (20.0-26.0); METHB 1.2 % (0.0-1.5); O2(CT) 17.8 mL/dL (15.0-23.0); O2HB 92.5 % (95.0-99.0); PO2(98.6) 71 mmHg (60-100); SAMPLE BLOOD; SAO2 95.7 % (95.0-100.0); THB 13.7 g/dL (11.5-17.4); pH(98.6) 7.39 (7.35-7.45)
[2018-06-25 05:19] LABS: MODALITY BI PAP; PCO2(98.6) 65 mmHg (35-45)
[2018-06-25 05:34] LABS: ESTIMATED GFR > 60
[2018-06-25 05:39] LABS: AGAP 13; BUN 52 mg/dL (8-22); CALCIUM 8.6 mg/dL (8.8-10.2); CHLORIDE 106 mmol/L (98-107); COSMO 313; CREATININE 1.1 mg/dL (0.5-0.9); GLUCOSE 144 mg/dL (70-104); POTASSIUM 3.7 mmol/L (3.5-5.1); SODIUM 149 mmol/L (136-145); TCO2 30 mmol/L (25-35)
[2018-06-25] MEDS: LOVENOX SUBQ SCH (06:43)
[2018-06-25] MEDS: PROTONIX IV SCH (06:43)
[2018-06-25] MEDS ORDERED: BROVANA NEB ONE (07:20)
--- NOTE | 2018-06-25 07:40 | Diag Imaging Result Doc PS360 ---
EXAM: CHEST-1 VIEW INDICATION: SOB TECHNIQUE: One view COMPARISON: 06/24/2018 FINDINGS: Support tubes and lines are in stable positions. There is stable pulmonary edema and pulmonary venous congestion. No new consolidation is identified. Cardiac silhouette is stable. IMPRESSION: Stable chest. Electronically signed by Jann Mcknight 06/25/2018 7:38 AM
[2018-06-25] MEDS: MERREM 500 MG in NS 50 ML IV SCH ×2 (08:19→15:55)
[2018-06-25] MEDS: COREG PO SCH ×2 (08:19→21:02)
[2018-06-25] MEDS: ASPIRIN EC PO SCH (08:19)
[2018-06-25] MEDS: BROVANA NEB INH SCH (09:51)
--- NOTE | 2018-06-25 09:53 | PROGRESS NOTE ---
DATE: 06/25/2018 SUBJECTIVE: Ms. Rios has been extubated. She is on BiPAP at the present time, appears to be comfortable. OBJECTIVE: Vital signs: She has remained afebrile, temperature 97.6 degrees, pulse 99, respirations 28, blood pressure 117/98. HEENT: Pupils are equal. Lung: Lung perry clear anterolateral but distant breath sounds. Cardiovascular: Regular rhythm and rate without murmur or S3. Abdomen: Soft. Skin: Warm and dry. Genitourinary: Urine output 2600 mL. IMAGING: Chest x-ray. Stable chest. Support tubes and lines stable position. Stable pulmonary edema, pulmonary venous congestion. ASSESSMENT AND PLAN: 1. Acute on chronic hypercapnic respiratory failure. Patient has been extubated and is on BiPAP. Hopefully, can improve her oxygen and gas exchange. 2. Acute hypoxemic respiratory failure. Was on mechanical ventilator, recently wean yesterday. 3. Status post cardiopulmonary arrest. Time down was about 4 minutes. Presently looks in sinus rhythm, stable. 4. Morbid obesity, obstructive apnea, obstructive hypoventilation syndrome. 5. Chronic atrial fibrillation, rate controlled. 6. Coronary artery disease, stable. 7. Altered mental status on presentation with CO2 narcosis suspected. 8. Congestive heart failure. Preserved ejection fraction. She has been diuresed and seems to be improving. Improved pulmonary venous hypertension. 9. Hypotension, which is improved. 10. Protein calorie malnutrition. LABORATORY DATA: Reviewed from today. White count 5520, hematocrit 43, platelet count 180,000. Sodium 149, potassium 3.7, chloride 106, BUN 52, creatinine 1.1, which has come down nicely. Creatinine is 1.1. Renal function is improved. REVIEW OF LABORATORY DATA: She has a PICC line. MEDICATIONS: 1. Cardizem 30 mg q.6 hours. 2. DuoNeb q.6 hours. 3. R-Formoterol inhaler b.i.d. 4. Aspirin 81 mg a day. 5. Coreg 6.25 mg b.i.d. 6. Methylprednisone 40 mg IV q.6 hours. 7. Protonix 40 mg IV q.24 hours. 8. Linezolid 600 mg IV q.12 hours. cc: Nikunj Pittman MD
[2018-06-25] MEDS: ZYVOX 600 MG/D5W 600 MG/300 ML IVPB IV SCH (10:50)
[2018-06-26] MEDS: ZYVOX 600 MG/D5W 600 MG/300 ML IVPB IV SCH ×3 (00:08→21:29)
[2018-06-26] MEDS: MERREM 500 MG in NS 50 ML IV SCH ×4 (00:08→23:39)
[2018-06-26] MEDS: CARDIZEM PO SCH ×4 (02:45→21:29)
[2018-06-26] MEDS: SOLU-MEDROL IV SCH ×4 (03:04→21:29)
[2018-06-26 05:30] LABS: EOS# 0.01 X1000 (0.0-0.7); EOS% 0.2 % (0.0-10.0); HEMATOCRIT 43.6 % (37.0-47.0); HEMOGLOBIN 12.8 g/dL (12.0-16.0); IMM GRAN# 0.03 X1000 (0.0-0.04); IMM GRAN% 0.5 % (0.0-0.5); LYMPH# 0.41 X1000 (1.2-3.4); LYMPH% 6.7 % (20.5-51.1); MCH 26.1 PG (27-31); MCHC 29.4 g/dL (33-37); MONO# 0.17 X1000 (0.11-0.59); MONO% 2.8 % (1.7-9.3); MPV 10.8 FL (7.4-10.4); NEUT# 5.51 X1000 (1.4-6.5); NEUT% 89.8 % (42.2-75.2); PLT 139 X1000 (130-400); WBC 6.13 X1000 (4.8-10.8)
[2018-06-26 05:32] LABS: ALLEN TEST YES; BE 12.1 mmoll (-3.0-3.0); BLOOD TYPE ARTERIAL; HCO3-(ACT) 34.3 mmoll (20.0-26.0); O2(CT) 16.6 mL/dL (15.0-23.0); PO2(98.6) 67 mmHg (60-100); SAMPLE BLOOD; SAO2 96.1 % (95.0-100.0); THB 12.7 g/dL (11.5-17.4); pH(98.6) 7.41 (7.35-7.45)
[2018-06-26 05:33] LABS: MODALITY VENTILATOR; PCO2(98.6) 62 mmHg (35-45)
[2018-06-26] MEDS: LOVENOX SUBQ SCH (05:40)
[2018-06-26] MEDS: PROTONIX IV SCH (05:40)
[2018-06-26 06:07] LABS: CALCIUM 8.6 mg/dL (8.8-10.2); CREATININE 1.3 mg/dL (0.5-0.9); POTASSIUM 3.8 mmol/L (3.5-5.1)
--- NOTE | 2018-06-26 07:35 | Diag Imaging Result Doc PS360 ---
CHEST-1 VIEW - 06/26/2018 INDICATION: SOB COMPARISON: 06/25/2018 FINDINGS: Support line and tube are stable. Stable significant cardiomegaly and pulmonary vascular congestion. There is probably mild pulmonary edema that has improved since prior. IMPRESSION: Improvement in the mild pulmonary edema. Electronically signed by Dean Virk 06/26/2018 7:32 AM
[2018-06-26] MEDS: BROVANA NEB INH SCH ×3 (07:55→22:55)
[2018-06-26] MEDS: ASPIRIN EC PO SCH (08:01)
[2018-06-26] MEDS: COREG PO SCH ×2 (08:01→21:29)
[2018-06-26] MEDS: DUONEB (A & A) INH SCH ×4 (09:15→22:55)
--- NOTE | 2018-06-26 10:29 | PROGRESS NOTE ---
DATE: 06/26/2018 SUBJECTIVE: Ms. Rios is still on BiPAP. Seems to be moving air better, more responsive or awake. OBJECTIVE: Vital Signs: Temperature remains afebrile, temp 97.0 degrees, pulse 99, respirations 27. HEENT: Pupils are equal. Lungs: Clear anterolateral. Cardiovascular: Regular rate without murmur or S3. Abdomen: Soft. Skin: Warm and dry. LABORATORY DATA: Urine output is 3200 mL. Chest x-ray: Improvement in mild pulmonary edema. ASSESSMENT AND PLAN: 1. Acute on chronic hypercapnic respiratory failure. The patient has been extubated 2 days ago and remains on BiPAP. Seems that her oxygen and gas exchange are improving. 2. Acute hypoxemic respiratory failure for a while on a mechanical ventilator, has been extubated, on BiPAP at the present time. 3. Status post cardiopulmonary arrest. She was down about 4 minutes. She remains in sinus rhythm. Hemodynamics look stable. 4. Morbid obesity, obstructive apnea, obstructive hypoventilation syndrome. 5. Chronic atrial fibrillation, rate is controlled. 6. Coronary artery disease. No sign of active ischemia. 7. Altered mental status on presentation. [place] this was CO2 narcosis. 8. Congestive heart failure. Preserved ejection fraction. Aware. Volume status is improving. She is to continue to try and diurese. She does have pulmonary venous hypertension. 9. She had hypotension. This is improved. 10. Protein calorie malnutrition in the face of morbid obesity. REVIEW OF HER ORDERS: I do not see any change. Appears we are making progress. She is on methylprednisone 40 mg q.6 hours. She is on Protonix 40 mg IV q.24 hours, linezolid 600 mg IV q.12, Cardizem 30 mg p.o. q.6 hours, duo nebs q.6 hours, aspirin 81 mg a day, Coreg 6.25 mg twice a day, meropenem 500 mg IV q.8. cc: Nikunj Pittman MD
[2018-06-26] MEDS: CALMOSEPTINE OINTMENT TOP PRN (12:37)
[2018-06-26] MEDS: HALDOL IV PRN (16:51)
[2018-06-27] MEDS: ZYVOX 600 MG/D5W 600 MG/300 ML IVPB IV SCH ×3 (00:29→22:35)
[2018-06-27] MEDS: CARDIZEM PO SCH ×4 (02:29→21:11)
[2018-06-27] MEDS: SOLU-MEDROL IV SCH ×4 (02:29→21:11)
[2018-06-27] MEDS: DUONEB (A & A) INH SCH ×4 (03:20→22:07)
[2018-06-27 04:35] LABS: ALLEN TEST YES; BE 11.6 mmoll (-3.0-3.0); BLOOD TYPE ARTERIAL; HCO3-(ACT) 33.9 mmoll (20.0-26.0); O2(CT) 17.8 mL/dL (15.0-23.0); O2HB 94.8 % (95.0-99.0); PO2(98.6) 80 mmHg (60-100); SAMPLE BLOOD; SAO2 97.5 % (95.0-100.0); THB 13.3 g/dL (11.5-17.4); pH(98.6) 7.44 (7.35-7.45)
[2018-06-27 04:37] LABS: MODALITY BI PAP; PCO2(98.6) 56 mmHg (35-45)
[2018-06-27 04:47] LABS: HEMATOCRIT 42.7 % (37.0-47.0); HEMOGLOBIN 12.8 g/dL (12.0-16.0); IMM GRAN# 0.07 X1000 (0.0-0.04); IMM GRAN% 0.9 % (0.0-0.5); LYMPH# 0.33 X1000 (1.2-3.4); LYMPH% 4.2 % (20.5-51.1); MCH 26.4 PG (27-31); MONO# 0.31 X1000 (0.11-0.59); MONO% 3.9 % (1.7-9.3); NEUT# 7.17 X1000 (1.4-6.5); PLT 163 X1000 (130-400); RBC 4.85 XMIL (4.2-5.4); RDW 18.1 % (11.5-14.5); WBC 7.88 X1000 (4.8-10.8)
[2018-06-27 04:58] LABS: ESTIMATED GFR > 60
[2018-06-27 04:59] LABS: AGAP 10; BUN 59 mg/dL (8-22); CALCIUM 8.8 mg/dL (8.8-10.2); CHLORIDE 107 mmol/L (98-107); COSMO 320; CREATININE 1.1 mg/dL (0.5-0.9); GLUCOSE 169 mg/dL (70-104); POTASSIUM 3.9 mmol/L (3.5-5.1); SODIUM 151 mmol/L (136-145); TCO2 34 mmol/L (25-35)
[2018-06-27] MEDS: HALDOL IV PRN ×2 (05:40→22:00)
[2018-06-27] MEDS: PROTONIX IV SCH (05:41)
[2018-06-27] MEDS: LOVENOX SUBQ SCH (05:41)
--- NOTE | 2018-06-27 08:04 | Diag Imaging Result Doc PS360 ---
CHEST-1 VIEW - 06/27/2018 INDICATION: SOB COMPARISON: 06/26/2018 FINDINGS: Support lines and tubes are stable. Stable cardiomegaly and pulmonary vascular congestion. Stable mild patchy pulmonary edema. No large pleural effusion. IMPRESSION: No change from prior. Electronically signed by Dean Virk 06/27/2018 8:01 AM
[2018-06-27] MEDS: MERREM 500 MG in NS 50 ML IV SCH ×2 (08:15→15:24)
[2018-06-27] MEDS: ASPIRIN EC PO SCH (08:16)
[2018-06-27] MEDS: COREG PO SCH ×2 (08:16→21:11)
[2018-06-27] MEDS: BROVANA NEB INH SCH ×2 (09:45→22:07)
--- NOTE | 2018-06-27 09:55 | PROGRESS NOTE ---
DATE: 06/27/2018 SUBJECTIVE: Ms. Rios is more awake and alert. She is swallowed her pills. I think we can stop her NG tube. She is swallowing liquid okay. OBJECTIVE: Vital signs: Temperature 97.4 degrees, pulse 125, respirations 20, blood pressure 149/126 with previous blood pressures 131/92. HEENT: Pupils are equal. Neck: I do not appreciate distended neck veins. Lungs: Clear anterolateral. Cardiovascular: Regular rhythm and rate without murmur or S3. Abdomen: Soft. Skin: Warm and dry. Genitourinary: Urine output 2800 mL. IMAGING: Her chest x-ray from this morning, no change. Support lines and tubes stable. Stable cardiomegaly. Pulmonary vascular congestion. Stable mild patchy pulmonary edema. No large pleural effusions. ASSESSMENT AND PLAN: 1. Acute on chronic hypercapnic respiratory failure. Patient has been extubated now 3 days, doing well on face mask. Air and gas exchange improved. Radiographically, still some pulmonary venous hypertension and pleural effusions. 2. Acute hypoxemic respiratory failure. For a while was on mechanical ventilator and was extubated and on BiPAP for a while and have been able to go to a face mask, so a definite improvement. 3. Status post cardiopulmonary arrest. Was down about 4 minutes. Her hemodynamics remained stable. She remains in sinus rhythm. 4. Morbid obesity, obstructive apnea, obstructive hypoventilation syndrome. 5. Chronic atrial fibrillation, rate is controlled. 6. Coronary artery disease. No sign of active ischemia. 7. Altered mental status on presentation, CO2 narcosis. This is much better, mind seems to be clear. 8. Congestive heart failure. Preserved ejection fraction. Volume status is improving with diuresis. 9. For a while had hypotension. This is improved. Watch her blood pressure. Adjust for afterload. 10. Protein calorie malnutrition. Was getting NG tube feeding. She is able to swallow so we will stop the NG tube and see how she does on liquids. Maybe can advance her diet. REVIEW OF ORDERS: she is on Cardizem 30 mg p.o. q.6 hours. She gets arformoterol nebulizer 15 mcg b.i.d., aspirin 81 mg a day, Coreg 6.25 mg b.i.d., Lovenox 40 mg subcutaneous q.24 hours for DVT prophylaxis. She is on meropenem 500 mg IV every 8, methylprednisone 40 mg IV q.6, Protonix 40 mg IV q.24 hours, linezolid 600 mg q.12. Continue present regimen. LABORATORY DATA: Review of her lab from this morning. White count 7880, hematocrit is 42, platelet count a 163,000. Sodium 151, potassium 3.9, chloride 107, BUN 59, and creatinine 1.1. cc: Nikunj Pittman MD
[2018-06-27] MEDS: LASIX IV SCH ×2 (11:08→22:36)
--- NOTE | 2018-06-27 14:18 | PULMONOLOGY PROGRESS NOTE ---
DATE: 06/27/2018 SUBJECTIVE: The patient is awake, alert, and conversant. She reports some pain on her left side. She has no increased work of breathing on the non-rebreather mask. OBJECTIVE: HEENT: Pupils are equal and reactive. Oropharynx appears clear. Neck: Supple. Chest: Reveals scattered rhonchi bilaterally. Cardiac: Distant heart sounds. Normal S1, normal S2. Abdomen: Obese and soft. Extremities: Reveal generalized edema. LABORATORIES: Chest x-ray reveals cardiomegaly with vascular congestion. This has not changed from prior x-rays. White blood count 7.8, hemoglobin 12.8 platelet count 163,000. Sodium 151, potassium 3.9, chloride 107, bicarbonate 34, BUN 59, creatinine 1.1. Arterial blood gas on BiPAP, pH 7.44, pCO2 of 56, PO2 of 80. IMPRESSION: 1. 47-year-old with acute hypercapnic respiratory failure. 2. Acute hypoxemic respiratory failure. 3. Chronic hypoxemic and chronic hypercapnic respiratory failure. 4. Status post CPR. 5. Morbid obesity with BMI greater than 71. 6. Obstructive sleep apnea. 7. History of coronary artery disease. 8. Hypernatremia. DISCUSSION: The patient with morbid obesity with acute respiratory failure and cardiopulmonary arrest. Mental status appears to be improving upon reviewing the chart. Long-term prognosis is poor if patient can not successfully lose weight. She currently has rhonchi on exam. RECOMMENDATION: 1. Continue bronchial hygiene. We will initiate incentive spirometry. 2. Continue physical therapy. 3. Continue to cycle BiPAP at bedtime and p.r.n. 4. Long-term prognosis guarded as outlined above. cc: Julien Munroe MD
[2018-06-27] MEDS ORDERED: CARDIZEM PO PRN (16:16)
[2018-06-28] MEDS: MERREM 500 MG in NS 50 ML IV SCH ×4 (00:55→23:35)
[2018-06-28] MEDS: DUONEB (A & A) INH SCH ×4 (03:00→21:06)
[2018-06-28] MEDS: CARDIZEM PO SCH ×4 (04:20→20:38)
[2018-06-28] MEDS: SOLU-MEDROL IV SCH ×4 (04:20→20:26)
[2018-06-28 05:04] LABS: BASO# 0.01 X1000 (0.0-0.2); BASO% 0.1 % (0.0-0.8); HEMATOCRIT 39.1 % (37.0-47.0); HEMOGLOBIN 11.6 g/dL (12.0-16.0); IMM GRAN# 0.09 X1000 (0.0-0.04); IMM GRAN% 0.9 % (0.0-0.5); LYMPH# 0.51 X1000 (1.2-3.4); MCH 26.1 PG (27-31); MCHC 29.7 g/dL (33-37); MCV 87.9 FL (81-99); MONO# 0.41 X1000 (0.11-0.59); MPV 10.8 FL (7.4-10.4); NEUT# 9.12 X1000 (1.4-6.5); PLT 142 X1000 (130-400); RBC 4.45 XMIL (4.2-5.4); RDW 17.5 % (11.5-14.5); WBC 10.14 X1000 (4.8-10.8)
[2018-06-28 05:15] LABS: BLOOD TYPE ARTERIAL; SAMPLE BLOOD; pH(98.6) 7.37 (7.35-7.45)
[2018-06-28 05:16] LABS: HCO3-(ACT) 38.5 mmoll (20.0-26.0); PO2(98.6) 93 mmHg (60-100)
[2018-06-28 05:17] LABS: ALLEN TEST YES; MODALITY NRB; PCO2(98.6) 66 mmHg (35-45)
[2018-06-28 05:21] LABS: CALCIUM 8.6 mg/dL (8.8-10.2); CREATININE 1.2 mg/dL (0.5-0.9); POTASSIUM 3.7 mmol/L (3.5-5.1)
[2018-06-28] MEDS: LOVENOX SUBQ SCH (05:41)
[2018-06-28] MEDS: PROTONIX IV SCH (05:41)
--- NOTE | 2018-06-28 07:46 | Diag Imaging Result Doc PS360 ---
CHEST-1 VIEW - 06/28/2018 INDICATION: SOB COMPARISON: 06/27/2018 FINDINGS: Stable right PICC line in good position. Stable cardiomegaly and pulmonary vascular congestion. Stable mild pulmonary edema. IMPRESSION: No change from prior. Electronically signed by Dean Virk 06/28/2018 7:43 AM
--- NOTE | 2018-06-28 07:57 | PROGRESS NOTE ---
DATE: 06/28/2018 SUBJECTIVE: Ms. Rios is feeling much better. She is on a face mask O2 but breathing, she states, is better. She is stronger. Complains of pain in the left side, the left lower ribcage. It appears to be musculoskeletal chest wall discomfort. She did get chest compressions in the emergency room and has been laying in the bed for several days. PHYSICAL EXAMINATION: Temperature 97.6 degrees, pulse 106, respirations 20, blood pressure 139/97. Pupils are equal. Conjunctivae pink. Lungs are clear anterolateral. Cardiovascular Examination: Regular rhythm and rate without murmur or S3. Abdomen: Soft, nontender. Extremities: No pedal edema that I could appreciate at this time. Urine output was almost 7 L. LAB: White count 10,140, hematocrit is 39, platelet count 142,000. Sodium 147, potassium 3.7, chloride 102, BUN 70, creatinine 1.2 which is stable, calcium 8.6. Chest x-ray from this morning, poor penetration, appears to still have some pulmonary venous hypertension. ASSESSMENT AND PLAN: 1. Acute hypercapnic respiratory failure. Was on the ventilator. Has been extubated. Seems to be making improvement. 2. Acute hypoxemic respiratory failure. 3. Chronic hypoxemic, chronic hypercapnic respiratory failure with hypoventilation syndrome and obstructive apnea. 4. Status post cardiopulmonary resuscitation. 5. Morbid obesity. Body mass index greater than 71. 6. History of coronary artery disease. 7. Hypernatremia. Sodium seems to be coming down. Renal function looks good. I think it would be good if we can try and get her up in a chair, and work on her strength and activity, better air and gas exchange which seems to have improved. MEDICATIONS: Looking over her medications, she is on Cardizem 30 mg q.6 hours, arformoterol which is Brovana nebulizer 1 puff b.i.d., Coreg 6.25 mg twice a day, aspirin 81 mg a day. She is on Lovenox 40 mg subcutaneous q.24 hours for DVT prophylaxis. She is getting meropenem 500 mg q.8 hours, methylprednisone 40 mg IV q.6, Protonix 40 mg daily, linezolid 600 mg q.12. cc: Nikunj Pittman MD
[2018-06-28] MEDS: HALDOL IV PRN ×4 (08:52→22:16)
[2018-06-28] MEDS: BROVANA NEB INH SCH ×2 (09:13→21:06)
[2018-06-28] MEDS ORDERED: LASIX IV ONE (09:15)
[2018-06-28] MEDS ORDERED: MORPHINE IV ONE (09:16)
[2018-06-28] MEDS: ASPIRIN EC PO SCH (09:57)
[2018-06-28] MEDS: COREG PO SCH ×2 (09:57→20:38)
[2018-06-28] MEDS ORDERED: CARDIZEM IV ONE (10:17)
[2018-06-28] MEDS ORDERED: CARDIZEM 100 MG/NS 100 MG/100 ML IVPB IV SCH (10:30)
[2018-06-28] MEDS ORDERED: CARDIZEM 125 MG in NS 100 ML IV SCH ×2 (11:00→14:45)
[2018-06-28] MEDS: ZYVOX 600 MG/D5W 600 MG/300 ML IVPB IV SCH ×2 (11:49→22:17)
--- NOTE | 2018-06-28 12:47 | PULMONOLOGY PROGRESS NOTE ---
DATE: 06/28/2018 SUBJECTIVE: Patient was feeling better this morning, then she had a panic attack with increased work of breathing and oxygen saturation dropped into the 70s. The patient received a dose of morphine, along with a large dose of Lasix. She is starting to calm back down. Her oxygen saturations are now in the mid 90s. There was some confrontation between the nursing staff and her when she was having decompensation, but he is now calm. OBJECTIVE: Vitals: Blood pressure 139/97, heart rate 116, respiratory rate 26, oxygen saturation 95%. HEENT: Pupils are equal and reactive. Oropharynx evaluation is limited with BiPAP in place. Neck: Supple. Chest: Reveals shallow breath sounds bilaterally. Cardiac exam: S1-S2. Abdomen: Obese and soft. Extremities: Reveal generalized edema. LABORATORIES/IMAGING: Chest x-ray reveals cardiomegaly and pulmonary vascular congestion which is unchanged from yesterday. Arterial blood gas: PH 7.37, pCO2 of 66, PO2 of 93. Chemistries: Sodium 147, potassium 3.7, chloride 102, bicarbonate 34, BUN 70, creatinine 1.2. INPUT AND OUTPUT: Intake over the last 24 hours 3320, output 3950. IMPRESSION: A 47-year-old with: 1. Morbid obesity and a BMI greater than 70. 2. Pulmonary hypertension. 3. Acute hypoxemic respiratory failure. 4. Chronic hypoxemic and chronic hypercapnic respiratory failure. 5. Status post CPR in the emergency room. 6. Obstructive sleep apnea. 7. History of coronary artery disease. 8. Hypernatremia. DISCUSSION: A patient with morbid obesity and Pickwickian syndrome and component of heart failure. The patient has had a cardiopulmonary arrest. We continue to struggle with her pulmonary status. I have given additional Lasix this morning, but her BUN is starting to climb. It is not clear that she will tolerate significant diuresis. Her overall prognosis is guarded to poor given her morbid obesity and long history of heart failure. RECOMMENDATION: 1. Continue bronchial hygiene. 2. Cycle BiPAP. 3. Initiate IV medicines for atrial fibrillation with rapid ventricular response. 4. Long-term prognosis is guarded to poor. cc: Julien Munroe MD
[2018-06-28] MEDS: MORPHINE IV PRN ×5 (12:48→22:16)
[2018-06-28 15:06] LABS: MAGNESIUM 2.3 mg/dL (1.5-2.7); POTASSIUM 3.7 mmol/L (3.5-5.1)
[2018-06-29] MEDS: CARDIZEM PO SCH ×4 (01:49→19:18)
[2018-06-29] MEDS: MORPHINE IV PRN ×6 (01:53→21:33)
[2018-06-29] MEDS: SOLU-MEDROL IV SCH ×4 (03:26→21:32)
[2018-06-29] MEDS: DUONEB (A & A) INH SCH ×4 (03:42→21:49)
[2018-06-29 04:44] LABS: ALLEN TEST YES; BE 14.5 mmoll (-3.0-3.0); BLOOD TYPE ARTERIAL; HCO3-(ACT) 36.2 mmoll (20.0-26.0); METHB 0.9 % (0.0-1.5); O2HB 96.4 % (95.0-99.0); PO2(98.6) 115 mmHg (60-100); SAMPLE BLOOD; SAO2 99.3 % (95.0-100.0); THB 11.7 g/dL (11.5-17.4); pH(98.6) 7.38 (7.35-7.45)
[2018-06-29 04:46] LABS: MODALITY BI PAP; PCO2(98.6) 72 mmHg (35-45)
[2018-06-29 04:50] LABS: HEMATOCRIT 37.5 % (37.0-47.0); IMM GRAN# 0.03 X1000 (0.0-0.04); IMM GRAN% 0.3 % (0.0-0.5); LYMPH# 0.57 X1000 (1.2-3.4); MCH 25.9 PG (27-31); MCHC 29.3 g/dL (33-37); MCV 88.2 FL (81-99); MONO# 0.36 X1000 (0.11-0.59); MONO% 3.1 % (1.7-9.3); MPV 10.8 FL (7.4-10.4); NEUT# 10.49 X1000 (1.4-6.5); NEUT% 91.6 % (42.2-75.2); PLT 122 X1000 (130-400); RBC 4.25 XMIL (4.2-5.4); RDW 17.5 % (11.5-14.5); WBC 11.45 X1000 (4.8-10.8)
[2018-06-29] MEDS: HALDOL IV PRN (04:57)
[2018-06-29 05:17] LABS: ALB/GLOB RATIO 1.2; ALBUMIN 3.3 g/dL (3.5-5.0); CALCIUM 8.9 mg/dL (8.8-10.2); CREATININE 1.4 mg/dL (0.5-0.9); POTASSIUM 3.9 mmol/L (3.5-5.1); TOTAL BILIRUBIN 0.74 mg/dL (0.20-1.00)
[2018-06-29] MEDS: PROTONIX IV SCH (05:35)
[2018-06-29] MEDS: LOVENOX SUBQ SCH (05:35)
[2018-06-29 05:55] LABS: T4 4.12 ug/dL (4.60-12.00); TSH 3.13 uIUmL (0.27-4.20)
[2018-06-29] MEDS: MERREM 500 MG in NS 50 ML IV SCH (08:39)
[2018-06-29] MEDS: ASPIRIN EC PO SCH (08:39)
[2018-06-29] MEDS: COREG PO SCH ×2 (08:39→20:46)
[2018-06-29] MEDS ORDERED: BROVANA NEB ONE (09:26)
[2018-06-29] MEDS: D5W 1,000 ML IV SCH (09:36)
--- NOTE | 2018-06-29 09:42 | Diag Imaging Result Doc PS360 ---
CHEST-PORTABLE - 06/29/2018 INDICATION: abnormal exam COMPARISON: 06/28/2018 FINDINGS: The right PICC line is seen in the axillary soft tissues on the right side but is no longer visible in the chest. The reason is unclear. There is stable extensive cardiomegaly and pulmonary vascular congestion. There is slight decrease in the background interstitial opacity/pulmonary edema. IMPRESSION: 1. Slight improvement in the interstitial pulmonary edema. 2. Right PICC line tip is no longer visible in the chest. This may have been partially pulled out. Correlate clinically. Electronically signed by Dean Virk 06/29/2018 9:40 AM
[2018-06-29] MEDS: BROVANA NEB INH SCH ×2 (10:04→21:49)
--- NOTE | 2018-06-29 10:25 | PROGRESS NOTE ---
DATE: 06/29/2018 SUBJECTIVE: Ms. Rios is doing better this morning. She is on face mask O2. She has been able to drink a few sips, and be off the face mask for a short time. She is more awake and alert. Her heart rate is controlled. OBJECTIVE: Temperature 97.4 degrees, pulse 78, respirations 12 and blood pressure 127/96. Pupils are equal and round. Note her lungs are clear anterolateral. Distant heart sounds. Monitor shows atrial fibrillation. She has no palpable pedal edema at this time. LABORATORY: Labs from this morning, white count 51002, hematocrit is 37, and platelet count is 122,000. Chemistries show sodium 150, potassium 3.9, chloride 102, BUN 74, and creatinine 1.4 and come up a little bit from yesterday 1. Thyroxine was 4.12, TSH was 3.13. B12 was 765, and folate 7.3. Chest x-ray slight improvement in interstitial pulmonary edema. Right PICC line no longer visible in the chest, may have been partially pulled out. ASSESSMENT AND PLAN: 1. Morbid obesity, BMI greater than 70. She is going to have to find a way to get some weight reduction. 2. Pulmonary hypertension. 3. Acute hypoxemic respiratory failure. 4. Chronic hypoxemia and hypercapnic respiratory failure. 5. Hypoventilation syndrome with morbid obesity. 6. Status post CPR in the emergency room. 7. Obstructive sleep apnea. 8. History of coronary artery disease. 9. Hyponatremia which is improved. 10. Acute kidney injury. Creatinine has bumped up a little bit to 1.4. Continue to try and diurese. Continue her bronchial hygiene. Cycle BiPAP as needed. Need to try and get up out of bed and get some strength. 11. Review of her orders. I will switch her off IV Cardizem to Cardizem p.o. 30 mg q.6 hours, and continue to try and diurese as able. She is on linezolid 600 mg q.12. She is on methylprednisone 20 mg IV q.8. Note, she has a urine culture from 06/17 that grew out extended spectrum beta lactamase Klebsiella pneumonia. Her blood cultures were negative. I do not know if we should re-culture her urine. She is on meropenem. I think we can stop the linezolid. I will get Dr. Fair to help with how long we need to give the meropenem. cc: Nikunj Pittman MD
--- NOTE | 2018-06-29 10:35 | PROGRESS NOTE ---
DATE: 06/29/2018 ADDENDUM: Note, she also has some skin breakdown on her back and in her sacral area so I asked wound care to help. I will stop her linezolid and ask Dr. Fair to see what he wants to do about her meropenem. cc: Nikunj Pittman MD
--- NOTE | 2018-06-29 11:33 | PULMONOLOGY PROGRESS NOTE ---
DATE: 06/29/2018 SUBJECTIVE: The patient is awake and alert. She appears to be less anxious today. She is tolerating the nonrebreather at this moment. OBJECTIVE: HEENT: The patient has been afebrile for the last 24 hours. Blood pressure 109/82, heart rate 95, respiratory rate 17, oxygen saturation 98%. HEENT: Pupils are equal and reactive. Oropharynx is clear. Neck: Supple. Chest: Reveals prolonged expiratory phase bilaterally. Cardiac: S1, S2. Abdomen: Is obese and soft. Extremities: Reveal 1+ peripheral edema. LABORATORIES: Chest x-ray is pending. White blood count 11.4,000. Hemoglobin 11.0, platelet count 122,000. Arterial blood gas, pH 7.38, pCO2 of 72, PO2 of 115, sodium 150, potassium 3.9, chloride 102, bicarbonate 37, BUN 74, creatinine 1.4. IMPRESSION: A 47-year-old with: 1. Morbid obesity and a BMI greater than 70. 2. Moderate pulmonary hypertension. 3. Acute hypoxemic respiratory failure. 4. Chronic hypoxemic and chronic hypercapnic respiratory failure. 5. Status post CPR in the emergency room. 6. Obstructive sleep apnea. 7. History of coronary artery disease. 8. Hypernatremia. DISCUSSION: Overall, patient is marginally improved today. She appears to be more comfortable. She is more hypernatremic. RECOMMENDATIONS: 1. Add free water to her current IV regimen. 2. Wean steroid dosing. 3. Continue to cycle BiPAP and nonrebreather. 4. Control atrial fibrillation rate as we are doing. 5. Long-term prognosis is guarded to poor. cc: Julien Munreo MD
--- NOTE | 2018-06-29 12:04 | Diag Imaging Result Doc PS360 ---
SHOULDER-RIGHT - 06/29/2018 INDICATION: PICC placement TECHNIQUE: One view COMPARISON: None FINDINGS: There is a right PICC line in good position with the catheter tip at the upper SVC. IMPRESSION: Right PICC line in good position. Electronically signed by Dean Virk 06/29/2018 12:01 PM
--- NOTE | 2018-06-29 12:18 | INFECTIOUS DISEASE CONSULT REP ---
DATE: 06/29/2018 CONCLUSION: Dr. Pittman has asked me to evaluate the patient for need of continuing treatment for an extended spectrum beta lactamase producing Klebsiella urinary tract infection. RECOMMENDATIONS: I think the treatment can be discontinued. She has already had 10 days of treatment and she has not had any symptoms of a urinary tract infection and her kidney function has stayed stable. DISCUSSION: The patient is unable provide a history of her medical problems and no family member is present. The patient was admitted to the hospital because of dyspnea. Her dyspnea most likely is secondary to congestive heart failure exacerbation. The patient is morbidly obese also. While in the hospital, the patient did have a cardiac arrest and cardiac resuscitation was performed. The patient only complained of pain to her ribs most likely due to the chest compressions. MEDICAL ILLNESSES: 1. Congestive heart failure. 2. Chronic obstructive pulmonary disease. 3. Coronary artery disease. 4. Hypothyroidism. 5. Atrial fibrillation. 6. Chronic kidney disease. PAST SURGICAL HISTORY: Patient had placement of a Vas-Cath and subsequent removal. REVIEW OF SYSTEMS: Unable to be obtained. SOCIAL HISTORY: The patient lives at home with no reported history of alcohol, tobacco, or drug abuse. The patient has allergies to Keflex and propoxyphene. HOME MEDICATIONS: 1. Coreg. 2. Cardizem. 3. Lasix. 4. Hydrocodone. 5. Synthroid. 6. Protonix. 7. Carafate. 8. Ambien. LABORATORIES: Laboratory studies done thus far [place] a [place] [address], hemoglobin 11, platelet count 122,000. Should be noted that the patient did not have any leukocytosis while she was getting her treatment with meropenem for the extended spectrum beta lactamase producing Klebsiella urinary tract infection, and today is the first day that there is leukocytosis. The patient's blood gases show a pH of 7.38, a PO2 of 115, and a pCO2 of 72. Creatinine is 1.4. GFR is 49. ALT is 70. Chest x-ray shows pulmonary edema. Sputum culture grew normal niru. Urine culture grew, as mentioned above, an extended spectrum beta lactamase producing E coli. PHYSICAL EXAMINATION: Vital Signs: Temperature is 97 degrees, pulse 94, respirations 24, blood pressure 109/82. The patient is 5 feet 4 inches tall, weighs 417 pounds. General: This is morbidly obese, middle-aged female. She seems slightly short of breath even just resting on her bed. Head/eyes/ears/nose/throat: No drainage noted from the nose or the ears. I did not see any white patches in her mouth when she opened her mouth. Neck: She turned her neck without pain. Lungs: It was extremely difficult for me to obtain breath sounds because of the patient's morbid obesity. Cardiovascular: Heart rate is regular. Abdomen: Soft. There was no tenderness. Integument: We looked at the skin folds under both breasts and also under the patient's pannus. All that was seen was some superficial tears, but no evidence of infection. Neurologic: The patient is lethargic. She was unable to answer the questions I asked her about her medical illnesses and if she did start talking, within a few seconds she would start sleeping. There is no tremor present. Thank you for the consult. cc: Arvind Fair MD
[2018-06-29] MEDS: MYLICON PO PRN (15:51)
[2018-06-29] MEDS: ZOFRAN IV PRN (19:22)
[2018-06-30] MEDS: MORPHINE IV PRN ×5 (00:09→23:50)
[2018-06-30] MEDS: ZOFRAN IV PRN ×2 (00:15→13:28)
[2018-06-30] MEDS: BLISTEX MEDICATED BERRY LIP BALM TOP PRN (01:00)
[2018-06-30] MEDS: CALMOSEPTINE OINTMENT TOP PRN (01:00)
[2018-06-30] MEDS: D5W 1,000 ML IV SCH (01:35)
[2018-06-30] MEDS: CARDIZEM PO SCH ×4 (01:35→19:18)
[2018-06-30] MEDS: DUONEB (A & A) INH SCH ×4 (02:51→19:12)
[2018-06-30 04:33] LABS: ALLEN TEST YES; BE 11.3 mmoll (-3.0-3.0); BLOOD TYPE ARTERIAL; HCO3-(ACT) 33.7 mmoll (20.0-26.0); METHB 1.3 % (0.0-1.5); O2(CT) 13.7 mL/dL (15.0-23.0); O2HB 93.9 % (95.0-99.0); PO2(98.6) 82 mmHg (60-100); SAMPLE BLOOD; SAO2 97.2 % (95.0-100.0); THB 10.3 g/dL (11.5-17.4); pH(98.6) 7.34 (7.35-7.45)
[2018-06-30 04:35] LABS: MODALITY BI PAP; PCO2(98.6) 73 mmHg (35-45)
[2018-06-30] MEDS: SOLU-MEDROL IV SCH ×3 (05:16→22:07)
[2018-06-30 05:32] LABS: EOS# 0.01 X1000 (0.0-0.7); EOS% 0.1 % (0.0-10.0); HEMATOCRIT 32.8 % (37.0-47.0); HEMOGLOBIN 9.4 g/dL (12.0-16.0); IMM GRAN# 0.03 X1000 (0.0-0.04); IMM GRAN% 0.3 % (0.0-0.5); LYMPH# 0.48 X1000 (1.2-3.4); LYMPH% 4.9 % (20.5-51.1); MCH 25.8 PG (27-31); MCHC 28.7 g/dL (33-37); MCV 90.1 FL (81-99); MONO# 0.35 X1000 (0.11-0.59); MONO% 3.6 % (1.7-9.3); MPV 11.7 FL (7.4-10.4); NEUT# 8.83 X1000 (1.4-6.5); NEUT% 91.1 % (42.2-75.2); PLT 98 X1000 (130-400); RBC 3.64 XMIL (4.2-5.4); RDW 17.4 % (11.5-14.5)
[2018-06-30] MEDS: PROTONIX IV SCH (05:32)
[2018-06-30] MEDS: SODIUM CHLORIDE 0.9% INJ SCH (05:32)
[2018-06-30] MEDS: LOVENOX SUBQ SCH (05:32)
[2018-06-30 06:23] LABS: LYMPHS 2 % (21-51); SEGS 98 % (42-75)
--- NOTE | 2018-06-30 07:21 | Diag Imaging Result Doc PS360 ---
EXAM: CHEST-PORTABLE INDICATION: respiratory failure TECHNIQUE: One view COMPARISON: 06/29/2018 FINDINGS: There has been interval placement of a right central line. The tip projects over the lower SVC in the region of the atriocaval junction in the expected position. There is no evidence of pneumothorax. Cardiomegaly is again noted. Mild pulmonary venous congestion and interstitial edema is approximately stable. There is suggestion of a small left effusion that is essentially stable. No new consolidation is appreciated. IMPRESSION: Interval placement of right central line. Stable chest, otherwise. Electronically signed by Jann Mcknight 06/30/2018 7:19 AM
[2018-06-30] MEDS: BROVANA NEB INH SCH ×2 (07:43→19:12)
[2018-06-30] MEDS: ASPIRIN EC PO SCH (08:04)
[2018-06-30] MEDS: COREG PO SCH ×2 (08:05→20:15)
[2018-06-30 08:24] LABS: CALCIUM 8.7 mg/dL (8.8-10.2); CREATININE 1.5 mg/dL (0.5-0.9)
[2018-06-30] MEDS ORDERED: CITRATE OF MAGNESIA PO PRN (08:51)
[2018-06-30] MEDS: MIRALAX PO SCH ×2 (09:12→20:22)
--- NOTE | 2018-06-30 16:54 | PROGRESS NOTE ---
DATE: 06/30/2018 INTERVAL HISTORY: The patient remains on 80% FiO2. Remains awake and alert. Remains in atrial fibrillation but rate controlled. No acute events overnight. Still complaining of bilateral rib discomfort since her resuscitation. REVIEW OF SYSTEMS: A 12-point review of systems negative except as per Interval History. DIAGNOSTIC STUDIES: WBC 9.7, hemoglobin 9.4, hematocrit 32.8, platelets 98,000. ABG with pH 7.34, pCO2 of 73, PO2 of 82 on 80% FiO2. Sodium 139, potassium 4, chloride 94, BUN 80, creatinine 1.5, glucose 169. Chest x-ray: Interval placement of right central line. Otherwise stable mild pulmonary venous congestion and interstitial edema and small left effusion. VITAL SIGNS: Temperature maximum 97.8, pulse 90, respirations 18, blood pressure 105/80, O2 saturation 95% on 80% FiO2. PHYSICAL EXAMINATION: General: No acute distress. Ill appearing. Vitals: As above. HEENT: Normocephalic, atraumatic. Moist mucus membranes. Neck: No cervical adenopathy palpable. Cardiovascular: Irregular rhythm but normal rate. No murmurs noted. Pulmonary: Some scattered rhonchi, but largely clear to auscultation within the limits of body habitus. Abdomen: Soft, nontender, nondistended. Bowel sounds present. Peripheral pulses decreased but present. Some mild chronic venous stasis changes. Neurologic: Cranial nerves grossly intact. No focal deficits identified. Psychiatric: Normal mood and affect. Awake, alert, and oriented x3. Skin: Some slight skin breakdown of the back and sacrum, but no new lesions or rashes identified. ASSESSMENT AND PLAN: 1. Acute on likely chronic hypoxemic and chronic hypercapnic respiratory failure, multifactorial with pickwickian syndrome, pulmonary hypertension, chronic obstructive pulmonary disease (COPD), and acute on chronic diastolic congestive heart failure (CHF). Pulmonary edema is improved, but O2 requirements remain high. ABG with ongoing hypercapnia with pH just barely low, so not too far off from baseline. Giving BiPAP at night. On DuoNeb and steroids. Pulmonology following. Continue to monitor closely in ICU, given tenuous respiratory status. 2. Morbid obesity. The patient counseled on diet and exercise. Strongly contributing to her multiple comorbidities. 3. Atrial fibrillation. Remains rate controlled on PO dilt. 4. Coronary artery disease. Continue aspirin. 5. Hypothyroidism. Continue home Synthroid. 6. Acute kidney injury (SAMMIE) on likely chronic kidney disease (CKD) 3. The patient's creatinine trending up slightly over the last few days. Off diuretics. May be getting into some cardiorenal syndrome. We will hold fluids and diuretics and monitor. Appears to have pretty reasonable urine output. 7. Deep vein thrombosis (DVT) prophylaxis. [facility]. [facility]
--- NOTE | 2018-06-30 18:29 | PULMONOLOGY PROGRESS NOTE ---
DATE: 06/30/2018 SUBJECTIVE: The patient is awake, alert, and conversant. She did get out of bed in a chair today. She reports her shortness of breath is slightly better. OBJECTIVE: Vital Signs: The patient has been afebrile for the last 24 hours. Heart rate 95, blood pressure 110/70, respiratory rate 20, oxygen saturation 91% on 80% FiO2. HEENT: Pupils are equal and reactive. Oropharynx appears clear. Neck: Supple. Chest: Markedly diminished breath sounds bilaterally. Cardiac: S1, S2, with a regular rhythm. Abdomen: Obese and soft. Extremities: 1+ peripheral edema. LABORATORIES: Chest x-ray reveals cardiomegaly with pulmonary venous congestion with small effusion. Arterial blood gas reveals a pH of 7.34, pCO2 of 73, pO2 of 82. White blood count 9.7, hemoglobin 9.4, platelet count 98,000. Sodium 130, potassium 4.0, chloride 94, bicarbonate 34, BUN 80, creatinine 1.5. IMPRESSION: A 47-year-old with: 1. Acute hypoxemic respiratory failure. 2. Chronic hypercapnic and chronic hypoxemic respiratory failure. 3. Morbid obesity, with a body mass index greater than 70. 4. Moderate pulmonary hypertension. 5. Status post cardiopulmonary resuscitation in the emergency room. 6. Obstructive sleep apnea. 7. Acute renal insufficiency. 8. Coronary artery disease. DISCUSSION: Patient with multiple medical problems outlined above. Today she is marginally improved from a clinical standpoint. She has less work of breathing. Her hypernatremia has resolved. RECOMMENDATIONS: 1. Agree with discontinuing IV fluids and Lasix. 2. Continue current steroid dosing. 3. Cycle BiPAP and non-rebreather. 4. Continue rate control of atrial fibrillation. 5. Overall prognosis is guarded to poor. cc: Julien Munroe MD
[2018-06-30] MEDS: AMBIEN PO PRN (20:15)
[2018-07-01] MEDS: CARDIZEM PO SCH ×4 (02:55→19:42)
[2018-07-01] MEDS: DUONEB (A & A) INH SCH ×4 (03:38→21:10)
[2018-07-01 04:36] LABS: ALLEN TEST YES; BE 12.8 mmoll (-3.0-3.0); BLOOD TYPE ARTERIAL; HCO3-(ACT) 34.8 mmoll (20.0-26.0); METHB 1.2 % (0.0-1.5); O2(CT) 12.5 mL/dL (15.0-23.0); O2HB 90.1 % (95.0-99.0); PO2(98.6) 64 mmHg (60-100); SAMPLE BLOOD; SAO2 93.5 % (95.0-100.0); THB 9.8 g/dL (11.5-17.4); pH(98.6) 7.33 (7.35-7.45)
[2018-07-01 04:38] LABS: PCO2(98.6) 78 mmHg (35-45)
[2018-07-01 04:39] LABS: MODALITY BI PAP
[2018-07-01] MEDS: LOVENOX SUBQ SCH (06:10)
[2018-07-01] MEDS: SYNTHROID PO SCH (06:10)
[2018-07-01] MEDS: PROTONIX IV SCH (06:10)
[2018-07-01] MEDS: SODIUM CHLORIDE 0.9% INJ SCH (06:10)
[2018-07-01] MEDS: SOLU-MEDROL IV SCH ×3 (06:10→21:29)
[2018-07-01 06:33] LABS: BASO# 0.01 X1000 (0.0-0.2); BASO% 0.1 % (0.0-0.8); HEMATOCRIT 31.6 % (37.0-47.0); HEMOGLOBIN 9.1 g/dL (12.0-16.0); IMM GRAN# 0.05 X1000 (0.0-0.04); IMM GRAN% 0.5 % (0.0-0.5); LYMPH# 0.53 X1000 (1.2-3.4); LYMPH% 5.8 % (20.5-51.1); MCH 25.7 PG (27-31); MCHC 28.8 g/dL (33-37); MCV 89.3 FL (81-99); MONO# 0.36 X1000 (0.11-0.59); MONO% 3.9 % (1.7-9.3); MPV 11.2 FL (7.4-10.4); NEUT# 8.23 X1000 (1.4-6.5); NEUT% 89.7 % (42.2-75.2); PLT 71 X1000 (130-400); RBC 3.54 XMIL (4.2-5.4); RDW 16.6 % (11.5-14.5); WBC 9.18 X1000 (4.8-10.8)
--- NOTE | 2018-07-01 07:13 | Diag Imaging Result Doc PS360 ---
EXAM: CHEST-PORTABLE 07/01/2018 HISTORY: respiratory failure. Use Grid TECHNIQUE: AP portable upright at 0520 COMMENT: There is a PICC line with its tip in the right atrium. There is cardiomegaly. Lung bases are not well demonstrated and there is some apparent opacity over the right lower lobe which was not present on 06/30/2018. IMPRESSION: Cardiomegaly. Atelectasis versus pneumonia right lower lobe. Electronically signed by George Gentile 07/01/2018 7:10 AM
[2018-07-01 07:16] LABS: CALCIUM 8.6 mg/dL (8.8-10.2); CREATININE 1.6 mg/dL (0.5-0.9); POTASSIUM 4.5 mmol/L (3.5-5.1)
[2018-07-01] MEDS: MIRALAX PO SCH ×2 (08:06→20:44)
[2018-07-01] MEDS: COREG PO SCH ×2 (08:07→20:44)
[2018-07-01] MEDS: ASPIRIN EC PO SCH (08:07)
[2018-07-01] MEDS: BROVANA NEB INH SCH ×2 (09:28→19:31)
[2018-07-01] MEDS: MORPHINE IV PRN ×2 (10:24→18:31)
--- NOTE | 2018-07-01 16:48 | PROGRESS NOTE ---
DATE: 07/01/2018 INTERVAL HISTORY: The patient still with marginal respiratory status. Oxygenation somewhat improved but an increase in perceived dyspnea and work of breathing today. Remains afebrile. No other acute events overnight. No other new complaints. REVIEW OF SYSTEMS: A 12 point review of systems negative except as per Interval History. LABORATORIES: WBC 9.1, hemoglobin also 9.1, hematocrit 31.6, platelets 71,000. ABG with pH 7.3, pCO2 of 78, PO2 of 64, O2 saturation 93 on 50% FiO2. Sodium 144, potassium 4.5, BUN 89, creatinine 1.6, glucose 153. IMAGING: Chest x-ray with cardiomegaly and likely atelectasis in right lower lobe. VITALS: T-max 98.0 degrees, pulse 83, respirations 22, blood pressure 120/86, O2 saturation 96% on 50% FiO2. PHYSICAL EXAMINATION: General: No acute distress. Well appearing. Vitals: As above. HEENT: Normocephalic, atraumatic. Moist mucous membranes. Neck: No cervical adenopathy. Cardiovascular: Irregular rhythm, but remains a normal rate. No murmurs noted. Pulmonary: Still with scattered rhonchi, right largely clear to auscultation within limits of body habitus. Left with slightly decreased breath sounds, but are present. Slight tachypnea and slight accessory muscle use noted. Abdomen: Soft, nontender, nondistended. Bowel sounds present. Extremities: Peripheral pulses decreased but present. Some mild chronic venous stasis changes, which are stable. Neurologic: Cranial nerves grossly intact. No focal deficits. Psychiatric: Normal mood and affect. Awake, alert, and oriented x3. Skin: Sacral skin breakdown unchanged. no new lesions or rashes identified. ASSESSMENT AND PLAN: 1. Acute on likely chronic hypoxemic and hypercapnic respiratory failure: Multifactorial with pickwickian syndrome, pulmonary hypertension, chronic obstructive pulmonary disease (COPD) with possible exacerbation and acute on chronic diastolic congestive heart failure. Pulmonary edema improved and O2 requirements somewhat better, but remain higher than baseline. ABG with ongoing hypercapnia, which is actually slightly worsened. We will likely need to keep on BiPAP today. Continue DuoNeb and steroids. Continue monitoring closely in ICU, given tenuous respiratory status. Pulmonology following. No fever. No leukocytosis. Chest x-ray showing only what appears to be atelectasis to me, so low suspicion for bacterial infection at this point. 2. Morbid obesity. Patient counseled. Strongly contributing to her respiratory issues and other comorbidities. 3. Atrial fibrillation. Remains largely rate controlled on p.o. diltiazem. 4. Coronary artery disease. Continue aspirin. 5. Hypothyroidism. Continue home Synthroid. 6. Acute kidney injury on likely chronic kidney disease stage 3 (CKD 3). Creatinine improved from previous, but trending up minimally but consistently over the last few days. Off diuretics and fluid intake has been reasonable. Difficult to assess patient's volume status given super morbid obesity. We will check urine studies and monitor closely. If creatinine continues to worsen, we will consider Nephrology consult. 7. Deep vein thrombosis (DVT) prophylaxis. [facility]. [facility]
[2018-07-01 18:01] LABS: URINE SOURCE CATH
[2018-07-01 18:09] LABS: BILIRUBIN URINE NEGATIVE (NEGATIVE); BLOOD URINE MODERATE (NEGATIVE); COLOR ORANGE; GLUCOSE URINE NEGATIVE (NEGATIVE); KETONE URINE NEGATIVE (NEGATIVE); LEUKOCYTES URINE LARGE (NEGATIVE); NITRITE URINE NEGATIVE (NEGATIVE); PH URINE 5.5; PROTEIN URINE TRACE mg/dL (NEGATIVE); SP GRAVITY URINE 1.009; TURBIDITY URINE TURBID (CLEAR); UROBILINOGEN URINE NORMAL (NORMAL)
[2018-07-01 18:18] LABS: UR EPITHELIAL CELLS <10 /HPF (<10); URINE BACTERIA NEGATIVE /HPF; URINE RBC TNTC /HPF (<10); URINE WBC TNTC /HPF (<10)
[2018-07-01 18:23] LABS: UR CREAT RANDOM 46.3 mg/dL (11-20); UR SODIUM < 10 mmoll
[2018-07-01 18:32] LABS: URINE CASTS NONE SEEN; URINE CRYSTALS NONE SEEN; URINE SMALL ROUND CELLS RENAL PRESENT; URINE YEAST PRESENT
[2018-07-01] MEDS: MYLICON PO PRN (18:32)
[2018-07-01] MEDS ORDERED: BROVANA NEB ONE (19:02)
[2018-07-01] MEDS: BLISTEX MEDICATED BERRY LIP BALM TOP PRN (19:44)
--- NOTE | 2018-07-01 21:35 | PULMONOLOGY PROGRESS NOTE ---
DATE: 07/01/2018 SUBJECTIVE: The patient is awake and alert. She is wearing her BiPAP except for when she is eating. She is without new complaints. OBJECTIVE: Vital Signs: The patient has been afebrile for the last 24 hours. Blood pressure is 124/82, heart rate 88, respiratory rate 24, oxygen saturation 94% on BiPAP. HEENT: Pupils are equal and reactive. Oropharynx evaluation is limited with BiPAP in place. Neck: Supple. Chest: Reveals distant breath sounds without wheezing or rhonchi. Cardiac exam: S1-S2. Abdomen: Obese and soft. Extremities: Reveal generalized edema. LABORATORIES: Chest x-ray reveals cardiomegaly with increased vascular congestion and atelectasis at the left base. No major change. Sodium 144, potassium 4.5, chloride 99, bicarbonate 34, BUN 89, creatinine 1.6, glucose 153. Arterial blood gas, pH 7.33, pCO2 of 78, pO2 of 64. IMPRESSION: A 47-year-old with: 1. Acute hypoxemic respiratory failure. 2. Chronic hypercapnic and chronic hypoxemic respiratory failure. 3. Morbid obesity with a body mass index greater than 70. 4. Pulmonary hypertension. 5. Cardiopulmonary arrest in the emergency room to beginning of this admission. 6. Obstructive sleep apnea. 7. Acute renal insufficiency. 8. Coronary artery disease. RECOMMENDATIONS: 1. Continue to cycle BiPAP and non-rebreather mask. Her pulmonary status remains marginal. 2. Attempt to balance intake and output, but her BUN continues to climb, making additional diuresis is difficult. 3. Continue rate control of atrial fibrillation. 4. Overall prognosis guarded. cc: Julien Munroe MD
[2018-07-02] MEDS: AMBIEN PO PRN ×2 (00:23→20:59)
[2018-07-02] MEDS: CARDIZEM PO SCH ×4 (02:02→19:22)
[2018-07-02] MEDS: DUONEB (A & A) INH SCH ×4 (03:11→22:32)
[2018-07-02 04:47] LABS: ALLEN TEST YES; BE 15.3 mmoll (-3.0-3.0); BLOOD TYPE ARTERIAL; HCO3-(ACT) 36.8 mmoll (20.0-26.0); METHB 0.7 % (0.0-1.5); O2(CT) 11.7 mL/dL (15.0-23.0); O2HB 94.2 % (95.0-99.0); PO2(98.6) 72 mmHg (60-100); SAMPLE BLOOD; SAO2 98.2 % (95.0-100.0); THB 8.8 g/dL (11.5-17.4); pH(98.6) 7.39 (7.35-7.45)
[2018-07-02 04:48] LABS: PCO2(98.6) 70 mmHg (35-45)
[2018-07-02 04:49] LABS: MODALITY BI PAP
[2018-07-02] MEDS: SOLU-MEDROL IV SCH ×3 (05:30→21:50)
[2018-07-02] MEDS: SODIUM CHLORIDE 0.9% INJ SCH (05:31)
[2018-07-02] MEDS: LOVENOX SUBQ SCH (05:31)
[2018-07-02] MEDS: PROTONIX IV SCH (05:31)
[2018-07-02 06:06] LABS: HEMATOCRIT 28.7 % (37.0-47.0); HEMOGLOBIN 8.3 g/dL (12.0-16.0); IMM GRAN# 0.03 X1000 (0.0-0.04); IMM GRAN% 0.4 % (0.0-0.5); LYMPH# 0.41 X1000 (1.2-3.4); LYMPH% 5.9 % (20.5-51.1); MCH 25.5 PG (27-31); MCHC 28.9 g/dL (33-37); MONO# 0.26 X1000 (0.11-0.59); MONO% 3.7 % (1.7-9.3); MPV 12.1 FL (7.4-10.4); PLT 56 X1000 (130-400); RBC 3.26 XMIL (4.2-5.4); RDW 16.3 % (11.5-14.5)
[2018-07-02 06:21] LABS: CALCIUM 8.8 mg/dL (8.8-10.2); CREATININE 1.3 mg/dL (0.5-0.9); POTASSIUM 4.4 mmol/L (3.5-5.1)
[2018-07-02] MEDS: SYNTHROID PO SCH (06:30)
--- NOTE | 2018-07-02 06:43 | Diag Imaging Result Doc PS360 ---
CHEST-PORTABLE - 07/02/2018 INDICATION: respiratory failure. Use Grid COMPARISON: 07/01/2018 FINDINGS: Stable right PICC line. Stable severe cardiomegaly and pulmonary vascular congestion. There has been improvement in the faint infiltrate at the right lung base. No new infiltrates. IMPRESSION: Improvement in the faint infiltrate at the right lung base. Overall little change from prior. Electronically signed by Dean Virk 07/02/2018 6:41 AM
[2018-07-02 08:26] LABS: RETIC% 0.38 % (0.8-2.1); RETIC-HE 29.4 PG (28.2-36.6)
[2018-07-02] MEDS: MORPHINE IV PRN (08:34)
[2018-07-02] MEDS: COREG PO SCH ×2 (08:35→20:59)
[2018-07-02] MEDS: ASPIRIN EC PO SCH (08:35)
[2018-07-02] MEDS: MIRALAX PO SCH ×2 (08:35→20:59)
[2018-07-02] MEDS: MILK OF MAGNESIA PO PRN ×2 (08:36→17:44)
[2018-07-02] MEDS ORDERED: BROVANA NEB ONE ×2 (09:24→19:21)
[2018-07-02] MEDS: BROVANA NEB INH SCH ×2 (09:48→19:30)
[2018-07-02] MEDS: FOLIC ACID PO SCH (10:50)
[2018-07-02] MEDS: NORCO-10 PO PRN (13:16)
--- NOTE | 2018-07-02 15:09 | PROGRESS NOTE ---
DATE: 07/02/2018 INTERVAL HISTORY: The patient is still requiring significant O2. Does appear to have less accessory muscle use and respiratory effort than yesterday. No signs or symptoms of bleeding. Rib pain unchanged. No acute events overnight. No other new complaints. REVIEW OF SYSTEMS: Twelve point review of systems negative except as per interval history. LABS: WBCs 7.0, hemoglobin 8.3, hematocrit 28.7, platelets 56,000, reticulocyte count 0.38. ABG with pH 7.39, pCO2 70, PO2 72, O2 saturation 98% on 50% FiO2 with BiPAP. BUN 85, creatinine 1.3. IMAGING: Chest x-ray with improvement in likely atelectasis of the right lung base. Overall, essentially unchanged. VITALS: T-max 98.2 degrees, pulse 90, respirations 22, blood pressure 105/81, O2 saturation is 99% on 15 L Ventimask. PHYSICAL EXAMINATION: General: No acute distress, ill appearing. Vitals: As above. HEENT: Normocephalic, atraumatic. Moist mucous membranes. No cervical adenopathy. Cardiovascular: Irregular rhythm but normal rate. No murmurs noted. Pulmonary: Still with scattered rhonchi, essentially unchanged, right clearer than left. Abdomen: Soft, nontender, obese. Bowel sounds present. Extremities: Peripheral pulses decreased but present. Some mild chronic venous stasis changes, unchanged. Neurologic: Cranial nerves are grossly intact. No focal deficits. Psychiatric: Normal mood and affect. Awake, alert, and oriented x3. Skin: No new lesions or rashes identified. ASSESSMENT AND PLAN: 1. Acute on chronic hypoxemic and hypercapnic respiratory failure: Multifactorial with morbid obesity, pickwickian syndrome, pulmonary hypertension, chronic obstructive pulmonary disease, and acute on chronic diastolic congestive heart failure. Pulmonary edema remains improved and oxygen requirements are improving but very slowly. They remain higher than her baseline. Arterial blood gas with improved hypercapnia after leaving her on BiPAP most the day yesterday. We will again try her off the BiPAP today and see how she does. Continue DuoNebs and steroids. Continue monitoring closely in the intensive care unit, given tenuous respiratory status. Pulmonary is on board. 2. Morbid obesity. Patient counseled, strong contributor in her overall medical issues. 3. Anemia and thrombocytopenia. No signs or symptoms of bleeding but has had decrease in blood counts and platelets slowly over the last few days. Reticulocyte count quite low, suggesting bone marrow underproduction. Iron studies pending. We will hold Protonix as it can occasionally be bone marrow suppressive. We will also hold Lovenox, given anemia and thrombocytopenia. 4. Atrial fibrillation. Occasional slight elevations but remains largely rate controlled on oral diltiazem. 5. Coronary artery disease. Continue aspirin for now but may have to discontinue if blood counts continue to drop. 6. Hypothyroidism. Continue on Synthroid. 7. Acute kidney injury on likely chronic kidney disease 3. Creatinine was trending up for several days but now improved. Continue to monitor. 8. Deep venous thrombosis prophylaxis. Sequential compression devices.
[2018-07-02] MEDS: CLINDAMYCIN 600 MG/D5W 600 MG/50 ML IVPB IV SCH (17:48)
[2018-07-02] MEDS: AZACTAM 2 GM in NS 100 ML IV SCH (18:09)
--- NOTE | 2018-07-02 18:39 | INFECTIOUS DISEASE PROGRESS NO ---
DATE: 07/02/2018 PRESENT ILLNESS: Ms. Rios has been treated previously for an ESBL producing Klebsiella pneumoniae urinary tract infection. The most recent culture has shown yeast that is grown in her urine. The funguria is asymptomatic so will not need any treatment at this point. There is a faint infiltrate to the right lung base so we will treat her for the possibility of pneumonia. MEDICATIONS: She has not been receiving any antibiotics. Today, we will start her on aztreonam 2 g IV every 8 hours and clindamycin 600 IV every 8 hours. PHYSICAL EXAMINATION: Vital Signs: Temperature is 97.8, pulse rate 94, respiratory rate 20, blood pressure 120/74. Her O2 saturations 96% on 80% FiO2. General: This is a morbidly obese, chronically ill-appearing, middle-aged female. She is sitting up in the bed, eating ice cream in no acute distress. HEENT: Atraumatic, normocephalic. Oral mucous membranes are pink and moist. Conjunctivae are pale. Neck: Supple. Trachea is midline. Cardiovascular: Irregularly irregular. Respiratory: Lung sounds are clear in the upper lobes. Diminished mid and bases. Abdomen: Soft, obese, and tender on palpation. Bowel sounds are active. Neurologic: She is awake, alert, oriented and able to move around in the bed somewhat with assistance. LABORATORY AND X-RAY: Today her white count is 7, hemoglobin 8.3, platelet count 56,000. Her pH on a 50% BiPAP was 7.39, pCO2 of 70, pO2 of 72, HCO-3 of 36.8. Creatinine is 1.3. GFR 53. Her urine has grown yeast on the most recent culture. Chest x-ray today shows a faint infiltrate at the right lung base. ASSESSMENT AND PLAN: Ms. Rios has possible pneumonia to the right lower lobe as seen on chest x-ray. Based on her allergies and her blood counts, we will start her on aztreonam 2 g IV every 8 hours and clindamycin 600 mg IV every 8 hours. There is an order for chest x-ray tomorrow, as well as blood work. These plans have been discussed with and recommended by Dr. Fair. COMORBIDITIES: For Ms. Rios include morbid obesity with a BMI of 72, previous cardiopulmonary arrest this admission, obstructive sleep apnea. Acute renal insufficiency and coronary artery disease with atrial fibrillation. Dictated by FIONA Welsh for Arvind Fair MD This chart was documented by, FIONA Welsh and accurately reflects the services performed, treatment plan and medical decisions as attested by the providers signature Arvind Fair MD. cc: Arvind Fair MD [facility]
--- NOTE | 2018-07-02 20:12 | PULMONOLOGY PROGRESS NOTE ---
DATE: 07/02/2018 SUBJECTIVE: The patient has slightly less dyspnea today. OBJECTIVE: Vital Signs: Input approximates output. BP 124/83, heart rate 97, respiratory rate 21, oxygen saturation 96% on face mask. HEENT: Pupils are equal and reactive. Oropharynx is clear. Neck: Supple. Chest: Reveals diminished breath sounds bilaterally. Cardiac: S1, S2. Abdomen: Obese and soft. Extremities: Reveal 1+ peripheral edema. LABORATORIES: Chest x-ray reveals cardiomegaly, vascular congestion, faint infiltrate at the right base which is actually improved over the last 24 hours. Arterial blood gas: pH 7.39, pCO2 of 70, PO2 of 72 on BiPAP. Chemistry: Sodium 141, potassium 4.4, chloride 97, bicarbonate 35, BUN 85, creatinine 1.3. IMPRESSION: A 47-year-old with: 1. Acute hypoxemic respiratory failure. 2. Chronic hypoxemic and chronic hypercapnic respiratory failure. 3. Morbid obesity with a BMI greater than 50. 4. Pulmonary hypertension. 5. Cardiopulmonary arrest in the emergency room on the day of admission. 6. Obstructive sleep apnea. 7. Acute renal insufficiency. 8. Coronary artery disease. 9. Possible mild pneumonia. RECOMMENDATION: 1. Continue to cycle BiPAP and non-rebreather mask. 2. Continue to balance intake and output with gentle diuresis if necessary. 3. Continue cardiac rate control. 4. Guarded to poor prognosis. cc: Julien Munroe MD
[2018-07-03] MEDS: CARDIZEM PO SCH ×4 (02:04→20:04)
[2018-07-03] MEDS: MORPHINE IV PRN ×2 (02:04→17:27)
[2018-07-03] MEDS: CLINDAMYCIN 600 MG/D5W 600 MG/50 ML IVPB IV SCH ×3 (02:04→17:27)
[2018-07-03] MEDS: AZACTAM 2 GM in NS 100 ML IV SCH ×3 (02:04→17:30)
[2018-07-03] MEDS: DUONEB (A & A) INH SCH ×4 (03:06→21:14)
[2018-07-03 04:27] LABS: ALLEN TEST YES; BLOOD TYPE ARTERIAL; HCO3-(ACT) 38.2 mmoll (20.0-26.0); METHB 1.1 % (0.0-1.5); O2(CT) 10.6 mL/dL (15.0-23.0); O2HB 93.2 % (95.0-99.0); PO2(98.6) 69 mmHg (60-100); SAMPLE BLOOD; SAO2 96.1 % (95.0-100.0); SRATE 18 BPM
[2018-07-03 04:28] LABS: MODALITY BI PAP; PCO2(98.6) 71 mmHg (35-45)
[2018-07-03] MEDS: SOLU-MEDROL IV SCH ×3 (05:21→22:15)
[2018-07-03] MEDS: SYNTHROID PO SCH (06:09)
[2018-07-03 06:19] LABS: HEMATOCRIT 25.1 % (37.0-47.0); HEMOGLOBIN 7.1 g/dL (12.0-16.0); IMM GRAN# 0.03 X1000 (0.0-0.04); IMM GRAN% 0.4 % (0.0-0.5); LYMPH# 0.48 X1000 (1.2-3.4); LYMPH% 6.8 % (20.5-51.1); MCH 25.1 PG (27-31); MCHC 28.3 g/dL (33-37); MCV 88.7 FL (81-99); MONO# 0.59 X1000 (0.11-0.59); MONO% 8.3 % (1.7-9.3); MPV 12.8 FL (7.4-10.4); NEUT# 5.97 X1000 (1.4-6.5); NEUT% 84.5 % (42.2-75.2); PLT 63 X1000 (130-400); RBC 2.83 XMIL (4.2-5.4); WBC 7.07 X1000 (4.8-10.8)
[2018-07-03 06:38] LABS: CALCIUM 8.3 mg/dL (8.8-10.2); CREATININE 1.4 mg/dL (0.5-0.9); POTASSIUM 4.7 mmol/L (3.5-5.1)
--- NOTE | 2018-07-03 07:05 | Diag Imaging Result Doc PS360 ---
EXAM: CHEST-PORTABLE 07/03/2018 HISTORY: respiratory failure. Use Grid TECHNIQUE: AP portable at 0532 COMMENT: There is a PICC line on the right with its tip apparently in the superior vena cava. The heart size is enlarged. There is interstitial pulmonary edema. There is platelike atelectasis in the right base. Compared to the previous study of 07/02/2018 the inspiration is better but the pulmonary edema is worse. IMPRESSION: Pulmonary edema and cardiomegaly. Electronically signed by George Gentile 07/03/2018 7:03 AM
[2018-07-03] MEDS ORDERED: BROVANA NEB ONE ×2 (07:30→21:08)
[2018-07-03] MEDS: FOLIC ACID PO SCH (08:26)
[2018-07-03] MEDS: ASPIRIN EC PO SCH (08:26)
[2018-07-03] MEDS: MIRALAX PO SCH ×2 (08:26→20:05)
[2018-07-03] MEDS: COREG PO SCH ×2 (08:26→20:04)
[2018-07-03] MEDS: MILK OF MAGNESIA PO PRN (09:33)
[2018-07-03] MEDS: BROVANA NEB INH SCH ×2 (09:40→21:14)
--- NOTE | 2018-07-03 12:29 | INFECTIOUS DISEASE PROGRESS NO ---
DATE: 07/03/2018 HISTORY OF PRESENT ILLNESS: Ms. Rios is being treated for an infiltrate to the right lung base with the possibility of pneumonia. There is a funguria which is asymptomatic and will not need any treatment at this point. MEDICATION: She is receiving aztreonam 2 g IV every 8 hours with clindamycin 600 mg IV every 8 hours. PHYSICAL EXAMINATION: Vital Signs: Temperature is 98.1 degrees, pulse rate 91, respiratory rate 20, blood pressure 118/85, O2 saturation is 98% on 80% FiO2. General: This is a morbidly obese, chronically ill-appearing, middle-aged female. She is sitting up in bed currently in no acute distress. HEENT: Atraumatic, normocephalic. Oral mucous membranes are pink and moist. Conjunctivae are pale. Neck: Supple. Trachea is midline. Cardiovascular: Irregularly irregular. Respiratory: There is rhonchi to the right upper lobe. Diminished throughout. Abdomen: Soft, obese and tender on palpation. Bowel sounds are active. Neurologic: She is awake, alert, oriented, and very weak. She has tried to get up with physical therapy but is unable to do much at this point. LABORATORY AND X-RAY: Today, her white count is 7.07, hemoglobin 7.1, platelet count 63,000. Creatinine is 1.4, GFR 49 on 50% BiPAP. This morning, her pH was 7.4, pCO2 71, PO2 69, HCO3 38.2. Chest x-ray today shows platelike atelectasis in the right base and pulmonary edema. ASSESSMENT AND PLAN: Ms. Rios has the possibility of pneumonia to the right lung base. She is receiving aztreonam and clindamycin, which we will continue. We will go ahead and draw a procalcitonin today to differentiate between the possibility of pneumonia versus pulmonary edema. At this point, there is no new fever or leukocytosis. These plans have been discussed with and recommended by Dr. Fair. COMORBIDITIES: For Ms. Rios include morbid obesity with a BMI of 72, cardiopulmonary arrest on this admission, obstructive sleep apnea, coronary artery disease with atrial fibrillation, and acute renal insufficiency. Dictated by FIONA Welsh for Arvind Fair MD This chart was documented by, FIONA Welsh and accurately reflects the services performed, treatment plan and medical decisions as attested by the providers signature Arvind Fair MD. cc: Arvind Fair MD [facility]
[2018-07-03] MEDS: NORCO-10 PO PRN (12:58)
[2018-07-03] MEDS: TUMS PO PRN (12:58)
[2018-07-03] MEDS: MYLICON PO PRN (14:09)
[2018-07-03] MEDS: ZOFRAN IV PRN (14:09)
[2018-07-03 15:12] LABS: HEMATOCRIT 26.1 % (37.0-47.0); HEMOGLOBIN 7.4 g/dL (12.0-16.0)
--- NOTE | 2018-07-03 16:01 | PROGRESS NOTE ---
DATE: 07/03/2018 INTERVAL HISTORY: Respiratory status is not really better, but not really worse. The patient's only complaint is constipation. No acute events overnight. No other new complaints. Still requiring 80% FiO2. REVIEW OF SYSTEMS: Twelve point review of systems is negative except as per interval history. LABORATORY DATA: WBC 7.0, hemoglobin 7.1, hematocrit 25.1, platelets 53. ABG with pH 7.4, pCO2 of 71, PO2 of 69, O2 saturation 96% on 505 BiPAP, BUN 78, creatinine 1.4, glucose 187, iron 65, ferritin 172. IMAGING: Chest x-ray, stable mild interstitial edema, atelectasis at the right base. VITAL SIGNS: T-max 98.8 degrees, pulse 108, respirations 22, blood pressure 123/94, O2 saturation 95% on 80% FiO2. PHYSICAL EXAMINATION: General: No acute distress. Vitals: As above. HEENT: Normocephalic, atraumatic. Moist mucous membranes. Neck: No cervical adenopathy. Cardiovascular: Irregular rhythm. Normal rate at the time of my examination. Pulmonary: Scattered rhonchi remain unchanged. Abdomen: Soft, nontender, obese. Bowel sounds present. Extremities: Peripheral pulses present. Mild chronic venous stasis is stable. Neurologic: Cranial nerves grossly intact. No focal deficits identified. Psychiatric: Normal mood and affect. Awake, alert and oriented x3. Skin: No new lesions or rashes identified. ASSESSMENT AND PLAN: 1. Acute on chronic hypoxemic and hypercapnic respiratory failure, multifactorial with morbid obesity, pickwickian syndrome, pulmonary hypertension, chronic obstructive pulmonary disease, and acute on chronic diastolic congestive heart failure. Pulmonary edema still present, possibly slightly worse on most recent x-ray. Hypercapnia remains somewhat improved. Considered additional Lasix, but as she has had a slightly negative balance for the last couple days we will defer for now, but if her fluid balance does not remain negative then we will likely have to give additional Lasix. We will continue nebulizers and steroids. Continue close monitoring. Pulmonary on board. 2. Morbid obesity, stable, contributing to her multiple medical issues. 3. Anemia and thrombocytopenia. No signs or symptoms of bleeding. Platelets actually slightly improved today, but hemoglobin and hematocrit is still trending down. We will recheck blood counts this afternoon and monitor closely. Reticulocyte count was quite low suggesting a central issue, but iron studies do not show any significant deficiency. If blood counts continue to worsen may need Hematology evaluation. 4. Atrial fibrillation. Occasionally mildly elevate but has remained largely rate controlled on diltiazem. 5. Coronary artery disease. We will hold aspirin for now given decreasing blood counts. 6. Hypothyroidism. Continue Synthroid. 7. Acute kidney injury on chronic kidney disease 3. Relatively stable at this time. Continue to monitor. 8. Deep venous thrombosis prophylaxis. Sequential compression devices.
--- NOTE | 2018-07-03 17:10 | PULMONOLOGY PROGRESS NOTE ---
DATE: 07/03/2018 SUBJECTIVE: The patient reports she is having some intermittent bloating with abdominal pain. She has not had a recent documented bowel movement. OBJECTIVE: Vital Signs: The patient has been afebrile for the last 24 hours. Blood pressure 123/94, heart rate 108, respiratory rate 22, oxygen saturation 95%. HEENT: Pupils are equal and reactive. Oropharynx appears clear. Neck: Supple. Chest: Reveals distant breath sounds bilaterally without wheezing or rhonchi. Cardiac: Distant heart sounds. Normal S1, normal S2. Abdomen: Obese and soft, with mild increased tympany. No rebound. No guarding. Bowel sounds can be appreciated in all 4 quadrants. Extremities: Reveal 1 to 2+ edema. LABORATORIES: Chest x-ray reveals cardiomegaly and increased vascular congestion/pulmonary edema. No change. Arterial blood gas reveals pH 7.40, pCO2 of 71, PO2 of 69 on 50% BiPAP. Sodium 140, potassium 4.7, chloride 95, bicarbonate 35, BUN 78, creatinine 1.4. IMPRESSION: A 47-year-old with: 1. Morbid obesity and a BMI greater than 70. 2. Acute hypoxemic respiratory failure. 3. Chronic hypoxemic and chronic hypercapnic respiratory failure. 4. Pulmonary hypertension. 5. Status post cardiac arrest on the day of admission to this hospital stay. 6. Obstructive sleep apnea. 7. Acute renal insufficiency. 8. Coronary artery disease. RECOMMENDATION: 1. Continue to cycle BiPAP and oxygen via non-rebreather or 50% face mask as tolerated. 2. Attempt to balance intake and output with diuresis as tolerated. 3. Continue rate control for atrial fibrillation. 4. Overall prognosis is guarded. cc: Julien Munroe MD
[2018-07-04] MEDS: CLINDAMYCIN 600 MG/D5W 600 MG/50 ML IVPB IV SCH ×3 (01:23→17:17)
[2018-07-04] MEDS: CARDIZEM PO SCH ×4 (01:23→20:07)
[2018-07-04] MEDS: AZACTAM 2 GM in NS 100 ML IV SCH ×3 (01:30→17:29)
[2018-07-04] MEDS: DUONEB (A & A) INH SCH ×4 (03:28→21:20)
[2018-07-04 05:29] LABS: ALLEN TEST YES; BE 17.9 mmoll (-3.0-3.0); BLOOD TYPE ARTERIAL; HCO3-(ACT) 38.9 mmoll (20.0-26.0); METHB 1.4 % (0.0-1.5); O2(CT) 10.3 mL/dL (15.0-23.0); O2HB 96.6 % (95.0-99.0); PO2(98.6) 113 mmHg (60-100); SAMPLE BLOOD; SAO2 100.7 % (95.0-100.0); THB 7.4 g/dL (11.5-17.4); pH(98.6) 7.45 (7.35-7.45)
[2018-07-04 05:31] LABS: MODALITY BI PAP; PCO2(98.6) 63 mmHg (35-45)
[2018-07-04] MEDS: SOLU-MEDROL IV SCH ×3 (06:15→22:08)
[2018-07-04] MEDS: SYNTHROID PO SCH (06:15)
[2018-07-04 06:46] LABS: HEMATOCRIT 24.6 % (37.0-47.0); HEMOGLOBIN 7.1 g/dL (12.0-16.0); IMM GRAN# 0.03 X1000 (0.0-0.04); IMM GRAN% 0.4 % (0.0-0.5); LYMPH# 0.63 X1000 (1.2-3.4); LYMPH% 7.9 % (20.5-51.1); MCH 25.4 PG (27-31); MCHC 28.9 g/dL (33-37); MCV 88.2 FL (81-99); MONO# 0.89 X1000 (0.11-0.59); MONO% 11.2 % (1.7-9.3); NEUT# 6.41 X1000 (1.4-6.5); NEUT% 80.5 % (42.2-75.2); PLT 71 X1000 (130-400); RBC 2.79 XMIL (4.2-5.4); RDW 16.1 % (11.5-14.5); WBC 7.96 X1000 (4.8-10.8)
[2018-07-04] MEDS: MORPHINE IV PRN ×4 (07:02→17:17)
[2018-07-04 07:29] LABS: CALCIUM 8.9 mg/dL (8.8-10.2); CREATININE 1.3 mg/dL (0.5-0.9)
[2018-07-04] MEDS: MIRALAX PO SCH ×2 (08:34→20:07)
--- NOTE | 2018-07-04 08:34 | Diag Imaging Result Doc PS360 ---
EXAM: CHEST-PORTABLE INDICATION: respiratory failure. Use Grid TECHNIQUE: One view COMPARISON: 07/03/2018 FINDINGS: Inspiration is suboptimal. The right PICC line is in stable position. Interstitial edema and pulmonary venous congestion appears to have improved marginally during the interval. No new consolidation is identified. There is stable cardiomegaly. IMPRESSION: Interval marginal improvement as described. Electronically signed by Jann Mcknight 07/04/2018 8:32 AM
[2018-07-04] MEDS: COREG PO SCH ×2 (08:35→20:06)
[2018-07-04] MEDS: FOLIC ACID PO SCH (08:35)
--- NOTE | 2018-07-04 14:38 | PROGRESS NOTE ---
DATE: 07/04/2018 INTERVAL HISTORY: Patient still no bowel movement. Respiratory status essentially stable. Rib discomfort stable. Remains afebrile. No acute events overnight. No new complaints. LABS: WBC 7.9, hemoglobin 7.1, hematocrit 24.6, platelets were 71,000 . ABG with pH 7.45, pCO2 63, PO2 113, O2 saturations 100% on 60% BiPAP. Basic metabolic panel remarkable only for BUN 69, creatinine 1.3, glucose 161. Urine culture from 06/30 growing yeast, Procalcitonin negative. IMAGING: Chest x-ray with marginal improvement in pulmonary venous congestion. VITALS: T-max 98.8 degrees, pulse 112, respirations 20, blood pressure 90/79, O2 saturation 92% on 60% FiO2. PHYSICAL EXAMINATION: General: No acute distress. Vitals as above. Obese. HEENT: Normocephalic, atraumatic. Moist mucous membranes. No cervical adenopathy. Cardiovascular: Irregular rhythm, minimally elevated rate. Pulmonary: Scattered rhonchi essentially unchanged. Abdomen: Soft, nontender, nondistended, obese. Bowel sounds present. Extremities: Peripheral pulses intact. Mild chronic venous stasis changes unchanged. Neurologic: Cranial nerves grossly intact. No focal deficits. Psychiatric: No mood and affect. Awake, alert, oriented x3. Skin: No new lesions or rashes identified. ASSESSMENT AND PLAN: 1. Acute on chronic hypoxemic and hypercapnic respiratory failure multifactorial with morbid obesity, pickwickian syndrome, pulmonary hypertension, chronic obstructive pulmonary disease and acute on chronic diastolic congestive heart failure. Pulmonary edema still present slightly improved on most recent x-ray. Hypercapnia somewhat improved today and have been able to wean oxygen down slightly to 60% with a reasonable O2 saturations. Continue neb steroids, monitor ins and outs, will consider additional Lasix if fluid balance become significantly positive. Pulmonary following. 2. Morbid obesity stable contributing to multiple medical issues. 3. Thrombocytopenia no signs or symptoms bleeding. Blood counts stable and platelets somewhat improved after stopping Protonix ands Lovenox. Continue to monitor closely. 4. Atrial fibrillation, occasional mild elevation but largely rate controlled on p.o. diltiazem. Continue to monitor. 5. Coronary artery holding aspirin currently given blood counts but once blood counts recover will restart. 6. Hypothyroidism, continue Synthroid . 7. Acute kidney injury on chronic kidney disease 3 pretty stable at this time. Continue to monitor. 8. Constipation. No bowel movement with b.i.d. MiraLAX and milk of magnesia yesterday. Will give these again today and if still unsuccessful then will give suppository and/or enema tomorrow. 9. Deep vein thrombosis prophylaxis SCDs.
[2018-07-04] MEDS ORDERED: BROVANA NEB ONE ×2 (15:33→20:58)
[2018-07-04] MEDS: BROVANA NEB INH SCH ×2 (15:50→21:20)
--- NOTE | 2018-07-04 16:08 | PULMONOLOGY PROGRESS NOTE ---
DATE: 07/04/2018 SUBJECTIVE: The patient is awake, alert. She is without specific complaints. She is lying relatively flat in the bed. She has no increased work of breathing. OBJECTIVE: Vital Signs: The patient has been afebrile for the last 24 hours. Blood pressure 95/71, heart rate 96, respiratory rate 18, oxygen saturation 97% on face mask. HEENT: Pupils are equal and reactive. Oropharynx is clear. Neck: Supple. Chest: Reveals diminished breath sounds bilaterally. Cardiac: S1-S2. Abdomen: Obese and soft. Extremities: Reveal some decreased peripheral edema. LABORATORIES: Arterial blood gas reveals a pH 7.45, pCO2 of 63, PO2 of 113. Sodium 141, potassium 5.0, chloride 97, bicarbonate 34, BUN 69, creatinine 1.3. Chest x-ray reveals cardiomegaly with mild decreased interstitial edema. IMPRESSION: A 47-year-old with 1. Acute hypoxemic respiratory failure. 2. Chronic hypoxemic and chronic hypercapnic respiratory failure. 3. Morbid obesity. 4. Pulmonary hypertension. 5. Cardiac arrest on presentation during this hospital stay. 6. Obstructive sleep apnea. 7. Acute renal insufficiency with continued improvement. 8. Coronary artery disease. RECOMMENDATION: 1. Continue to cycle BiPAP and oxygen as needed for hypoxemic respiratory failure. 2. Diuresis/balance intake and output as tolerated. 3. Continue rate control for atrial fibrillation. 4. Overall prognosis remains guarded. She has improved over the last several days. cc: Julien Munroe MD
[2018-07-05] MEDS: CARDIZEM PO SCH ×2 (02:04→08:30)
[2018-07-05] MEDS: CLINDAMYCIN 600 MG/D5W 600 MG/50 ML IVPB IV SCH ×3 (02:04→18:01)
[2018-07-05] MEDS: AZACTAM 2 GM in NS 100 ML IV SCH ×3 (02:04→18:30)
[2018-07-05] MEDS: DUONEB (A & A) INH SCH ×4 (03:20→21:51)
[2018-07-05] MEDS: MORPHINE IV PRN ×2 (04:18→13:16)
[2018-07-05 04:56] LABS: ALLEN TEST YES; BE 16.6 mmoll (-3.0-3.0); BLOOD TYPE ARTERIAL; HCO3-(ACT) 37.8 mmoll (20.0-26.0); O2(CT) 9.9 mL/dL (15.0-23.0); O2HB 93.1 % (95.0-99.0); PO2(98.6) 67 mmHg (60-100); SAMPLE BLOOD; SAO2 96.2 % (95.0-100.0); THB 7.5 g/dL (11.5-17.4); pH(98.6) 7.37 (7.35-7.45)
[2018-07-05 04:58] LABS: MODALITY BI PAP; PCO2(98.6) 76 mmHg (35-45)
[2018-07-05 05:18] LABS: BASO# 0.01 X1000 (0.0-0.2); BASO% 0.1 % (0.0-0.8); HEMATOCRIT 24.9 % (37.0-47.0); HEMOGLOBIN 7.2 g/dL (12.0-16.0); IMM GRAN# 0.13 X1000 (0.0-0.04); IMM GRAN% 1.2 % (0.0-0.5); LYMPH# 1.17 X1000 (1.2-3.4); LYMPH% 10.7 % (20.5-51.1); MCH 25.7 PG (27-31); MCHC 28.9 g/dL (33-37); MCV 88.9 FL (81-99); MONO# 0.86 X1000 (0.11-0.59); MONO% 7.9 % (1.7-9.3); MPV 12.4 FL (7.4-10.4); NEUT# 8.75 X1000 (1.4-6.5); NEUT% 80.1 % (42.2-75.2); PLT 84 X1000 (130-400); RDW 16.3 % (11.5-14.5); WBC 10.92 X1000 (4.8-10.8)
[2018-07-05 05:52] LABS: CALCIUM 8.5 mg/dL (8.8-10.2); CREATININE 1.2 mg/dL (0.5-0.9); POTASSIUM 5.3 mmol/L (3.5-5.1)
[2018-07-05] MEDS: SOLU-MEDROL IV SCH ×4 (06:14→22:44)
[2018-07-05] MEDS: SYNTHROID PO SCH (06:14)
--- NOTE | 2018-07-05 08:02 | Diag Imaging Result Doc PS360 ---
EXAM: CHEST-PORTABLE INDICATION: respiratory failure. Use Grid TECHNIQUE: One view COMPARISON: 07/04/2018 FINDINGS: Inspiration is suboptimal like the previous study. The right PICC line is stable. Pulmonary venous congestion and mild interstitial edema appear to be stable as compared to the previous study. No new consolidation is identified. Cardiac silhouette is stable. IMPRESSION: Stable chest. Electronically signed by Jann Mcknight 07/05/2018 8:00 AM
[2018-07-05] MEDS: COREG PO SCH ×2 (08:30→20:56)
[2018-07-05] MEDS: MIRALAX PO SCH ×2 (08:30→20:56)
[2018-07-05] MEDS: FOLIC ACID PO SCH (08:30)
[2018-07-05] MEDS: CARDIZEM CD PO SCH (09:43)
--- NOTE | 2018-07-05 14:22 | PULMONOLOGY PROGRESS NOTE ---
DATE: 07/05/2018 SUBJECTIVE: The patient is awake, alert, and conversant. She reports her chest wall pain has diminished. OBJECTIVE: Vital Signs: The patient has been afebrile for the last 24 hours. Blood pressure 133/93, heart rate 90, respiratory rate 12, oxygen saturation 96% on Venturi mask. She does desaturate with the mask removed. HEENT: Pupils are equal and reactive. Oropharynx is clear. Neck: Supple. Chest: Reveals distant breath sounds bilaterally with crackles in the lung bases. Cardiac exam: S1, S2. Abdomen: Obese and soft. Extremities: Reveal trace to 1+ peripheral edema. LABORATORIES: White blood count 10.92, hemoglobin 7.2, platelet count 84,000. Sodium 138, potassium 5.3, chloride 95, bicarbonate 35, BUN 68, creatinine 1.2. Chest x-ray reveals cardiomegaly with vascular congestion, unchanged. Arterial blood gas reveals pH 7.37, pCO2 of 76, PO2 of 66 on BiPAP at 50% FiO2. IMPRESSION: This is a 47-year-old with: 1. Acute hypoxemic respiratory failure. 2. Chronic hypoxemic and chronic hypercapnic respiratory failure. 3. Pulmonary hypertension. 4. Morbid obesity with a body mass index greater than 70. 5. Cardiopulmonary arrest on the day of admission. 6. Obstructive sleep apnea. 7. Acute renal insufficiency. 8. Coronary artery disease. RECOMMENDATION: 1. Continue to cycle BiPAP. 2. Continue to balance intake and output as tolerated. 3. Continue rate control for atrial fibrillation. 4. Continue physical therapy. Anticipate the need for rehabilitation at the time of discharge. cc: Julien Munroe MD
[2018-07-05] MEDS ORDERED: BROVANA NEB ONE (15:25)
[2018-07-05] MEDS: BROVANA NEB INH SCH ×2 (15:32→21:50)
[2018-07-06] MEDS: DUONEB (A & A) INH SCH ×4 (03:30→19:29)
[2018-07-06 03:55] LABS: ALLEN TEST YES; BE 16.7 mmoll (-3.0-3.0); BLOOD TYPE ARTERIAL; HCO3-(ACT) 37.9 mmoll (20.0-26.0); METHB 1.5 % (0.0-1.5); O2(CT) 10.1 mL/dL (15.0-23.0); O2HB 92.1 % (95.0-99.0); PO2(98.6) 65 mmHg (60-100); SAMPLE BLOOD; SAO2 95.5 % (95.0-100.0); SRATE 18 BPM; THB 7.7 g/dL (11.5-17.4); pH(98.6) 7.44 (7.35-7.45)
[2018-07-06 04:00] LABS: MODALITY BI PAP
[2018-07-06 04:01] LABS: PCO2(98.6) 63 mmHg (35-45)
[2018-07-06 05:44] LABS: BASO# 0.05 X1000 (0.0-0.2); BASO% 0.3 % (0.0-0.8); HEMATOCRIT 24.2 % (37.0-47.0); IMM GRAN# 0.47 X1000 (0.0-0.04); IMM GRAN% 2.8 % (0.0-0.5); LYMPH# 2.15 X1000 (1.2-3.4); MCH 25.7 PG (27-31); MCHC 28.9 g/dL (33-37); MPV 12.2 FL (7.4-10.4); NEUT# 12.92 X1000 (1.4-6.5); NEUT% 77.9 % (42.2-75.2); PLT 110 X1000 (130-400); RBC 2.72 XMIL (4.2-5.4); RDW 16.6 % (11.5-14.5); WBC 16.59 X1000 (4.8-10.8)
[2018-07-06 05:58] LABS: CALCIUM 8.9 mg/dL (8.8-10.2); CREATININE 1.2 mg/dL (0.5-0.9); POTASSIUM 5.7 mmol/L (3.5-5.1)
[2018-07-06] MEDS: SYNTHROID PO SCH (06:02)
[2018-07-06] MEDS: AZACTAM 2 GM in NS 100 ML IV SCH ×3 (06:03→21:36)
[2018-07-06] MEDS: CLINDAMYCIN 600 MG/D5W 600 MG/50 ML IVPB IV SCH ×3 (06:03→21:37)
[2018-07-06] MEDS: SOLU-MEDROL IV SCH ×3 (06:03→21:36)
--- NOTE | 2018-07-06 06:11 | PROGRESS NOTE ---
DATE: 07/05/2018 INTERVAL HISTORY: Little change in blood gases or oxygen requirement. The patient reports improvement in subjective dyspnea and she does appear to be speaking more easily as well as maneuvering herself in bed more than what she has previously. No other acute events overnight. No new complaints. REVIEW OF SYSTEMS: Twelve point review of systems negative except as per interval history. LABS: WBC 10.9, hemoglobin 7.2, hematocrit 24.9, platelets 84,000. ABG with pH 7.37, pCO2 76, PO2 is 67, O2 saturation 96% on 50% BiPAP. Sodium 138, potassium 5.3, BUN 68, creatinine 1.2. Glucose 164 . PHYSICAL EXAMINATION: Vital signs: Vitals T-max 98.6 degrees, pulse 90, respirations 18, blood pressure 133/93, O2 saturation 91% on 50% FiO2. General: No acute distress. Vitals as above. Obese. HEENT: Normocephalic, atraumatic. Moist mucous membranes. No cervical adenopathy. Cardiovascular: Rhythm remains irregular. Normal rate. Pulmonary: Essentially clear to auscultation within the limits of body habitus. Abdomen: Soft, nontender, nondistended. Obese. Bowel sounds present. Extremities: Peripheral pulses intact. Mild chronic venous stasis changes remain stable. Neurologic: Cranial nerves grossly intact. No focal deficits. Psychiatric: Normal mood and affect. Awake, alert, oriented x3. Skin: No new rashes or lesions identified. ASSESSMENT/PLAN: 1. Acute on chronic hypoxemic and hypercapnic respiratory failure: This is multifactorial with morbid obesity, Pickwickian syndrome, pulmonary hypertension, chronic obstructive pulmonary disease, and acute on chronic diastolic congestive heart failure. Pulmonary edema still present, although slightly improved on last 2 x-rays. Hypercapnia up and down some with a little bit of overall improvement. Some slight progress on weaning oxygen down. Continue nebs, steroids. Monitor in and outs. If fluid balance ever becomes positive significantly positive will consider additional Lasix. Pulmonary following. Has been stable for a while at this point that we will likely transfer her out of ICU. 2. Morbid obesity, stable, but contributing to multiple medical issues. 3. Thrombocytopenia. No signs or symptoms of bleeding. Blood and platelet counts remain low, but are essentially stable. Continue to monitor. 4. Atrial fibrillation, still some occasional mild elevations in heart rate that are short lasting, but overall reasonably well controlled with p.o. diltiazem. Will transition to the long-acting version. 5. Coronary artery disease. Holding aspirin currently given continued anemia and thrombocytopenia. 6. Hypothyroidism. Continue Synthroid. 7. Acute kidney injury on chronic kidney disease 3. Creatinine improved from previous and were fairly stable over the last few days. Likely at near or near baseline at this point. 8. Deep vein thrombosis prophylaxis SCDs.
[2018-07-06] MEDS ORDERED: KAYEXALATE PO ONE (07:30)
--- NOTE | 2018-07-06 07:38 | Diag Imaging Result Doc PS360 ---
EXAM: CHEST-PORTABLE HISTORY: respiratory failure. Use Grid TECHNIQUE: Portable chest single view COMPARISON: 07/05/2018 FINDINGS: The lungs are well expanded. The heart is enlarged. There is pulmonary edema. This is slightly more prominent. There is a small left pleural effusion with basilar atelectasis. There could be underlying infiltrates as well. IMPRESSION: Worsened pulmonary edema. Electronically signed by Patrick Cárdenas 07/06/2018 7:35 AM
[2018-07-06] MEDS: BROVANA NEB INH SCH ×2 (07:57→19:29)
--- NOTE | 2018-07-06 08:23 | INFECTIOUS DISEASE PROGRESS NO ---
DATE: 07/06/2018 PRESENT ILLNESS: The patient has developed a leukocytosis, the etiology of which is uncertain to me. MEDICATIONS: Today the patient was started on clindamycin and aztreonam as ordered by Dr. Christopher. PHYSICAL EXAMINATION: Vital Signs: Temperature is 97.7 degrees, pulse 65, respirations 16, blood pressure 103/76. The patient weighs 435 pounds. General: This is a morbidly obese, chronically ill-appearing middle-aged female. She is in no acute distress. Head, eyes, ears, nose, and throat: She can hear my spoken words and see near objects. She does not have any white patches on her tongue. Neck: No pain with movement. Lungs: Clear to auscultation. Cardiovascular: Heart rate is irregular. Abdomen: Soft, not tender. Neurologic: The patient is awake. She can move her extremities. There is no tremor. LAB AND X-RAY: Chest x-ray shows findings consistent with pulmonary edema. Blood gases show a pH of 7.44, PO2 of 65, and a pCO2 of 63. [place] [address], hemoglobin is 7, and platelet count is 110,000. The patient's procalcitonin is less than 0.1. Urine cultures in the past have grown Klebsiella and yeast. Creatinine is 1.2. GFR is 58. ASSESSMENT AND PLAN: The patient has leukocytosis. She has been on steroids but she has been on steroids for many days and I do not understand why now suddenly her white count would come up. The chest x-ray and the low procalcitonin indicates that the patient has pulmonary edema and not pneumonia. The patient has in the past had urinary tract infections with yeast and Klebsiella. I doubt that either one of these organisms are causing the patient's current leukocytosis. PLAN: My plan now is to follow the patient clinically. I am going to go ahead and order blood cultures. COMORBIDITIES: Her main one is that she is morbidly obese. She has had a cardiopulmonary arrest on this admission. She also has obstructive sleep apnea and renal insufficiency. cc: Arvind Fair MD
[2018-07-06] MEDS: COREG PO SCH ×2 (09:28→21:36)
[2018-07-06] MEDS: FOLIC ACID PO SCH (09:28)
[2018-07-06] MEDS: CARDIZEM CD PO SCH (09:28)
[2018-07-06] MEDS: MIRALAX PO SCH ×2 (09:41→21:37)
[2018-07-06] MEDS ORDERED: LASIX IV ONE (13:33)
--- NOTE | 2018-07-06 13:56 | PROGRESS NOTE ---
DATE: 07/06/2018 INTERVAL HISTORY: The patient with continued very slow improvement in dyspnea and oxygenation. Doing well on high-flow nasal cannula. Rib discomfort stable. No new complaints. No acute events overnight. REVIEW OF SYSTEMS: A 12-point review of systems negative except as per interval history. LABORATORY DATA: WBC 16.5, hemoglobin 7, hematocrit 24.2, platelets 110,000. ABG with pH 7.4, pCO2 63, PO2 65, O2 sat 95 on 50% FIO2. Sodium 135, potassium 5.7, chloride 98, bicarb 37, BUN 72, creatinine 1.2, glucose 196. Chest x-ray: Edema possibly slightly worse but really pretty similar to previous. PHYSICAL EXAMINATION: Vital Signs: T-max 98.4 degrees, pulse 91, respirations 23, blood pressure 138/74, O2 saturations 95% on high-flow nasal cannula. General: No acute distress. Vital Signs as above. HEENT: Normocephalic, atraumatic. Moist mucous membranes. Neck: No cervical adenopathy. Cardiovascular: Remains irregular rhythm but normal rate. No murmurs noted. The patient's rib tenderness unchanged. Pulmonary: Remains essentially clear to auscultation within the limits of body habitus. Abdomen: Soft, nontender, nondistended, obese. Bowel sounds present. Extremities: Peripheral pulses intact. Mild chronic venous stasis changes unchanged. Neurologic: Cranial nerves grossly intact. No focal deficits identified. Psychiatric: Normal mood affect. Awake, alert and oriented x3. Skin: No new rashes or lesions identified. ASSESSMENT AND PLAN: 1. Acute on chronic hypoxemic and hypercapnic respiratory failure: Multifactorial with morbid obesity, Pickwickian syndrome, pulmonary hypertension, chronic obstructive pulmonary disease, and acute on chronic diastolic congestive heart failure. Pulmonary edema still present. Go ahead and give her an additional dose of Lasix today. Also some question of pneumonia for which the patient remains on clindamycin and aztreonam as per Infectious Disease. Pulmonary following. Continue to monitor closely. Some worsening leukocytosis today but no worsening in clinical status. No fevers. The patient on fairly broad antibiotics with clindamycin and aztreonam. We will monitor closely and if white count continues to worsen, then may need to check a CT chest to look for new source of infection. 2. Morbid obesity, stable, but contributing to multiple medical issues. 3. Thrombocytopenia. Still no signs or symptoms of bleeding. Platelet counts have been improving slowly. Blood counts essentially stable over the last 2 to 3 days. Continue to monitor. 4. Atrial fibrillation. Still some occasional mild elevations in heart rate. They are short lasting, but overall good control of heart rate with p.o. diltiazem. 5. Coronary artery disease. Holding aspirin given continued anemia and neutropenia. 6. Hypothyroidism. Continue Synthroid. 7. Acute kidney injury on chronic kidney disease III. Creatinine improved from previous and fairly stable in the last few days. Likely at or near baseline at this point. 8. Deep venous thrombosis prophylaxis. Sequential compression device.
[2018-07-06] MEDS: MORPHINE IV PRN (21:36)
[2018-07-07] MEDS: MORPHINE IV PRN ×2 (01:15→20:02)
[2018-07-07] MEDS: DUONEB (A & A) INH SCH ×4 (03:17→21:24)
[2018-07-07 04:47] LABS: ALLEN TEST YES; BE 17.1 mmoll (-3.0-3.0); BLOOD TYPE ARTERIAL; HCO3-(ACT) 38.3 mmoll (20.0-26.0); METHB 0.8 % (0.0-1.5); O2(CT) 9.1 mL/dL (15.0-23.0); O2HB 95.3 % (95.0-99.0); PO2(98.6) 78 mmHg (60-100); SAMPLE BLOOD; SAO2 98.3 % (95.0-100.0); THB 6.7 g/dL (11.5-17.4); pH(98.6) 7.43 (7.35-7.45)
[2018-07-07 04:49] LABS: MODALITY BI PAP; PCO2(98.6) 65 mmHg (35-45)
[2018-07-07] MEDS: AZACTAM 2 GM in NS 100 ML IV SCH ×2 (05:52→15:15)
[2018-07-07] MEDS: CLINDAMYCIN 600 MG/D5W 600 MG/50 ML IVPB IV SCH ×2 (05:52→13:49)
[2018-07-07] MEDS: SOLU-MEDROL IV SCH ×3 (05:53→22:46)
[2018-07-07] MEDS: SYNTHROID PO SCH (06:00)
[2018-07-07 06:19] LABS: BASO# 0.04 X1000 (0.0-0.2); BASO% 0.3 % (0.0-0.8); EOS# 0.01 X1000 (0.0-0.7); EOS% 0.1 % (0.0-10.0); HEMATOCRIT 22.4 % (37.0-47.0); HEMOGLOBIN 6.5 g/dL (12.0-16.0); IMM GRAN# 0.52 X1000 (0.0-0.04); IMM GRAN% 3.4 % (0.0-0.5); LYMPH# 1.78 X1000 (1.2-3.4); LYMPH% 11.6 % (20.5-51.1); MCH 25.7 PG (27-31); MCV 88.5 FL (81-99); MONO# 0.75 X1000 (0.11-0.59); MONO% 4.9 % (1.7-9.3); MPV 11.8 FL (7.4-10.4); NEUT# 12.26 X1000 (1.4-6.5); NEUT% 79.7 % (42.2-75.2); PLT 117 X1000 (130-400); RBC 2.53 XMIL (4.2-5.4); RDW 16.9 % (11.5-14.5); WBC 15.36 X1000 (4.8-10.8)
--- NOTE | 2018-07-07 06:29 | Diag Imaging Result Doc PS360 ---
EXAM: CHEST-PORTABLE HISTORY: respiratory failure. Use Grid TECHNIQUE: Portable chest single view COMPARISON: 07/06/2018 FINDINGS: The lungs are well expanded. The heart remains enlarged. Vascular distention persists. There is a right-sided PICC line. No significant change in appearance of the chest considering the differences in technique. IMPRESSION: No interval change. Electronically signed by Patrick Cárdenas 07/07/2018 6:27 AM
[2018-07-07 06:35] LABS: ESTIMATED GFR > 60
[2018-07-07 06:45] LABS: AGAP 5; BUN 64 mg/dL (8-22); CHLORIDE 95 mmol/L (98-107); COSMO 300; CREATININE 1.1 mg/dL (0.5-0.9); GLUCOSE 177 mg/dL (70-104); POTASSIUM 4.9 mmol/L (3.5-5.1); SODIUM 139 mmol/L (136-145); TCO2 39 mmol/L (25-35)
[2018-07-07 06:49] LABS: ANISOCYTOSIS 2+; BANDS 2 % (0-1); HYPOCHROM 2+; LARGE PLATELETS 1+; LYMPHS 8 % (21-51); MONO 6 % (1-9); NRBC 4 % (0-0); POIKILOCYTOSIS 1+; SEGS 82 % (42-75)
[2018-07-07] MEDS: FOLIC ACID PO SCH (09:08)
[2018-07-07] MEDS: CARDIZEM CD PO SCH (09:08)
[2018-07-07] MEDS: MIRALAX PO SCH ×2 (09:08→20:02)
[2018-07-07] MEDS: COREG PO SCH ×2 (09:08→20:02)
[2018-07-07] MEDS: BROVANA NEB INH SCH ×2 (10:15→21:24)
--- NOTE | 2018-07-07 14:33 | INFECTIOUS DISEASE PROGRESS NO ---
DATE: 07/07/2018 PRESENT ILLNESS: The patient has a leukocytosis. It should be noted that the patient has been on steroids, and this certainly could contribute to a leukocytosis. MEDICATIONS: The patient is receiving clindamycin and aztreonam ordered by Dr. Christopher. This is day 1 of treatment with those 2 agents. PHYSICAL EXAMINATION: Vital Signs: Temperature is 97.4 degrees, pulse 106, respirations 20, blood pressure 111/82. General: This is a morbidly obese, chronically ill-appearing, middle-aged female. She is in no acute distress. She is lethargic. Head, eyes, ears, nose, and throat: She can hear my spoken words and see near objects. She does not have any white coating on her tongue. Neck: She does not have any pain when she moves her neck. Lungs: Clear to auscultation. Cardiovascular: Heart rate is irregular. Abdomen: Soft and not tender. The patient has large pannus. Neurologic: The patient is lethargic, but she can be aroused. There is no tremor. Extremities: The right leg is more swollen and indurated than the left leg. DIAGNOSTIC STUDIES: CBC shows a white count of 15,360, hemoglobin 6.5, platelet count 117,000. Cultures are pending. Chest x-ray shows vascular distention. ASSESSMENT AND PLAN: 1. The patient has leukocytosis. Steroids could be contributing to this. 2. The patient's chest x-ray showing vascular distention and the low procalcitonin level indicates that the chest x-ray does represent vascular distention and not pneumonia. 3. The patient does have a urinary tract infection with yeast and Klebsiella. I do not think that this is clinically significant. I do not think it is causing the patient's leukocytosis. The thing I am most worried about now in the patient is that she may have a deep venous thrombosis in the right leg and because of this, I have ordered a Doppler study. I think the steroids can be contributing to the patient's leukocytosis also. As mentioned above, if the patient does have a blood clot in the right leg, I will be conferring with the hospitalists for treatment of it, and it could be causing the patient's leukocytosis. For now, I will continue with the antibiotics. COMORBIDITIES: 1. The patient is morbidly obese. 2. She has had a cardiac arrest. 3. She also has sleep apnea. 4. Renal insufficiency. cc: Arvind Fair MD
--- NOTE | 2018-07-07 18:42 | PROGRESS NOTE ---
DATE: 07/07/2018 SUBJECTIVE: Patient resting in bed. OBJECTIVE: Vital signs: Temperature 97.7 degrees, pulse 58, respirations 20, blood pressure 122/78. Oxygen pressure is 94%. HEENT: She is atraumatic, normocephalic. Cardiovascular: S1, S2. Respiratory: No rales or rhonchi noted. Abdomen: Obese. No significant tenderness. Extremities: Edema in the lower extremities. Central nervous system: No obvious focal deficits noted. LABORATORY DATA: WBC is 15.36. Hematocrit 22.4 with a platelet count of 117,000. ABG 7.43/65/78/98.3%. Chemistry: Sodium is 132, potassium 4.9, chloride is 95, bicarb 39, BUN is 64, creatinine 1.1. X-ray of the chest shows the lungs are well-expanded. The heart remains enlarged. Vascular distention persists. ASSESSMENT AND PLAN: 1. Acute on chronic respiratory failure. Lung conditions include chronic obstructive pulmonary disease, pulmonary hypertension. Obesity hypoventilation syndrome. She also has acute on chronic diastolic heart failure. The patient will need BiPAP support and also oxygen supplementation. Maintain the patient on diuretics as needed and also antibiotics as well as steroids. The patient is being followed up by the pulmonary team. 2. Anemia. We will type, cross, transfuse 1 unit of packed red blood cells. We will also check iron studies. B12, folic acid level. Also stool for occult blood. 3. Thrombocytopenia. It seems to be improving. We will continue to follow up on patient's platelet count. 4. Atrial fibrillation. Heart rate controlled. Continue rate controlling agent. 5. Coronary artery disease. Asymptomatic. 6. Hypothyroidism. Continue Synthroid. 7. Acute kidney injury, improved. cc: Morales Ohara MD [facility] CENTERJagdeep
[2018-07-07] MEDS ORDERED: NS 250 ML IV SCH (19:15)
[2018-07-07] MEDS ORDERED: NS 500 ML IV SCH (20:00)
[2018-07-07] MEDS: ZOFRAN IV PRN (20:02)
--- NOTE | 2018-07-07 21:21 | PULMONOLOGY PROGRESS NOTE ---
DATE: 07/07/2018 SUBJECTIVE: The patient is awake, alert, and conversant. She is currently on high-flow O2. She has no increased work of breathing. She is eating supper. OBJECTIVE: Vital Signs: The patient has been afebrile for the last 24 hours. Blood pressure 118/72, heart rate 84, respiratory rate 19, oxygen saturation 93%. HEENT: Pupils are equal and reactive. Oropharynx is clear. Neck: Supple. Chest: Reveals distant breath sounds bilaterally. Cardiac exam: S1-S2. Abdomen: Is obese and soft. Extremities: Reveal 2+ peripheral edema. LABORATORIES: White blood count 15.3000, hemoglobin 6.5, platelet count 117,000 and rising. IMPRESSION: A 47-year-old with: 1. Morbid obesity. 2. Chronic hypoxemic and chronic hypercapnic respiratory failure. 3. Acute hypoxemic respiratory failure. 4. Pulmonary hypertension. 5. Anemia. 6. Obstructive sleep apnea. 7. Cardiac arrest on presentation during this hospital admission. 8. Coronary artery disease. RECOMMENDATIONS: 1. Agree with plans for 1 unit packed red blood cells today. 2. Continue to cycle BiPAP and oxygen. 3. Continue rate control for atrial fibrillation. Overall prognosis is guarded with some improvement over the last several days. cc: Julien Munroe MD
[2018-07-08] MEDS: CLINDAMYCIN 600 MG/D5W 600 MG/50 ML IVPB IV SCH ×4 (00:02→23:52)
[2018-07-08] MEDS: AZACTAM 2 GM in NS 100 ML IV SCH ×4 (00:02→23:51)
[2018-07-08] MEDS ORDERED: LASIX IV ONE (01:00)
[2018-07-08] MEDS: DUONEB (A & A) INH SCH ×4 (03:04→21:18)
[2018-07-08 03:56] LABS: ALLEN TEST YES; BE 16.3 mmoll (-3.0-3.0); BLOOD TYPE ARTERIAL; HCO3-(ACT) 37.5 mmoll (20.0-26.0); METHB 1.1 % (0.0-1.5); O2(CT) 9.3 mL/dL (15.0-23.0); SAMPLE BLOOD; SAO2 86.9 % (95.0-100.0); THB 7.9 g/dL (11.5-17.4); pH(98.6) 7.42 (7.35-7.45)
[2018-07-08 03:57] LABS: MODALITY CANNULA
[2018-07-08 03:59] LABS: PCO2(98.6) 66 mmHg (35-45); PO2(98.6) 47 mmHg (60-100)
[2018-07-08 04:00] LABS: O2HB 83.7 % (95.0-99.0)
[2018-07-08 05:31] LABS: BASO# 0.01 X1000 (0.0-0.2); BASO% 0.1 % (0.0-0.8); HEMATOCRIT 25.2 % (37.0-47.0); HEMOGLOBIN 7.3 g/dL (12.0-16.0); IMM GRAN# 0.28 X1000 (0.0-0.04); LYMPH# 1.21 X1000 (1.2-3.4); LYMPH% 8.5 % (20.5-51.1); MCH 25.5 PG (27-31); MCV 88.1 FL (81-99); MONO% 3.5 % (1.7-9.3); MPV 11.5 FL (7.4-10.4); NEUT% 85.9 % (42.2-75.2); PLT 119 X1000 (130-400); RBC 2.86 XMIL (4.2-5.4); RDW 17.6 % (11.5-14.5)
[2018-07-08 06:00] LABS: CALCIUM 8.7 mg/dL (8.8-10.2); CREATININE 1.2 mg/dL (0.5-0.9); POTASSIUM 4.8 mmol/L (3.5-5.1)
[2018-07-08] MEDS: SOLU-MEDROL IV SCH ×2 (06:12→14:15)
[2018-07-08] MEDS: SYNTHROID PO SCH (06:12)
--- NOTE | 2018-07-08 07:31 | Diag Imaging Result Doc PS360 ---
EXAM: CHEST-PORTABLE INDICATION: respiratory failure. Use Grid TECHNIQUE: One view COMPARISON: 07/07/2018 FINDINGS: The right PICC line is in stable position. The costophrenic angles are out of the [id number]. Pulmonary venous congestion is approximately stable. No new consolidation is identified. There is stable cardiomegaly. IMPRESSION: Stable chest. Electronically signed by Jann Mcknight 07/08/2018 7:28 AM
--- NOTE | 2018-07-08 07:49 | INFECTIOUS DISEASE PROGRESS NO ---
DATE: 07/08/2018 PRESENT ILLNESS: The patient has leukocytosis. The patient is on steroids and this could be contributing to the leukocytosis. It is interesting to note that after Dr. Christopher started the patient's antibiotics consisting of clindamycin and aztreonam, the white blood cell count has started to go down. MEDICATIONS: This is 2nd day of treatment with a combination of clindamycin and aztreonam. PHYSICAL EXAMINATION: Vital Signs: Temperature is 97.9 degrees, pulse 67, respiration 19, blood pressure 131/77. General: This is a morbidly obese, chronically ill-appearing, middle-aged female. She is in no acute distress. Head, eyes, ears, nose, and throat: She can hear my spoken words and see near objects. She does not have any white patches on her tongue. Neck: No pain with movement. Lungs: Clear to auscultation. Cardiovascular: Heart tones are distant. Heart rate is irregular. The patient is in atrial fibrillation. Abdomen: Soft and nontender. Extremities: The right leg is not as swollen as it was yesterday and it is not as indurated as it was yesterday. The patient told me that the test done yesterday did not show that there was a clot in the leg. The actual result is not in the chart at this time. Neurologic: The patient is awake. She can move her extremities. There is no tremor. LAB AND X-RAY: Chest x-ray shows vascular distention. [place] [address], hemoglobin 7.3, platelet count 119,000. Blood gases show a pH of 7.42, a PO2 of 47, a pCO2 of 66. Creatinine is 1.2. GFR is 48. ASSESSMENT AND PLAN: The patient has leukocytosis. This could be due to steroids. The patient could have a pulmonary infection. Also, the patient's right leg may have a clot in it and there may be an element of cellulitis as well. The chest x-ray shows vascular distention, could be due to pulmonary venous congestion and/or pneumonia. My plan is to continue the current antibiotics, namely clindamycin and aztreonam, and order a CBC, BMP, portable chest x-ray and a procalcitonin level. COMORBIDITIES: The patient is morbidly obese. She has had a cardiac arrest. She is in atrial fibrillation. She also has sleep apnea. Finally, she does have renal insufficiency. cc: Arvind Fair MD MTDD
[2018-07-08] MEDS: BROVANA NEB INH SCH ×2 (07:53→21:18)
--- NOTE | 2018-07-08 08:17 | INFECTIOUS DISEASE PROGRESS NO ---
DATE: 07/08/2018 ADDENDUM: This is an addition to the progress note I just got done dictating. I plan also on the patient to get a procalcitonin level. cc: Arvind Fair MD
[2018-07-08] MEDS: CARDIZEM CD PO SCH (08:47)
[2018-07-08] MEDS: FOLIC ACID PO SCH (08:47)
[2018-07-08] MEDS: COREG PO SCH ×2 (08:47→20:49)
[2018-07-08] MEDS: MIRALAX PO SCH ×2 (08:47→23:00)
--- NOTE | 2018-07-08 11:46 | PROGRESS NOTE ---
DATE: 07/08/2018 SUBJECTIVE: The patient is resting in bed. Feels slightly better today. OBJECTIVE: Vital Signs: Temperature 97.6 degrees, pulse 84, respirations 19, blood pressure 127/79, oxygen saturation is 100%. HEENT: She is atraumatic and normocephalic. Cardiovascular System: S1 and S2. Respiratory System: Has evidence of good air entry bilaterally. Abdomen: Obese, nontender. Some tenderness in the epigastric area. No masses felt. Extremities: Has evidence of edema. Central Nervous System: No obvious focal deficit noted. Laboratory Data: WBC is 14.2, hematocrit 25.2, with a platelet count of 119,000. ABG 7.42/60/47/83.7. Sodium is 140, potassium 4.8, chloride is 93, bicarb 29, BUN is 50, creatinine 1.2. X-ray of the chest shows pulmonary vascular congestion. No new consolidation is identified. There is also evidence of stable cardiomegaly. ASSESSMENT AND PLAN: 1. Acute on chronic respiratory failure. The patient's lung conditions include chronic obstructive pulmonary disease, pulmonary hypertension, obesity, hypoventilation syndrome. She does have evidence of pulmonary vascular congestion. The patient will need BiPAP support as well as oxygen supplementation. She will be maintained on diuretics in light of pulmonary vascular congestion and also antibiotics as well as steroids for her chronic obstructive pulmonary disease. The patient has been followed by the pulmonary team. 2. Anemia. Hematocrit looks better today. She received 1 unit of packed red blood cells in the last 24 hours. 3. Thrombocytopenia. Platelet count improving. 4. Atrial fibrillation. Continue rate controlling agent. 5. Coronary artery disease. Asymptomatic. 6. Hypothyroidism. Continue levothyroxine. 7. Acute kidney injury. Renal function improving. cc: Morales Ohara MD
--- NOTE | 2018-07-08 21:47 | PULMONOLOGY PROGRESS NOTE ---
DATE: 07/08/2018 SUBJECTIVE: The patient is awake, alert, and conversant. She is on high-flow oxygen. She reports her breathing has improved today. OBJECTIVE: Vital Signs: BP 114/81, heart rate 81, respiratory rate 18, oxygen saturation 98%. HEENT: Pupils are equal and reactive. Oropharynx is dry but clear. Neck: Supple. Chest: Reveals distant breath sounds bilaterally. Cardiac exam: S1-S2. Abdomen: Obese and soft. Extremities: Reveal generalized edema. LABORATORY DATA: Sodium 140, potassium 4.8, chloride 93, bicarbonate 39, BUN 53, creatinine 1.2. White blood count 14.2, hemoglobin 7.3, platelet count 119,000. Chest x-ray reveals cardiomegaly with stable vascular congestion. IMPRESSION: A 47-year-old with: 1. Chronic hypoxemic and chronic hypercapnic respiratory failure. 2. Acute hypoxemic respiratory failure. 3. Morbid obesity. 4. Pulmonary hypertension. 5. Obstructive sleep apnea. 6. Coronary artery disease. 7. Cardiac arrest on presentation to the hospital. RECOMMENDATIONS: 1. Continue to balance intake and output. 2. To continue to keep hemoglobin level greater than 7. 3. Continue to cycle BiPAP and high-flow oxygen. 4. Continue rate control for atrial fibrillation. 5. Overall prognosis is guarded, but marginally improved over the last 24 hours. cc: Julien Munroe MD
[2018-07-09] MEDS: DUONEB (A & A) INH SCH ×4 (03:05→19:12)
[2018-07-09 04:31] LABS: ALLEN TEST YES; BE 16.3 mmoll (-3.0-3.0); BLOOD TYPE ARTERIAL; HCO3-(ACT) 37.6 mmoll (20.0-26.0); METHB 1.2 % (0.0-1.5); O2(CT) 11.8 mL/dL (15.0-23.0); O2HB 95.4 % (95.0-99.0); PO2(98.6) 94 mmHg (60-100); SAMPLE BLOOD; SAO2 99.1 % (95.0-100.0); THB 8.7 g/dL (11.5-17.4)
[2018-07-09 04:34] LABS: MODALITY BI PAP; PCO2(98.6) 70 mmHg (35-45)
[2018-07-09 05:42] LABS: BASO# 0.01 X1000 (0.0-0.2); BASO% 0.1 % (0.0-0.8); EOS# 0.01 X1000 (0.0-0.7); EOS% 0.1 % (0.0-10.0); HEMATOCRIT 25.6 % (37.0-47.0); HEMOGLOBIN 7.3 g/dL (12.0-16.0); IMM GRAN# 0.08 X1000 (0.0-0.04); IMM GRAN% 0.7 % (0.0-0.5); LYMPH# 0.66 X1000 (1.2-3.4); LYMPH% 5.9 % (20.5-51.1); MCH 25.5 PG (27-31); MCHC 28.5 g/dL (33-37); MCV 89.5 FL (81-99); MONO# 0.53 X1000 (0.11-0.59); MONO% 4.7 % (1.7-9.3); MPV 11.3 FL (7.4-10.4); NEUT# 9.95 X1000 (1.4-6.5); NEUT% 88.5 % (42.2-75.2); PLT 126 X1000 (130-400); RBC 2.86 XMIL (4.2-5.4); RDW 18.4 % (11.5-14.5); WBC 11.24 X1000 (4.8-10.8)
[2018-07-09 05:45] LABS: AGAP 8; BUN 44 mg/dL (8-22); CALCIUM 8.5 mg/dL (8.8-10.2); CHLORIDE 95 mmol/L (98-107); COSMO 295; ESTIMATED GFR > 60; GLUCOSE 149 mg/dL (70-104); SODIUM 141 mmol/L (136-145); TCO2 38 mmol/L (25-35)
[2018-07-09] MEDS: SYNTHROID PO SCH (06:09)
[2018-07-09 06:12] LABS: HYPOCHROM 2+; LYMPHS 6 % (21-51); MONO 3 % (1-9); SEGS 91 % (42-75)
--- NOTE | 2018-07-09 07:02 | INFECTIOUS DISEASE PROGRESS NO ---
DATE: 07/09/2018 PRESENT ILLNESS: The patient has leukocytosis which could be due to steroids or possibly an infection such as pneumonia. In any event, the white blood cell count is increasing since the patient was started on clindamycin and aztreonam. MEDICATIONS: The patient has been on clindamycin, aztreonam now for 3 days. PHYSICAL EXAMINATION: Vital Signs: Temperature is 97.7 degrees, pulse 63, respirations 20, blood pressure 124/77. General: This is a morbidly obese, chronically ill-appearing, middle-aged female. She is in no acute distress. Head, eyes, ears, nose and throat: She is complaining that her mouth is sore and on examination of it, she does have a white coating on her tongue and in her throat. Neck: No pain with movement. Lungs: Diminished breath sounds, but from what I could hear there were no rales or rhonchi. Cardiovascular: Heart rate is irregular. Abdomen: Soft and nontender. Extremities: There is bilateral edema, but no induration or tenderness. Neurologic: The patient is alert. She can move her extremities. There is no tremor. LAB AND X-RAY: Chest x-ray shows pulmonary venous congestion. Creatinine is 1. GFR is greater than 60. [place] [address], hemoglobin 7.3, and platelet count 126,000. Chest x- ray for today has been done and by my reading, it looks like the patient continues to have pulmonary venous congestion; however, the final reading by the radiologist is not back yet. ASSESSMENT AND PLAN: The patient has leukocytosis. She also has steroids which could be causing leukocytosis. I think it is also possible the patient has along with pulmonary venous congestion ingestion, possible pneumonia. Her white count has been falling since she has been put on antibiotics. For now, I am going to continue clindamycin and aztreonam and I am waiting for the procalcitonin level to help sort out whether the patient has pneumonia or not. The patient also now appears to have oral candidiasis and I am going to start her on Mycostatin swish and swallow. COMORBIDITIES: In this patient include morbid obesity, prior cardiac arrest, atrial fibrillation, and sleep apnea and renal insufficiency. cc: Arvind Fair MD
--- NOTE | 2018-07-09 07:06 | Diag Imaging Result Doc PS360 ---
EXAM: CHEST-PORTABLE 07/09/2018 HISTORY: respiratory failure. Use Grid TECHNIQUE: AP portable at 0442 COMMENT: There is cardiomegaly and increased pulmonary vascularity. There is hazy opacity over both lungs consistent with interstitial pulmonary edema. The inspiration is less optimal than on 07/07/2018. Otherwise there has been no significant change. IMPRESSION: Cardiomegaly and pulmonary edema. Electronically signed by George Gentile 07/09/2018 7:04 AM
[2018-07-09] MEDS: BROVANA NEB INH SCH ×2 (07:38→19:12)
[2018-07-09] MEDS: FOLIC ACID PO SCH (08:11)
[2018-07-09] MEDS: AZACTAM 2 GM in NS 100 ML IV SCH ×3 (08:11→23:08)
[2018-07-09] MEDS: CLINDAMYCIN 600 MG/D5W 600 MG/50 ML IVPB IV SCH ×3 (08:11→23:08)
[2018-07-09] MEDS: MYCOSTATIN SUSP PO SCH ×4 (08:11→21:17)
[2018-07-09] MEDS: PREDNISONE PO SCH (08:11)
[2018-07-09] MEDS: CARDIZEM CD PO SCH (08:11)
[2018-07-09] MEDS: COREG PO SCH ×2 (08:11→21:17)
[2018-07-09] MEDS: MIRALAX PO SCH ×2 (08:23→21:17)
[2018-07-09] MEDS: TYLENOL PO PRN (15:18)
[2018-07-09] MEDS: NORCO-10 PO PRN (16:03)
--- NOTE | 2018-07-09 16:44 | PROGRESS NOTE ---
DATE: 07/09/2018 SUBJECTIVE: Patient is resting in bed. Not in any significant distress. OBJECTIVE: Vital signs: Temperature 98.4 degrees, pulse 95, respiratory rate 16, blood pressure 126/74, oxygen saturation is 92%. HEENT: Atraumatic, normocephalic. Cardiovascular System: S1, S2. Respiratory system had good air entry bilaterally. Abdomen: Obese, nontender. No masses felt. Extremities: Edema present. Central Nervous System: No obvious focal deficit noted. DIAGNOSTIC STUDIES: WBC 11.24, hematocrit is 25.6, with a platelet count of 126,000. ABG 7.4/70/94/95.4. Sodium is 141, potassium 5.0, chloride 95, bicarbonate 30, is 1.0. X-ray of the chest shows cardiomegaly and pulmonary edema. ASSESSMENT AND PLAN: 1. Acute on chronic respiratory failure. The patient's primary lung condition includes chronic obstructive pulmonary disease (COPD), pulmonary hypertension, and obesity hypoventilation syndrome. She does have evidence of pulmonary vascular congestion. Continue oxygen supplementation with BiPAP support as needed. Maintain patient on diuretics, along with steroids and antibiotics. Follow up on the patient's clinical progression. 2. Thrombocytopenia, improving. 3. Anemia, improved after 1 unit of packed red blood cells. 4. Atrial fibrillation. Continue rate-controlling agent. 5. Coronary artery disease. Asymptomatic. 6. Hypothyroidism. Continue levothyroxine. 7. Acute kidney injury. Renal function improving. cc: Morales Ohara MD MTDD
--- NOTE | 2018-07-09 19:02 | Extremity Venous Study ---
PROCEDURE NAME: Venous U/S Right Leg - 07/07/2018 REFERRING PHYSICIAN: Dr. Fair. READING PHYSICIAN: Dr. Hamilton. LUBRICATION TECHNICIAN: Sal. INDICATION: Right leg swelling. There is comparison study on 06/17/2018. FINDINGS: The planetarium technician noted that the study was limited due to significant morbid obesity. The right common femoral, superficial femoral, deep femoral, greater saphenous, popliteal, posterior tibial veins were imaged. They are compressible, patent, and contain flow. There is no obvious thrombus identified. INTERPRETATION: No obvious DVT or SVT of the right lower extremity in this limited study, which is unchanged from the prior study on 06/17/2017. cc: MD Arvind Graham MD
[2018-07-09] MEDS ORDERED: LASIX IV ONE (19:37)
[2018-07-09] MEDS ORDERED: AYR NASAL SPRAY NAS ONE (20:36)
--- NOTE | 2018-07-09 21:44 | PULMONOLOGY PROGRESS NOTE ---
DATE: 07/09/2018 SUBJECTIVE: The patient reports her breathing is slowly improving. She is concerned that she has not yet been able to walk. OBJECTIVE: Vital Signs: The patient has been afebrile for the last 24 hours. Blood pressure 118/73, heart rate 90, respiratory rate 28, oxygen saturation 92% on high-flow O2. HEENT: Pupils are equal and reactive. Oropharynx is clear. Neck: Supple. Chest: Reveals diminished breath sounds in the lung bases. Cardiac: Distant heart sounds. Normal S1, normal S2. Abdomen: Obese and soft. Extremities: Reveal generalized edema. LABORATORIES: White blood count 11.2, hemoglobin 7.3, platelet count 126,000 and rising. Chemistry: Sodium 141, potassium 5.0, chloride 95, bicarbonate 38, BUN 44, creatinine 1.0. Arterial blood gas: pH 7.40, pCO2 of 70, PO2 of 94. Chest x-ray reveals cardiomegaly with pulmonary edema. No significant change. IMPRESSION: A 47-year-old with: 1. Acute hypoxemic respiratory failure on high-flow O2 and BiPAP. 2. Chronic hypoxemic and chronic hypercapnic respiratory failure. 3. Morbid obesity. 4. Pulmonary hypertension. 5. Obstructive sleep apnea. 6. Coronary artery disease. 7. Status post cardiac arrest on presentation to the hospital on admission. RECOMMENDATIONS: 1. Continue to balance intake and output. 2. Continue to cycle BiPAP and high-flow O2. 3. Continue rate control for atrial fibrillation. 4. Dietary counseling on the need to lose weight. cc: Julien Munroe MD
[2018-07-09] MEDS: ZOFRAN IV PRN (23:08)
[2018-07-09] MEDS: MORPHINE IV PRN (23:08)
[2018-07-10] MEDS: DUONEB (A & A) INH SCH ×4 (02:48→22:16)
[2018-07-10] MEDS: SYNTHROID PO SCH (06:11)
--- NOTE | 2018-07-10 06:27 | Diag Imaging Result Doc PS360 ---
EXAM: CHEST-1 VIEW HISTORY: pneumonia TECHNIQUE: Portable chest single view COMPARISON: 07/09/2018 FINDINGS: The heart remains enlarged. Central vascular distention persists. There may be a small left pleural effusion. No change in the right sided line. IMPRESSION: No improvement in the cardiomegaly and pulmonary edema Electronically signed by Patrick Cárdenas 07/10/2018 6:24 AM
[2018-07-10 06:31] LABS: AGAP 8; BUN 39 mg/dL (8-22); CALCIUM 8.3 mg/dL (8.8-10.2); CHLORIDE 94 mmol/L (98-107); COSMO 290; ESTIMATED GFR > 60; GLUCOSE 79 mg/dL (70-104); POTASSIUM 4.3 mmol/L (3.5-5.1); SODIUM 141 mmol/L (136-145); TCO2 39 mmol/L (25-35)
[2018-07-10 06:46] LABS: EOS# 0.05 X1000 (0.0-0.7); EOS% 0.5 % (0.0-10.0); HEMATOCRIT 25.5 % (37.0-47.0); HEMOGLOBIN 7.5 g/dL (12.0-16.0); IMM GRAN# 0.03 X1000 (0.0-0.04); IMM GRAN% 0.3 % (0.0-0.5); LYMPH# 1.08 X1000 (1.2-3.4); LYMPH% 11.6 % (20.5-51.1); MCH 26.4 PG (27-31); MCHC 29.4 g/dL (33-37); MCV 89.8 FL (81-99); MONO# 0.41 X1000 (0.11-0.59); MONO% 4.4 % (1.7-9.3); MPV 10.8 FL (7.4-10.4); NEUT# 7.73 X1000 (1.4-6.5); NEUT% 83.2 % (42.2-75.2); PLT 124 X1000 (130-400); RBC 2.84 XMIL (4.2-5.4); RDW 18.8 % (11.5-14.5)
--- NOTE | 2018-07-10 07:07 | INFECTIOUS DISEASE PROGRESS NO ---
DATE: 07/10/2018 PRESENT ILLNESS: The patient had leukocytosis and on x-ray had pulmonary venous congestion. I think it is possible that there could be a pneumonia as well given that the patient had leukocytosis and after she was placed on antibiotics the white blood cell count continually came down. Unfortunately, the CBC for this morning is not yet back. The patient appear to have developed oral candidiasis. MEDICATIONS: The patient is on a combination of clindamycin and aztreonam. This is the 4th day of treatment with both agents. PHYSICAL EXAMINATION: Vital Signs: Temperature is 97.6 degrees, pulse 80, respirations 20, blood pressure 110/71. Generally: This is a morbidly obese, ill-appearing, middle-aged female. She is in no acute distress this morning, although she does continue to say she has pain in her right leg. Head, Eyes, Ears, Nose, and Throat: She can hear my spoken words and see near objects. The patient does have some white coating on her tongue. Cardiovascular: Heart tones are very distant, but according to the monitor the patient is in atrial fibrillation. Abdomen: Soft and nontender. Extremities: The patient has a PICC in her right arm. The site is not tender and it is not draining anything. The patient legs both are swollen, and I think it is due to edema rather than any infection. Neurologic: The patient was sleeping, but she woke up, and she can move her extremities. There is no tremor. LABORATORY AND X-RAY: There is no x-ray back for today. CBC and procalcitonin results are still pending. Creatinine is 1. GFR is greater than 60. Chest x-ray shows cardiomegaly and pulmonary edema. ASSESSMENT AND PLAN: The patient has leukocytosis. She is on steroids; however, it is a low dose, and I think the leukocytosis could have been due to infection, possibly pulmonary or possibly in her soft tissue. In any event, for now I am going to continue with clindamycin and aztreonam pending the CBC result and the procalcitonin result. The patient does appear to have developed oral candidiasis, and my plan is to continue Mycostatin swish and swallow. COMORBIDITIES: She has morbid obesity. She has had a prior cardiac arrest. She is in atrial fibrillation, and she has sleep apnea, as well as renal insufficiency. cc: Arvind Fair MD
[2018-07-10] MEDS: FOLIC ACID PO SCH (08:52)
[2018-07-10] MEDS: CARDIZEM CD PO SCH (08:53)
[2018-07-10] MEDS: MYCOSTATIN SUSP PO SCH ×4 (08:53→20:43)
[2018-07-10] MEDS: AZACTAM 2 GM in NS 100 ML IV SCH ×4 (08:53→23:27)
[2018-07-10] MEDS: COREG PO SCH ×2 (08:53→20:43)
[2018-07-10] MEDS: CLINDAMYCIN 600 MG/D5W 600 MG/50 ML IVPB IV SCH ×3 (08:53→23:28)
[2018-07-10] MEDS: MIRALAX PO SCH ×2 (08:53→21:49)
[2018-07-10] MEDS: PREDNISONE PO SCH (08:53)
--- NOTE | 2018-07-10 13:56 | PROGRESS NOTE ---
DATE: 07/10/2018 SUBJECTIVE: The patient is resting in bed, not in any obvious distress at this time. OBJECTIVE: Vital signs: Temperature is 98.3 degrees, pulse 83, respiratory rate 22, blood pressure 111/56, oxygen 100%. HEENT: The patient is atraumatic, normocephalic. Cardiovascular: S1, S2. Respiratory system: Has evidence of good air entry bilaterally. Abdomen: Obese, nontender. No masses felt. Extremities: Has edema in the lower extremities. Central nervous system: No obvious focal deficits noted. LABORATORY DATA: WBC is 9.3, hematocrit is 25.5 with a platelet count of 124,000. Sodium is 141, potassium 4.3, chloride 94, bicarb is 29, BUN is 39 creatinine is 1.0. X-ray chest shows central vascular distention with a small left pleural effusion. There is also evidence of cardiomegaly. ASSESSMENT AND PLAN: 1. Acute on chronic respiratory failure. Continue patient on oxygen supplementation. The patient's primary lung conditions include chronic obstructive pulmonary disease, pulmonary hypertension, obesity hypoventilation syndrome, pulmonary vascular congestion. Maintain the patient on diuretics, steroids, antibiotics, nebulized bronchodilators. Continue to follow up on the patient's clinical progression. Pulmonary team also following as well. 2. Thrombocytopenia. Continue to follow up on the patient's platelet count and avoid any offending drugs that can cause thrombocytopenia. 3. Anemia. Follow up on hemoglobin and hematocrit. Transfuse packed red blood cells if needed. 4. Atrial fibrillation. Continue rate controlling agent. 5. Coronary disease. Asymptomatic. 6. Hypothyroidism. Continue levothyroxine. 7. Acute kidney injury. Renal function improved. cc: Morales Ohara MD
[2018-07-10] MEDS: BROVANA NEB INH SCH ×2 (14:48→22:15)
--- NOTE | 2018-07-10 17:05 | PULMONOLOGY PROGRESS NOTE ---
DATE: 07/10/2018 SUBJECTIVE: The patient is awake, alert, and conversant. She reports her breathing is doing well. She has not yet been able to ambulate. OBJECTIVE: Vital Signs: She appears to be in negative fluid balance, but weight has increased by 3 pounds. Blood pressure 133/77, heart rate 94, respiratory rate 21, oxygen saturation 96% on high-flow O2. HEENT: Pupils are equal and reactive. Oropharynx appears clear. Neck: Supple. Chest: Reveals distant breath sounds with crackles in both bases. Cardiac: S1-S2. Abdomen: Obese and soft. Extremities: Reveal generalized edema. IMAGING: Chest x-ray reveals cardiomegaly with vascular congestion. No change from prior film. IMPRESSION: A 47-year-old with: 1. Acute hypoxemic respiratory failure, on high-flow O2 and BiPAP. 2. Chronic hypoxemic and chronic hypercapnic respiratory failure. 3. Morbid obesity. 4. Pulmonary hypertension. 5. Obstructive sleep apnea. 6. Coronary artery disease. 7. Cardiac arrest on presentation without evidence of cardiac dysrhythmias. RECOMMENDATIONS: 1. Continue to maintain intake and output balance. 2. Continue to cycle BiPAP and high-flow O2. 3. Continue rate control for atrial fibrillation. 4. Dietary counseling, evaluation for gastric bypass is strongly recommended given her young age and respiratory failure. cc: Julien Munroe MD
--- NOTE | 2018-07-10 17:35 | INFECTIOUS DISEASE PROGRESS NO ---
DATE: 07/10/2018 The patient has been treated with clindamycin and aztreonam for possible pneumonia. Today, the patient's chest x-ray shows pulmonary venous congestion but no evidence of pneumonia. The patient's procalcitonin is 0.12, which turns out to mean that it is unlikely that the patient has pneumonia, and finally the patient's CBC has a white blood cell count of 9300. Because of all these tests and physical exam of the patient, which I did earlier, I think the patient does not have pneumonia. I think it has cleared up. I plan to discontinue his 2 antibiotics, namely clindamycin and aztreonam, tomorrow, which is July 11 at 10 p.m. Also I am signing off the patient's case, but I am available to see her on a p.r.n. basis. cc: Arvind Fair MD
[2018-07-10] MEDS: NORCO-10 PO PRN (22:10)
[2018-07-11] MEDS: MORPHINE IV PRN (00:10)
[2018-07-11] MEDS: ZOFRAN IV PRN (00:10)
[2018-07-11] MEDS: DUONEB (A & A) INH SCH ×4 (03:27→22:19)
[2018-07-11] MEDS: SYNTHROID PO SCH ×2 (05:41→06:02)
[2018-07-11 06:57] LABS: ALLEN TEST YES; BE 16.6 mmoll (-3.0-3.0); BLOOD TYPE ARTERIAL; HCO3-(ACT) 37.9 mmoll (20.0-26.0); METHB 0.3 % (0.0-1.5); O2(CT) 9.8 mL/dL (15.0-23.0); O2HB 96.3 % (95.0-99.0); PO2(98.6) 97 mmHg (60-100); SAMPLE BLOOD; SAO2 100.6 % (95.0-100.0); THB 7.1 g/dL (11.5-17.4); pH(98.6) 7.41 (7.35-7.45)
[2018-07-11 06:58] LABS: MODALITY HIGH FLOW NASAL CAN; PCO2(98.6) 68 mmHg (35-45)
[2018-07-11] MEDS: FOLIC ACID PO SCH (08:05)
[2018-07-11] MEDS: MIRALAX PO SCH ×2 (08:05→20:22)
[2018-07-11] MEDS: CARDIZEM CD PO SCH (08:05)
[2018-07-11] MEDS: CLINDAMYCIN 600 MG/D5W 600 MG/50 ML IVPB IV SCH ×2 (08:05→17:29)
[2018-07-11] MEDS: MYCOSTATIN SUSP PO SCH ×4 (08:05→20:22)
[2018-07-11] MEDS: AZACTAM 2 GM in NS 100 ML IV SCH ×2 (08:05→17:30)
[2018-07-11] MEDS: PREDNISONE PO SCH (08:05)
[2018-07-11] MEDS: COREG PO SCH ×2 (08:05→20:22)
--- NOTE | 2018-07-11 08:12 | Diag Imaging Result Doc PS360 ---
EXAM: CHEST-PORTABLE - 07/11/2018 HISTORY: respiratory failure. Use Grid TECHNIQUE: Portable chest COMPARISON: 07/10/2018 FINDINGS: There is cardiomegaly similar to prior. There is mild prominence of central vascular markings. There is artifact from soft tissue overlap/skin fold which obscures the left base. Otherwise, there is no dense consolidation, substantial pleural effusion, or pneumothorax identified. PICC remains in place. IMPRESSION: Stable cardiomegaly. Mild prominence of central vascular markings. The left base is obscured by artifact. There is no discrete pneumonia identified elsewhere. Electronically signed by Adan Lind 07/11/2018 8:09 AM
[2018-07-11] MEDS: BROVANA NEB INH SCH ×2 (09:00→22:19)
[2018-07-11 10:43] LABS: EOS# 0.15 X1000 (0.0-0.7); EOS% 1.7 % (0.0-10.0); HEMOGLOBIN 7.1 g/dL (12.0-16.0); IMM GRAN# 0.02 X1000 (0.0-0.04); IMM GRAN% 0.2 % (0.0-0.5); LYMPH# 0.48 X1000 (1.2-3.4); LYMPH% 5.4 % (20.5-51.1); MCH 25.7 PG (27-31); MCHC 28.4 g/dL (33-37); MCV 90.6 FL (81-99); MONO# 0.32 X1000 (0.11-0.59); MONO% 3.6 % (1.7-9.3); NEUT# 7.88 X1000 (1.4-6.5); NEUT% 89.1 % (42.2-75.2); PLT 117 X1000 (130-400); RBC 2.76 XMIL (4.2-5.4); RDW 18.7 % (11.5-14.5); WBC 8.85 X1000 (4.8-10.8)
[2018-07-11 10:45] LABS: AGAP 5; BUN 32 mg/dL (8-22); CHLORIDE 94 mmol/L (98-107); COSMO 283; CREATININE 0.9 mg/dL (0.5-0.9); ESTIMATED GFR > 60; GLUCOSE 137 mg/dL (70-104); POTASSIUM 4.3 mmol/L (3.5-5.1); SODIUM 137 mmol/L (136-145); TCO2 38 mmol/L (25-35)
[2018-07-11 12:50] LABS: ANISOCYTOSIS 1+; BANDS 4 % (0-1); HYPOCHROM 1+; LYMPHS 2 % (21-51); MONO 2 % (1-9); SEGS 92 % (42-75)
--- NOTE | 2018-07-11 14:49 | PROGRESS NOTE ---
DATE: 07/11/2018 INTERVAL HISTORY: Patient's oxygen requirements continue to improve slowly. Down to 40% and appears to be tolerating this morning. No acute events overnight. Patient complaining only of continued swelling and accompanying difficult with movement of the right leg. REVIEW OF SYSTEMS: A 12 point review of systems was negative except as per Interval History. LABS: WBC 8.8, hemoglobin 7.1, hematocrit 25.0, platelets 117,000. ABG with pH 7.4, pCO2 68, pO2 97, O2 saturation 100% on 45% FiO2 via high flow nasal cannula. Sodium 137, potassium 4.3, bicarb 38, BUN 32, creatinine 0.9, glucose 137. OBJECTIVE: Vital Signs: T-max 98.4 degrees, pulse 73, respirations 18, blood pressure 115/71, O2 saturation 96% on 40% FiO2. General: No acute distress. Vitals as above. HEENT: Normocephalic, atraumatic. Moist mucous membranes. No cervical adenopathy. Cardiovascular: Remains irregular rhythm, but normal rate. No murmurs noted. Pulmonary: Remains essentially clear to auscultation within the limits of body habitus. Abdomen: Soft, nontender, nondistended, obese. Bowel sounds present. Extremities: Peripheral pulses intact. Mild chronic venous stasis changes bilaterally. 1+ pitting edema left and 2+ pitting edema on the right lower extremity. Neurologic: Cranial nerves grossly intact. No focal deficits identified. Psychiatric: Normal mood and affect. Awake, alert, and oriented x3. Skin: No new rashes or lesions identified. ASSESSMENT AND PLAN: 1. Acute on chronic hypoxemic and hypercapnic respiratory failure, multifactorial, with morbid obesity, Pickwickian syndrome, pulmonary hypertension, chronic obstructive pulmonary disease, and acute on chronic diastolic congestive heart failure. There was some question of pneumonia, but most recent procalcitonin negative, no fever, and no leukocytosis. Infectious Disease feels that if there was any pneumonia, that it has now resolved. The patient's other issues are still requiring significant O2, although this is improving. Saturating very well on 45 to 50 percent FiO2 earlier this morning. Titrated down to 40 percent, which he appears to be tolerating. May be able to titrate further. Beginning to approach a level of oxygenation where we may be able to consider discharge in the near future. 2. Morbid obesity, stable, contributing to multiple medical issues. 3. Anemia and thrombocytopenia. Blood counts stable. Platelets with slight down trend, but largely stable overall. No signs or symptoms of bleeding. Continue to monitor. 4. Atrial fibrillation. Remains rate controlled. 5. Hypothyroidism. Continue Synthroid. 6. Chronic kidney disease. Patient previously thought to be chronic kidney disease 3, but creatinine has continued to improve, and now looks likely to be chronic kidney disease 2. 7. Coronary artery disease, stable. Restart aspirin prior to discharge. 8. Disposition. Continue efforts at immobilization and weaning oxygen. Once patient is on a level of oxygen that could be considered for discharge, then we will see how she is doing and plan on discharge to either home or alf facility.
[2018-07-11] MEDS ORDERED: BROVANA NEB ONE (19:58)
[2018-07-12] MEDS: MORPHINE IV PRN ×2 (00:28→14:58)
[2018-07-12] MEDS: ZOFRAN IV PRN ×2 (00:31→15:07)
[2018-07-12] MEDS: DUONEB (A & A) INH SCH ×4 (05:46→23:25)
[2018-07-12] MEDS: SYNTHROID PO SCH (06:31)
[2018-07-12 06:34] LABS: ALLEN TEST YES; BE 17.2 mmoll (-3.0-3.0); BLOOD TYPE ARTERIAL; HCO3-(ACT) 38.3 mmoll (20.0-26.0); METHB 1.2 % (0.0-1.5); O2(CT) 10.1 mL/dL (15.0-23.0); O2HB 94.3 % (95.0-99.0); PO2(98.6) 84 mmHg (60-100); SAMPLE BLOOD; SAO2 98.1 % (95.0-100.0); THB 7.5 g/dL (11.5-17.4); pH(98.6) 7.39 (7.35-7.45)
[2018-07-12 06:35] LABS: PCO2(98.6) 73 mmHg (35-45)
[2018-07-12 06:36] LABS: MODALITY CANNULA
[2018-07-12 07:02] LABS: BASO# 0.01 X1000 (0.0-0.2); BASO% 0.1 % (0.0-0.8); EOS# 0.19 X1000 (0.0-0.7); EOS% 2.2 % (0.0-10.0); HEMATOCRIT 25.1 % (37.0-47.0); HEMOGLOBIN 7.2 g/dL (12.0-16.0); IMM GRAN# 0.02 X1000 (0.0-0.04); IMM GRAN% 0.2 % (0.0-0.5); LYMPH# 1.01 X1000 (1.2-3.4); LYMPH% 11.9 % (20.5-51.1); MCH 26.1 PG (27-31); MCHC 28.7 g/dL (33-37); MCV 90.9 FL (81-99); MONO# 0.46 X1000 (0.11-0.59); MONO% 5.4 % (1.7-9.3); MPV 10.7 FL (7.4-10.4); NEUT# 6.81 X1000 (1.4-6.5); NEUT% 80.2 % (42.2-75.2); PLT 126 X1000 (130-400); RBC 2.76 XMIL (4.2-5.4); RDW 18.9 % (11.5-14.5)
[2018-07-12 07:28] LABS: AGAP 5; BUN 30 mg/dL (8-22); CALCIUM 8.1 mg/dL (8.8-10.2); CHLORIDE 95 mmol/L (98-107); COSMO 280; CREATININE 0.9 mg/dL (0.5-0.9); ESTIMATED GFR > 60; GLUCOSE 99 mg/dL (70-104); POTASSIUM 4.2 mmol/L (3.5-5.1); SODIUM 137 mmol/L (136-145); TCO2 37 mmol/L (25-35)
--- NOTE | 2018-07-12 07:54 | Diag Imaging Result Doc PS360 ---
EXAM: CHEST-PORTABLE HISTORY: respiratory failure. Use Grid TECHNIQUE: Portable upright AP chest single view COMPARISON: 07/11/2018 FINDINGS: The heart remains enlarged. There is atelectasis and infiltrates in the lower left lung with a small left pleural effusion. Mild vascular prominence. The overall appearance is similar to the prior exam. IMPRESSION: Stable chest. Electronically signed by Patrick Cárdenas 07/12/2018 7:52 AM
[2018-07-12] MEDS: BROVANA NEB INH SCH ×2 (08:12→23:25)
[2018-07-12] MEDS: CARDIZEM CD PO SCH (11:07)
[2018-07-12] MEDS: COREG PO SCH ×3 (11:08→23:57)
[2018-07-12] MEDS: FOLIC ACID PO SCH (11:08)
[2018-07-12] MEDS: MIRALAX PO SCH ×2 (11:08→23:57)
[2018-07-12] MEDS: PREDNISONE PO SCH (11:08)
[2018-07-12] MEDS: MYCOSTATIN SUSP PO SCH ×5 (11:08→23:57)
[2018-07-12] MEDS: TYLENOL PO PRN (12:49)
--- NOTE | 2018-07-12 14:51 | PROGRESS NOTE ---
DATE: 07/12/2018 SUBJECTIVE: Patient is resting in bed. OBJECTIVE: Vital Signs: Temperature 97.8 degrees, pulse 79, respiratory rate 22, blood pressure is 139/75, oxygen saturation is 100%. HEENT: Atraumatic, normocephalic. Cardiovascular System: S1, S2. Respiratory System: Has evidence of good air entry bilaterally. Abdomen: Soft, obese. No significant tenderness. Extremities: Has edema in the lower extremities. Central Nervous System: No obvious focal deficit noted. Labs: WBC 8.5, hematocrit 25.1, with a platelet count of 126,000. Sodium 137, potassium 4.2, chloride is 94, bicarb is 27, BUN is 30, creatinine 0.9. X-ray of the chest shows atelectasis as well as infiltrates in the lower left lung, small left pleural effusion. ASSESSMENT AND PLAN: 1. Acute on chronic respiratory failure. Continue oxygen supplementation as well as BiPAP if needed. Primary lung conditions include chronic obstructive pulmonary disease, probable pneumonia, pulmonary hypertension, obesity hyperventilation syndrome, pulmonary vascular condition. Maintain patient on diuretics, steroids, antibiotics, nebulized bronchodilators. Continue to follow up on the patient's clinical progression. Pulmonary team following as well. 2. Thrombocytopenia. The patient's platelet counts seem to be improving. We will continue to follow up on patient's platelet counts. 3. Anemia follow up on hemoglobin and hematocrit. Transfuse packed red blood cells as needed. 4. Atrial fibrillation. Continue rate controlling agent. 5. Coronary artery disease. Asymptomatic. 6. Hypothyroidism. Continue levothyroxine. 7. Acute kidney injury, improved. cc: Morales Ohara MD MTDD
[2018-07-13] MEDS: DUONEB (A & A) INH SCH ×4 (03:35→23:10)
[2018-07-13 04:41] LABS: ALLEN TEST YES; BE 19.6 mmoll (-3.0-3.0); BLOOD TYPE ARTERIAL; HCO3-(ACT) 40.3 mmoll (20.0-26.0); METHB 0.5 % (0.0-1.5); O2(CT) 5.7 mL/dL (15.0-23.0); O2HB 96.6 % (95.0-99.0); PO2(98.6) 115 mmHg (60-100); SAMPLE BLOOD; SAO2 100.4 % (95.0-100.0); pH(98.6) 7.46 (7.35-7.45)
[2018-07-13 04:42] LABS: MODALITY BI PAP
[2018-07-13 04:44] LABS: PCO2(98.6) 63 mmHg (35-45)
[2018-07-13] MEDS: SYNTHROID PO SCH ×2 (05:51→06:17)
--- NOTE | 2018-07-13 07:16 | Diag Imaging Result Doc PS360 ---
CHEST-PORTABLE - 07/13/2018 INDICATION: respiratory failure. Use Grid COMPARISON: 07/12/2018 FINDINGS: Stable right PICC line. Stable cardiomegaly and pulmonary vascular congestion. No new or focal infiltrates. No large pleural effusion. IMPRESSION: No change from prior. Electronically signed by Dean Virk 07/13/2018 7:14 AM
[2018-07-13] MEDS: NORCO-10 PO PRN ×2 (07:18→23:44)
[2018-07-13 07:19] LABS: BASO# 0.01 X1000 (0.0-0.2); BASO% 0.1 % (0.0-0.8); EOS# 0.17 X1000 (0.0-0.7); EOS% 2.2 % (0.0-10.0); HEMATOCRIT 24.6 % (37.0-47.0); LYMPH# 1.16 X1000 (1.2-3.4); LYMPH% 14.8 % (20.5-51.1); MCHC 28.5 g/dL (33-37); MCV 91.4 FL (81-99); MONO# 0.39 X1000 (0.11-0.59); MPV 11.1 FL (7.4-10.4); NEUT# 6.09 X1000 (1.4-6.5); NEUT% 77.9 % (42.2-75.2); PLT 144 X1000 (130-400); RBC 2.69 XMIL (4.2-5.4); RDW 19.6 % (11.5-14.5); WBC 7.82 X1000 (4.8-10.8)
[2018-07-13] MEDS: TUMS PO PRN (07:19)
[2018-07-13 07:36] LABS: AGAP 8; BUN 25 mg/dL (8-22); CALCIUM 8.4 mg/dL (8.8-10.2); CHLORIDE 95 mmol/L (98-107); COSMO 286; CREATININE 0.9 mg/dL (0.5-0.9); ESTIMATED GFR > 60; GLUCOSE 131 mg/dL (70-104); POTASSIUM 3.8 mmol/L (3.5-5.1); SODIUM 140 mmol/L (136-145); TCO2 37 mmol/L (25-35)
[2018-07-13] MEDS ORDERED: BROVANA NEB ONE (07:36)
[2018-07-13] MEDS: BROVANA NEB INH SCH ×2 (07:57→23:09)
[2018-07-13] MEDS: MYCOSTATIN SUSP PO SCH ×4 (09:25→21:31)
[2018-07-13] MEDS: PREDNISONE PO SCH (09:25)
[2018-07-13] MEDS: COREG PO SCH ×2 (09:25→21:30)
[2018-07-13] MEDS: FOLIC ACID PO SCH (09:25)
[2018-07-13] MEDS: MIRALAX PO SCH ×2 (09:25→21:31)
[2018-07-13] MEDS: CARDIZEM CD PO SCH (09:26)
--- NOTE | 2018-07-13 15:56 | PROGRESS NOTE ---
DATE: 07/13/2018 SUBJECTIVE: The patient resting in bed. OBJECTIVE: Vital signs: Temperature 98.2 degrees, pulse 90, respiratory rate 16, blood pressure 128/76, oxygen saturation is 99%. HEENT: Patient is atraumatic, normocephalic. Cardiovascular System: S1, S2. Respiratory System: Good air entry bilaterally. No rales or rhonchi noted. Abdomen: Obese. No masses felt. Extremities: Edema present. Central Nervous System: No obvious focal deficit noted. DIAGNOSTIC STUDIES: WBC is 7.82, hematocrit is 24.6, with a platelet count of 144. ABG 7.46/63/115/ -%. Sodium is 140, potassium 3.8, chloride is 95, bicarbonate 37, creatinine 0.89. X-ray of the chest shows cardiomegaly with pulmonary vascular congestion. No new or focal infiltrates. No large pleural effusions. ASSESSMENT AND PLAN: 1. Acute on chronic respiratory failure. Continue oxygen supplementation as well as BiPAP if needed. Primary lung conditions including chronic obstructive pulmonary disease (COPD), probable pneumonia, pulmonary hypertension, pulmonary vascular congestion, obesity hypoventilation syndrome. Maintain patient on diuretics, steroids, antibiotics, nebulized bronchodilators. Continue to follow up on patient's clinical progression. Pulmonary team is following. 2. Thrombocytopenia, resolved. 3. Anemia. Follow up on hemoglobin and hematocrit, transfuse PRBCs as needed. 4. Atrial fibrillation. Heart rate is controlled. Continue on rate-controlling agent. 5. Coronary artery disease. Asymptomatic. 6. Hypothyroidism. Continue levothyroxine. 7. Acute kidney injury, improved. DISPOSITION: Patient will need fdc facility placement. We have already requested physical therapy. cc: Morales Ohara MD [facility]
[2018-07-14] MEDS: DUONEB (A & A) INH SCH ×4 (03:56→23:00)
[2018-07-14 05:48] LABS: ALLEN TEST YES; BE 15.4 mmoll (-3.0-3.0); BLOOD TYPE ARTERIAL; HCO3-(ACT) 36.9 mmoll (20.0-26.0); METHB 0.4 % (0.0-1.5); O2(CT) 9.6 mL/dL (15.0-23.0); O2HB 92.5 % (95.0-99.0); PO2(98.6) 58 mmHg (60-100); SAMPLE BLOOD; SAO2 97.1 % (95.0-100.0); THB 7.3 g/dL (11.5-17.4); pH(98.6) 7.45 (7.35-7.45)
[2018-07-14 05:52] LABS: PCO2(98.6) 59 mmHg (35-45)
[2018-07-14 05:53] LABS: MODALITY BI PAP
[2018-07-14] MEDS: SYNTHROID PO SCH (05:59)
--- NOTE | 2018-07-14 07:27 | Diag Imaging Result Doc PS360 ---
CHEST-PORTABLE - 07/14/2018 INDICATION: respiratory failure. Use Grid COMPARISON: 07/13/2018 FINDINGS: Stable right PICC line. Stable cardiomegaly and pulmonary vascular congestion. No new infiltrates. IMPRESSION: No change from prior. Electronically signed by Dean Virk 07/14/2018 7:25 AM
[2018-07-14 07:28] LABS: EOS# 0.15 X1000 (0.0-0.7); EOS% 2.3 % (0.0-10.0); HEMATOCRIT 25.5 % (37.0-47.0); HEMOGLOBIN 7.1 g/dL (12.0-16.0); IMM GRAN# 0.02 X1000 (0.0-0.04); IMM GRAN% 0.3 % (0.0-0.5); LYMPH# 1.24 X1000 (1.2-3.4); LYMPH% 19.1 % (20.5-51.1); MCH 25.4 PG (27-31); MCHC 27.8 g/dL (33-37); MCV 91.1 FL (81-99); MONO# 0.49 X1000 (0.11-0.59); MONO% 7.5 % (1.7-9.3); MPV 10.8 FL (7.4-10.4); NEUT% 70.8 % (42.2-75.2); PLT 161 X1000 (130-400); RDW 20.2 % (11.5-14.5)
[2018-07-14 07:47] LABS: AGAP 7; ALB/GLOB RATIO 1.3; ALBUMIN 3.5 g/dL (3.5-5.0); ALKALINE PHOSPHATASE 69 U/L (32-104); BUN 20 mg/dL (8-22); CALCIUM 8.4 mg/dL (8.8-10.2); CHLORIDE 94 mmol/L (98-107); COSMO 278; CREATININE 0.9 mg/dL (0.5-0.9); ESTIMATED GFR > 60; GLUCOSE 121 mg/dL (70-104); GOT 19 U/L (10-30); GPT 21 U/L (10-36); POTASSIUM 3.9 mmol/L (3.5-5.1); SODIUM 137 mmol/L (136-145); TCO2 36 mmol/L (25-35); TOTAL BILIRUBIN 0.54 mg/dL (0.20-1.00); TOTAL PROTEIN 6.1 g/dL (6.3-8.3)
[2018-07-14] MEDS ORDERED: BROVANA NEB ONE (08:37)
[2018-07-14] MEDS: MYCOSTATIN SUSP PO SCH ×4 (08:41→20:44)
[2018-07-14] MEDS: FOLIC ACID PO SCH (08:41)
[2018-07-14] MEDS: MIRALAX PO SCH ×2 (08:41→23:19)
[2018-07-14] MEDS: CARDIZEM CD PO SCH (08:41)
[2018-07-14] MEDS: PREDNISONE PO SCH (08:41)
[2018-07-14] MEDS: COREG PO SCH ×2 (08:41→20:44)
[2018-07-14] MEDS: BROVANA NEB INH SCH ×2 (08:45→23:00)
[2018-07-14] MEDS: NORCO-10 PO PRN (12:59)
--- NOTE | 2018-07-14 12:59 | PROGRESS NOTE ---
DATE: 07/14/2018 SUBJECTIVE: This morning, Ms. Rios refers to be doing fairly okay. Has some nonspecific symptoms including chest discomfort, some numbness in the right wrist, but for most part, she seems to be doing a lot better. She was actually eating lunch at the time of the encounter. OBJECTIVE: Vital signs: Blood pressure is 112/84, pulse is 90, respiration is 21, temperature is 98.4 degrees. General: Ms. Rios is a 47-year-old female, morbidly obese. She is in bed. BMI 77.3. HEENT: Mucosa was pink and moist. Anicteric. Acyanotic. Neck: Supple. Chest: Clear to auscultation. Cardiovascular: Regular rate and rhythm. Abdomen: Soft. Extremities: There is no pedal edema. Genitourinary: There was a Robison catheter in place. Central nervous system: Patient is awake, alert, oriented. Musculoskeletal: Minimal tenderness on palpation of the costochondral joints. LABORATORY DATA: Has also been reviewed. WBC is 6.50, hemoglobin is 7.1, platelet count of 161,000. Chemistry is also reviewed. Bicarbonate is 36. Patient's pCO2 is 59. ASSESSMENT: 1. Acute on chronic hypercarbic respiratory failure. 2. Acute hypoxemic respiratory failure. 3. Atrial fibrillation, currently rate controlled. 4. History of coronary artery disease. 5. Hypothyroidism. 6. Acute kidney injury, resolved. 7. Morbid obesity with obstructive sleep apnea and obesity hypoventilation syndrome. 8. Critical illness polyneuropathy. PT on board. PLAN: The patient is getting physical therapy and I think there is a plan for rehab placement. cc: Zafar Ma MD MTDD
[2018-07-14] MEDS: AMBIEN PO PRN (20:44)
[2018-07-15] MEDS: DUONEB (A & A) INH SCH ×4 (03:15→22:30)
[2018-07-15] MEDS: SYNTHROID PO SCH (06:15)
[2018-07-15 07:04] LABS: BASO# 0.01 X1000 (0.0-0.2); BASO% 0.2 % (0.0-0.8); EOS# 0.16 X1000 (0.0-0.7); EOS% 2.6 % (0.0-10.0); HEMOGLOBIN 7.1 g/dL (12.0-16.0); LYMPH# 1.39 X1000 (1.2-3.4); LYMPH% 22.5 % (20.5-51.1); MCH 26.2 PG (27-31); MCHC 28.4 g/dL (33-37); MCV 92.3 FL (81-99); MONO# 0.46 X1000 (0.11-0.59); MONO% 7.4 % (1.7-9.3); MPV 10.7 FL (7.4-10.4); NEUT# 4.17 X1000 (1.4-6.5); NEUT% 67.3 % (42.2-75.2); PLT 179 X1000 (130-400); RBC 2.71 XMIL (4.2-5.4); WBC 6.19 X1000 (4.8-10.8)
[2018-07-15] MEDS ORDERED: BROVANA NEB ONE (07:16)
--- NOTE | 2018-07-15 07:19 | Diag Imaging Result Doc PS360 ---
EXAM: CHEST-PORTABLE INDICATION: respiratory failure. Use Grid TECHNIQUE: One view COMPARISON: 07/14/2018 FINDINGS: The right PICC line is in stable position. Inspiration is suboptimal. Mild pulmonary venous congestion is approximately stable. No new consolidation is identified. Cardiac silhouette is stable. IMPRESSION: Slightly lower lung volumes. Stable chest, otherwise. Electronically signed by Jann Mcknight 07/15/2018 7:17 AM
[2018-07-15 07:33] LABS: AGAP 4; BUN 21 mg/dL (8-22); CALCIUM 8.6 mg/dL (8.8-10.2); CHLORIDE 97 mmol/L (98-107); COSMO 283; CREATININE 0.9 mg/dL (0.5-0.9); ESTIMATED GFR > 60; GLUCOSE 115 mg/dL (70-104); SODIUM 140 mmol/L (136-145); TCO2 39 mmol/L (25-35)
[2018-07-15] MEDS: MYCOSTATIN SUSP PO SCH ×4 (09:25→21:41)
[2018-07-15] MEDS: CARDIZEM CD PO SCH (09:26)
[2018-07-15] MEDS: PREDNISONE PO SCH (09:26)
[2018-07-15] MEDS: COREG PO SCH ×2 (09:26→21:41)
[2018-07-15] MEDS: NORCO-10 PO PRN ×2 (09:26→22:31)
[2018-07-15] MEDS: FOLIC ACID PO SCH (09:26)
[2018-07-15] MEDS: BROVANA NEB INH SCH ×2 (10:06→22:30)
[2018-07-15] MEDS: TUMS PO PRN (10:22)
[2018-07-15] MEDS: MIRALAX PO SCH ×2 (10:27→21:41)
--- NOTE | 2018-07-15 18:59 | PROGRESS NOTE ---
DATE: 07/15/2018 SUBJECTIVE: Today, Ms. Rios refers to be doing fairly okay. She was actually sitting at the edge of the bed having physical therapy at the time of the encounter. OBJECTIVE: Vital signs: Blood pressure is 123/73, pulse of 94, respirations 20, temperature 98.0. General: Ms. Rios is a 47-year-old, female. She is morbidly obese. She is sitting up at the bedside. She was not in any cardiopulmonary distress. HEENT: Mucosa is pink and moist. Anicteric. Acyanotic. Neck: Supple. Chest: Clear to auscultation. No crepitations. Cardiovascular: Regular rate and rhythm. No murmurs. Abdomen: Was soft, distended, but nontender. Bowel sounds present. Extremities: Trace pedal edema. ANALYST FOOD AND BEVERAGE: Patient is awake, alert. Follows basic commands. LABORATORY DATA: WBC is 6.19, hemoglobin is 7.1, platelet count of 179. Chemistry is also reviewed, remarkable. ASSESSMENT: 1. Acute on chronic hypercarbic respiratory failure, pCO2 was about 59 yesterday. That is probably patient's baseline. 2. Acute hypoxemic respiratory failure, improved. 3. Chronic atrial fibrillation, currently rate controlled. 4. History of coronary artery disease, stable. 5. Hypothyroidism. Will continue with levothyroxine. 6. Acute kidney injury resolved. 7. Morbid obesity with obesity hypoventilation syndrome and obstructive sleep apnea. 8. Critical illness polyneuropathy. Physical therapy is on board 9. Morbid obesity with body mass index of 74. DISPOSITION: I understand that Ms. Rios needs to be able to get down to 2 people assist before she can go to rehab. As of now, she has four people assist. She has generalized weakness with the 2. We are going to continue with the current physical therapy and hopefully get her to rehab as soon as possible. cc: Zafar Ma MD
[2018-07-15] MEDS: AMBIEN PO PRN (22:33)
[2018-07-16] MEDS: DUONEB (A & A) INH SCH ×4 (03:25→21:15)
[2018-07-16 03:51] LABS: ALLEN TEST YES; BE 15.3 mmoll (-3.0-3.0); BLOOD TYPE ARTERIAL; HCO3-(ACT) 36.8 mmoll (20.0-26.0); METHB 0.6 % (0.0-1.5); O2(CT) 10.2 mL/dL (15.0-23.0); O2HB 94.3 % (95.0-99.0); PO2(98.6) 69 mmHg (60-100); SAMPLE BLOOD; SAO2 97.9 % (95.0-100.0); THB 7.6 g/dL (11.5-17.4); pH(98.6) 7.42 (7.35-7.45)
[2018-07-16 03:53] LABS: MODALITY CANNULA; PCO2(98.6) 64 mmHg (35-45)
[2018-07-16] MEDS: SYNTHROID PO SCH (06:07)
--- NOTE | 2018-07-16 07:17 | Diag Imaging Result Doc PS360 ---
EXAM: CHEST-PORTABLE 07/16/2018 HISTORY: respiratory failure. Use Grid TECHNIQUE: AP portable at 0614 COMMENT: There is cardiomegaly. There is a right internal jugular central venous catheter with its tip in the right atrium. There is increased pulmonary vascularity. The left hemidiaphragm is largely obscured but this may be technical. There is somewhat worsened platelike opacity in the right middle lobe. There is probable interstitial pulmonary edema. IMPRESSION: Worsened pulmonary edema and atelectasis. Cardiomegaly. Electronically signed by George Gentile 07/16/2018 7:15 AM
[2018-07-16] MEDS ORDERED: BROVANA NEB ONE (07:21)
[2018-07-16 08:03] LABS: BASO# 0.01 X1000 (0.0-0.2); BASO% 0.2 % (0.0-0.8); EOS# 0.11 X1000 (0.0-0.7); EOS% 1.7 % (0.0-10.0); HEMATOCRIT 24.9 % (37.0-47.0); HEMOGLOBIN 7.1 g/dL (12.0-16.0); LYMPH# 1.49 X1000 (1.2-3.4); LYMPH% 22.5 % (20.5-51.1); MCH 26.4 PG (27-31); MCHC 28.5 g/dL (33-37); MCV 92.6 FL (81-99); MONO# 0.54 X1000 (0.11-0.59); MONO% 8.1 % (1.7-9.3); MPV 10.2 FL (7.4-10.4); NEUT# 4.48 X1000 (1.4-6.5); NEUT% 67.5 % (42.2-75.2); PLT 183 X1000 (130-400); RBC 2.69 XMIL (4.2-5.4); RDW 21.7 % (11.5-14.5); WBC 6.63 X1000 (4.8-10.8)
[2018-07-16 08:27] LABS: AGAP 11; BUN 23 mg/dL (8-22); CALCIUM 8.5 mg/dL (8.8-10.2); CHLORIDE 98 mmol/L (98-107); COSMO 290; ESTIMATED GFR > 60; GLUCOSE 131 mg/dL (70-104); POTASSIUM 4.2 mmol/L (3.5-5.1); SODIUM 143 mmol/L (136-145); TCO2 34 mmol/L (25-35)
[2018-07-16] MEDS: MIRALAX PO SCH ×2 (08:27→21:07)
[2018-07-16] MEDS: CARDIZEM CD PO SCH (08:29)
[2018-07-16] MEDS: NORCO-10 PO PRN (08:29)
[2018-07-16] MEDS: COREG PO SCH ×2 (08:29→21:14)
[2018-07-16] MEDS: PREDNISONE PO SCH (08:29)
[2018-07-16] MEDS: MYCOSTATIN SUSP PO SCH ×4 (08:29→21:06)
[2018-07-16] MEDS: FOLIC ACID PO SCH (08:29)
[2018-07-16] MEDS: BROVANA NEB INH SCH ×2 (09:38→21:15)
--- NOTE | 2018-07-16 16:47 | PROGRESS NOTE ---
DATE: 07/16/2018 SUBJECTIVE: This morning Ms. Rios refers to be doing fairly okay. She did deny any acute complaints. She, however, did refer that she has been sweating and occasionally her left side hurts. OBJECTIVE: Vital signs: Blood pressure is 105/61, pulse 95, respirations 18, temperature 98.2 degrees. General: Ms. Rios is a 47-year-old, morbidly obese, female. She is in bed. She does not seem to be in any cardiopulmonary distress. HEENT: Mucosa is pink and moist. Anicteric. Acyanotic. Neck: Supple. Chest: Good air entry bilateral. I did not hear any crepitations. No rhonchi. Cardiovascular: Regular rate and rhythm. No murmurs. No rubs. No gallops. GI: Abdomen is soft, nontender. Bowel sounds present. Extremities: Trace pedal edema. KITCHEN CLEANER: Patient is awake, alert, and oriented. There is no focal neurological deficit. LABORATORY DATA: WBC is 6.63, hemoglobin is 7.1. Chemistry is reviewed and is completely normal. Bicarb is down to 34. ABG still shows a pCO2 of 64. ASSESSMENT: 1. Acute on chronic hypercarbic respiratory failure, improved. 2. Acute hypoxemic respiratory failure, improved. 3. Chronic atrial fibrillation. Currently rate controlled. 4. History of coronary artery disease, stable. 5. Hypothyroidism. Patient is on levothyroxine supplement. 6. Acute kidney injury on presentation, resolved. 7. Morbid obesity with obstructive sleep apnea and obesity hypoventilation syndrome, noted. 8. Critical illness polyneuropathy. Patient is on physical therapy. PLAN: So today we are going to discontinue the Robison catheter. I have also discontinued all the narcotics that the patient is on. We will encourage her to participate more with physical therapy. I understand that the patient has to be down to only 2 people assist before she can get to rehab. As of now she is still 4 people assist. cc: Zafar Ma MD
[2018-07-16] MEDS: TYLENOL PO PRN (23:49)
[2018-07-17] MEDS: DUONEB (A & A) INH SCH ×3 (03:28→15:15)
[2018-07-17] MEDS: SYNTHROID PO SCH (06:14)
[2018-07-17] MEDS ORDERED: BROVANA NEB ONE ×2 (07:20→19:29)
[2018-07-17] MEDS: PREDNISONE PO SCH (08:45)
[2018-07-17] MEDS: COREG PO SCH (08:45)
[2018-07-17] MEDS: FOLIC ACID PO SCH (08:45)
[2018-07-17] MEDS: CARDIZEM CD PO SCH (08:45)
[2018-07-17] MEDS: MIRALAX PO SCH (08:46)
[2018-07-17] MEDS: MYCOSTATIN SUSP PO SCH ×3 (08:46→16:30)
[2018-07-17] MEDS: BROVANA NEB INH SCH (09:20)
--- NOTE | 2018-07-17 15:07 | DISCHARGE SUMMARY ---
ADMISSION DATE: 06/17/2018 DISCHARGE DATE: 07/17/2018 LENGTH OF STAY: The patient's length of stay was 30 days.. DISPOSITION: [facility]. CONSULTATION DURING THIS ADMISSION: Pulmonary Medicine was consulted, the patient was seen by Dr. Munroe Infectious Disease was consulted, the patient was seen by Dr. Fair. INVASIVE PROCEDURES DONE DURING THIS ADMISSION: None. IMAGING STUDIES OF SIGNIFICANCE: Multiple chest x-rays was done because the patient was intubated. MICROBIOLOGY DATA OF IMPORTANCE: 1. Urine culture at one point was positive for Klebsiella pneumoniae. 2. Blood cultures have all been negative. ADMISSION DIAGNOSES: 1. Acute on chronic respiratory failure. 2. Chronic obstructive pulmonary disease. 3. Cardiac arrest. 4. Chronic kidney disease stage 3. 5. Morbid obesity. 6. Atrial fibrillation with rapid ventricular response. DIAGNOSES AT THE TIME OF DISCHARGE: 1. Acute on chronic hypercarbic respiratory failure, this is improved. 2. Acute hypoxemic respiratory failure. The patient was initially intubated, was successfully extubated on 06/26/2018 and since then has been titrated down from BiPAP all the way to only 4 L of nasal cannula at this point. 3. Chronic atrial fibrillation. The patient at one point went into atrial fibrillation with rapid ventricular response, is currently rate controlled. 4. History of coronary artery disease, stable. 5. Hypothyroidism. The patient is on levothyroxine. 6. Acute kidney injury. Kidney function has normalized. 7. Morbid obesity. 8. Obesity hypoventilation syndrome. 9. Sleep apnea. 10. Critical illness polyneuropathy. The patient is going to rehabilitation. DISCHARGE MEDICATIONS: 1. Pantoprazole 40 mg daily. 2. Diltiazem 240 daily. 3. Aspirin 81 mg daily. 4. Zolpidem 10 mg p.o. at bedtime. 5. Carafate 1 g p.o. q.6. 6. Carvedilol 6.25 b.i.d. 7. Furosemide 40 mg b.i.d. 8. Synthroid 50 mcg p.o. daily. 9. Folic acid 1 mg daily. 10. Milk of magnesia. 11. Levothyroxine 50 mcg p.o. daily. PRESENTING COMPLAINT: Acute shortness of breath. HISTORY OF PRESENTING COMPLAINT: Ms. Rios is a 47-year-old female, morbidly obese with BMI of 75.6, who is known to have COPD, coronary artery disease, atrial fibrillation, some renal failure, came to the emergency department because of difficulty breathing. The patient required 100% non-rebreather. At [place] at some point we understand the patient became unresponsive and required intubation and transferred to ICU. Upon presenting to the ICU I understand the patient had a short period of cardiac arrest. HOSPITAL COURSE: Mr. Rios had a very extensive hospital course. She remained intubated from 06/18/2018 until 06/26/2018, that was about a week. Subsequently she was able to be extubated. The patient was seen by Pulmonary Medicine and Infectious Disease. She was also treated at some point for pneumonia, she completed IV antibiotic. During the hospital course Ms. Rios's pCO2 also continued to improve, it is now up to about 64, which we think it is where she normally lives. After Ms. Rios became medically stable her other izabela in management was about disposition. She has developed critical care illness polyneuropathy and she needs to go to a rehab. Unfortunately, because of the high concentration of oxygen that she was on she could not be moved in time and also because she needed a lot of assistance to participate in physical therapy. However, gradually she did improve to only 2 people assistance and on only 4 L of nasal cannular, so she is being discharged to [facility] to continue with her rehabilitation. This morning her vital signs, blood pressure is 117/83, pulse is 77, respiration is 18, temperature is 98.7 degrees. The patient refers to feel fairly okay. She does have some generalized pains, which I did assure her that with physical therapy she would do a lot better. Ms. Rios is therefore being discharged in stable condition and she will follow up with her primary care doctor. All the discharge instructions have been discussed with her and she voiced understanding. TIME SPENT FOR DISCHARGE: 37 minutes. cc: MD Dr. Emmy Olivarez Moses MTDD
[2018-07-17] MEDS ORDERED: NORCO-7.5 PO ONE (16:01)
[2018-07-17 20:54] VITALS: BP 117/78
== END 2018-07-17 19:45 | DRG 207 ==
LOC: P.ED 15:30 → P.MEDSURG 22:38 → SUATTDRO 22:38 → P.MEDSURG 23:19 → P.ICU 23:40 → ICU 06-18 06:14 → 3S 07-05 17:07 → 3N 07-11 12:01
PROVIDERS: ATTEND Internal Medicine
CPT/HCPCS: 31500; 36430; 36569; 51702; 71010; 71045; 73030; 80048; 80053; 81001; 82140; 82570; 82607; 82728; 82746; 82805; 82948; 83540; 83605; 83690; 83735; 83880; 84100; 84132; 84134; 84145; 84300; 84436; 84443; 84484; 85014; 85018; 85025; 85045; 85610; 86850; 86900; 86901; 86920; 87040; 87070; 87077; 87088; 87186; 87205; 87275; 87276; 87804; 93005; 93306; 93970; 93971; 94002; 94003; 94150; 94640; 94660; 94760; 94761; 94762; 94799; 96361; 96374; 96375; 97110; 97162; 97530; 99285; A9270; C8929; C9113; J0171; J0330; J0692; J1170; J1630; J1650; J1940; J2020; J2060; J2185; J2250; J2270; J2405; J2920; J3475; J3480; J7030; J7050; J7070; J7506; J7512; P9016; Q9957; S0073; S0164; XXXXX

== ENCOUNTER 2019-03-09 13:43 | Inpatient (IN) ==
[2019-03-09] MEDS ORDERED: NS 1,000 ML ONE ×2 (14:08→15:14)
[2019-03-09] MEDS ORDERED: VERSED ONE ×2 (14:17→15:32)
[2019-03-09] MEDS ORDERED: QUELICIN ONE (14:18)
[2019-03-09] MEDS ORDERED: EPINEPHRINE 4 MG in NS 250 ML IV PRN (14:19)
[2019-03-09 14:29] LABS: ALLEN TEST YES; BE 2.9 mmoll (-3.0-3.0); BLOOD TYPE ARTERIAL; HCO3-(ACT) 27.2 mmoll (20.0-26.0); METHB 0.8 % (0.0-1.5); O2(CT) 14.5 mL/dL (15.0-23.0); O2HB 97.4 % (95.0-99.0); PO2(98.6) 350 mmHg (60-100); SAMPLE BLOOD; SAO2 100.4 % (95.0-100.0); THB 9.9 g/dL (11.5-17.4)
[2019-03-09] MEDS ORDERED: SODIUM BICARBONATE 8.4% IV PUSH ONE ×2 (14:32→15:41)
[2019-03-09] MEDS ORDERED: SODIUM BICARBONATE 8.4% ONE ×2 (14:47→18:59)
--- NOTE | 2019-03-09 14:56 | Diag Imaging Result Doc PS360 ---
CHEST-1 VIEW - 03/09/2019 INDICATION: SOB COMPARISON: 07/16/2018 FINDINGS: There is an endotracheal tube at about T4. Nasogastric tube is in the stomach in good position. There is severe cardiomegaly. There is dense bilateral pulmonary edema. There are small pleural effusions. IMPRESSION: No complication from support tube placement. Electronically signed by Dean Virk 03/09/2019 2:54 PM
--- NOTE | 2019-03-09 15:03 | EKG Report ---
Test Performed on : 03/09/2019 2:24:27 PM Test Reason : CP Blood Pressure : / mmHG Vent. Rate : 087 BPM Atrial Rate : 081 BPM P-R Int : 000 ms QRS Dur : 098 ms QT Int : 362 ms P-R-T Axes : 000 -42 132 degrees QTc Int : 435 ms Atrial fibrillation. Left axis deviation Low voltage QRS Cannot rule out Anterior infarct (cited on or before 17-JUN-2018) T wave abnormality, consider lateral ischemia Abnormal ECG When compared with ECG of 17-JUN-2018 19:51, Nonspecific T wave abnormality now evident in Anterior leads Unconfirmed Result
[2019-03-09 15:07] LABS: MODALITY AMBU BAG; PCO2(98.6) 86 mmHg (35-45); pH(98.6) 7.19 (7.35-7.45)
[2019-03-09] MEDS ORDERED: DIPRIVAN 1% 1,000 MG/100 ML BOTTLE ONE (15:13)
[2019-03-09] MEDS: LEVOPHED 8 MG in D5 1/2 NS 250 ML IV PRN (15:18)
[2019-03-09 15:25] LABS: BASO# 0.01 X1000 (0.0-0.2); BASO% 0.1 % (0.0-0.8); EOS# 0.01 X1000 (0.0-0.7); EOS% 0.1 % (0.0-10.0); HEMATOCRIT 34.1 % (37.0-47.0); HEMOGLOBIN 9.5 g/dL (12.0-16.0); LYMPH# 3.26 X1000 (1.2-3.4); LYMPH% 28.5 % (20.5-51.1); MCHC 27.9 g/dL (33-37); MCV 93.4 FL (81-99); MONO# 0.38 X1000 (0.11-0.59); MONO% 3.3 % (1.7-9.3); MPV 10.8 FL (7.4-10.4); NEUT# 7.79 X1000 (1.4-6.5); PLT 231 X1000 (130-400); RBC 3.65 XMIL (4.2-5.4); RDW 18.7 % (11.5-14.5); WBC 11.45 X1000 (4.8-10.8)
[2019-03-09] MEDS: VERSED IV ONE ×2 (15:25→15:48)
[2019-03-09 15:27] LABS: ALB/GLOB RATIO 1.1; ALBUMIN 4.3 g/dL (3.5-5.0); CALCIUM 10.2 mg/dL (8.8-10.2); CREATININE 4.3 mg/dL (0.5-0.9); POTASSIUM 5.9 mmol/L (3.5-5.1); TOTAL BILIRUBIN 0.71 mg/dL (0.20-1.00); TOTAL PROTEIN 8.3 g/dL (6.3-8.3)
[2019-03-09] MEDS ORDERED: DIPRIVAN 1% 1,000 MG/100 ML BOTTLE IV SCH (15:45)
[2019-03-09] MEDS ORDERED: DIPRIVAN 1% IV ONE (15:45)
[2019-03-09] MEDS ORDERED: ATIVAN IV PRN (16:36)
[2019-03-09] MEDS ORDERED: ATIVAN 20 MG in NS 190 ML IV SCH (16:45)
[2019-03-09] MEDS ORDERED: AZACTAM 1 GM in NS 50 ML IV ONE (17:00)
[2019-03-09 17:19] LABS: ALLEN TEST YES; BE 10.6 mmoll (-3.0-3.0); BLOOD TYPE ARTERIAL; HCO3-(ACT) 33.2 mmoll (20.0-26.0); METHB 1.4 % (0.0-1.5); O2(CT) 12.7 mL/dL (15.0-23.0); O2HB 95.2 % (95.0-99.0); PO2(98.6) 93 mmHg (60-100); SAMPLE BLOOD; SRATE 15 BPM; THB 9.4 g/dL (11.5-17.4); TVOL 500 mL; pH(98.6) 7.34 (7.35-7.45)
[2019-03-09 17:22] LABS: MODALITY VENTILATOR; PCO2(98.6) 71 mmHg (35-45)
[2019-03-09] MEDS: ZYVOX 600 MG/D5W 600 MG/300 ML IVPB IV SCH (17:35)
[2019-03-09] MEDS: LOVENOX SUBQ SCH (17:37)
[2019-03-09] MEDS: ATIVAN 20 MG in NS 190 ML IV SCH (18:17)
[2019-03-09] MEDS: MORPHINE IV PRN (18:47)
[2019-03-09] MEDS ORDERED: CALCIUM CHLORIDE SYRINGE ONE (18:59)
[2019-03-09] MEDS ORDERED: EPINEPHRINE SYRINGE ONE (18:59)
--- NOTE | 2019-03-09 21:13 | HISTORY AND PHYSICAL ---
ADDENDUM: I have seen and examined Ms. Rios today in the emergency room. Her power of gang pusher and 2 female family members were at the bedside. Ms. Rios has been a resident of [facility] for the past 3 months, according to the power of gang pusher. She has very limited mobility. She is on home 2 oxygen. I understand for the past 4 days she has been having more difficulty breathing. This morning [facility] called the ER and said that the patient was having more difficulty breathing, was not saturating well, so they decided to bring her to the emergency room. I understand when she reached the emergency room, she did have agonal breathing and there was no pulse. Both BLS and ACLS protocols were instituted. I understand she was resuscitated for almost an hour. I do not have the details of the resuscitation sheet with me now, but by the time I came to evaluate her, she was stabilized on the ventilator. She was on epinephrine drip and she is also on propofol drip. PHYSICAL EXAMINATION: VITAL SIGNS: Her current blood pressure is about 96/70. Her pulse was about 23. There is no temperature recorded yet. Pulse rate was about 92. GENERAL: On physical exam, Ms. Rios is a 48-year-old morbidly obese female. She has a BMI of 64.6. She is currently intubated. NECK: Short. There is a previous tracheostomy scar on the anterior lower neck. CHEST: Air entry is bilaterally reduced. There are crackles and there are transmitted sounds from the ventilator. CARDIOVASCULAR: Regular rate and rhythm. ABDOMEN: Distended. I did not see any scars. EXTREMITIES: No pedal edema. Some chronic hyperpigmentation in the lower extremities from stasis dermatitis. BREASTS: There are some chronic erythematous changes in the left breast, but I did not feel any mass. LABORATORY DATA: WBC is 11.45, hemoglobin is 9.5, platelet count of 231,000. ABG shows a pH of 7.19, pCO2 of 86, PaO2 of 350, lactate level of 710. This was on an Ambu bag with FIO2 of 100. Chemistry shows a creatinine of 4.3. The patient's last creatinine in December was 1.5. ProBNP is 15,280. So far, initial troponin was unremarkable. DIAGNOSTIC DATA: A chest x-ray shows severe cardiomegaly, dense bilateral pulmonary edema, small pleural effusion. An EKG at 1:00 shows very low voltage, but seems to be sinus with left axis deviation, with possible left bundle branch block. Q-T interval seems to be within normal range. There are no apparent ST-segment deviations or any remarkable T-wave abnormalities, except in lead I and aVL, where the complex seems to be a left bundle branch. ASSESSMENT AND PLAN: 1. Status post cardiopulmonary arrest. It appears the initial event was more of a respiratory failure that progressively led into a cardiac failure with the loss of pulse. She has been resuscitated. She is not currently with secure airway, endotracheally intubated on the ventilator. She is going to be admitted to the intensive care unit. We are going to continue with critical care management. 2. Cardiomegaly with pulmonary edema and elevated proBNP, concerning for congestive heart failure. 3. Hypotension. The patient is currently on vasopressors. We will get blood cultures and empirically cover her for possible infectious etiology until we have the culture results. 4. Gtkjl-tx-gpxtydu renal failure noted, presumably from hypotension and ischemic renal disease, for which ultimately acute tubular necrosis is a high differential. 5. Morbid obesity with body mass index of 64.6 noted. 6. Dxaui-fk-mjinmee hypercarbic respiratory failure. Please refer to the details of the history and physical that has been dictated by the nurse practitioner in the chart. Code status discussed with POA and other family members. Patient is FULL CODE. Critical time spent 1 hour cc: Zafar Ma MD MTDD
--- NOTE | 2019-03-10 00:57 | HISTORY AND PHYSICAL ---
CHIEF COMPLAINT: Respiratory distress. HISTORY OF PRESENT ILLNESS: This is a 48-year-old female who is well known to our service, having multiple admissions. She has a history of COPD, coronary artery disease, hypothyroid, atrial fibrillation, chronic kidney disease stage 3, congestive heart failure and morbid obesity, with a BMI of 63. She presented to the emergency room via EMS from an extended care facility. At the time of my exam the patient is in cardiac and respiratory arrest. CPR is in progress. History is taken from the nursing staff as well as EMS. EMS states that they were called out for respiratory difficulty. On arrival to the emergency room the patient was found to be agonal with no pulse. CPR was started. She was initially bagged. She was intubated in the emergency room and did have return of spontaneous circulation. At present she is on norepinephrine for pressor to support her blood pressure. There is no family present. PAST MEDICAL HISTORY: 1. Morbid obesity. 2. Coronary artery disease. 3. Congestive heart failure with an ejection fraction of 45% to 50% with mild global hypokinesis. 4. COPD. 5. Hypothyroid. 6. Pickwickian syndrome. 7. Gastroesophageal reflux disease. 8. Chronic kidney disease stage 3. 9. Atrial fibrillation. PAST SURGICAL HISTORY: Vas-Cath placement and removal. SOCIAL HISTORY: She lives at an extended care facility with no alcohol, tobacco or illicit drug use. ALLERGIES: Keflex and propoxyphene. HOME MEDICATIONS: A list will be obtained by the nursing staff. Once verified, we will review and restart as appropriate. REVIEW OF SYSTEMS: Unable to obtain as the patient is intubated. PHYSICAL EXAMINATION: GENERAL: This is a 48-year-old morbidly obese female who is lying on the stretcher in the emergency room, with return of spontaneous circulation on pressors. VITAL SIGNS: Blood pressure is 90/64 with a heart rate of 112, respirations are per ventilator at 100% with a tidal volume of 500, rate of 15, PEEP of 10. She is intubated. HEENT: Head is normocephalic, atraumatic. Mucous membranes are moist. They are pink tinged. Oroendotracheal tube is present, 7.5 at 23 cm at the lip. NECK: Supple, with trachea midline. CARDIOVASCULAR: Regular rate and rhythm. She is tachycardic. S1 and S2 are appreciated. She has bilateral lower extremity edema from her groin down, as well as bilateral upper extremity edema from just above the elbow down. Peripheral pulses are palpable x4 extremities. PULMONARY: Breath sounds are coarse and diminished throughout. Respirations are per ventilator. Chest rises and falls symmetric with respiration. ABDOMEN: Large, soft, nondistended, with bowel sounds in all 4 quadrants. NEUROLOGIC: She is sedated. SKIN: Warm and dry. LABORATORY DATA: WBC is 11.4 with hemoglobin 9.5, hematocrit 34.1, and platelets 231,000. ABGs: PH 7.1 with pCO2 of 86. Sodium is 142, potassium 5.9, BUN 44, creatinine 4.3 with a glucose of 127. Her proBNP is 15,230. TSH is 9.11. Blood cultures are pending. DIAGNOSTIC DATA: Chest x-ray reveals no complication from support tube placement. NG tube is in the stomach in good position. There is severe cardiomegaly. EKG reveals atrial fibrillation at a rate of 87. ASSESSMENT AND PLAN: 1. Gkqkh-hv-votrxlk hypercapnic hypoxemic respiratory failure. 2. Respiratory arrest. The patient is now intubated. 3. Cardiac arrest, with return of spontaneous circulation after cardiopulmonary resuscitation. 4. Hyperkalemia. 5. Acute kidney injury in the setting of chronic kidney disease. 6. Hypothyroid. 7. Leukocytosis. 8. History of congestive heart failure. 9. Chronic obstructive pulmonary disease. PLAN: The patient will be admitted to ICU, of course placed on telemetry. consulting Pulmonology, Cardiology as well as Dr. Jean. EKG will be ordered. continue with pressors as well as sedation. Antibiotic coverage of Azactam and linezolid. portable chest x-ray in the morning. trend troponins. CBC, CMP and TSH in the morning. Check urine electrolytes. The patient was examined and plan was discussed with Dr. Ma. Further treatments pending hospital course. Dictated by FIONA Ordonez for Zafar Ma MD cc: FIONA Ordonez MD [facility]
[2019-03-10] MEDS: ATIVAN 20 MG in NS 190 ML IV SCH ×4 (02:18→23:09)
[2019-03-10 03:16] LABS: UR CREAT RANDOM 120.9 mg/dL (11-20)
[2019-03-10] MEDS: AZACTAM 1 GM in NS 50 ML IV SCH ×3 (03:40→21:34)
[2019-03-10] MEDS: ZYVOX 600 MG/D5W 600 MG/300 ML IVPB IV SCH ×2 (03:40→15:55)
[2019-03-10 05:25] LABS: ALLEN TEST YES; BLOOD TYPE ARTERIAL; HCO3-(ACT) 33.5 mmoll (20.0-26.0); O2HB 97.2 % (95.0-99.0); PO2(98.6) 165 mmHg (60-100); SAMPLE BLOOD; SAO2 99.5 % (95.0-100.0); SRATE 15 BPM; TVOL 500 mL; pH(98.6) 7.44 (7.35-7.45)
[2019-03-10 05:26] LABS: MODALITY VENTILATOR; PCO2(98.6) 54 mmHg (35-45)
[2019-03-10 06:29] LABS: BASO# 0.01 X1000 (0.0-0.2); BASO% 0.1 % (0.0-0.8); HEMATOCRIT 32.2 % (37.0-47.0); HEMOGLOBIN 9.5 g/dL (12.0-16.0); IMM GRAN# 0.03 X1000 (0.0-0.04); IMM GRAN% 0.3 % (0.0-0.5); LYMPH# 0.96 X1000 (1.2-3.4); LYMPH% 8.3 % (20.5-51.1); MCH 25.6 PG (27-31); MCHC 29.5 g/dL (33-37); MCV 86.8 FL (81-99); MONO# 0.78 X1000 (0.11-0.59); MONO% 6.8 % (1.7-9.3); MPV 10.8 FL (7.4-10.4); NEUT# 9.76 X1000 (1.4-6.5); NEUT% 84.5 % (42.2-75.2); PLT 218 X1000 (130-400); RBC 3.71 XMIL (4.2-5.4); RDW 18.4 % (11.5-14.5); WBC 11.54 X1000 (4.8-10.8)
[2019-03-10 06:37] LABS: INR 2.03; PROTIME 23.4 Seconds (11.0-16.0)
[2019-03-10 07:06] LABS: ALB/GLOB RATIO 0.9; ALBUMIN 3.5 g/dL (3.5-5.0); CALCIUM 8.7 mg/dL (8.8-10.2); CREATININE 5.1 mg/dL (0.5-0.9); POTASSIUM 5.1 mmol/L (3.5-5.1); TOTAL BILIRUBIN 0.65 mg/dL (0.20-1.00); TOTAL PROTEIN 7.4 g/dL (6.3-8.3)
--- NOTE | 2019-03-10 07:46 | Diag Imaging Result Doc PS360 ---
CHEST-PORTABLE - 03/10/2019 INDICATION: intubated COMPARISON: 03/09/2019 FINDINGS: Endotracheal tube and nasogastric tube are in good position. There is severe cardiomegaly. There is diffuse bilateral infiltrates that has worsened since prior. This is compatible with pulmonary edema. IMPRESSION: Worsening in the dense infiltrates compatible with pulmonary edema. Electronically signed by Dean Virk 03/10/2019 7:44 AM
--- NOTE | 2019-03-10 07:49 | EKG Report ---
Test Performed on : 03/10/2019 07:06:03 AM Test Reason : chest pain Blood Pressure : / mmHG Vent. Rate : 083 BPM Atrial Rate : 068 BPM P-R Int : 000 ms QRS Dur : 096 ms QT Int : 404 ms P-R-T Axes : 000 -54 117 degrees QTc Int : 474 ms Atrial fibrillation. Left axis deviation Low voltage QRS Possible Anterolateral infarct (cited on or before 17-JUN-2018) Abnormal ECG When compared with ECG of 09-MAR-2019 14:24, (Unconfirmed) Questionable change in initial forces of Lateral leads Nonspecific T wave abnormality has replaced inverted T waves in Lateral leads Confirmed by Andrez GILES, P.J.M ([id number]) on 03/10/2019 3:12:41 PM
[2019-03-10] MEDS ORDERED: LASIX IV ONE (08:08)
--- NOTE | 2019-03-10 10:01 | CARDIOLOGY CONSULTATION ---
DATE: 03/10/2019 CHIEF COMPLAINT: Apparent respiratory distress, cardiopulmonary arrest. HISTORY OF PRESENT ILLNESS: Ms. Rios is a 48-year-old, morbidly obese, black female who [facility] Per reports, it seems like the patient was having shortness of breath, was evaluated eventually by EMS at the facility, and was subsequently brought in with CPR in progress. Unfortunately we do not have any sort of EMS documentation saying how long they were administering CPR, but per documentation in the ER it appears that she was essentially pulseless for 26 minutes. She was intubated. Currently, she is on sedation. She grimaces to physical stimuli. She is on the ventilator. No family is available presently. PAST MEDICAL HISTORY: 1. Morbid obesity. 2. Nonischemic cardiomyopathy. Her last echocardiogram that we have on file was from June of 2018 that demonstrated an EF of 45 to 50 percent. This is a very difficult study given the patient's body habitus. 3. Pulmonary hypertension/cor pulmonale/pickwickian syndrome. 4. Hypertension. 5. Hyperlipidemia. 6. Diabetes. 7. Hypothyroidism. 8. Sleep apnea. 9. Chronic atrial fibrillation. SOCIAL HISTORY: She apparently is a resident of an extended care facility. She has a previous tobacco use history, but per documentation in Dr. Reinoso's note from 2018, she quit in 2000. FAMILY HISTORY AND REVIEW OF SYSTEMS: Unable to be obtained secondary to the patient's current intubated status. PHYSICAL EXAMINATION: Vital Signs: She has been documented to be afebrile here. Her current heart rate is 74, blood pressure 108/80. The documented blood pressure on presentation yesterday was 90/64. During the code, they had systolics in the 50s. Generally: She is sedated on the ventilator. She grimaces to and moves slightly to painful stimuli. HEENT: Oropharynx is moist. Poor dentition. Her eye examination shows pink conjunctivae. White sclerae. Neck: Examination shows no obvious thyromegaly or thyroid tenderness. Cardiovascular: She has very distant heart sounds. She sounds irregularly irregular. She has no obvious murmurs. Again, very distant. She has warm and well-perfused extremities. Chest: Her chest exam sounds relatively clear. Poor inspiratory effort. No increased work of breathing. She is breathing with the ventilator. Abdomen: Soft. No obvious organomegaly, but a very difficult exam secondary to morbid obesity. Skin: Exam is warm and dry throughout. Neurological: She grimaces to pain, but otherwise exam is limited due to sedation being on the ventilator. PERTINENT DATA: Her presenting chest x-ray suggested dense bilateral infiltrates suggestive of pulmonary edema. Her chest x-ray this morning shows worsening of the dense infiltrates. Her EKG on presentation at 1424 hours shows rate controlled atrial fibrillation, rate of 87 beats per minute. Low voltage. Subsequent EKG occurring on the at 0706 hours shows again what appears to be rate controlled atrial fib, rate of 83 beats per minute. Her lab data demonstrates a white count of 11.5, hematocrit 32 and platelet count of 218. INR is 2. Notably, the patient was on Xarelto at home at a dose of 10 mg daily. Sodium is 142, potassium 5.1, BUN 52, creatinine 5.1. Yesterday her BUN and creatinine were 44 and 4.3 with previous creatinines appearing in the low to mid 1 range with the last check of 1.5 in December of this year. Her proBNP on presentation was 15,230. Her cardiac enzymes thus far have been negative. Her albumin was 3.5. Her TSH is 4.22 today, 9.11 yesterday. ASSESSMENT: Ms. Rios is a 48-year-old female who presented with cardiopulmonary arrest. PLAN: Unclear etiology at this point. She is currently on the ventilator. She is on antibiotics. She was administered 60 of intravenous Lasix this morning, which I agree with given her chest x-ray abnormalities. She may need a higher dose though considering her renal dysfunction. Her echocardiogram is currently pending. Patient, given her comorbidities, presenting issues and prolonged cardiopulmonary resuscitation administration has a poor prognosis. cc: MD NEELIMA Baumann
--- NOTE | 2019-03-10 13:04 | PROVIDER PROGRESS NOTE ---
Progress Note Chief complaint: sedated and intubated HPI: Ms. Rios is 48-year-old -Mexican female with a past medical history of morbid obesity, chronic kidney disease stage 3, nonischemic cardiomyopathy, pulmonary hypertension/cor pulmonale/Pickwickian syndrome, diabetes and chronic atrial fibrillation. She has been a resident of [facility] for the past few months. Yesterday she complained of shortness of breath and was in apparent respiratory distress when staff called EMS. It is unclear whether she had a cardiac arrest event in the short distance ride to the hospital. However, upon arrival to our emergency department she was pulseless and CPR was administered for about 26 minutes. ROSC achieved and pt was intubated, sedated, and given norepinephrine. She remains intubated and sedated on blood pressure support. No family is present at the moment. Her Creatinine is elevated at 5.1. We are unaware or her baseline. Past medical history: Morbid obesity, coronary artery disease, congestive heart failure, COPD, hypothyroidism, pick weekend syndrome, GERD, chronic kidney disease stage III, chronic atrial fibrillation. Past surgical history: unable to obtain Social history: she resides at [facility]. Family history: unobtainable. Allergies: keeled and darvocet Home medications: pepto bismol, Bumex, Coreg, Cardizem, folic acid, Lasix, hydrocodone 10, Icar-C, probiotic, Synthroid, milk of magnesia, MiraLAX, promethazine, Xarelto, Ambien. Review of systems: unable to obtain Labs: WBC 11.54, hemoglobin 9.5, hematocrit 32.2, platelet count to 18, sodium 142, potassium 5.1, chloride 94, carbon dioxide 32, and I amber 16, BUN 52, creatinine 5.1, troponin 0.047, intake 1184, output 315. Arterial blood gas pH 7.44, PCO2 54, PO2 165, HCO3 33.5, bingham excess 11. Imaging: chest text Ray impression dense bilateral pulmonary Edema with pleural effusions. Physical exam: vitals. 97.8, pulse 78, respirations 17, blood pressure 105/73, 100% O2 sat on 100% Fio2 mechanical ventilation. General: obese -Mexican female lying in bed intubated and sedated in no acute distress. Skin: warm and dry. Dressing to left upper shoulder. neck: supple, no JVD observed due to body habitus. Cardiovascular: irregular, no murmur gallop. Respiratory: course long rhonchi anteriorly Abdomen: obese, soft, nontender, nondistended. Hypoactive bowel sounds : none inspected, Robison in place with eric urine. Extremities: 2+ pitting Edema up to hips bilaterally. Neurological: sedated Assessment and plan: Acute kidney injury likely acute tubular necrosis from cardiac arrest. Creatinine is 5.1 today, her baseline back in 2014 was 1.4. Nephrotoxic medications held, we will get Renal imaging and urine studies. Holding fluids for volume overload. She does not require urgent renal replacement therapy at this time. Blood pressure. Remains on vasopressor support. Electrolytes and acid base balance. Stable. Volume status. Expanded. Lasix ordered by primary. Medication review. Aztreonam should be decreased after initial dose.
--- NOTE | 2019-03-10 14:48 | ECHO REPORT ---
ORDER DATE: 03/09/2019 INTERPRETING PHYSICIAN: Dr. Pavel Reinoso ECHOCARDIOGRAPHIC MEASUREMENTS: 1. Interventricular septum: 1.1 cm. 2. Posterior wall: 1.1 cm. 3. Diastolic diameter: 5.8 cm. 4. Left atrium: 4.2 cm. 5. Aortic root: 2.9 cm. SUMMARY OF THE 2-DIMENSIONAL IMAGIN. Technically suboptimal study. Very poor acoustic window. Left ventricle was dilated mildly with an estimated ejection fraction of 35 to 40 percent. 2. Tricuspid valve was trileaflet. 3. Pulmonic valve was normal. 4. Mitral valve was normal. 5. Tricuspid valve was normal. 6. Right ventricle is dilated with reduced right ventricular systolic function. 7. There is moderate tricuspid regurgitation. Peak velocity across the tricuspid valve was 3.2 m/sec. 8. Pulmonary artery systolic pressure of 51 mmHg. 9. Inferior vena cava was dilated suggestive of pulmonary arterial hypertension. 10. There is mild mitral regurgitation. 11. There is no aortic stenosis or regurgitation. 12. There is mild tricuspid regurgitation. 13. Trace anterior echo-free space suggestive of pericardial fat pad. 14. Mild pleural effusion was noted. There is no obvious intracardiac mass or thrombus seen. cc: MD Zafar Herrera MD
--- NOTE | 2019-03-10 15:13 | PROGRESS NOTE ---
DATE: 03/10/2019 SUBJECTIVE: This morning, Ms. Rios continues to be intubated and sedated on Ativan drip. She is in critical care unit. No family member was at the bedside. Per the nursing staff, the night was uneventful. OBJECTIVE: Vital Signs: Blood pressure is 112/84, pulse of 80, respirations 17, temperature is 97.9 degrees. General: Ms. Rios is a 48-year-old female, morbidly obese with a BMI of 63.2. She is in bed. She is still intubated. HEENT: Mucosa is pink and moist. Anicteric. Acyanotic. Neck: Supple. Chest: Air entry is bilaterally reduced. Cardiovascular: Regular rate and rhythm. Neck: There is a previous tracheostomy scar on the anterior lower neck. GI: Abdomen is soft, distended, but nontender. Bowel sounds present. Extremities: Chronic hyperpigmentation in the lower extremities. Skin: There are some chronic erythematous changes in the left breast. SOLE BLACKER: The patient is currently intubated and sedated on Ativan. She does have very good pupillary reflex to light. She has good corneal reflex, and she will cough on stimulation. Ms. Rios will also move her extremities to painful stimulation. LABORATORY DATA: WBC is 11.54, hemoglobin is 9.5, platelet count of 213,000. Chemistry is also reviewed. The patient's creatinine is up to 5.1. I's and O's show urine output was just 315 currently. Positive balance of 869. DIAGNOSTIC STUDIES: A chest x-ray this morning shows worsening in the dense infiltrates, compatible with pulmonary edema. ASSESSMENT: 1. Status post cardiopulmonary arrest. The patient is currently intubated. 2. Cardiomegaly with pulmonary edema and elevated pro-BNP, concerning for congestive heart failure. The patient's chest x-ray this morning seems to suggest worsening of the pulmonary edema. The patient has been ordered Lasix to help with her fluid in the lungs. 3. Hypotension, concerning for sepsis. But could be a combination of cardiogenic and septic shock. Bed side echo results pending. Ms. Rios continues to be on the antibiotics until we have the final identity and sensitivity. Will also get Infectious Disease to evaluate her. 4. Dense multifocal pulmonary infiltrates concerning for pulmonary edema. However, superimposed pneumonia cannot be ruled out, especially if there is aspiration pneumonitis. The patient will continue to be on antibiotics. Infectious Disease has been consulted. 5. Acute on chronic renal failure. Creatinine continues to go up. Presumed ATN. Nephrology has been consulted. 6. Morbid obesity. Body mass index of over 60. 7. Acute on chronic hypercarbic respiratory failure. 8. History of hypothyroidism. We will switch her levothyroxine to intravenous preparation. In general, Ms. Rios continues to be remarkably sick. She is still on the ventilator. Chest x- ray this morning seems to suggest some worsening. She has been given 60 mg of intravenous Lasix. We are going to continue with the current antimicrobial therapy. She is pending a consult from Infectious Diseases. The patient is being seen by Cardiology, Pulmonary Medicine, and Nephrology for now. CRITICAL TIME SPENT: One hour. cc: Zafar Ma MD MTDD
--- NOTE | 2019-03-10 15:27 | INFECTIOUS DISEASE CONSULT REP ---
DATE: 03/10/2019 CONCLUSION: The patient is admitted to the hospital with bilateral pulmonary infiltrates. This may be due to pneumonia and/or pulmonary venous congestion. The patient has severe cephalexin allergy manifested by shortness of breath. RECOMMENDATIONS: I agree with treating the patient with aztreonam and Zyvox. I have ordered a procalcitonin level and also and a sputum gram stain and culture. I am also going to order a urine culture. DISCUSSION: The patient is unable to provide a history. She is intubated and there is no family member present. According to the computer, the patient lives in an extended care facility. She developed dyspnea and she was brought to the emergency room and the patient had both a cardiac and respiratory arrest. The patient's CBC shows a white count of 11,540. Hemoglobin 9.5. Platelet count 218,000. Blood gases show a pH of 7.44, pO2 165, and pCO2 of 54. Creatinine is 5.1. GFR is 11. Liver function studies are normal. Blood culture results are pending. Chest x-ray shows bilateral infiltrates. PAST MEDICAL HISTORY: Positive for morbid obesity, coronary artery disease, congestive heart failure, chronic obstructive pulmonary disease, hypothyroidism, Pickwickian syndrome, gastroesophageal reflux disease, end-stage renal disease, and atrial fibrillation. PAST SURGICAL HISTORY: The patient had placement of a Vas Cath and it was removed. SOCIAL HISTORY: The patient, as mentioned above, lives in extended care facility. She does not drink alcoholic beverages, smoke cigarettes, or use illicit drugs. ALLERGIES: She is allergic to Keflex and propoxyphene. HOME MEDICATIONS: Include the following, Bumex, carvedilol, Dexilant, diltiazem, Lasix, hydrocodone, ipratropium/Albuterol inhaler, Synthroid, promethazine, Xarelto, and Ambien. PHYSICAL EXAMINATION: Vital Signs: Temperature is 98 degrees, pulse 84, respirations 19, blood pressure 112/84. Patient is 5 feet 26 inches tall, weighs 391 pounds. General: This is a morbidly obese middle-aged female. She is intubated and obtunded. Head, eyes, ears, nose, and throat: The patient has an oral tracheal tube in place and a nasogastric tube in place. There is no drainage from the nose or ears. Neck: The patient has a right internal jugular vein catheter in place. The site is not bleeding or purulent. Movement of the patient's neck did not seem to bother the patient. Thorax: The patient has an increased AP diameter. Lungs: There were diminished breath sounds in the bases. I did not hear any rales or wheezes. Cardiovascular: Heart rate is irregular. I did not hear any murmurs. Abdomen: Soft. Does not appear to be tender. Neurologic: The patient is obtunded. She does not respond to verbal stimuli. There is no tremor. Integument: No rash noted. Thank you for the consult. cc: Arvind Fair MD
[2019-03-10] MEDS: LEVOPHED 8 MG in D5 1/2 NS 250 ML IV PRN (15:52)
[2019-03-10] MEDS: LOVENOX SUBQ SCH (15:55)
--- NOTE | 2019-03-10 16:05 | Diag Imaging Result Doc PS360 ---
EXAM: US RENAL 2 (RETROPER) COMPLETE 03/10/2019 HISTORY: decreased renal function TECHNIQUE: Renal ultrasound COMMENT: The right kidney is 9.7 x 5.4 x 5.6 cm the left is 10.1 x 5.7 x 6.4 cm. There is no evidence of hydronephrosis stones or definite masses. There is a Robison catheter in the bladder. The study is somewhat suboptimal due to the patient's body habitus. IMPRESSION: No evidence of obstructive uropathy. Electronically signed by George Gentile 03/10/2019 4:02 PM
--- NOTE | 2019-03-10 19:51 | CONSULTATION ---
DATE OF CONSULTATION: 03/10/2019 REQUESTING PROVIDER: Zafar Ma MD REASON FOR CONSULTATION: Respiratory failure. HISTORY OF PRESENT ILLNESS: This is a 48-year-old female with a medical history of morbid obesity with obesity hypoventilation syndrome, COPD, coronary artery disease, congestive heart failure, atrial fibrillation, chronic kidney disease stage 3, hypothyroidism, gastroesophageal reflux disease, and anxiety. She presented to the ER yesterday afternoon with difficulty breathing and desaturation via EMS from [facility]. Apparently CPR was initiated on the way to the ER by the EMS. After arrival to the ER, CPR continued for another 26 minutes before patient returned to spontaneous circulation. She was intubated during the CPR. Initial workup in the ER also revealed hypokalemia, acute on chronic kidney disease, leukocytosis and shock. She was transferred to the ICU for further evaluation and management. The patient currently is still intubated and sedated. One of the patient's sons is at the bedside, but he reported that he has not seen her for a long time and he knows little about her medical condition. The patient is currently on Ativan and Levophed drip. She is not responsive to any verbal or physical stimuli. She does withdraw her legs slightly when I assessed her bilateral lower extremities. All other information is obtained from the E-chart. PAST MEDICAL HISTORY: 1. Previous admission from 06/17/2018 to 07/17/2018 with cardiac arrest and congestive heart failure exacerbation, requiring intubation. 2. Morbid obesity with obesity hypoventilation syndrome current BMI 63.2. 3. COPD. 4. Coronary artery disease. 5. Congestive heart failure. 6. Atrial fibrillation. 7. Chronic kidney disease, stage III. 8. Hypothyroidism. 9. Gastroesophageal reflux disease. 10. Anxiety. PAST SURGICAL HISTORY: Left catheter placement and removal. SOCIAL HISTORY: Patient lives in [facility]. She has no history of alcohol, tobacco, or illicit drug use. FAMILY HISTORY: Unknown. ALLERGIES: Keflex and propoxyphene. REVIEW OF SYSTEMS: Unable to be obtained. PHYSICAL EXAMINATION: Vital Signs: Temperature 97.8 degrees, blood pressure 117/81, pulse 74, respiratory rate 15, oxygen saturation 100% on AC mechanical ventilator with spontaneous rate 15, FiO2 100%, tidal volume 500 and PEEP 10. General: Morbidly obese, intubated and sedated. HEENT: Atraumatic. Trachea midline. ET tube in place. Mucosa pink and moist. Respiratory: Mechanically ventilated lung expansion equal bilaterally. Auscultation revealed some inspiratory wheezing on the left side of the lung, otherwise clear. Cardiovascular: Regular rate and rhythm. Gastrointestinal soft, protuberant. Normoactive bowel sounds in all 4 quadrants. Extremities: Trace pedal edema with chronic hyperpigmentation on the bilateral lower extremities. No cyanosis. No clubbing. Dorsalis pedis diminished bilaterally. Neurologic: Sedated, unresponsive to verbal or physical stimuli. Bilateral lower extremity withdrawal noted upon touch. LAB DATA: White blood cell 11.54, hemoglobin 9.5, hematocrit 32.2, platelet 218,000. Sodium 142, potassium 5.1, chloride 94, carbon dioxide 32, BUN 52, creatinine 5.1, glucose 119. ABG: PH 7.44, pCO2 54, PO2 165, HCO3 33.5, base excess 11.0, and oxyhemoglobin 97.2. IMAGING DATA: Chest x-ray this morning revealed worsening dense infiltrates compatible with pulmonary edema. ASSESSMENT: This is a 48-year-old female with a medical history of previous cardiac arrest requiring intubation, Morbid obesity, Obesity hypoventilation syndrome, Chronic obstructive pulmonary disease, Coronary artery disease, Congestive heart failure, Atrial fibrillation, Chronic kidney disease stage III, Hypothyroidism, Gastroesophageal reflux disease and Anxiety. She has been admitted to the intensive care unit since yesterday with cardiopulmonary arrest, hypokalemia, acute on chronic kidney disease, congestive heart failure exacerbation, and possible septic shock. 1. Acute on chronic hypercapnic respiratory failure. 2. Acute on chronic hypoxic respiratory failure. 3. Status post cardiopulmonary arrest. 4. Congestive heart failure exacerbation. 5. Possible septic shock. 6. Acute on chronic kidney disease. PLAN: 1. Continue AC mechanical ventilator. 2. Continued antibiotic, pressor, and diuretics as needed. 3. Follow up with ABG, CBC, BMP. 4. Dr. Fair, Dr. Jean and Dr. Peralta are on board. 5. Continue gastrointestinal and deep vein thrombosis prophylaxis. 6. Further recommendations pending hospital course. Thank you for the courtesy of this consult. Dictated by FIONA Montalvo for Melinda Chambers MD cc: FIONA Montalvo MD [facility]
[2019-03-11] MEDS: ZYVOX 600 MG/D5W 600 MG/300 ML IVPB IV SCH ×2 (03:34→16:17)
[2019-03-11] MEDS: ATIVAN 20 MG in NS 190 ML IV SCH ×4 (03:45→21:01)
[2019-03-11 05:29] LABS: ALLEN TEST YES; BE 11.4 mmoll (-3.0-3.0); BLOOD TYPE ARTERIAL; HCO3-(ACT) 33.8 mmoll (20.0-26.0); O2HB 96.6 % (95.0-99.0); PO2(98.6) 160 mmHg (60-100); SAMPLE BLOOD; SAO2 99.6 % (95.0-100.0); SRATE 15 BPM; THB 12.3 g/dL (11.5-17.4); TVOL 500 mL; pH(98.6) 7.46 (7.35-7.45)
[2019-03-11 05:31] LABS: MODALITY VENTILATOR; PCO2(98.6) 52 mmHg (35-45)
[2019-03-11 06:10] LABS: HEMATOCRIT 32.2 % (37.0-47.0); HEMOGLOBIN 9.5 g/dL (12.0-16.0); MCH 24.9 PG (27-31); MCHC 29.5 g/dL (33-37); MCV 84.5 FL (81-99); MPV 10.6 FL (7.4-10.4); RBC 3.81 XMIL (4.2-5.4); WBC 9.68 X1000 (4.8-10.8)
[2019-03-11 06:39] LABS: ALBUMIN 3.5 g/dL (3.5-5.0); CALCIUM 8.7 mg/dL (8.8-10.2); CREATININE 4.9 mg/dL (0.5-0.9); PHOSPHORUS 4.1 mg/dL (2.7-4.5); POTASSIUM 4.5 mmol/L (3.5-5.1)
--- NOTE | 2019-03-11 07:36 | Diag Imaging Result Doc PS360 ---
EXAM: CHEST-PORTABLE HISTORY: Vent protocol TECHNIQUE: Single view COMPARISON: 03/10/2019 FINDINGS: No change in the endotracheal tube or nasogastric tube. The heart is enlarged and there is pulmonary edema. Underlying infiltrates with small effusions. IMPRESSION: No interval improvement Electronically signed by Patrick Cárdenas 03/11/2019 7:33 AM
[2019-03-11] MEDS: SODIUM CHLORIDE 0.9% INJ PRN (07:39)
[2019-03-11] MEDS: SYNTHROID IV SCH (07:39)
[2019-03-11] MEDS: AZACTAM 1 GM in NS 50 ML IV SCH ×2 (09:51→21:17)
--- NOTE | 2019-03-11 10:58 | PROGRESS NOTE ---
DATE: 03/11/2019 This is a 48-year-old well known to our service, having multiple admissions with a history of COPD, coronary artery disease, hypothyroidism, atrial fibrillation, chronic kidney disease stage 3, congestive heart failure, morbid obesity, BMI of 63. She presented to the emergency room from the [facility] care facility. At time of exam, the patient had cardiac and respiratory arrest. CPR was in progress. History from the nursing staff. PHYSICAL EXAMINATION: Today, blood pressure 112/80, pulse 80, respirations 17, afebrile. Morbidly obese, BMI of 63.2. She is still intubated. Mucosa pink and moist. Anicteric. Neck was supple. Air entry bilaterally reduced. Cardiovascular Examination: Regular rhythm and rate. There is a previous tracheostomy scar on the anterior lower neck. Abdomen is soft. Bowel sounds are present. Chronic hyperpigmentation of lower extremities and chronic erythematous changes in the left breast. She is still intubated. ASSESSMENT AND PLAN: 1. Status post cardiopulmonary arrest. Patient is currently intubated. 2. Cardiomegaly, pulmonary edema, elevated proBNP, concerning for congestive heart failure. Chest x-ray. Continue to follow daily. She has had Lasix to try and help diurese some of the fluid off. 3. Hypotension, concerning for sepsis. This could be a combination of her cardiogenic and septic shock. A bedside echocardiogram has been done. We will look at her left ventricular function. Continue present antibiotics. Still waiting on sensitivity and identity of infection. 4. Dense multifocal pulmonary infiltrates, concerning for pulmonary edema, suspicious for pneumonia. 5. Acute on chronic renal failure. Creatinine continues to go up. Concerned about acute tubular necrosis. 6. Morbid obesity. 7. Acute on chronic hypercarbic respiratory failure. 8. History of hypothyroidism. 9. Continue ventilator management. Pulmonary is following. The patient is on linezolid 600 mg intravenous every 12 hours, aztreonam 1 g intravenously every 12 hours. cc: Nikunj Pittman MD
[2019-03-11] MEDS: LOVENOX SUBQ SCH (16:17)
--- NOTE | 2019-03-11 16:38 | PROGRESS NOTE ---
DATE: 03/11/2019 SUBJECTIVE: Patient continues on ventilator, unresponsive. She is on intravenous Ativan but this is being weaned. OBJECTIVE: Blood pressure 138/78, heart rate 76, oxygen saturation 94% on ventilator with FiO2 of 50%. Neck: Jugular distention cannot be appreciated. Chest: Clear to auscultation anteriorly. Cardiac Exam: Reveals distant heart sounds with a regular rate and rhythm without appreciable murmur or gallop. Extremities: Warm, well perfused. LABORATORY DATA: Includes a white blood cell count 9.68, hematocrit 32.2, hemoglobin 9.5, platelet count 248,000. Sodium 142, potassium 4.5, chloride 96, carbon dioxide 31, BUN 55, creatinine 4.9, glucose 126. IMPRESSION: 1. Status post cardiopulmonary arrest. 2. Morbid obesity. 3. Obstructive sleep apnea, severe with associated pulmonary hypertension. 4. Mild nonischemic cardiomyopathy with left ejection fraction of 45 to 50 percent. 5. Hypertension. 6. Diabetes mellitus. 7. Atrial fibrillation. RECOMMENDATIONS: 1. Continue supportive care. 2. Followup repeat echocardiography. cc: Yasmany Juarez MD
[2019-03-12] MEDS: ZYVOX 600 MG/D5W 600 MG/300 ML IVPB IV SCH ×2 (04:28→17:30)
[2019-03-12 04:43] LABS: ALLEN TEST YES; BE 14.5 mmoll (-3.0-3.0); BLOOD TYPE ARTERIAL; HCO3-(ACT) 36.2 mmoll (20.0-26.0); METHB 0.8 % (0.0-1.5); O2(CT) 12.7 mL/dL (15.0-23.0); O2HB 95.5 % (95.0-99.0); PO2(98.6) 80 mmHg (60-100); SAMPLE BLOOD; SAO2 99.3 % (95.0-100.0); SRATE 10 BPM; THB 9.4 g/dL (11.5-17.4); TVOL 500 mL; pH(98.6) 7.47 (7.35-7.45)
[2019-03-12 04:44] LABS: MODALITY VENTILATOR; PCO2(98.6) 55 mmHg (35-45)
[2019-03-12] MEDS: SYNTHROID IV SCH (06:12)
[2019-03-12 06:37] LABS: HEMATOCRIT 30.3 % (37.0-47.0); MCH 25.3 PG (27-31); MCHC 29.7 g/dL (33-37); MCV 85.1 FL (81-99); MPV 10.2 FL (7.4-10.4); RBC 3.56 XMIL (4.2-5.4); RDW 18.8 % (11.5-14.5); WBC 6.45 X1000 (4.8-10.8)
[2019-03-12] MEDS: ATIVAN 20 MG in NS 190 ML IV SCH ×2 (06:44→16:44)
[2019-03-12 07:21] LABS: CALCIUM 8.6 mg/dL (8.8-10.2); CREATININE 4.4 mg/dL (0.5-0.9); PHOSPHORUS 3.9 mg/dL (2.7-4.5); POTASSIUM 4.3 mmol/L (3.5-5.1)
[2019-03-12 09:29] LABS: URINE SOURCE CATH
[2019-03-12 09:36] LABS: BILIRUBIN URINE NEGATIVE (NEGATIVE); BLOOD URINE SMALL (NEGATIVE); COLOR YELLOW; GLUCOSE URINE NEGATIVE (NEGATIVE); KETONE URINE NEGATIVE (NEGATIVE); LEUKOCYTES URINE LARGE (NEGATIVE); NITRITE URINE NEGATIVE (NEGATIVE); PH URINE 6.5; SP GRAVITY URINE 1.015; TURBIDITY URINE HAZY (CLEAR); UROBILINOGEN URINE 2 mg/dL (NORMAL)
[2019-03-12] MEDS ORDERED: NS 500 ML IV SCH (09:45)
[2019-03-12 09:50] LABS: PROTEIN URINE TRACE mg/dL (NEGATIVE)
[2019-03-12 10:03] LABS: UR EPITHELIAL CELLS <10 /HPF (<10); URINE BACTERIA NEGATIVE /HPF; URINE WBC TNTC /HPF (<10)
[2019-03-12 10:10] LABS: UR CREAT RANDOM 90.2 mg/dL (11-20); UR PROT RANDOM 30.9 mg/dL
[2019-03-12] MEDS ORDERED: LASIX IV ONE (10:43)
[2019-03-12] MEDS: AZACTAM 1 GM in NS 50 ML IV SCH ×2 (11:00→22:53)
--- NOTE | 2019-03-12 11:02 | PROGRESS NOTE ---
DATE: 03/12/2019 SUBDURAL: Today, Ms. Rios continues to be intubated. She has been in the ICU. There was no family member at the bedside. Per the nursing staff, night was uneventful. OBJECTIVE: Vital signs: Blood pressure is 119/81, pulse of 87, respirations 20, temperature is 97.0 degrees. General: Ms. Rios is a 48-year-old, morbidly obese, female. She is in bed. She is still intubated and sedated on Ativan. HEENT: Mucosa is pink and moist. Anicteric. Acyanotic. Neck: Supple. Short. Chest: Air entry is bilaterally reduced. There are transmitted sounds from the ventilator. Cardiovascular: Irregularly irregular. Rate controlled. No murmurs, no rubs, no gallops Gastrointestinal: Abdomen is soft, bowel sounds present. Extremities: Trace edema. There is some hyperpigmentation in the lower extremities. Central Nervous System: Patient is intubated and sedated. She does have good pupillary reflex to light. Good corneal reflex and has cough reflex as well. Ms. Rios will also move extremities to painful stimulation. LABORATORY DATA: WBC 6.45, hemoglobin is 9.0, platelet count of 205,000. Chemistry is also reviewed. Creatinine is 4.5, BUN is 560. The patient's pro B is 11,000. Intake and output: Urine output was 1370. Patient is still with slightly positive balance of 935. Sputum culture has been growing gram-negative anthony. The urine culture is also growing gram- negative anthony. CURRENT MEDICATIONS: 1. Aztreonam 1 g every 12 hours. 2. Lovenox. 3. Synthroid at 50 mcg. 4. Zyvox. ASSESSMENT: 1. Status post cardiopulmonary arrest. The patient is currently intubated. Pulmonary Medicine is on board. 2. Cardiomegaly with pulmonary edema and elevated pro B concerning for congestive heart failure. Echocardiogram which was done on the day of admission shows an ejection fraction of 35 to 40 percent with moderate pulmonary hypertension with a pressure of 51 mmHg. Right ventricle is also dilated with reduced ventricular systolic function. Pro B seems to have reduced slightly over the course of the hospital stay. A chest x-ray yesterday showed no interval improvement. We will continue using diuretics as needed. 3. Hypotension on presentation presumably a combination of cardiogenic and septic shock. 4. Dense multifocal pulmonary infiltrates concerning for pulmonary and pulmonary edema with possible superimposed pneumonia. Sputum culture is growing gram-negative anthony. Patient is currently on aztreonam because of allergy to the penicillins. 5. Acute on chronic renal failure. Renal function is trending down. 6. Acute on chronic hypercarbic respiratory failure. 7. Acute hypoxemic respiratory failure. Patient continues to be on the ventilator. 8. History of hypothyroidism. We will continue with IV levothyroxine. PLAN: In general, I think Ms. Rios is doing fairly okay. She is currently not on any pressors. She is on Zyvox and aztreonam. Today is day 2 on the antimicrobials. We are going to start her on tube feedings and will continue using diuretics as needed for the pulmonary edema and congestive symptoms. cc: Zafar Ma MD Critical time spent 45 minutes [facility]
--- NOTE | 2019-03-12 11:55 | INFECTIOUS DISEASE PROGRESS NO ---
DATE: 03/12/2019 PRESENT ILLNESS: Ms. Rios is status post cardiac arrest with bilateral pulmonary infiltrates which may be pneumonia, pulmonary venous congestion, or a combination of both. There is also a gram-negative anthony growing in her urine and her sputum. MEDICATIONS: She is receiving Zyvox 600 mg IV every 12 hours and aztreonam 1 g IV every 12 hours as a renally modified dose per Dr. Jean. PHYSICAL EXAMINATION: Vital Signs: Temperature is 97 degrees, pulse rate 87, respiratory rate 15, blood pressure 119/81, O2 saturation is 93% on a 50% FiO2 on the mechanical ventilator. General: This is a morbidly obese, chronically ill-appearing, middle-aged female. She is lying in bed, sedated on the mechanical ventilator. No acute distress noted. HEENT: Oral ET tube is in place as well as NG tube to low intermittent suction. Cardiovascular: Irregularly irregular. Atrial fibrillation on the monitor. Respiratory: Lung sounds have coarse wheezes noted bilaterally. No work of breathing is noted. She is not breathing above the set rate of the ventilator at this time. Abdomen: Soft, obese and bowel sounds are hypoactive. Neurologic: She is sedated at this time with no movement of extremities noted. LABORATORY AND X-RAY: Today, her white count is 6.45, hemoglobin 9, platelet count 203,000. pH 7.47, pCO2 55, PO2 82 on 100% FiO2 on the mechanical ventilator. Creatinine is 4.4, GFR 13, there is a gram-negative anthony growing in her urine and in her sputum. No imaging reports today. However yesterday her chest x-ray showed no interval improvement with underlying infiltrates and small effusions and pulmonary edema. ASSESSMENT AND PLAN: Ms. Rios is being treated for bilateral pulmonary infiltrates which may represent pneumonia. She has an acute kidney injury, and the aztreonam has been renally dosed. She is also receiving Zyvox which we will continue at this time. A procalcitonin has been ordered and drawn, but the results have yet to be obtained. There is a gram negative anthony in her urine and her sputum, which should be covered with aztreonam, which we will continue. We are awaiting final culture results. These plans have been discussed with and recommended by Dr. Fair. COMORBIDITIES: For Ms. Rios include that she is morbidly obese and status post cardiac arrest, with coronary artery disease, congestive heart failure, COPD, gastroesophageal reflux disease, atrial fibrillation and acute kidney injury. Dictated by FIONA Welsh for Arvind Fair MD cc: Arvind Fair MD [facility]
--- NOTE | 2019-03-12 15:18 | NEPHROLOGY PROGRESS NOTE ---
DATE: 03/12/2019 SUBJECTIVE: She remains unresponsive on the ventilator. The staff states that with sternal rub they were able to get her to open her eyes to verbal commands. OBJECTIVE: Vital Signs: Blood pressure 129/77, heart rate 84, respirations 15, afebrile. Intake 1.5 L. Output 1.6 L. General: Acute distress. Skin: Warm and dry. Neck: Neck veins are not appreciated. Heart: Irregular and tachycardic. Lungs: Equal with scattered crackles. Abdomen: Soft, nontender. Bowel sounds present. Extremities: With 1+ edema. No clubbing or cyanosis. IMPRESSION: Acute kidney injury. Presumed acute tubular necrosis in the context of cardiopulmonary arrest. BUN and creatinine are slowly trending downward. Excellent urine output. No indications for renal replacement therapy at this time. Continue aztreonam and linezolid. cc: Jose Luis Jean MD
[2019-03-12] MEDS: LOVENOX SUBQ SCH (17:15)
[2019-03-13] MEDS: ATIVAN 20 MG in NS 190 ML IV SCH ×2 (00:03→05:40)
[2019-03-13] MEDS: MORPHINE IV PRN (01:28)
[2019-03-13] MEDS ORDERED: CARDIZEM IV ONE (03:28)
[2019-03-13] MEDS ORDERED: LEVOPHED 8 MG in D5 1/2 NS 250 ML IV SCH (03:30)
[2019-03-13] MEDS ORDERED: CARDIZEM 100 MG/NS 100 MG/100 ML IVPB IV SCH ×2 (03:30)
[2019-03-13] MEDS ORDERED: NEO-SYNEPHRINE 50 MG in NS 250 ML IV SCH (04:00)
[2019-03-13] MEDS: ZYVOX 600 MG/D5W 600 MG/300 ML IVPB IV SCH ×2 (04:15→16:06)
[2019-03-13] MEDS: CARDIZEM 100 MG/NS 100 MG/100 ML IVPB IV SCH ×3 (04:38→21:12)
[2019-03-13 05:52] LABS: ALLEN TEST YES; BE 11.9 mmoll (-3.0-3.0); BLOOD TYPE ARTERIAL; METHB 0.8 % (0.0-1.5); O2(CT) 11.4 mL/dL (15.0-23.0); PO2(98.6) 50 mmHg (60-100); SAMPLE BLOOD; SAO2 88.6 % (95.0-100.0); SRATE 15 BPM; THB 9.4 g/dL (11.5-17.4); TVOL 500 mL; pH(98.6) 7.45 (7.35-7.45)
[2019-03-13 05:54] LABS: MODALITY VENTILATOR; O2HB 85.9 % (95.0-99.0); PCO2(98.6) 54 mmHg (35-45)
[2019-03-13] MEDS: SYNTHROID IV SCH (06:08)
[2019-03-13 06:54] LABS: MAGNESIUM 2.1 mg/dL (1.5-2.7); PHOSPHORUS 3.7 mg/dL (2.7-4.5); PREALBUMIN 10.7 mg/dL (20-40)
[2019-03-13 06:57] LABS: CALCIUM 8.3 mg/dL (8.8-10.2); CREATININE 4.7 mg/dL (0.5-0.9); PHOSPHORUS 3.7 mg/dL (2.7-4.5); POTASSIUM 4.1 mmol/L (3.5-5.1)
[2019-03-13 06:59] LABS: BASO# 0.01 X1000 (0.0-0.2); BASO% 0.2 % (0.0-0.8); EOS# 0.14 X1000 (0.0-0.7); EOS% 2.2 % (0.0-10.0); HEMATOCRIT 30.6 % (37.0-47.0); HEMOGLOBIN 8.7 g/dL (12.0-16.0); LYMPH# 0.96 X1000 (1.2-3.4); LYMPH% 15.1 % (20.5-51.1); MCH 24.6 PG (27-31); MCHC 28.4 g/dL (33-37); MCV 86.4 FL (81-99); MONO# 0.67 X1000 (0.11-0.59); MONO% 10.5 % (1.7-9.3); MPV 10.5 FL (7.4-10.4); NEUT# 4.59 X1000 (1.4-6.5); PLT 197 X1000 (130-400); RBC 3.54 XMIL (4.2-5.4); RDW 19.1 % (11.5-14.5); WBC 6.37 X1000 (4.8-10.8)
--- NOTE | 2019-03-13 07:51 | Diag Imaging Result Doc PS360 ---
EXAM: CHEST-PORTABLE - 03/13/2019 HISTORY: dyspnea TECHNIQUE: Portable chest COMPARISON: 03/11/2019 FINDINGS: Patient is rotated towards the left. Endotracheal tube and nasogastric tube remain in place. There is an apparent esophageal electrode which extends to the T4 level. There is cardiomegaly which may have decreased mildly. There are hazy bilateral infiltrates or edema similar to prior. There is no evidence of pneumothorax. 9 IMPRESSION: Hazy bilateral infiltrates or edema similar to prior. Electronically signed by Adan Lind 03/13/2019 7:49 AM
[2019-03-13] MEDS ORDERED: LASIX IV ONE (08:11)
[2019-03-13 08:41] LABS: EOS 3 % (1-10); LYMPHS 15 % (21-51); MONO 10 % (1-9); NRBC 1 % (0-0); SEGS 71 % (42-75)
[2019-03-13 08:42] LABS: ANISOCYTOSIS 1+; MICROCYTOSIS 1+; POLYCHROM 1+
--- NOTE | 2019-03-13 08:48 | PROGRESS NOTE ---
DATE: 03/13/2019 SUBJECTIVE: This morning Ms. Rios continues to be intubated and sedated on Ativan. She ran a couple low blood pressure readings last night. However, this morning her current blood pressure is 109/70. There is an order for phenylephrine, but they have not started it because the patient's blood pressures have been fairly stabilized. She also went into RVR last night and Cardizem drip was started. OBJECTIVE: Current vitals: Blood pressure is 109/70, pulse of 98, respiration is 15 with a saturation of 97. General: Ms. Rios is a 48-year-old, morbidly obese, female. She is in bed, intubated and sedated on propofol. She seems to be tolerating her nasogastric tube feeding, which was started yesterday, and she has a body mass index of 63.8. Neck: Supple and short. Chest: Air entry is bilaterally reduced. There is still some transmitted sound from the ventilator and some crackles. Cardiovascular: Irregularly irregular, but no murmurs. GI/Abdomen: Soft, distended, but no hepatosplenomegaly, and bowel sounds are present, but hypoactive. Extremities: Trace of pedal edema. Some hyperpigmentation in the lower extremity noted. INSURANCE VERIFICATION REP: Patient is currently intubated and sedated on Ativan. She still has pupillary reflex to light, good corneal reflex and gag reflex. LABORATORY DATA: WBC 6.37, hemoglobin is 8.7, platelet count of 197. Chemistry is also reviewed. Creatinine is up to 4.7. Patient had ProBNP that has slightly increased to 14,538. Her intake/output: Urine output was 1720. The patient is still mildly positive balance of 595. IMAGING STUDIES: A chest x-ray this morning continued to show hazy bilateral infiltrates or edema similar to prior. CURRENT MEDICATIONS: 1. Zyvox at 600 IV q. 12 hours. Today is day 4. 2. Aztreonam 1 g q. 12 hours. Today is day 4. The patient bedside echocardiogram done on the showed an ejection fraction of 35 to 40 percent with a right ventricle also dilated with reduced right ventricular systolic function. ASSESSMENT: 1. Status post cardiopulmonary arrest. Patient continues to be intubated. 2. Congestive heart failure with biventricular failure. Chest x-ray this morning continues to show pulmonary edema. ProBNP has slightly gone up. We will give the patient another dose of Lasix this morning. Cardiology has been consulted. 3. Hypotension, presumably a combination of cardiogenic and septic shock. The patient's blood pressure is slightly better this morning. She still has an order for phenylephrine if needed. 4. History of atrial fibrillation that went into rapid ventricular response last night. The patient was started on intravenous drip of Cardizem. Heart rate this morning is better controlled. 5. Dense multifocal pulmonary infiltrate concerning for pulmonary edema with superimposed pneumonia. The sputum culture has grown Klebsiella pneumoniae, which is sensitive to the current antimicrobial. We will continue. 6. Acute on chronic hypercarbic respiratory failure, improved on the ventilator. 7. Acute hypoxemic respiratory failure. The patient continues to be on the ventilator. 8. Hypothyroidism. Will continue with the levothyroxine. 9. Acute kidney injury. Presume acute tubular necrosis. The patient is making adequate urine with the Lasix. However, her creatinine has slightly gotten worse this morning. Nephrology is on board. cc: Zafar Ma MD
[2019-03-13] MEDS: AZACTAM 1 GM in NS 50 ML IV SCH ×2 (09:24→21:12)
--- NOTE | 2019-03-13 14:30 | NEPHROLOGY PROGRESS NOTE ---
DATE: 03/13/2019 SUBJECTIVE: She remains unresponsive. OBJECTIVE: Vital Signs: Blood pressure 110/61, heart rate 84, respirations 15, intake 1.5 L. Output 1.8 L. General: No acute distress. Skin: Warm and dry. Neck: Neck veins are not visible. Heart: Regular. Lungs: Equal scattered crackles. Abdomen: Soft, obese, nontender. Decreased bowel sounds. Extremities: 2+ edema. No clubbing or cyanosis. IMPRESSION: Acute kidney injury. Little change in her labs since admission. Creatinine today 4.7. Good urine output. Observe. cc: Jose Luis Jean MD
--- NOTE | 2019-03-13 14:56 | CARDIOLOGY PROGRESS NOTE ---
DATE: 03/13/2019 CHIEF COMPLAINT: Respiratory failure, status post cardiac arrest. SUBJECTIVE: Ms. Rios remains unresponsive and intubated. OBJECTIVE: Temperature is 98.4, pulse 84, respirations 15, blood pressure 110/61. She is unresponsive, intubated. Chest: Diminished breath sounds diffusely. No rales. Heart sounds are slightly irregular. I do not hear a gallop. Abdomen is slightly distended. Bowel sounds diminished. Extremities showed no obvious edema. Neurologic: She is unresponsive. DIAGNOSTIC DATA: Hemoglobin 8.7, hematocrit 30.6. Blood gases showed pCO2 of 54, pO2 was 50 on FiO2 of 0.75. ProBNP was 14,538. Albumin 3.0. BUN was 57, creatinine 4.7. Her chest x-ray shows hazy bilateral infiltrates. IMPRESSION: 1. The patient is with respiratory failure, hypoxemic and hypercarbic. 2. Dilated cardiomyopathy. 3. Possible anoxic encephalopathy. 4. Renal failure, acute on chronic. 5. Congestive heart failure, systolic, chronic. 6. Laboratory evidence of urinary tract infection, Escherichia coli in the urine, and possible pneumonia with Klebsiella pneumoniae isolated from the sputum which is resistant to ampicillin and sensitive to cephazolin. RECOMMENDATIONS: At this time, the patient is really in a bad situation with likely advanced anoxic encephalopathy. Dr. Chambers is going to request a CT scan of the head. Cardiac gonzalez, I really do not have any urgent recommendations other than to continue supportive care. Prognosis is really very poor. cc: Kory Quintanilla MD
[2019-03-13] MEDS: LOVENOX SUBQ SCH (16:06)
[2019-03-14] MEDS: ZYVOX 600 MG/D5W 600 MG/300 ML IVPB IV SCH ×2 (03:46→16:08)
[2019-03-14 05:03] LABS: ALLEN TEST YES; BE 12.8 mmoll (-3.0-3.0); BLOOD TYPE ARTERIAL; HCO3-(ACT) 34.9 mmoll (20.0-26.0); METHB 1.6 % (0.0-1.5); O2(CT) 10.2 mL/dL (15.0-23.0); O2HB 94.4 % (95.0-99.0); PO2(98.6) 78 mmHg (60-100); SAMPLE BLOOD; SAO2 97.4 % (95.0-100.0); SRATE 15 BPM; THB 7.6 g/dL (11.5-17.4); TVOL 500 mL; pH(98.6) 7.45 (7.35-7.45)
[2019-03-14 05:04] LABS: MODALITY VENTILATOR; PCO2(98.6) 55 mmHg (35-45)
[2019-03-14] MEDS: SYNTHROID IV SCH (06:00)
[2019-03-14 06:39] LABS: HEMATOCRIT 29.4 % (37.0-47.0); HEMOGLOBIN 8.6 g/dL (12.0-16.0); MCH 25.7 PG (27-31); MCHC 29.3 g/dL (33-37); MCV 87.8 FL (81-99); MPV 10.3 FL (7.4-10.4); RBC 3.35 XMIL (4.2-5.4); RDW 19.4 % (11.5-14.5); WBC 5.83 X1000 (4.8-10.8)
[2019-03-14 06:58] LABS: ALBUMIN 3.2 g/dL (3.5-5.0); CALCIUM 8.5 mg/dL (8.8-10.2); CREATININE 4.7 mg/dL (0.5-0.9); PHOSPHORUS 3.8 mg/dL (2.7-4.5)
[2019-03-14] MEDS: CARDIZEM 100 MG/NS 100 MG/100 ML IVPB IV SCH ×2 (08:19→17:46)
--- NOTE | 2019-03-14 08:37 | Diag Imaging Result Doc PS360 ---
EXAM: CHEST-PORTABLE HISTORY: mechanical ventilator TECHNIQUE: Single view COMPARISON: 03/13/2019 FINDINGS: Nasogastric tube overlies the esophagus and stomach. Questionable endotracheal tube. The lungs are poorly expanded. There are bilateral infiltrates. Heart is enlarged. IMPRESSION: No interval improvement. Electronically signed by Patrick Cárdenas 03/14/2019 8:35 AM
--- NOTE | 2019-03-14 08:56 | PROGRESS NOTE ---
DATE: 03/14/2019 SUBJECTIVE: This morning, Ms. Rios is awake. Her Ativan drip was discontinued yesterday and she seems to be following commands. OBJECTIVE: Vital Signs: Blood pressure is 108/64, pulse of 89, respirations are 15, temperature is 99.0 degrees. General Examination: Ms. Rios is a 48-year-old, morbidly obese, female. She is in bed. She is still intubated. HEENT: Mucosa is pink and moist. Anicteric. Acyanotic. Neck: Supple. There is an old tracheostomy scar on the lower anterior neck. Respiratory System: Air entry is bilaterally reduced. There are a lot of transmitted sounds from the ventilator. Cardiovascular: Irregularly irregular. No murmurs, no rubs. GI: Abdomen is soft, is distended. There is no hepatosplenomegaly. Bowel sounds are present. Extremities: There is trace pedal edema. The patient is remarkably obese. Robison catheter is in place. 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 Seems to follow commands. She was able to show me 2 fingers upon command. She would try to mumble some non-comprehensive words. Still has normal pupillary reflex to light and normal gag. The patient's Is and Os, urine output was 1000. She is currently positive balance of 1495 during the hospital course. The patient is tolerating her tube feedings . No bowel movement has been documented today. Laboratory Data: WBC is 5.83, hemoglobin is 8.6, platelet count of 163,000. ABG is reviewed, pCO2 is 55. Rest of parameters are within normal range. The chemistry also shows creatinine of 4.7 with BUN of 61. Rest of chemistry is within range. Imaging Studies: A chest x-ray this morning continues to show diffuse infiltrates in both lung perry. We are still waiting for the official report. I do not see a lot of changes from the x- rays from yesterday. CURRENT MEDICATIONS: Include: 1. Aztreonam 1 g q.12. 2. Lovenox 40 subcutaneous. 3. Levothyroxine. 4. Zyvox 600 IV q.12. 5. Phenylephrine p.r.n., if needed. Of note, patient is currently not on any sedation or opioids and no pressors. She, however, still remains on the Cardizem drip. ASSESSMENT: 1. Status post cardiopulmonary arrest. It appears the initial inciting event was respiratory failure. The patient is currently intubated. Pulmonary medicine is on board. She is now down to 80% on FiO2. We are going to continue recommendations from pulmonary medicine. 2. Congestive heart failure with biventricular enlargement on echocardiogram. Chest x-ray continues to show pulmonary edema. Pro-B was elevated. Cardiology is on board. We will continue addressing her congestive symptoms as needed with Lasix. 3. Hypotension during the hospital course, presumably a combination of cardiogenic and septic shock. Blood pressure is a lot better. The patient has not had the need for any pressor at this time. 4. History of atrial fibrillation that went into rapid ventricular response. The patient was started on a Cardizem drip. We will start her on oral Cardizem as we try to wean her off the drip. 5. Dense multifocal pulmonary infiltrate concerning for pulmonary edema with possible superimposed pneumonia. Sputum culture has grown Klebsiella pneumoniae. The patient is currently on aztreonam because she is allergic to the cephalosporins and penicillins. 6. Acute on chronic hypercarbic respiratory failure. 7. Acute hypoxemic respiratory failure. Patient continues to be on the ventilator. 8. Hypothyroidism. We will start the patient back on her oral levothyroxine. 9. Acute kidney injury, presumably acute tubular necrosis. The patient continues to have adequate urine output. Cardiology is on board. 10. Altered mental status secondary to global encephalopathy. The patient is currently off the sedatives and she is more awake. She seems to be following commands. She is, however, not triggering more breath than the ventilator. PLAN: In general, we are going to continue with the current antimicrobial therapy, the Cardizem drip for heart control. We will start her on p.o. Cardizem as we try to wean her of the IV. We will continue addressing all her other comorbidities. We will be pending further recommendations from pulmonary medicine with regards to the ventilator management. cc: Zafar Ma MD
[2019-03-14] MEDS: AZACTAM 1 GM in NS 50 ML IV SCH ×2 (09:35→22:50)
--- NOTE | 2019-03-14 10:58 | Diag Imaging Result Doc PS360 ---
EXAM: CT HEAD W/O CONTRAST HISTORY: Encephalopathy and CPR TECHNIQUE: CT head without contrast COMPARISON: None. FINDINGS: No parenchymal hemorrhage. No epidural or subdural hematoma. No subarachnoid hemorrhage. No mass identified on this noncontrasted exam. No hydrocephalus. Near complete opacification of the maxillary sinuses. There is opacification of the frontal, ethmoid, and sphenoid sinuses. There is also fluid in the mastoid sinuses. IMPRESSION: 1.No intracranial hemorrhage, mass, or hydrocephalus 2.Severe sinusitis This exam was performed using automated exposure control, adjustment of mA or kV according to patient size, and/or use of iterative reconstruction technique. Electronically signed by Patrick Cárdenas 03/14/2019 10:56 AM
[2019-03-14] MEDS: CARDIZEM NG SCH ×2 (14:40→20:27)
[2019-03-14] MEDS: LOVENOX SUBQ SCH (16:08)
[2019-03-15] MEDS: CARDIZEM NG SCH ×4 (01:56→21:00)
[2019-03-15] MEDS: ZYVOX 600 MG/D5W 600 MG/300 ML IVPB IV SCH ×2 (03:50→15:30)
[2019-03-15 04:59] LABS: ALLEN TEST YES; BE 13.2 mmoll (-3.0-3.0); BLOOD TYPE ARTERIAL; HCO3-(ACT) 35.2 mmoll (20.0-26.0); METHB 0.8 % (0.0-1.5); O2(CT) 13.5 mL/dL (15.0-23.0); O2HB 96.9 % (95.0-99.0); PCO2(98.6) 50 mmHg (35-45); PO2(98.6) 149 mmHg (60-100); SAMPLE BLOOD; SAO2 99.9 % (95.0-100.0); SRATE 15 BPM; THB 9.7 g/dL (11.5-17.4); TVOL 500 mL; pH(98.6) 7.49 (7.35-7.45)
[2019-03-15 05:00] LABS: MODALITY VENTILATOR
[2019-03-15] MEDS: SYNTHROID PO SCH ×2 (05:18→06:02)
[2019-03-15 06:08] LABS: BASO# 0.02 X1000 (0.0-0.2); BASO% 0.3 % (0.0-0.8); EOS# 0.25 X1000 (0.0-0.7); EOS% 3.6 % (0.0-10.0); HEMATOCRIT 28.9 % (37.0-47.0); HEMOGLOBIN 8.4 g/dL (12.0-16.0); LYMPH# 1.03 X1000 (1.2-3.4); LYMPH% 14.7 % (20.5-51.1); MCH 25.2 PG (27-31); MCHC 29.1 g/dL (33-37); MCV 86.8 FL (81-99); MONO# 0.85 X1000 (0.11-0.59); MONO% 12.1 % (1.7-9.3); MPV 10.3 FL (7.4-10.4); NEUT# 4.87 X1000 (1.4-6.5); NEUT% 69.3 % (42.2-75.2); PLT 155 X1000 (130-400); RBC 3.33 XMIL (4.2-5.4); RDW 19.4 % (11.5-14.5); WBC 7.02 X1000 (4.8-10.8)
[2019-03-15 06:34] LABS: ALBUMIN 2.9 g/dL (3.5-5.0); CALCIUM 8.8 mg/dL (8.8-10.2); CREATININE 4.4 mg/dL (0.5-0.9); PHOSPHORUS 3.5 mg/dL (2.7-4.5); POTASSIUM 3.8 mmol/L (3.5-5.1)
--- NOTE | 2019-03-15 09:08 | EKG Report ---
Test Performed on : 03/13/2019 02:59:31 AM Test Reason : ICU. No order in [place] Blood Pressure : / mmHG Vent. Rate : 155 BPM Atrial Rate : 163 BPM P-R Int : 000 ms QRS Dur : 100 ms QT Int : 324 ms P-R-T Axes : 000 -54 111 degrees QTc Int : 520 ms Atrial fibrillation. with rapid ventricular response. Left axis deviation Abnormal QRS-T angle, consider primary T wave abnormality Abnormal ECG When compared with ECG of 10-MAR-2019 07:06, Vent. rate has increased BY 72 BPM Confirmed by Gomez GILES, Lamonte ([id number]) on 03/16/2019 8:48:51 AM
--- NOTE | 2019-03-15 09:55 | INFECTIOUS DISEASE PROGRESS NO ---
DATE: 03/15/2019 PRESENT ILLNESS: The patient is status post cardiac arrest. She has bilateral pulmonary infiltrates, which could be due to aspiration pneumonia. The patient's sputum is growing Klebsiella, and the patient's urine is growing E coli. On CT scan of the head, it was found the patient has pansinusitis as well. MEDICATIONS: The patient is receiving aztreonam and Zyvox. This is day 5 of treatment with aztreonam and day 6 of treatment with Zyvox. PHYSICAL EXAMINATION: Vital Signs: Temperature is 99.1 degrees, pulse 87, respirations 26, blood pressure 101/49. General: This is a morbidly obese, middle-aged female. She is intubated and sedated. Head/eyes/ears/nose/throat: Patient has an orotracheal tube and a nasogastric tube in place. Neck: No stiffness. Lungs: Bilateral rhonchi. Cardiovascular: Heart rate is irregular. Abdomen: Soft. It did not appear to be tender. Neurologic: The patient's eyes are closed. She did not respond to verbal stimuli. She did not have a tremor. LAB AND X-RAY: The patient's CBC shows a white count of 7020, hemoglobin 8.4, and platelet count 155,000. Blood gases show a pH of 7.49, a PO2 of 149 and a pCO2 of 50. Creatinine is 4.4. GFR is 13. CT scan of the head was negative, except for pansinusitis. Chest x-ray shows bilateral infiltrates. ASSESSMENT AND PLAN: The patient has the following infections: Pneumonia, pansinusitis and urinary tract infection. I am going to discontinue Zyvox. The urine culture grew Escherichia coli, the sputum grew Klebsiella. I am going to continue aztreonam, and I am going to continue Zyvox because the patient has sinusitis. A common pathogen would be Staphylococcus aureus including methicillin-resistant Staphylococcus aureus. Therefore, for the patient's sinusitis and pneumonia and urinary tract infection. I am going to continue the combination of aztreonam, which is day 5 now, and Zyvox, which is day 6. COMORBIDITIES: The patient is morbidly obese. She, unfortunately, had a cardiac arrest and possibly she developed aspiration pneumonia from that. cc: Arvind Fair MD
[2019-03-15] MEDS: AZACTAM 1 GM in NS 50 ML IV SCH ×2 (10:35→21:01)
--- NOTE | 2019-03-15 14:30 | CARDIOLOGY PROGRESS NOTE ---
DATE: 03/15/2019 SUBJECTIVE: Ms. Rios rouses to physical stimuli. She is able to follow simple commands. PHYSICAL EXAMINATION: Vital Signs: She has been afebrile. Heart rates are in the 80s, in atrial fibrillation. Blood pressure 101/49. General: She is in no acute distress. Cardiovascular: She is in an irregularly irregular rhythm consistent with atrial fibrillation. She has warm and well perfused extremities. Chest: Significant for coarse bilateral breath sounds. No increased work of breathing. She remains on the ventilator. Abdomen: Soft, nontender. PERTINENT DATA: She had a head CT performed on 03/14/2019 that demonstrated no intracranial hemorrhage, mass, or hydrocephalus. Severe sinusitis identified. Chest x-ray yesterday shows essentially poor expansion of the lungs, bilateral infiltrates, cardiomegaly. Lab data shows a white count of 7, hematocrit of 28, platelet count of 155,000. Sodium is 143, potassium is 3.8, BUN 62, creatinine is 4.4, which is stable. ASSESSMENT: Ms. Rios is a 48-year-old female who presented with a cardiac arrest and likely has infectious issues presently going on in the form of pneumonia, sinusitis, and urinary tract infection. Currently dealing with respiratory failure. PLAN: Her renal function seems stable. Her atrial fibrillation is controlled at present. Her volume status has been relatively well controlled over the last couple of days. Presently, I will not make any acute recommendations. She has some oral diltiazem ordered, which seems to be controlling her rate. No acute recommendations at this time. cc: MD NEELIMA Baumann
--- NOTE | 2019-03-15 14:33 | PROGRESS NOTE ---
DATE: 03/15/2019 SUBJECTIVE: This morning Ms. Rios refers to be doing well. She continues to be intubated and in the ICU. Ms. Rios went through an SBT this morning. I understand she did not do well. She started to desat and her pulse went remarkably high . OBJECTIVE: Vital signs: Blood pressure is 100/70 with a pulse of 107, respirations 30, temperature 99 degrees. The patient is currently back to 40% of FiO2. General: Ms. Rios is a 48-year-old, morbidly obese, female, BMI 64.9. She is in bed she is intubated. She is synchronizing well with the ventilator. HEENT: Mucosa is pink and moist. Anicteric. Acyanotic. Neck: Supple. Chest: Air entry is bilaterally reduced. There is still diffuse wheezing in the lung perry. Cardiovascular: Irregularly irregular but no murmurs. No rubs. GI: Abdomen soft, distended. No hepatosplenomegaly. Bowel sounds present. Extremities: Trace pedal edema. Robison catheter is still in place. 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 Follows basic commands. She able to wiggle did the toes and show 2 fingers. I's and O's: Urine output is 950. Patient is still positive of 2495. DIAGNOSTIC STUDIES: A CT scan which was done yesterday did not show any acute abnormality. There is not any imaging studies for this morning. LABORATORY DATA: WBC 7.02, hemoglobin is 8.4, platelet count of 155,000. Chemistry is also reviewed. Creatinine is 4.4. ASSESSMENT: 1. Status post cardiopulmonary arrest. It appears the initial event was respiratory failure. Patient is currently intubated. Pulmonary Medicine is on board. She failed SBT this morning. She is however on a lower FiO2 than days before. 2. Congestive heart failure with biventricular enlargement on echocardiogram. Pro B continues to be elevated. We will continue with diuretic therapy. Cardiology is on board. 3. Hypotension during the hospital course, presumably combination of cardiogenic and septic shock. Blood pressure is a lot better. The patient did not need any pressors. 4. Atrial fibrillation with rapid ventricular response. The patient's heart rate is better controlled. Patient is on p.o. Cardizem. The drip has been turned off. 5. Dense multifocal pulmonary infiltrate concerning for pulmonary edema with possible superimposed pneumonia with sputum culture positive for Klebsiella pneumoniae. The patient is on aztreonam and linezolid. Today is day 5 on antimicrobial therapy. ID is on board. 6. Acute hypoxemic respiratory failure and acute on chronic hypercarbic respiratory failure. The patient is on the ventilator. 7. Hypothyroidism will continue with levothyroxine. 8. Acute kidney injury presumably acute tubular necrosis. Creatinine continues to be getting steadily improvement. The patient continues also to have adequate urine output. 9. Altered mental status secondary to global encephalopathy, improving. Patient is off sedation for the ventilator and she seems to be responding and following commands. 10. Morbid obesity with body mass index of 64.9 noted. 11. Protein calorie malnutrition. Serum albumin is 2.9. The patient is currently on tube feedings. Prealbumin was 10.7 on admission. 12. We will also get palliative nurse to evaluate Ms. Rios. cc: Zafar Ma MD
[2019-03-15] MEDS: LOVENOX SUBQ SCH (15:30)
[2019-03-15] MEDS: DUONEB (A & A) INH PRN ×3 (15:58→23:43)
--- NOTE | 2019-03-15 16:49 | PROVIDER PROGRESS NOTE ---
Progress Note Subjective: patient lying in bed in no distress. Remains on the ventilator. Eyes open. Follows commands. Objective: temp 98.4, pulse 86, respirations 15, blood pressure 95/59, 02 sat 98% on mechanical ventilation. General: obese -Citizen Of [place] female lying in bed intubated in no acute distress. Skin: warm and dry. neck: supple, no JVD observed due to body habitus. Cardiovascular: irregular and tachycardia, no murmur gallop. Respiratory: rhonchi and wheezes bilaterally Abdomen: obese, soft, nontender, nondistended. Hypoactive bowel sounds : none inspected, Robison in place with eric urine. Extremities:1+ pitting Edema up to hips bilaterally. Neurological: responds to tactile stimuli by moving extremities. Labs: WBC seven, hemoglobin 8.4, hematocrit 28.9, platelet count 155, sodium 143, potassium 3.8, chloride 99, carbon dioxide 32, B1 62, creatinine 4.4. Intake 1950, output 950. Impression: Acute kidney injury likely secondary to acute tubular necrosis from cardiac arrest. Creatinine improving, 4.4 today. She does not require urgent renal replacement therapy at this time. Blood pressure. In target p. Electrolytes and acid base balance. Stable. Volume status. Expanded. Monitor for now, Medication review. Aztreonam should be decreased after initial dose.
[2019-03-15] MEDS: MORPHINE IV PRN ×2 (17:40→21:01)
[2019-03-15] MEDS ORDERED: CALMOSEPTINE OINTMENT TOP PRN (17:56)
--- NOTE | 2019-03-15 20:51 | PROVIDER DOCUMENTATION ---
This chart was entered by Cora Beck Scribe, acting as scribe for Nadya Frye MD. HPI-Cardiopulmonary Arrest - General Stated Complaint: SOB Time Seen by Provider: 03/09/19 13:47 Source: EMS Allergies/Adverse Reactions: Allergies Allergy/AdvReac Type Severity Reaction Status Date / Time cephalexin monohydrate * Allergy Severe SHORTNESS Verified 05/08/18 15:44 [From Keflex] OF BREATH propoxyphene napsylate * Allergy Mild HIVES Verified 05/08/18 15:44 [From Darvocet-N 100] Home Medications: Home Medication List Medication Instructions Recorded Confirmed Last Taken Type Furosemide [Lasix] 40 mg PO BID #60 tab 05/15/18 03/09/19 03/09/19 06:00 Rx 40 mg Diltiazem C.d. [Cardizem Cd] 240 mg PO DAILY cap 07/17/18 03/09/19 03/09/19 10:00 Rx 240 mg Folic Acid 1 mg PO DAILY tab 07/17/18 03/09/19 03/09/19 10:00 Rx 1 mg Polyethylene Glycol 3350 [Miralax] 17 gm PO BID powder, packet 07/17/18 03/09/19 03/09/19 10:00 Rx 17 gm Zolpidem [Ambien] 10 mg PO HS PRN PRN tab 07/17/18 03/09/19 Unknown Rx Bismuth Subsalicylate 262 mg PO TID 03/09/19 03/09/19 03/09/19 12:00 History [Pepto-Bismol] 10 ml Bumetanide [Bumex] 1 mg PO DAILY 03/09/19 03/09/19 03/09/19 09:00 History 1mg Carvedilol 3.125 mg PO BID 03/09/19 03/09/19 03/09/19 10:00 History 3.125 mg Dexlansoprazole [Dexilant] 60 mg PO DAILY 03/09/19 03/09/19 03/09/19 07:00 History 60 mg Hydrocodone/Acetaminophen 1 tab PO TID PRN 03/09/19 03/09/19 03/09/19 06:00 History [Hydrocodone-Acetamin 10-325 mg] 1 tab Ipratropium/Albuterol Sulfate 3 ml INHALATION Q4H PRN PRN 03/09/19 03/09/19 03/09/19 10:00 History [Iprat-Albut 0.5-3(2.5) mg/3 ml] 1 inh Iron Carbonyl/Ascorbic Acid 1 tab PO BID 03/09/19 03/09/19 03/09/19 10:00 History [Icar-C] 1 tab L.acidoph,Paracasei, B.lactis 1 ea PO DAILY 03/09/19 03/09/19 03/09/19 10:00 H istory [Probiotic] 1 cap Levothyroxine Sodium [Synthroid] 100 mcg PO DAILY 03/09/19 03/09/19 03/08/19 22:00 History 100 MCG Magnesium Hydroxide [Milk of 30 ml PO DAILY PRN 03/09/19 03/09/19 Unknown History Magnesia] Promethazine HCl 12.5 mg PO Q6H PRN PRN 03/09/19 03/09/19 03/08/19 20:40 History 12.5 mg Rivaroxaban [Xarelto] 10 mg PO DAILY 03/09/19 03/09/19 03/09/19 10:00 History 10 mg - History of Present Illness-C/P Arrest Initial Comments: Patient is a 48 year old female who presents to the ED via EMS with respiratory distress. EMS states patient started to have agonal respirations on arrival to the ED. Patient lost pulse when entering the ED. 1350 - patient arrived in room. 1352 - rhythm check. no pulse. compressions resumed. 1354 - rhythm check. no pulse. compressions resumed. 1356 - rhythm check. no pulse. compressions resumed. compressions held for intubation. intubation attempt [address] Weir. unsuccessful intubation. 1357 - compressions resumed. epi given. 1358 - compressions held for intubation. intubation attempt [address] Weir. unsuccessful intubation. 1359 - compressions resumed. 1400 - epi given. 1401 - rhythm check. no pulse. PEA on monitor. compressions resumed. 1402 - compressions held for intubation. intubation attempt [address] Weir. unsuccessful intubation. 1403 - epi given. 1404 - bicarb given. 1405 - rhythm check. no pulse. PEA. intubation attempt [address] Rossi. unsuccessful intubation. compressions resumed. 1407 - rhythm check. agonal respirations. femoral and carotid pulse present. compression held. 1409 - intubation attempt [address] Rossi. unsuccessful intubation. patient became bradycardic at 32. compressions resumed. 1410 - epi given. 1411 - rhythm check. no pulse. PEA. compressions resumed. calcium chloride given. 1412 - intubation attempt [address] Rossi. successful tube placement. positive color change. 1414 - rhythm check. no pulse. PEA. compression resumed. epi given. 1415 - rhythm check. pulse present. tachycardia. compressions held. 1418 - bicarb given. Reason for Code Blue?: full arrest Witnessed arrest?: Yes CPR initiated before doctor arrival?: Yes Initial Findings: unresponsive, agonal respirations, no pulse Similar Symptoms Previously?: Yes Recently seen or treated by another doctor?: Yes Review of Systems - Adult - REVIEW OF SYSTEMS - ADULT ROS:: unobtainable per condition Constitutional: reports: no symptoms reported Eyes: reports: no symptoms reported Ears, Nose, Mouth & Throat: reports: no symptoms reported Cardiovascular: reports: no symptoms reported Respiratory: reports: no symptoms reported Gastrointestinal: reports: no symptoms reported Genitourinary: reports: no symptoms reported Musculoskeletal: reports: no symptoms reported Integumentary: reports: no symptoms reported Neurological: reports: no symptoms reported Psychiatric: reports: no symptoms reported Endocrine: reports: no symptoms reported Hematologic/Lymphatic: reports: no symptoms reported Allergic/Immunologic: reports: no symptoms reported All Other Systems: Reviewed and Negative Past History - Adult - PAST MEDICAL HISTORY-ADULT Review of Records: reports: Old Records Reviewed, Nursing Assessment Review, Medications Reviewed, Social history reviewed & non-contributory. Major Childhood Illnesses: reports: denies history Cardiovascular: reports: CAD, CHF, HTN, NV Respiratory: reports: asthma, COPD, sleep apnea Gastrointestinal: reports: GERD Obstetrical/Gynecological: reports: denies history Genitourinary: reports: dialysis, kidney disease (previous renal failure, with last dialysis 11/2014 which she was told she was done) Musculoskeletal: reports: denies history Neurological: reports: CVA Psychiatric: reports: anxiety, depression Endocrine/Immune: reports: Diabetes, thyroid disorder Other Conditions: reports: denies history Additional History: frequent ER visits - PRIOR SURGERIES/PROCEDURES Surgical/Procedure History: reports: indwelling device (vas cath), other (trach) - IMMUNIZATION STATUS Childhood Immunizations: See Nurse Assessment Flu Vaccine: See Nurse Assessment - FAMILY HISTORY Family History: reviewed, not pertinent - SOCIAL HISTORY Smoking: denies Substance Use: denies Living Situation: care facility ([facility]) Physical Exam-General - CONSTITUTIONAL General Appearance: obese, obtunded, other (smells of urine) - EYES Eyes: pink conjunctivae - HEAD, EARS, NOSE, MOUTH & THROAT HENMT: normocephalic/atraumatic, dental decay, other (missing teeth,) - NECK Neck: supple - RESPIRATORY Respiratory: negative: stridor, wheezing (agonal breathing with respiratory distress, NC in place) - GASTROINTESTINAL (ABDOMEN) Abdominal Exam: soft, other (obese with large panus) - MUSCULOSKELETAL Extremity: no pedal edema - SKIN Integumentary: normal color, normal turgor - PSYCHIATRIC Psych/Mental Status: other (unable to evaluate) Progress - PLAN OF CARE/RESULTS Progress/Plan/Lab Results: Orders Category Date Time Status Admit [facility] Routine AdmDCTranf 03/09/19 16:29 Active Activity - Up with Assistance ORDERED Care 03/09/19 16:29 Completed Cardiac Monitoring DIRECTED Care 03/09/19 13:50 Completed Intake and Output-Strict ORDERED Care 03/09/19 16:29 Active Nursing- MD Consult Request ROUTINE Care 03/09/19 16:27 Completed Nursing- MD Consult Request ROUTINE Care 03/09/19 16:28 Completed Nursing- MD Consult Request ROUTINE Care 03/09/19 16:28 Completed O2 [Oxygen Saturation] ORDERED Care 03/09/19 13:50 Completed Resuscitation Status Routine Care 03/09/19 16:29 Completed Saline Loc NOW Care 03/09/19 13:49 Completed Vital Signs Order Q 4-HR ASSESS Care 03/09/19 16:29 Active Z-Document. for Tele Applied ORDERED Care 03/09/19 16:30 Completed Physician/Provider Consults Routine Cons 03/09/19 16:27 Ordered Physician/Provider Consults Routine Cons 03/09/19 16:28 Ordered Physician/Provider Consults Routine Cons 03/09/19 16:28 Ordered NPO Diet 03/09/19 16:30 Active CHEST-1 VIEW [RAD] Stat Exams 03/09/19 13:49 Completed CHEST-PORTABLE [RAD] Routine Exams 03/10/19 06:00 Completed ABG [RESP] Routine Lab 03/09/19 14:25 Completed ABG [RESP] Routine Lab 03/09/19 17:11 Completed ABG [RESP] Routine Lab 03/10/19 05:16 Completed BLOOD CULTURE [BLDCUL] Routine Lab 03/09/19 15:35 Completed CBC WITH DIFF [HEME] Routine Lab 03/10/19 04:20 Completed CBC WITH ELECTRONIC DIFF [HEME] Stat Lab 03/09/19 14:30 Completed COMPREHENSIVE METABOLIC PANEL [CHEM] Routine Lab 03/10/19 04:20 Completed COMPREHENSIVE METABOLIC PANEL [CHEM] Stat Lab 03/09/19 14:30 Completed EOS URINE SMEAR [HEME] Stat Lab 03/09/19 19:40 Completed GRAM STAIN [BLDCUL] Routine Lab 03/09/19 14:36 Completed PRO B-NATRIURETIC PEPTIDE Stat Lab 03/09/19 14:30 Completed PROTIME WITH INR [COAG] Routine Lab 03/10/19 04:20 Completed TROPONIN T Q8HR Lab 03/09/19 21:12 Completed TROPONIN T Q8HR Lab 03/10/19 04:20 Completed TROPONIN T Q8HR Lab 03/10/19 13:26 Completed TROPONIN T Routine Lab 03/09/19 18:16 Completed TROPONIN T Stat Lab 03/09/19 14:30 Completed TSH Routine Lab 03/10/19 04:20 Completed TSH Stat Lab 03/09/19 14:30 Completed UR CREAT RANDOM [URCHEM] Stat Lab 03/09/19 19:40 Completed UR SODIUM [URCHEM] Stat Lab 03/09/19 19:40 Completed UR UREA NITROGEN RANDOM [URCHEM] Stat Lab 03/09/19 19:40 Completed 0.9% Sodium Chloride Inj [Ns] 1,000 ml Med 03/09/19 14:08 Discontinued .ROUTE As directed 0.9% Sodium Chloride Inj [Ns] 1,000 ml Med 03/09/19 15:14 Discontinued .ROUTE As directed 0.9% Sodium Chloride Inj [Ns] 190 ml Med 03/09/19 16:45 Discontinued Lorazepam [Ativan] 20 mg IV As Directed mls/hr 0.9% Sodium Chloride Inj [Ns] 250 ml Med 03/09/19 14:19 Discontinued Epinephrine 4 mg IV As Directed mls/hr Acetaminophen [Tylenol] Med 03/09/19 16:29 Active 650 mg PO Q6H PRN PRN Aztreonam [Azactam] 1 gm Med 03/09/19 17:00 Discontinued 0.9% Sodium Chloride Inj [Ns] 50 ml IV ONCE Aztreonam [Azactam] 1 gm Med 03/10/19 02:00 Discontinued 0.9% Sodium Chloride Inj [Ns] 50 ml IV Q8H Dextrose 5%-0.45% NaCl Inj [D5 1/2 Ns] 250 ml Med 03/09/19 14:19 Discontinued Norepinephrine [Levophed] 8 mg IV As Directed mls/hr Enoxaparin [Lovenox] Med 03/09/19 16:30 Discontinued 40 mg SUBQ Q24H Linezolid 600 mg/D5w [Zyvox 600 mg/D5w] Med 03/09/19 16:30 Discontinued 600 mg in 300 ml IV Q12H Midazolam [Versed] Med 03/09/19 14:17 Discontinued 5 mg .ROUTE .STK-MED ONE Midazolam [Versed] Med 03/09/19 15:32 Discontinued 5 mg .ROUTE .STK-MED ONE Midazolam [Versed] Med 03/09/19 15:48 Discontinued 5 mg IV NOW ONE Morphine Med 03/09/19 16:36 Discontinued 4 mg IV Q4H PRN PRN Propofol [Diprivan 1%] Med 03/09/19 15:45 Discontinued 10 mg IV NOW ONE Propofol [Diprivan 1%] Med 03/09/19 15:13 Discontinued 1,000 mg in 100 ml .ROUTE As directed Propofol [Diprivan 1%] Med 03/09/19 15:45 Discontinued 1,000 mg in 100 ml IV As Directed mls/hr Sodium Bicarbonate 8.4% Med 03/09/19 14:47 Discontinued 50 meq .ROUTE .STK-MED ONE Sodium Bicarbonate 8.4% Med 03/09/19 14:32 Discontinued 50 meq IV PUSH NOW ONE Sodium Bicarbonate 8.4% Med 03/09/19 15:41 Discontinued 50 meq IV PUSH NOW ONE Succinylcholine [Quelicin] Med 03/09/19 14:18 Discontinued 200 mg .ROUTE .STK-MED ONE Telemetry [OM.EQ] Routine Oth 03/09/19 16:29 Active Ventilator Order Stat Oth 03/09/19 15:04 Completed EKG [EKG] Routine Ther 03/10/19 08:00 Completed EKG [EKG] Stat Ther 03/09/19 13:49 Draft Transfer/Admit Order [TRANSFER] Routine Transfer 03/09/19 16:32 Completed 48 YO obese female pmh for chronic resp failure on continous o2 of 4L. with acute hypoxic hypercapnic respiratory failure with hyperkalemia. Elevated pro- BNP due to pulm edema as seen by CXR or heart failure. Family states pt was complaining of not feeling well on yesterday and had requested the group home to give her a breathing tx. They had returned today and pt was not as responsive with answering questions. They found out that she did not receive the breathing tx. Per EMS, pt was given steroids. They brought pt in on 4L o2 by [place]. Result Diagrams: 04/05/19 04:00 04/05/19 07:52 - REASSESSMENT Reassessment #1 Time Reassessed: 14:41 Status: other (patient's O2 sat dropped to 81 %. RT will suction ET tube.) Reassessment #2 Time Reassessed: 14:30 Status: other (labs reviewed showing elevated lactate and pH of 7.1 from ABG. will give 4 amps of bicarb.) Reassessment #3 Time Reassessed: 16:49 Status: other (CT cancelled 2/2 to pt size) - EKG 1 Time of EKG reading by physician:: 14:24 EKG Read and Signed by:: Jose Antonio Rossi EKG Interpretation (*Must complete 3 of following elements*): Abnormal (T wave abnormality, consider lateral ischemia) Rate: 87 Rhythm: atrial fibrillation [place]: left QRS: other (low voltage) Comments: cannot rule out anterior infarct, age undetermined; - XRAY 1 XRAY Study: Chest Impression: See EMR Report ( CHEST-1 VIEW - 03/09/2019 INDICATION: SOB COMPARISON: 07/16/2018 FINDINGS: There is an endotracheal tube at about T4. Nasogastric tube is in the stomach in good position. There is severe cardiomegaly. There is dense bilateral pulmonary edema. There are small pleural effusions. IMPRESSION: No complication from support tube placement. Electronically signed by Dean Virk 03/09/2019 2:54 PM 03/09/19 1454 Interpreting Physician: Dean Virk MD Dictated Date/Time: 03/09/19 1453 cc: Nadya Frye MD; Lazaro Noyola MD) - CONSULTS/PCP/HOSPITALIST Notification #1 *Consult/PCP/Hospitalist*: FIONA Bills for Hospitalist Time Discussed: 15:44 Reason/Comments: Dr. Rossi consulted with Negar about patient Consult Disposition: Will see in ED, Admit Procedures - INTUBATION Time of Intubation: 14:12 Airway Evaluation: Obese, Copious Secretions Intubation Method: orotracheal Equipment: ETT, Glidescope Tube Size (cm): 7.5 Pretreated with 100% Oxygen?: Yes ETT Primary Tube Confirmation: Capnometry CO2 Change Intubation Complications: oral-unsuccessful attempt ([address] Weir. [address] Rossi. multiple unsuccessful attempts due to large amounts of blood.) Vent Settings: See Respiratory Therapy Notes - ADDITIONAL PROCEDURES Additional Procedure: Intraosseous Infusion Consent Form Signed if Applicable?: No Time-Out Verification Completed?: No Site Prep: Kit Utilized (alcohol swab, unsuccessful attempt in right tibial plateau, second attempt in left humerus successful) Departure - Departure Date of Disposition Decision: 03/09/19 Time of Disposition Decision: 15:45 DIAGNOSIS: Acute on chronic respiratory failure with hypoxia and hypercapnia, Hyperkalemia, CO2 retention Disposition: ADMITTED INPATIENT 09 Certified Medical Emergency: Emergent Condition: Critical - Critical Care Note This patient required my direct & personal management of CC.: Yes Total Time (mins): 80 Critical Care Statement: This patient required my direct personal management to treat or rule out processes, the absence of which, could potentiallly result in sudden, clinically significant life or limb threatening deterioration. Attestation - Physician/ ROSE Attestation The physician spent face to face time with patient:: Yes Advanced Practice Provider documentation review:: Supervising physician onsite and consulted in the evaluation and care of this patient. The physician did have a face to face encounter with the patient. This chart was documented by the indicated scribe, (Cora Beck Scribe) and accurately reflects the services I performed and decisions made by me, Nadya Frye MD, as attested by the provider's signature.
[2019-03-16] MEDS: CARDIZEM NG SCH ×4 (02:38→20:17)
[2019-03-16] MEDS: DUONEB (A & A) INH PRN ×4 (03:04→16:02)
[2019-03-16] MEDS: ZYVOX 600 MG/D5W 600 MG/300 ML IVPB IV SCH ×2 (04:07→16:17)
[2019-03-16 04:57] LABS: ALLEN TEST YES; BE 12.2 mmoll (-3.0-3.0); BLOOD TYPE ARTERIAL; HCO3-(ACT) 34.4 mmoll (20.0-26.0); METHB 1.4 % (0.0-1.5); O2HB 93.9 % (95.0-99.0); PO2(98.6) 76 mmHg (60-100); SAMPLE BLOOD; SAO2 97.5 % (95.0-100.0); SRATE 15 BPM; TVOL 500 mL; pH(98.6) 7.42 (7.35-7.45)
[2019-03-16 04:59] LABS: MODALITY VENTILATOR; PCO2(98.6) 59 mmHg (35-45)
[2019-03-16] MEDS: SYNTHROID PO SCH ×2 (05:32→06:23)
[2019-03-16 06:08] LABS: HEMATOCRIT 31.6 % (37.0-47.0); HEMOGLOBIN 9.3 g/dL (12.0-16.0); MCHC 29.4 g/dL (33-37); MCV 88.3 FL (81-99); MPV 10.5 FL (7.4-10.4); RBC 3.58 XMIL (4.2-5.4); RDW 19.6 % (11.5-14.5); WBC 8.14 X1000 (4.8-10.8)
[2019-03-16 07:23] LABS: CREATININE 3.7 mg/dL (0.5-0.9); PHOSPHORUS 3.6 mg/dL (2.7-4.5); POTASSIUM 3.4 mmol/L (3.5-5.1)
--- NOTE | 2019-03-16 08:02 | Diag Imaging Result Doc PS360 ---
EXAM: CHEST-1 VIEW HISTORY: SOB TECHNIQUE: Single view COMPARISON: 03/14/2019 FINDINGS: No change in the endotracheal or nasogastric tubes. There are bilateral infiltrates and cardiomegaly. There may be small effusions. IMPRESSION: No interval improvement Electronically signed by Patrick Cárdenas 03/16/2019 8:00 AM
[2019-03-16] MEDS ORDERED: LASIX IV ONE (08:26)
[2019-03-16] MEDS: MORPHINE IV PRN ×3 (08:53→21:49)
[2019-03-16] MEDS: POTASSIUM CHLORIDE 20 MEQ/SWI 20 MEQ/100 ML IVPB IV SCH ×2 (09:05→11:40)
[2019-03-16] MEDS: AZACTAM 1 GM in NS 50 ML IV SCH ×2 (10:37→21:55)
--- NOTE | 2019-03-16 11:37 | PROGRESS NOTE ---
DATE: 03/16/2019 SUBJECTIVE: This morning Ms. Rios is seen in the ICU. She continues to be intubated. She underwent a weaning trial and has failed because she desaturated. OBJECTIVE: Vital Signs: Blood pressure 109/70, pulse 97, respirations 15, and temperature is 98.8 degrees. General: Ms. Rios is a 48-year-old, morbidly obese female. She is in bed currently intubated. No sedation. Mucosa is pink and moist. Anicteric. Acyanotic. Neck: Supple. Chest: Air entry is bilaterally reduced. There is still diffuse rhonchi and wet crackles. Cardiovascular: Irregularly irregular, but rate controlled. No murmurs. No rubs. Abdomen: Soft and distended. Bowel sounds present. Extremities: No pedal edema. : Robison catheter is still in place. CHILDREN'S CHOIR DIRECTOR: Patient follows commands. Eyes closed, but she is easily able to open to voice. She will wiggle her toes upon commands. Breasts: Left breast has some induration in the lateral quadrant. I'S AND O'S: Urine output is 1125. She is currently positive balance of 3950 during the hospital course. CURRENT MEDICATIONS: 1. Aztreonam 1 g q.12 hourly. 2. Diltiazem drip. 3. Cardizem 300 was started yesterday. 4. Lovenox 40 mg subcutaneously. 5. Synthroid 100 mg p.o. daily. 6. Zyvox 600 q.12. 7. Morphine 4 IV p.r.n. IMAGING STUDIES: This morning shows bilateral infiltrates and cardiomegaly. There may be small pleural effusions. LABORATORY DATA: WBC is 8.14, hemoglobin is 9.3, and platelet count of 149,000. Chemistry is also reviewed. Creatinine is down to 3.7, potassium is 3.4. Rest of chemistry within normal range. Albumin is 3.0. ASSESSMENT: 1. Status post cardiopulmonary arrest. The patient continues to be intubated. She has failed a spontaneous breathing trial today. 2. Congestive heart failure with biventricular enlargement on echo associated with pulmonary edema and elevated pro B. The patient will continue on diuretic therapy. 3. Hypotension. During the initial stages of the hospital course improved. 4. Atrial fibrillation with rapid ventricular response. The patient is currently rate controlled on p.o. Cardizem. Drip has been turned off. 5. Dense multifocal pulmonary infiltrate concerning for pulmonary edema with possible superimposed pneumonia. Sputum cultures positive for Klebsiella pneumoniae. The patient is currently on aztreonam. Today is day 6 on IV antimicrobial therapy. Infectious Disease is on board. 6. Acute hypoxemic respiratory failure and acute on chronic hypercarbic respiratory failure. The patient continues to be on the ventilator. 7. Hypothyroidism. Will continue with levothyroxine. 8. Acute kidney injury, presumably ATN. The patient is making adequate urine. Creatinine seems to be trending down. 9. Altered mental status secondary to global encephalopathy. 10. Morbid obesity with BMI of 64.9. 11. Protein calorie malnutrition with prealbumin of 10.7. Ms. Rios is currently on tube feedings. Dietitian is on board. cc: Zafar Ma MD
--- NOTE | 2019-03-16 15:15 | INFECTIOUS DISEASE PROGRESS NO ---
DATE: 03/16/2019 PRESENT ILLNESS: The patient has possible bilateral aspiration pneumonia following the patient's cardiac arrest. The sputum is growing Klebsiella. The patient has an E. coli urinary tract infection. On CT scan it was found that the patient has pansinusitis. MEDICATIONS: The patient is on day 6 of aztreonam and day 7 of Zyvox. PHYSICAL EXAMINATION: Vital Signs: Temperature is 98.8 degrees, pulse 97, respirations 15, blood pressure is 109/70. The patient is 5 feet 6 inches tall and weighs 293 pounds. General: This is an obese, middle-aged female. She is intubated but does respond to verbal stimuli. Head, eyes, ears, nose, and throat: The patient has an orotracheal and nasogastric tube in place. Neck: The patient has a right internal jugular venous catheter in place. Lungs: Bilateral rhonchi. Cardiovascular: Heart rate is irregular. Abdomen: Soft and not tender. Neurologic: The patient's eyes were open. She did follow request to move her extremities. She does not have a tremor. LAB AND X-RAY: The CBC shows a white count of 8,140, hemoglobin 9.3, and platelet count 149,000. Blood gases show a pH of 7.42, a PO2 of 76, and a pCO2 of 59. Creatinine is 3.7. GFR is 16. IgG is 1,657, IgA is 383. Chest x-ray shows bilateral infiltrates and cardiomegaly. Urine culture is growing E. coli. Sputum is growing Klebsiella. ASSESSMENT AND PLAN: The patient has bilateral pneumonia, an Escherichia coli urinary tract infection, and pansinusitis. My plan is to continue with the current antibiotics, namely aztreonam and Zyvox for which the patient has been on now for 6 days. COMORBIDITIES: The patient is morbidly obese. She had a cardiac arrest and she may have aspiration pneumonia. cc: Arvind Fair MD
[2019-03-16] MEDS: LOVENOX SUBQ SCH (16:17)
--- NOTE | 2019-03-16 18:51 | PROVIDER PROGRESS NOTE ---
Progress Note Subjective: patient lying in bed in no distress. Remains on the ventilator. Able to follow commands. Objective: temp 98.8, pulse 100, respirations 24, blood pressure 125/68, 02 sat 95% on mechanical ventilator. General: obese -[place] female lying in bed intubated in no acute distress. Skin: warm and dry. neck: supple, no JVD observed due to body habitus. Cardiovascular: irregular and tachycardia, no murmur gallop. Respiratory: rhonchi and wheezes bilaterally Abdomen: obese, soft, nontender, nondistended. Active bowel sounds. : none inspected, Robison in place with eric urine. Extremities:1+ pitting Edema to BLE. Neurological: alert with eyes closed, following commands and nodding yes and no. Labs: WBC 8.14, hemoglobin 9.3, hematocrit 31.6, platelet count 149, sodium 143, potassium 3.4, chloride 97, carbon dioxide 30, BUN 63, creatinine 3.7. Intake 2580, output 1125. Impression: Acute kidney injury likely acute tubular necrosis from cardiac arrest. Creatinine improving, 3.7 today. She does not require urgent renal replacement therapy at this time. Blood pressure. In target. Electrolytes and acid base balance. Stable. Volume status. Improved. Now dose lasix given by primary. Medication review.
--- NOTE | 2019-03-16 22:32 | CARDIOLOGY PROGRESS NOTE ---
DATE: 03/16/2019 SUBJECTIVE: Ms. Rios again appears to be a little bit more awake today. She continues to follow simple commands. PHYSICAL EXAMINATION: Afebrile. Her heart rate is in the 80s to low 100s. Blood pressure 105/85. General: No acute distress. Cardiovascular: Irregularly irregular rhythm. She has no obvious murmurs. She has no S3. She has trace bilateral lower extremity edema. Warm and well- perfused extremities. Chest: Some mechanical breath sounds heard bilaterally with some expiratory wheezes. No increased work of breathing. Abdomen: Soft, nontender. PERTINENT DATA: Her I's and O's appear to be positive, around 1900 mL over the last 24 to 48 hours. White count is 8, hematocrit is 31, platelet count is 149,000. Her sodium is 143, potassium is 3.4, BUN 63, creatinine 3.7, which is improved. Her FiO2 has decreased to 50% yesterday from 70%. Her A-a gradient is 207, which is an improvement. ASSESSMENT: Ms. Rios is a 48-year-old female who came in with cardiopulmonary arrest likely secondary to a respiratory event. PLAN: At this point, her oxygenation appears to be improving. Given her renal dysfunction, I would not recommend diuresing the patient presently, as she seems to be progressing from a pulmonary standpoint. Her atrial fibrillation seems to be reasonably controlled at this point. cc: Brian Peralta MD
[2019-03-17] MEDS: MORPHINE IV PRN ×5 (01:54→20:16)
[2019-03-17] MEDS: CARDIZEM NG SCH ×4 (02:06→19:46)
[2019-03-17] MEDS: ZYVOX 600 MG/D5W 600 MG/300 ML IVPB IV SCH ×2 (03:36→17:53)
[2019-03-17] MEDS: DUONEB (A & A) INH PRN ×2 (03:39→08:51)
[2019-03-17 04:44] LABS: ALLEN TEST YES; BE 13.5 mmoll (-3.0-3.0); BLOOD TYPE ARTERIAL; HCO3-(ACT) 35.5 mmoll (20.0-26.0); METHB 0.9 % (0.0-1.5); O2(CT) 13.8 mL/dL (15.0-23.0); O2HB 96.8 % (95.0-99.0); PO2(98.6) 189 mmHg (60-100); SAMPLE BLOOD; SAO2 100.2 % (95.0-100.0); SRATE 15 BPM; THB 9.8 g/dL (11.5-17.4); TVOL 500 mL; pH(98.6) 7.48 (7.35-7.45)
[2019-03-17 04:45] LABS: MODALITY VENTILATOR; PCO2(98.6) 52 mmHg (35-45)
[2019-03-17 05:23] LABS: HEMATOCRIT 31.9 % (37.0-47.0); HEMOGLOBIN 9.1 g/dL (12.0-16.0); MCHC 28.5 g/dL (33-37); MCV 87.6 FL (81-99); RBC 3.64 XMIL (4.2-5.4); RDW 19.6 % (11.5-14.5); WBC 7.89 X1000 (4.8-10.8)
--- NOTE | 2019-03-17 06:00 | Diag Imaging Result Doc PS360 ---
EXAM: CHEST-1 VIEW HISTORY: SOB TECHNIQUE: Single view COMPARISON: 03/16/2019 FINDINGS: No change in the endotracheal tube or nasogastric tube. The heart is not enlarged. There is pulmonary edema and likely small effusions. There may be underlying pneumonia as well. IMPRESSION: No interval improvement. Electronically signed by Patrick Cárdenas 03/17/2019 5:57 AM
[2019-03-17 06:06] LABS: CALCIUM 9.2 mg/dL (8.8-10.2); CREATININE 3.4 mg/dL (0.5-0.9); PHOSPHORUS 3.6 mg/dL (2.7-4.5); POTASSIUM 3.8 mmol/L (3.5-5.1)
[2019-03-17] MEDS: SYNTHROID PO SCH (06:16)
[2019-03-17] MEDS ORDERED: LASIX IV ONE ×2 (08:06→17:12)
[2019-03-17] MEDS ORDERED: NS NEB INH SCH (10:00)
[2019-03-17] MEDS: ATROVENT NEB INH SCH ×3 (10:03→21:32)
[2019-03-17] MEDS: XOPENEX NEB INH SCH ×3 (10:03→21:33)
[2019-03-17] MEDS: HALDOL IV PRN ×3 (10:07→21:05)
[2019-03-17] MEDS: AZACTAM 1 GM in NS 50 ML IV SCH (10:08)
--- NOTE | 2019-03-17 12:25 | PROVIDER PROGRESS NOTE ---
Progress Note Subjective: patient lying in bed in no distress. Remains on the ventilator. Able to follow commands. Objective: temp 98.8, pulse 100, respirations 24, blood pressure 125/68, 02 sat 95% on mechanical ventilator. General: obese -[place] female lying in bed intubated in no acute distress. Skin: warm and dry. neck: supple, no JVD observed due to body habitus. Cardiovascular: S1s2, tachycardia, no murmur or gallop. Respiratory: rhonchi and wheezes bilaterally Abdomen: obese, soft, nontender, nondistended. Active bowel sounds. : none inspected, Robison in place with eric urine. Extremities:1+ pitting Edema to BLE. Left foot has a decreased Pulse and cool to touch. Neurological: alert with eyes open, following commands and nodding yes and no. Labs: WBC 7.89, hemoglobin 9.1, hematocrit 31.9, platelet count 166, sodium 144, potassium 3.8, chloride 98, carbon dioxide 31, BUN 65, creatinine 3.4. Intake 2760, output 1425. Impression: Acute kidney injury likely acute tubular necrosis from cardiac arrest. Creatinine improving, 3.4 today. She does not require urgent renal replacement therapy at this time. Blood pressure. In target. Electrolytes and acid base balance. Stable. Volume status. Improved. Now dose lasix given by primary. Nutrition. Tube feeding in place. Medication review. No changes.
[2019-03-17] MEDS: LEVAQUIN 250 MG/D5W 250 MG/50 ML IVPB IV SCH (15:54)
[2019-03-17] MEDS: LOVENOX SUBQ SCH (17:53)
[2019-03-17] MEDS ORDERED: LASIX 200 MG in NS 25 ML IV ONE (18:00)
--- NOTE | 2019-03-17 20:46 | PROGRESS NOTE ---
DATE: 03/17/2019 SUBJECTIVE: This morning, Ms. Rios is seen in the ICU. She continues to be intubated. I understand she failed another breathing trial because she desaturated immediately. OBJECTIVE: Vital signs: Blood pressure is 116/67, pulse of 101, respiration is 18, temperature is 99.1. General: Ms. Rios is a 48-year-old, morbidly obese, -[place] female. She is in bed, currently intubated, no sedation. Mucosa is pink and moist. Anicteric. Acyanotic. Neck: Supple. Chest: Air entry is reduced. Some crackles posteriorly. Cardiovascular: Irregularly irregular. No murmurs. Gastrointestinal: Abdomen is soft, distended, but nontender. Bowel sounds present. Robison catheter is in place. Central nervous system: Patient will follow commands. breasts: Left breast has some induration in the lateral quadrant. LABORATORY AND DIAGNOSTIC DATA: The patient's I's and O's, urine output is 1425. She is still positive balance over 5000. A chest x-ray this morning shows no interval improvement. ASSESSMENT/PLAN: 1. Status post cardiopulmonary arrest. 2. Acute hypoxemic respiratory failure and acute on chronic hypercarbic respiratory failure. Patient continues to be needing ventilator. 3. Congestive heart failure with biventricular enlargement on echocardiogram associated with pulmonary edema and elevated ProBNP. The patient will continue on diuretic therapy. 4. Hypotension during the initial stages of hospital course. Resolved. 5. Atrial fibrillation with rapid ventricular response. Patient continues to be on Cardizem, drip has been turned off. 6. Pulmonary edema with superimposed Klebsiella pneumoniae pneumonia. The patient's antimicrobial has been switched from aztreonam to Levaquin today. She continues to be on Zyvox. 7. Hypothyroidism. We will continue with levothyroxine. 8. Acute kidney injury secondary to acute tubular necrosis. The patient continues making adequate urine. Creatinine is trending down. Lasix will be given today. We will continue to monitor the renal function. cc: Zafar Ma MD
[2019-03-17] MEDS: DIPRIVAN 1% 1,000 MG/100 ML BOTTLE IV SCH (23:04)
--- NOTE | 2019-03-18 00:51 | INFECTIOUS DISEASE PROGRESS NO ---
DATE: 03/17/2019 PRESENT ILLNESS: The patient has a Klebsiella aspiration pneumonia, an E coli urinary tract infection, and pansinusitis. MEDICATIONS: This is the 8th day of treatment with antibiotics for the patient's infections. PHYSICAL EXAMINATION: Vital Signs: Temperature is 100 degrees, pulse 101, respirations 28, blood pressure is 116/67. General: This is an obese, middle-aged female, she is intubated and sedated but she does respond to verbal stimuli, mainly by shaking her head yes or no, and she does move her extremities to request. Neck: No stiffness. Lungs: Bilateral wheezes. Cardiovascular: Heart rate is irregular. Abdomen: Soft and nontender. Neurologic: As mentioned above, the patient did respond to verbal stimuli by moving her extremities. LAB AND X-RAY: CBC shows a white count of 7890, hemoglobin 9.1, platelet count a 166,000. Blood gases show a pH of 7.48, a PO2 of 189, a pCO2 of 52. Creatinine is 3.4, GFR is 17. Urine culture grew E coli. Sputum grew Klebsiella. Chest x-ray shows pulmonary edema. Procalcitonin level is 0.62, which translates into it being very likely that the patient does have pneumonia. ASSESSMENT AND PLAN: Patient has pneumonia, pansinusitis and urinary tract infection. I plan on continuing Zyvox. I have discontinued a aztreonam and put the patient on Levaquin. COMORBIDITIES: The patient is obese, she had a cardiac arrest and most likely had aspiration pneumonia. cc: Arvind Fair MD
[2019-03-18] MEDS: CARDIZEM NG SCH ×4 (01:59→19:31)
[2019-03-18] MEDS: DIPRIVAN 1% 1,000 MG/100 ML BOTTLE IV SCH ×4 (02:29→19:31)
[2019-03-18] MEDS: XOPENEX NEB INH SCH ×4 (03:50→21:02)
[2019-03-18] MEDS: ATROVENT NEB INH SCH ×4 (03:50→21:02)
[2019-03-18] MEDS: ZYVOX 600 MG/D5W 600 MG/300 ML IVPB IV SCH ×2 (04:17→16:09)
[2019-03-18 04:49] LABS: ALLEN TEST YES; BE 12.6 mmoll (-3.0-3.0); BLOOD TYPE ARTERIAL; HCO3-(ACT) 34.7 mmoll (20.0-26.0); METHB 0.8 % (0.0-1.5); O2(CT) 11.2 mL/dL (15.0-23.0); O2HB 90.5 % (95.0-99.0); PCO2(98.6) 49 mmHg (35-45); PO2(98.6) 53 mmHg (60-100); SAMPLE BLOOD; SAO2 93.4 % (95.0-100.0); SRATE 15 BPM; THB 8.8 g/dL (11.5-17.4); TVOL 500 mL; pH(98.6) 7.49 (7.35-7.45)
[2019-03-18 04:50] LABS: MODALITY VENTILATOR
[2019-03-18] MEDS: SYNTHROID PO SCH (06:04)
[2019-03-18 06:08] LABS: HEMATOCRIT 29.1 % (37.0-47.0); HEMOGLOBIN 8.3 g/dL (12.0-16.0); MCH 24.8 PG (27-31); MCHC 28.5 g/dL (33-37); MCV 86.9 FL (81-99); MPV 10.7 FL (7.4-10.4); RBC 3.35 XMIL (4.2-5.4); RDW 19.3 % (11.5-14.5); WBC 6.22 X1000 (4.8-10.8)
[2019-03-18 06:34] LABS: CALCIUM 9.4 mg/dL (8.8-10.2); CREATININE 3.4 mg/dL (0.5-0.9); PHOSPHORUS 3.5 mg/dL (2.7-4.5); POTASSIUM 3.5 mmol/L (3.5-5.1)
--- NOTE | 2019-03-18 07:07 | Diag Imaging Result Doc PS360 ---
EXAM: CHEST-1 VIEW 03/18/2019 HISTORY: SOB TECHNIQUE: AP portable upright at 0502 COMMENT: There is an endotracheal tube with its tip slightly below the thoracic inlet and an NG tube which passes below the diaphragm. There is cardiomegaly and increased pulmonary vascularity. There is interstitial and alveolar opacity particularly on the right. Compared to 03/17/2019 this has not changed appreciably. There has clearly been some improvement since 03/14/2019. IMPRESSION: Pulmonary edema and/or pneumonia. Electronically signed by George Gentile 03/18/2019 7:05 AM
[2019-03-18] MEDS ORDERED: LASIX IV ONE (07:47)
--- NOTE | 2019-03-18 07:58 | EKG Report ---
Test Performed on : 03/17/2019 10:09:32 PM Test Reason : Blood Pressure : / mmHG Vent. Rate : 128 BPM Atrial Rate : 133 BPM P-R Int : 000 ms QRS Dur : 104 ms QT Int : 334 ms P-R-T Axes : 000 -43 126 degrees QTc Int : 487 ms Atrial fibrillation. with rapid ventricular response. Left axis deviation Low voltage QRS Abnormal QRS-T angle, consider primary T wave abnormality Abnormal ECG When compared with ECG of 17-MAR-2019 22:06, (Unconfirmed) No significant change was found Confirmed by Gomez GILES, Lamonte ([id number]) on 03/18/2019 8:37:37 AM
[2019-03-18] MEDS ORDERED: LASIX 200 MG in NS 25 ML IV ONE (08:00)
--- NOTE | 2019-03-18 08:08 | CARDIOLOGY PROGRESS NOTE ---
DATE: 03/17/2019 SUBJECTIVE: The patient is back on the ventilator. She is sedated. PHYSICAL EXAMINATION: She is afebrile, heart rate in the low 100s, blood pressure 117/91. Her Is and Os have been positive over the last several days. Her cumulative Is and Os for the hospitalization are positive 5.1 L. General: She is in no acute distress. Cardiovascular: She sounds to be in an irregularly irregular rhythm. She has no murmurs. She has no S3. She has no lower extremity edema. Her chest examination has coarse breath sounds diffusely. Abdomen is soft, nontender. PERTINENT DATA: Lab-gonzalez, white count 7.8, hematocrit 31, platelet count 166,000. Her ABG has a PO2 of 189 which is up from 76 yesterday. Her A-a gradient has improved at 103. Her FiO2 is stable at 50%. Her BUN and creatinine are 65 and 3.4. Her albumin is 3. Her chest x-ray shows essentially no interval improvement, pulmonary edema and small effusions. ASSESSMENT: Ms. Rios is a 48-year-old female who presented with respiratory arrest. PLAN: She continues to have difficulty weaning from the ventilator. Her heart rate seems to be reasonably controlled. Her A-a gradients have improved with reduction in her FiO2. She received a dose of Lasix this morning that did not seem to have significantly change her urine output. I will discuss case with Dr. Jean regarding possible escalating doses of diuretics to hopefully assist with weaning off the ventilator. The patient is a difficult patient, given her size and mechanical ventilation. cc: Brian Peralta MD
--- NOTE | 2019-03-18 08:34 | PROVIDER PROGRESS NOTE ---
Progress Note Pulmonary additional Note: Case assessed and full note to follow. Pulmonary status progress is largely dependent on improvement of renal status.
[2019-03-18] MEDS: LOVENOX SUBQ SCH (09:25)
--- NOTE | 2019-03-18 12:31 | Diag Imaging Result Doc PS360 ---
KUB ABDOMEN - 03/18/2019 INDICATION: SBO COMPARISON: 12/31/2018 FINDINGS: There is no obvious abnormality. IMPRESSION: No obvious abnormality. Electronically signed by Dean Virk 03/18/2019 12:29 PM
[2019-03-18] MEDS: LEVAQUIN 250 MG/D5W 250 MG/50 ML IVPB IV SCH (13:15)
--- NOTE | 2019-03-18 14:48 | PROGRESS NOTE ---
DATE: 03/18/2019 SUBJECTIVE: This morning, Ms. Estrella continues to be intubated. She has been started back on propofol drip. OBJECTIVELY: Current Vital signs: Blood pressure is 103/76, pulse of 83, respiration is 30, temperature is 97.6 degrees. General: Ms. Rios is a 48-year-old morbidly obese female. She is in bed. Continues to be intubated and sedated. Chest: Air entry is bilaterally reduced. There are still some diffuse crackles and rhonchi. Cardiovascular: Irregularly irregular. No murmurs. Gastrointestinal: Abdomen is soft. It is very distended. Bowel sounds were slightly hypoactive. Genitourinary: Robison catheter was in place. Central nervous system: The patient is currently sedated, but will barely open her eyes to her name. LABORATORY DATA: WBC is 6.22, hemoglobin is 8.3, platelet count of 141,000. Chemistry is also reviewed. BUN is 69, creatinine is 3.4, same [place] [address] which is still high. CURRENT MEDICATIONS: Have all been reviewed. The patient intakes and outputs, urine output was 1475. She is currently positive balance of 6083. IMAGING: A chest x-ray this morning shows pulmonary edema and/or pneumonia. There is some improvement since March 14. ASSESSMENT AND PLAN: 1. Status post cardiopulmonary arrest. On presentation, it was alleged that Ms Rios, who was brought from [facility] because of shortness of breath, started having agonal breathing and was intubated. I understand the patient was resuscitated with ACLS protocol of almost an hour. Since then, she has she has been intubated. 2. Acute hypoxemic respiratory failure and acute on chronic hypercarbic respiratory failure. Patient continues to be on the ventilator. Today is day 9 on the ventilator since she was admitted. She has failed multiple attempts at weaning. I think Ms Rios is eventually going to be needing a tracheostomy. She has had this before. 3. Pulmonary edema with elevated proB consistent with congestive heart failure. Echocardiogram shows an ejection fraction of 35 to 40 percent associated with biventricular enlargement and pulmonary hypertension. 4. Hypotension. During the initial stages of the hospital course, this has resolved. At some point, Ms. Rios needed pressors. 5. Atrial fibrillation with rapid ventricular response. Patient is on Cardizem pills. The drip has been turned off. 6. Pulmonary edema with superimposed Klebsiella pneumoniae pneumonia. The patient is on Levaquin and Zyvox. ID is on board. 7. Hypothyroidism. Will continue with the levothyroxine. 8. Acute kidney injury presumably due to acute tubular necrosis. Creatinine continues to be trending down. It has been stable from yesterday and today, however. Ms. Rios is making adequate urine on the diuretic therapy. Nephrology is on board. DISPOSITION: So in general, I think Ms. Rios continues to be remarkably sick. She is on propofol. A couple days back when she was not on any sedation, she was responding and following commands. She is day 9 in the hospital and day 9 under the ventilator. Ms Rios has had multiple episodes of respiratory failure and has had even a tracheostomy in the past. She has failed multiple attempts at weaning trails. I suspect she may end up with another tracheostomy. We are going to follow up with further recommendations from Pulmonary Medicine. We will get a KUB this morning to check on her abdomen which looks remarkably distended. Per documentation, she seems to be having regular bowel movements, however. cc: Zafar Ma MD MTDD
--- NOTE | 2019-03-18 15:23 | PROVIDER PROGRESS NOTE ---
Progress Note Subjective: patient lying in bed in no distress. Remains on the ventilator. According to staff, pt became anxious thrashing around in bed and her heart rate was sustaining in the 120-140s. She was placed on diprivan. Objective: temp 97.6, pulse 75, respirations 17, blood pressure 104/62, 02 sat 97% on 50% mechanical ventilation. General: obese -[place] female lying in bed intubated in no acute distress. HEENT: normocephalic, atraumatic. Pupils equal and reactive, sluggish, trachea midline, endotracheal tube in place, NG tube in place. Skin: warm and dry. neck: supple, no JVD observed due to body habitus. Cardiovascular: S1s2, no murmur or gallop. Respiratory: rhonchi and wheezes bilaterally, improved from yesterday. Abdomen: obese, soft, nontender, nondistended. Hypoactive bowel sounds. : none inspected, Robison in place with eric urine. Extremities:1+ pitting Edema to BLE. Left foot has a decreased pulse. Neurological: sedated. Labs: WBC 6.22, hemoglobin 8.3, hematocrit 29.1, platelet count 141, sodium 143, potassium 3.5, chloride 96, carbon dioxide 32, BUN 69, creatinine 3.4. Intake 2273, output 1475. Impression: Acute kidney injury likely acute tubular necrosis from cardiac arrest. Creatinine stable at 3.4. Little urine output with lasix yesterday. Will order another dose of lasix today. Albumin noted to be 3.0. She does not require urgent renal replacement therapy at this time. Blood pressure. In target. Electrolytes and acid base balance. Stable. Volume status. Expanded. Lasix given. No significant response. Repeated today. Nutrition. Tube feeding in place. Medication review.
--- NOTE | 2019-03-18 16:18 | CARDIOLOGY PROGRESS NOTE ---
DATE: 03/18/2019 SUBJECTIVE: Ms. Rios continues on the ventilator. She opens her eyes to physical and verbal stimuli, follows simple commands. PHYSICAL: Vital Signs: She is afebrile, T-max was 100.2 degrees yesterday at 8 a.m., heart rate currently is 90 in atrial fibrillation with a blood pressure 130/72. Her I's and O's continue to be positive. Generally: She is in no acute distress. Cardiovascular: She is in an irregularly irregular rhythm. She has well-perfused extremities. Chest: Exam has coarse upper airway noise. No increased work of breathing. Abdomen: Abdomen is soft, nontender. PERTINENT DATA: White count is 6, hematocrit 29.1, platelet count 141. Sodium is 143, potassium 3.5. BUN 69, creatinine 3.4 which has been stable. GFR is 17. ProBNP is 15,000. ASSESSMENT: Ms. Rios is a 48-year-old female who presented in respiratory failure, atrial fibrillation. PLAN: At this point, may consider increased diuretics. Will discuss with Nephrology regarding potential implications with renal disease. Notably her ventilator settings seemed to have been stable, but she is not weaning. Her AA gradient increased from yesterday to today. She has had a positive fluid balance and did not diurese significantly with 80 of IV Lasix yesterday. I will initiate a once-daily Lovenox today for prophylaxis with her atrial fibrillation. cc: Brian Peralta MD
[2019-03-18] MEDS: MORPHINE IV PRN ×2 (17:36→23:43)
[2019-03-19] MEDS: CARDIZEM NG SCH ×4 (01:09→19:31)
[2019-03-19] MEDS: DIPRIVAN 1% 1,000 MG/100 ML BOTTLE IV SCH ×10 (02:28→22:33)
--- NOTE | 2019-03-19 03:13 | INFECTIOUS DISEASE PROGRESS NO ---
DATE: 03/18/2019 PRESENT ILLNESS: Ms Rios has Klebsiella pneumonia, an Escherichia coli urinary tract infection, and pansinusitis. MEDICATIONS: Today is day 9 of Zyvox 600 mg IV every 12 hours and day 1 of Levaquin 250 mg IV every 24 hours. PHYSICAL EXAMINATION: Vital Signs: Temperature is 97.5 degrees, pulse rate 82, respiratory rate 15, blood pressure 129/67, O2 saturation is 99% on 50% FiO2 on mechanical ventilator. General: This is a chronically ill-appearing, morbidly obese female. HEENT: Oral ET tube is in place as well as a left naris NG tube with tube feeding infusing. Cardiovascular: Heart rate is irregularly irregular. Atrial fibrillation on the monitor. Respiratory: Lung sounds have bilateral inspiratory and expiratory wheezes throughout. She is not breathing above the set rate on the ventilator. Abdomen: Soft, obese, nontender. Bowel sounds are active. Neurologic: She is drowsy and lethargic but arousable. She will make eye contact, squeeze with both hands, and raise her arms bilaterally. LABORATORY AND X-RAY: Today her white count is 6.22, hemoglobin 8.3, platelet count 141,000. ABG: Her pH 7.49, pCO2 of 49, pO2 of 53, on 50% FiO2 on mechanical ventilator. Creatinine is 3.4, GFR 17. ProBNP is 15,962. Previously her sputum has grown Klebsiella and her urine has had an Escherichia coli. Abdominal x-ray from today showed no obvious abnormalities and a chest x-ray today showed pulmonary edema and/or pneumonia with not much change since yesterday. ASSESSMENT AND PLAN: Ms Rios is being treated for pneumonia, urinary tract infection and pansinusitis. She was started on Levaquin yesterday and has also been on Zyvox. We will continue these as ordered. These plans have been discussed with and recommended by Dr. Fair. COMORBIDITIES: For Ms. Rios include morbid obesity, cardiac arrest on admission, congestive heart failure, COPD, coronary artery disease, gastroesophageal reflux disease, acute kidney injury and atrial fibrillation. Dictated by FIONA Welsh for Arvind Fair MD cc: Arvind Fair MD [facility]
[2019-03-19] MEDS: ATROVENT NEB INH SCH ×4 (03:21→23:23)
[2019-03-19] MEDS: XOPENEX NEB INH SCH ×4 (03:21→23:23)
[2019-03-19] MEDS: ZYVOX 600 MG/D5W 600 MG/300 ML IVPB IV SCH (03:55)
[2019-03-19 04:36] LABS: ALLEN TEST YES; BE 11.4 mmoll (-3.0-3.0); BLOOD TYPE ARTERIAL; HCO3-(ACT) 33.8 mmoll (20.0-26.0); METHB 0.5 % (0.0-1.5); O2(CT) 11.9 mL/dL (15.0-23.0); PO2(98.6) 92 mmHg (60-100); SAMPLE BLOOD; SAO2 100.4 % (95.0-100.0); SRATE 15 BPM; THB 8.6 g/dL (11.5-17.4); TVOL 500 mL; pH(98.6) 7.45 (7.35-7.45)
[2019-03-19 04:37] LABS: MODALITY VENTILATOR; PCO2(98.6) 53 mmHg (35-45)
[2019-03-19 05:16] LABS: ALB/GLOB RATIO 0.6; ALBUMIN 2.7 g/dL (3.5-5.0); CALCIUM 9.1 mg/dL (8.8-10.2); CREATININE 3.1 mg/dL (0.5-0.9); POTASSIUM 3.3 mmol/L (3.5-5.1); TOTAL BILIRUBIN 0.36 mg/dL (0.20-1.00)
[2019-03-19 05:20] LABS: HEMATOCRIT 28.6 % (37.0-47.0); HEMOGLOBIN 8.5 g/dL (12.0-16.0); MCH 25.8 PG (27-31); MCHC 29.7 g/dL (33-37); MCV 86.7 FL (81-99); MPV 10.7 FL (7.4-10.4); RBC 3.3 XMIL (4.2-5.4); RDW 19.2 % (11.5-14.5); WBC 5.7 X1000 (4.8-10.8)
[2019-03-19] MEDS: SYNTHROID PO SCH (06:23)
--- NOTE | 2019-03-19 06:52 | Diag Imaging Result Doc PS360 ---
CHEST-1 VIEW - 03/19/2019 INDICATION: SOB COMPARISON: 03/18/2019 FINDINGS: Support tubes are stable and in good position. Stable severe cardiomegaly and pulmonary vascular congestion. There is worsening diffuse bilateral infiltrates compatible with pulmonary edema. IMPRESSION: Worsening pulmonary edema. Electronically signed by Dean Virk 03/19/2019 6:50 AM
[2019-03-19] MEDS: LOVENOX SUBQ SCH (08:18)
[2019-03-19] MEDS: SOLU-MEDROL IV SCH ×3 (08:21→19:31)
[2019-03-19] MEDS ORDERED: NS 250 ML ONE (09:36)
[2019-03-19 09:57] LABS: INR 1.29; PROTIME 16.3 Seconds (11.0-16.0)
--- NOTE | 2019-03-19 10:49 | PROGRESS NOTE ---
DATE: 03/19/2019 SUBJECTIVE: This patient is still on mechanical ventilation. She has been placed on propofol. As per the nurse during the night, she started having agitation and that is why she ended up with propofol. It looks like she was following commands at that time. She has been failing her breathing trial. It looks like she desaturates immediately. OBJECTIVE: Vital Signs: Temperature 98.4 degrees, pulse 83, respiratory rate 19, blood pressure 93/73, and oxygen saturation 96 on mechanical ventilation. HEENT: Head normocephalic. No trauma. A sluggish pupillary response to the light. Neck: Supple. I cannot see JVD because of her neck size. Central trachea. Chest: Decreased breath sounds bilateral crackles and expiratory wheezing bilaterally. Some rhonchi scattered bilaterally as well. Cardiovascular: Irregular rhythm. Abdomen: Soft. Protuberant and distended, but nontender. Positive bowel sounds. Neurological: The patient is on mechanical ventilation and sedated. Breasts: Her left breast has an induration in the lateral quadrant. LABORATORY: WBC 5.7, hemoglobin 8.5, hematocrit 28.6, and platelets 121,000. Sodium 140, potassium 3.3, chloride 94, bicarbonate 31, BUN 72, creatinine 3.1, glucose 95, calcium 9.1, and albumin 2.7. ASSESSMENT AND PLAN: 1. Status post cardiopulmonary arrest. We will continue with same management for now. Cardiology and Pulmonary Department on board. She had an echocardiogram done that showed an ejection fraction of 35 to 40 percent on 03/09/2019. Also, increased pulmonary arterial pressure at 51 mmHg with pulmonary hypertension. She is still on mechanical ventilation. We will continue with same management. 2. Congestive heart failure with biventricular enlargement on echocardiogram associated with pulmonary edema and elevated proBNP. As above, she has been receiving some diuretics. Chest x-ray is still having pulmonary edema and/or pneumonia. 3. Hypotension during the initial stages of hospital course, better. 4. Atrial fibrillation with rapid ventricular response. Her rate seems to be controlled now. She has been placed on anticoagulation by Cardiology Department. Continue with diltiazem treatment. 5. Pulmonary edema with superimposed Klebsiella pneumoniae. Infectious Disease Department on board. She is on Levaquin and linezolid at this moment. 6. Hypothyroidism. Continue with levothyroxine. 7. Acute kidney injury on chronic kidney disease. She is making some urine, but we have a positive balance of 7.5 L. She urinated around 1.1 L even though she received a dose of Lasix 200 mg x1 so I do not think she is responding too well to the Lasix. CRITICAL CARE TIME: 35 minutes. cc: David Olivier MD
--- NOTE | 2019-03-19 11:25 | Diag Imaging Result Doc PS360 ---
CHEST-PORTABLE - 03/19/2019 11:11 AM INDICATION: PICC line placement COMPARISON: 5:32 AM FINDINGS: There is a right PICC line in good position in the mid SVC. Stable endotracheal tube and nasogastric tube. No other changes in the chest. IMPRESSION: Good right PICC line placement. Electronically signed by Dean Virk 03/19/2019 11:23 AM
[2019-03-19] MEDS: LASIX IV SCH (11:45)
[2019-03-19] MEDS: ALBUMIN 25% IV SCH (11:45)
[2019-03-19] MEDS: LEVAQUIN 250 MG/D5W 250 MG/50 ML IVPB IV SCH (13:46)
--- NOTE | 2019-03-19 21:05 | INFECTIOUS DISEASE PROGRESS NO ---
DATE: 03/19/2019 PRESENT ILLNESS: Ms. Rios is being treated for a Klebsiella pneumonia and Escherichia coli urinary tract infection and a pansinusitis. MEDICATIONS: She is receiving Levaquin 250 mg IV daily. Today is day 2 of Levaquin 250 mg IV daily and day 10 of Zyvox 600 mg IV every 12 hours. PHYSICAL EXAMINATION: Vital Signs: Temperature is 98.4 degrees, pulse rate 83, respiratory rate 19, blood pressure 93/73, O2 saturation is 96% on a 50% FiO2 on the mechanical ventilator. General: This is an morbidly obese, chronically ill-appearing female. She is lying in the bed sedated on the mechanical ventilator. HEENT: Oral ET tube is in place. There was also a NG tube with tube feedings infusing. Respiratory: Lung sounds have coarse inspiratory and expiratory wheezes throughout. She is not breathing above the set rate on the ventilator. Cardiovascular: Irregularly irregular with atrial fibrillation on the monitor. Abdomen: Soft, obese, nontender. Bowel sounds are active. Neurologic: She is sedated at this time with Propofol. LABORATORY AND X-RAY: Today her white count is 5.7, hemoglobin 8.5, platelet count 121,000. PH is 7.45, pCO2 53, PO2 92 on a 50% FiO2 on the mechanical ventilator. Creatinine is 3.1, GFR is 19, total bilirubin is 0.36. AST 15, ALT 6, alkaline phosphatase 96. She has had a previous Escherichia coli in her urine and Klebsiella pneumoniae in her sputum. X-ray today shows worsening pulmonary edema with diffuse bilateral infiltrates compatible with pulmonary edema. ASSESSMENT AND PLAN: Ms. Rios is being treated for pneumonia, urinary tract infection and pansinusitis. There has been a slight drop in her platelet count today, so we will stop the Zyvox. She has been afebrile for the last couple of days and her white count has been normal and stable for several days as well. We will go ahead and draw a repeat procalcitonin in the morning and continue the Levaquin as ordered. These plans have been discussed with and recommended by Dr. Fair. COMORBIDITIES: For Ms. Rios include cardiac arrest on admission, congestive heart failure, coronary artery disease, COPD, gastroesophageal reflux disease, acute kidney injury, and atrial fibrillation. Dictated by FIONA Welsh for Arvind Fair MD cc: Arvind Fair MD MTDD
--- NOTE | 2019-03-19 21:41 | CARDIOLOGY PROGRESS NOTE ---
DATE: 03/19/2019 SUBJECTIVE: Ms. Rios is on sedation today. She continues on the ventilator. PHYSICAL EXAMINATION: Vital signs: She had a T-max of 100.2 degrees on 03/17/2019. Heart rate is 78. Blood pressure 116/67. Her inputs and outputs continue to be positive despite high doses of IV Lasix. General: No acute distress. Cardiovascular: She is in an irregularly irregular rate controlled rhythm, consistent with atrial fibrillation. She has mild bilateral lower extremity edema and warm and well perfused extremities. Chest: Coarse breath sounds diffusely. No increased work of breathing. She is breathing with the ventilator. Abdomen: Soft, nontender. PERTINENT DATA: White count 5.7, hematocrit 28, platelet count 121,000. Sodium 140, potassium is 3.3, BUN 72, creatinine is 3.1. BUN and creatinine were 69 and 3.4 yesterday with a proBNP of 15,000 yesterday. Albumin is 2.7. ASSESSMENT: Ms. Rios is a 48-year-old female with: 1. Chronic atrial fibrillation. 2. Respiratory failure. 3. Cor pulmonale. 4. Obesity hypoventilation. 5. Chronic kidney disease. PLAN: The patient is not diuresing significantly with high dose Lasix. It appears she will likely be a prolonged ventilator wean, likely complicated by her cardiac issues, pre-existing pulmonary issues, morbid obesity, and chronic kidney disease. It appears she has had a tracheostomy in the past. She may require one during this hospitalization. I will defer this decision to Pulmonology. Presently, the patient has received 200 mg of intravenous Lasix yesterday, and is receiving albumin presently as well. cc: Brian Peralta MD
--- NOTE | 2019-03-19 22:22 | NEPHROLOGY PROGRESS NOTE ---
DATE: 03/19/2019 SUBJECTIVE: Unchanged. She is sedated on propofol. OBJECTIVE: Vital Signs: Blood pressure 116/67, heart rate is 78, respirations 15, afebrile. Intake 2.6 L, output 1 L. General: No acute distress, sedated. Skin: Warm and dry. Neck: Neck veins are not appreciated. Heart: Regular, distant. Lungs: Equal, few scattered crackles. Abdomen: Obese, soft, decreased bowel sounds. Extremities: 3+ edema. No clubbing or cyanosis. IMPRESSION: Acute kidney injury. Ischemic acute tubular necrosis. BUN and creatinine continue to improve but her urine output remains low. Albumin is 2.7 so we will treat with albumin 50 g daily over the next 3 days and continue furosemide and observe her response. cc: Jose Luis Jean MD
[2019-03-20] MEDS: DIPRIVAN 1% 1,000 MG/100 ML BOTTLE IV SCH ×11 (00:50→21:54)
[2019-03-20] MEDS: LASIX IV SCH ×2 (00:54→11:02)
[2019-03-20] MEDS: CARDIZEM NG SCH ×4 (02:21→19:19)
[2019-03-20] MEDS: SOLU-MEDROL IV SCH ×3 (02:21→15:45)
[2019-03-20] MEDS: ATROVENT NEB INH SCH ×4 (03:38→21:12)
[2019-03-20] MEDS: XOPENEX NEB INH SCH ×4 (03:38→21:12)
[2019-03-20 04:32] LABS: ALLEN TEST YES; BE 9.7 mmoll (-3.0-3.0); BLOOD TYPE ARTERIAL; HCO3-(ACT) 32.5 mmoll (20.0-26.0); METHB 0.7 % (0.0-1.5); O2(CT) 13.5 mL/dL (15.0-23.0); O2HB 95.4 % (95.0-99.0); PCO2(98.6) 49 mmHg (35-45); PO2(98.6) 78 mmHg (60-100); SAMPLE BLOOD; SAO2 98.6 % (95.0-100.0); SRATE 15 BPM; TVOL 500 mL; pH(98.6) 7.46 (7.35-7.45)
[2019-03-20 04:34] LABS: MODALITY VENTILATOR
[2019-03-20] MEDS: SYNTHROID PO SCH (06:02)
[2019-03-20 06:17] LABS: HEMATOCRIT 30.3 % (37.0-47.0); HEMOGLOBIN 8.9 g/dL (12.0-16.0); MCH 24.7 PG (27-31); MCHC 29.4 g/dL (33-37); MCV 83.9 FL (81-99); MPV 10.9 FL (7.4-10.4); RBC 3.61 XMIL (4.2-5.4); WBC 3.61 X1000 (4.8-10.8)
--- NOTE | 2019-03-20 07:05 | Diag Imaging Result Doc PS360 ---
EXAM: CHEST-1 VIEW HISTORY: SOB TECHNIQUE: Single view COMPARISON: 03/19/2019 FINDINGS: No change in the endotracheal tube, nasogastric tube, or right PICC line. The heart is enlarged. There are bilateral infiltrates/pulmonary edema. IMPRESSION: No interval improvement Electronically signed by Patrick Cárdenas 03/20/2019 7:03 AM
[2019-03-20 07:11] LABS: CALCIUM 9.8 mg/dL (8.8-10.2); MAGNESIUM 2.3 mg/dL (1.5-2.7); PHOSPHORUS 4.3 mg/dL (2.7-4.5); POTASSIUM 3.6 mmol/L (3.5-5.1)
[2019-03-20] MEDS: ALBUMIN 25% IV SCH (08:17)
[2019-03-20] MEDS: LOVENOX SUBQ SCH (08:18)
[2019-03-20] MEDS: HALDOL IV PRN (11:30)
[2019-03-20] MEDS: LEVAQUIN 250 MG/D5W 250 MG/50 ML IVPB IV SCH (13:26)
--- NOTE | 2019-03-20 17:43 | PROGRESS NOTE ---
DATE: 03/20/2019 SUBJECTIVE: This patient is still on mechanical ventilation and sedated. She is still on propofol. As per the nurse a couple days ago, before the propofol she was following commands. No big changes compared with yesterday. She has a positive total balance of 9 L, and her urine output is a bit better, 1.6 L after getting albumin and Lasix 200 mg in 24 hours. It looks like she has a previous history of tracheostomy. Her creatinine is about the same compared with yesterday, but BUN is trending up. OBJECTIVE: Vital Signs: Temperature 97, pulse 77, respiratory rate 23, blood pressure 121/85, oxygen saturation 94% on mechanical ventilation. HEENT: Head normocephalic, no trauma. PERRLA. Neck: Supple. I cannot see JVD because of her neck size. She has a tracheostomy maureen from previous surgery. Central trachea. Chest: Decreased breath sounds bilaterally with some crackles and expiratory wheezing bilaterally, faint. Some rhonchi scattered bilaterally as well. Cardiovascular: Irregular rhythm. Abdomen: Soft, protuberant and distended, but nontender. Positive bowel sounds. Neurological: Patient is on mechanical ventilation and sedated. Breasts: She has some induration in the left lateral quadrant. LABORATORY: WBCs 3.6, hemoglobin 8.9, hematocrit 30.3, platelets 160. Sodium 135, potassium 3.6, chloride 88, bicarbonate 28, BUN 76, creatinine 3, glucose 124, calcium 9.8, magnesium 2.3. ASSESSMENT AND PLAN: 1. Status post cardiopulmonary arrest. We will continue with same management for now. Cardiology and Pulmonary Departments on board. She had an echocardiogram done that showed an ejection fraction of 35% to 40% on 03/09/2019, also increased pulmonary arterial pressure at 51 mm Hg/pulmonary hypertension. She is still on mechanical ventilation, and we will continue with same management for now. 2. Congestive heart failure with biventricular enlargement on echocardiogram, associated with pulmonary edema and elevated proBNP. We have been trying to diurese this patient with 100 mg of Lasix twice a day, and also she has been getting some albumin. Her urine output is a little bit better compared with yesterday but still not responding too well to Lasix. 3. Hypotension during initial stages of the hospital course, better. 4. Atrial fibrillation with rapid ventricular response, rate controlled now. She has been placed on anticoagulation by the Cardiology Department. Continue with the same medications. 5. Pulmonary edema with superimposed Klebsiella pneumonia. Infectious Disease Department on board. She is on Levaquin and linezolid at this moment. She is getting Lasix. 6. Hypothyroidism. Continue levothyroxine. 7. Acute kidney injury on chronic kidney disease with fluid overload. She is making some urine, but it is not enough given her doses of Lasix. She apparently voided around 1.6 L in the past 24 hours. CRITICAL CARE TIME: 30 minutes. cc: David Olivier MD
[2019-03-21] MEDS: LASIX IV SCH ×2 (00:35→11:28)
[2019-03-21] MEDS: DIPRIVAN 1% 1,000 MG/100 ML BOTTLE IV SCH ×13 (00:35→23:03)
--- NOTE | 2019-03-21 00:44 | NEPHROLOGY PROGRESS NOTE ---
DATE: 03/20/2019 SUBJECTIVE: She remains sedated, on the ventilator. OBJECTIVE: Blood pressure 132/87, heart rate 79, respirations 24. Afebrile. Intake 3 L, output 1.6 L. Generally unchanged exam. IMPRESSION AND PLAN: Acute kidney injury secondary to ischemic acute tubular necrosis. Slow but progressive improvement in BUN and creatinine. Urine output has improved. She is receiving IV albumin over the weekend and furosemide 100 mg twice daily. Observe. cc: Jose Luis Jean MD
[2019-03-21] MEDS: SOLU-MEDROL IV SCH ×3 (00:45→19:35)
[2019-03-21] MEDS: CARDIZEM NG SCH ×4 (02:09→19:35)
[2019-03-21] MEDS: ATROVENT NEB INH SCH ×4 (03:03→21:58)
[2019-03-21] MEDS: XOPENEX NEB INH SCH ×4 (03:03→21:59)
[2019-03-21 04:31] LABS: ALLEN TEST YES; BE 10.1 mmoll (-3.0-3.0); BLOOD TYPE ARTERIAL; HCO3-(ACT) 32.8 mmoll (20.0-26.0); O2(CT) 12.8 mL/dL (15.0-23.0); O2HB 95.4 % (95.0-99.0); PO2(98.6) 80 mmHg (60-100); SAMPLE BLOOD; SAO2 96.6 % (95.0-100.0); SRATE 15 BPM; THB 9.5 g/dL (11.5-17.4); TVOL 500 mL; pH(98.6) 7.43 (7.35-7.45)
[2019-03-21 04:33] LABS: MODALITY VENTILATOR; PCO2(98.6) 54 mmHg (35-45)
[2019-03-21] MEDS: SYNTHROID PO SCH (06:03)
[2019-03-21 07:04] LABS: CALCIUM 9.8 mg/dL (8.8-10.2); CREATININE 2.9 mg/dL (0.5-0.9); POTASSIUM 3.4 mmol/L (3.5-5.1)
[2019-03-21] MEDS: ALBUMIN 25% IV SCH (08:15)
[2019-03-21] MEDS: LOVENOX SUBQ SCH (08:15)
--- NOTE | 2019-03-21 08:16 | Diag Imaging Result Doc PS360 ---
EXAM: CHEST-1 VIEW - 03/21/2019 HISTORY: SOB TECHNIQUE: Portable chest one view COMPARISON: 03/20/2019 FINDINGS: Endotracheal tube, nasogastric tube, and PICC remain in place. There is cardiomegaly similar to prior. There has been mild decrease in bilateral infiltrates/edema. There is no evidence of pneumothorax. IMPRESSION: Mild decrease in bilateral infiltrates/edema compared to prior. Electronically signed by Adan Lind 03/21/2019 8:14 AM
--- NOTE | 2019-03-21 08:34 | PROGRESS NOTE ---
DATE: 03/21/2019 SUBJECTIVE: This patient is still on mechanical ventilation and sedated. Yesterday, she did not do well with the weaning trial. She became hypoxic, tachycardic, and tachypneic. I will continue with the same management. Urine output is around 1.8 L even though she is getting albumin and Lasix. BUN and creatinine are slightly decreased compared with yesterday. OBJECTIVE: Vital Signs: Temperature 96.9 degrees, pulse 90, respiratory rate 30, blood pressure 115/83, oxygen saturation 92 on mechanical ventilation. HEENT: Head normocephalic. No trauma. PERRLA. Neck: Supple. I cannot see JVD because of her neck size. Central trachea. She has a tracheostomy maureen/prior incision which is completely healed. Chest: Decreased breath sounds globally with some crackles and expiratory wheezing bilaterally, faint. She has some rhonchi scattered bilaterally as well. Cardiovascular: Irregular rhythm. Abdomen: Soft, protuberant, and slightly distended but I do not think it is tender. Positive bowel sounds. Neurological Examination: The patient is on mechanical ventilation and sedated. Breasts: She has some induration of the left lateral quadrant, left breast, but I do believe a fluid collection. We will observe for now. Laboratory: Sodium 138, potassium 3.4, chloride 91, bicarbonate 29, BUN 75, creatinine 2.9, glucose 119, calcium 9.8. ASSESSMENT AND PLAN: 1. Status post cardiopulmonary arrest. Continue with the same management for now. Cardiology and pulmonary department on board. She had an echocardiogram done that showed an ejection fraction of 35 to 40 percent on 03/09/2019. Also, she does have pulmonary hypertension. She is still on mechanical ventilation. She has been failing her spontaneous breathing trials. We will continue with the same management for now. Probably, she will end up with a tracheostomy and percutaneous endoscopic gastrostomy tube. 2. Congestive heart failure with biventricular enlargement on echocardiogram associated with pulmonary edema and elevated proBNP. We are trying to diurese this patient with Lasix and, also, she is getting some albumin by nephrology department. Urine output is around 1.8 L which is better compared with yesterday but still this patient is overloaded. 3. Hypotension during initial stages of the hospital course, better. 4. Atrial fibrillation with rapid ventricular response, rate controlled. She has been placed on anticoagulation by the cardiology department. Continue with the same management. 5. Pulmonary edema with superimposed Klebsiella pneumoniae. Infectious disease department on board. Continue with the same treatment. 6. Hypothyroidism. Continue with levothyroxine. 7. Acute kidney injury on chronic kidney disease with fluid overload. She is making some urine, around 1.8 L, even though she has been getting Lasix. Nephrology on board. We will continue with the same management. CRITICAL CARE TIME: 35 minutes. cc: David Olivier MD
[2019-03-21] MEDS: LEVAQUIN 250 MG/D5W 250 MG/50 ML IVPB IV SCH (14:12)
--- NOTE | 2019-03-21 15:11 | INFECTIOUS DISEASE PROGRESS NO ---
DATE: 03/21/2019 PRESENT ILLNESS: The patient is being treated for Klebsiella pneumonia, an E. coli urinary tract infection, and pansinusitis. MEDICATIONS: This is day 4 of treatment with IV Levaquin and day 12 of treatment with Zyvox. PHYSICAL EXAMINATION: Vital Signs: Temperature is 97.4 degrees, pulse 77, respirations 24, blood pressure 112/76. General: This is an obese, chronically ill-appearing female. She is lying in bed and she is sedated. Head, Eyes, Ears, Nose, and Throat: The patient has a nasogastric tube in place and a normal tracheal tube in place. There is no drainage from the nose or ears. Neck: No stiffness. Lungs: Clear to auscultation. Cardiovascular: Heart rate is irregular. Abdomen: Soft and not tender. Neurologic: The patient is sedated. She did not respond to verbal stimuli. LAB AND X-RAY: Chest x-ray shows a decrease in the infiltrate/edema. The creatinine is 2.9. GFR is 21. The patient's CBC shows a white count of 3610, hemoglobin 8.9, platelet count 160,000. Arterial blood gases show a pH of 7.43, a PO2 of 80, and a pCO2 of 54. ASSESSMENT AND PLAN: The patient is being treated for pneumonia and urinary tract infection and pansinusitis. The patient is being treated with Levaquin as a single agent. Procalcitonin has been ordered but the results are not yet back. COMORBIDITIES: The patient has had a cardiac arrest, congestive heart failure, coronary artery disease, chronic obstructive pulmonary disease, gastroesophageal reflux disease, acute injury, atrial fibrillation, and morbid obesity. cc: Arvind Fair MD
[2019-03-22] MEDS: DIPRIVAN 1% 1,000 MG/100 ML BOTTLE IV SCH ×12 (00:50→22:45)
[2019-03-22] MEDS: MORPHINE IV PRN (00:50)
[2019-03-22] MEDS: LASIX IV SCH (00:55)
[2019-03-22] MEDS: ATROVENT NEB INH SCH ×4 (02:58→22:47)
[2019-03-22] MEDS: XOPENEX NEB INH SCH ×4 (02:59→22:47)
[2019-03-22] MEDS: CARDIZEM NG SCH ×4 (03:14→20:05)
[2019-03-22 04:17] LABS: ALLEN TEST YES; BE 8.3 mmoll (-3.0-3.0); BLOOD TYPE ARTERIAL; HCO3-(ACT) 31.4 mmoll (20.0-26.0); METHB 0.8 % (0.0-1.5); O2(CT) 11.8 mL/dL (15.0-23.0); O2HB 95.3 % (95.0-99.0); PO2(98.6) 77 mmHg (60-100); SAMPLE BLOOD; SRATE 15 BPM; THB 8.7 g/dL (11.5-17.4); TVOL 500 mL; pH(98.6) 7.39 (7.35-7.45)
[2019-03-22 04:24] LABS: MODALITY VENTILATOR; PCO2(98.6) 57 mmHg (35-45)
[2019-03-22] MEDS: SYNTHROID PO SCH (06:04)
--- NOTE | 2019-03-22 06:25 | Diag Imaging Result Doc PS360 ---
EXAM: CHEST-1 VIEW HISTORY: SOB TECHNIQUE: Single view COMPARISON: 03/21/2019 FINDINGS: No change in the endotracheal tube or nasogastric tube. The heart is not enlarged. The bilateral infiltrates/pulmonary edema. There may be a small left pleural effusion. IMPRESSION: No interval improvement Electronically signed by Patrick Cárdenas 03/22/2019 6:22 AM
[2019-03-22 07:09] LABS: BASO# 0.01 X1000 (0.0-0.2); BASO% 0.2 % (0.0-0.8); HEMATOCRIT 27.4 % (37.0-47.0); HEMOGLOBIN 8.1 g/dL (12.0-16.0); LYMPH# 0.59 X1000 (1.2-3.4); LYMPH% 14.1 % (20.5-51.1); MCHC 29.6 g/dL (33-37); MCV 84.6 FL (81-99); MONO# 0.25 X1000 (0.11-0.59); MPV 10.7 FL (7.4-10.4); NEUT# 3.34 X1000 (1.4-6.5); NEUT% 79.7 % (42.2-75.2); PLT 139 X1000 (130-400); RBC 3.24 XMIL (4.2-5.4); RDW 18.9 % (11.5-14.5); WBC 4.19 X1000 (4.8-10.8)
[2019-03-22 07:42] LABS: ALB/GLOB RATIO 0.9; ALBUMIN 3.5 g/dL (3.5-5.0); CALCIUM 9.1 mg/dL (8.8-10.2); CREATININE 2.9 mg/dL (0.5-0.9); MAGNESIUM 2.3 mg/dL (1.5-2.7); PHOSPHORUS 5.6 mg/dL (2.7-4.5); POTASSIUM 3.7 mmol/L (3.5-5.1); TOTAL BILIRUBIN 0.32 mg/dL (0.20-1.00); TOTAL PROTEIN 7.3 g/dL (6.3-8.3)
[2019-03-22] MEDS: SOLU-MEDROL IV SCH ×2 (08:12→20:05)
[2019-03-22] MEDS: LOVENOX SUBQ SCH (08:12)
[2019-03-22] MEDS ORDERED: ZAROXOLYN PO ONE ×2 (08:56→11:00)
[2019-03-22] MEDS ORDERED: LASIX IV SCH (09:00)
[2019-03-22] MEDS: LASIX 200 MG in NS 25 ML IV SCH ×2 (10:40→20:05)
--- NOTE | 2019-03-22 11:08 | INFECTIOUS DISEASE PROGRESS NO ---
DATE: 03/22/2019 PRESENT ILLNESS: The patient is being treated for Klebsiella pneumonia, E coli urinary tract infection, and pansinusitis. MEDICATIONS: This is day 5 of treatment with IV Levaquin. PHYSICAL EXAMINATION: Vital Signs: Temperature is 99.4 degrees, pulse 78, respirations 24, blood pressure is 134/90. General: This is a morbidly obese, chronically ill-appearing, elderly female. She is lying in her bed. She is intubated and sedated. Head/eyes/ears/nose/throat: She has nasogastric and orotracheal tubes in place. There is no drainage from the nose or ears. Neck: No stiffness to passive movement. Lungs: Clear to auscultation. Cardiovascular: Heart rate is irregular. Abdomen: Soft and not tender. Neurologic: The patient is sedated. She did not respond to verbal stimuli. There is no tremor. LAB AND X-RAY: Chest x-ray shows bilateral infiltrates/pulmonary edema. A procalcitonin level is pending. CBC shows a white count of 4190, hemoglobin 8.1, platelet count 139,000 blood gases show a pH of 7.39, a PO2 of 77, and a pCO2 of 57. Creatinine is 2.9. GFR is 21. ASSESSMENT AND PLAN: The patient is being treated for pneumonia, urinary tract infection, and pansinusitis. I plan on continuing having Levaquin as a single agent. A procalcitonin level is pending. COMORBIDITIES: The patient had a cardiac arrest. She has congestive heart failure, coronary artery disease, chronic obstructive pulmonary disease, gastroesophageal reflux disease and an acute renal injury, atrial fibrillation and morbid obesity. cc: Arvind Fair MD
[2019-03-22] MEDS: LEVAQUIN 250 MG/D5W 250 MG/50 ML IVPB IV SCH (14:43)
--- NOTE | 2019-03-22 14:51 | PROGRESS NOTE ---
DATE: 03/22/2019 SUBJECTIVE: Today Ms. Rios continues to be intubated. No family member at the bedside. OBJECTIVE: Vital signs: Blood pressure is 134/90, pulse of 78, respiration is 24. General exam: Ms. Rios is a 48-year-old female, morbidly obese. She is in bed. She continues to be intubated and sedated on propofol. HEENT: Mucosa is pink and moist. Anicteric. Acyanotic. Neck: Supple. Chest: Air entry is bilaterally reduced. There is some transmitted sound from the ventilator. Cardiovascular: Irregularly irregular, but rate controlled. GI/Abdomen: Soft. Bowel sounds present. Extremities: No pedal edema. The patient is morbidly obese. Central nervous system: Good corneal reflex and cough reflex. I understand patient is able to squeeze and follow basic command once the sedation is off. LABORATORY DATA: WBC is 4.19, hemoglobin is 8.1, platelet count of 139. Chemistry is also reviewed. Creatinine is down to 2.9, but the BUN has gone up to 94. The patient's intake and output: Urine output was 1800. She is currently still positive balance over 12,000 during the hospital course. IMAGING STUDIES: This morning remained the same. No changes. ASSESSMENT: 1. Status post cardiopulmonary arrest. 2. Acute hypoxemic respiratory failure and acute on chronic hypercarbic respiratory failure. The patient continues to be on the ventilator; today is day 13. 3. Congestive heart failure in exacerbation complicated with pulmonary edema. The patient is on diuretic therapy. 4. Hypotension during the initial stages of the hospital course, resolved. 5. Chronic atrial fibrillation that went into rapid ventricular response during the initial stages of the hospital course. This is currently rate controlled. 6. Klebsiella pneumoniae pneumonia. 7. Hypothyroidism. 8. Acute kidney injury secondary to acute tubular necrosis. Nephrology is on board. PLAN: In general, Ms. Rios continues to be intubated. As I said, today is date 13. We are going to wait on Pulmonary Medicine further recommendation. It appears to me that Ms. Rios is going to need probably tracheostomy. We will however defer that recommendation to Pulmonary Medicine. cc: Zafar Ma MD
--- NOTE | 2019-03-22 16:35 | PROVIDER PROGRESS NOTE ---
Progress Note Subjective: Intubated and sedated. Not doing well with weaning trials. Objective: temp 98.1, pulse 86, respirations 18, blood pressure 106/60, 02 sat 93% on 50% FiO2 mechanical ventilation General: obese -[place] female lying in bed intubated in no acute distress. HEENT: normocephalic, atraumatic. Pupils equal and reactive, sluggish, trachea midline, endotracheal tube in place, NG tube in place. Skin: warm and dry. neck: supple, no JVD observed due to body habitus. Cardiovascular: S1s2, no murmur or gallop. Enlarged PMI Respiratory: rhonchi bilaterally, diminished bases Abdomen: obese, soft, nontender, nondistended. Hypoactive bowel sounds. : none inspected, Robison in place with eric urine. Extremities: 3+ pitting Edema to BLE up to abdominal wall. Neurological: sedated. Labs: intake 2077, output 575. Wbc 4.19, hemoglobin 8.1, hematocrit 27.4, platelet count 139, sodium 135, potassium 3.7, chloride 89, carbon dioxide 34, BUN 94, creatinine 2.9. Impression: Acute kidney injury likely acute tubular necrosis from cardiac arrest. Creatinine stable. Decreased urine output. We will maximize her diuretics, if no significant response we will plan to dialyze tomorrow. Does not require urgent renal replacement therapy at this time. Blood pressure. In target. Electrolytes and acid base balance. Stable. Volume status. Expanded. Lasix maximized. Nutrition. Tube feeding in place. Medication review.
--- NOTE | 2019-03-22 19:36 | CARDIOLOGY PROGRESS NOTE ---
DATE: 03/22/2019 SUBJECTIVE: Ms. Rios is sedated on the ventilator. She is not following commands. PHYSICAL EXAMINATION: Vital Signs: She is afebrile. Heart rate is 78. Blood pressure 134/90. General: She is in no acute distress. Cardiovascular: She has distant heart sounds. She is warm and well perfused. Edematous extremities. Respiratory: Her chest exam has coarse mechanical breath sounds diffusely. Abdomen: Soft, nontender. PERTINENT DATA: White count 4.1 hematocrit 27, platelet count is 139,000. Sodium is 135, potassium 3.7, BUN 94, creatinine is 2.9 creatinine is roughly stable. BUN has escalated from yesterday. Albumin is 3.5. ASSESSMENT: Ms. Rios is a 48-year-old female with chronic kidney disease. She presented in respiratory failure. Some issues with volume overload during the hospitalization and has developed a pneumonia as well. PLAN: Chronic atrial fibrillation is stable for the patient. She is reasonably rate controlled. She is on weight based Lovenox at this point. She is receiving IV diuretics and her albumin is repleted although this does not seem to be making a significant impact on her fluid balance. I do not have any acute recommendations at this time. cc: Brian Peralta MD
[2019-03-23] MEDS: DIPRIVAN 1% 1,000 MG/100 ML BOTTLE IV SCH ×12 (00:29→20:55)
[2019-03-23] MEDS: CARDIZEM NG SCH ×4 (01:12→20:49)
[2019-03-23] MEDS: ATROVENT NEB INH SCH ×4 (03:42→21:54)
[2019-03-23] MEDS: XOPENEX NEB INH SCH ×4 (03:43→21:54)
[2019-03-23] MEDS: DUONEB (A & A) INH PRN (04:01)
[2019-03-23 04:54] LABS: ALLEN TEST YES; BE 3.4 mmoll (-3.0-3.0); BLOOD TYPE ARTERIAL; HCO3-(ACT) 27.5 mmoll (20.0-26.0); METHB 1.4 % (0.0-1.5); O2(CT) 15.8 mL/dL (15.0-23.0); O2HB 93.5 % (95.0-99.0); PO2(98.6) 76 mmHg (60-100); SAMPLE BLOOD; SAO2 96.7 % (95.0-100.0); SRATE 15 BPM; TVOL 500 mL; pH(98.6) 7.32 (7.35-7.45)
[2019-03-23 04:55] LABS: MODALITY VENTILATOR; PCO2(98.6) 60 mmHg (35-45)
[2019-03-23 05:27] LABS: BASO# 0.01 X1000 (0.0-0.2); BASO% 0.1 % (0.0-0.8); HEMATOCRIT 25.7 % (37.0-47.0); HEMOGLOBIN 7.7 g/dL (12.0-16.0); IMM GRAN# 0.04 X1000 (0.0-0.04); IMM GRAN% 0.6 % (0.0-0.5); LYMPH# 0.81 X1000 (1.2-3.4); LYMPH% 12.1 % (20.5-51.1); MCH 25.2 PG (27-31); MCV 84.3 FL (81-99); MONO# 0.46 X1000 (0.11-0.59); MONO% 6.9 % (1.7-9.3); MPV 10.8 FL (7.4-10.4); NEUT# 5.35 X1000 (1.4-6.5); NEUT% 80.3 % (42.2-75.2); PLT 144 X1000 (130-400); RBC 3.05 XMIL (4.2-5.4); RDW 18.7 % (11.5-14.5); WBC 6.67 X1000 (4.8-10.8)
[2019-03-23 05:57] LABS: ALB/GLOB RATIO 1.1; ALBUMIN 3.5 g/dL (3.5-5.0); CALCIUM 8.5 mg/dL (8.8-10.2); CREATININE 3.4 mg/dL (0.5-0.9); POTASSIUM 3.7 mmol/L (3.5-5.1); TOTAL BILIRUBIN 0.35 mg/dL (0.20-1.00); TOTAL PROTEIN 6.7 g/dL (6.3-8.3)
[2019-03-23] MEDS: SYNTHROID PO SCH (06:07)
--- NOTE | 2019-03-23 07:05 | Diag Imaging Result Doc PS360 ---
EXAM: CHEST-1 VIEW 03/23/2019 HISTORY: SOB TECHNIQUE: AP portable at 0527 COMMENT: There is an endotracheal tube with its tip at the thoracic inlet. There is an NG tube which passes below the diaphragm. There is a PICC line on the right with its tip in the superior vena cava. There is cardiomegaly. There is perihilar alveolar opacity bilaterally. Compared to the previous examination of 03/22/2019 there has been slight improvement in the left upper lobe, and the left lower lobe appears slightly clearer. IMPRESSION: Slightly improved pulmonary edema and/or pneumonia. Electronically signed by George Gentile 03/23/2019 7:03 AM
[2019-03-23] MEDS: LOVENOX SUBQ SCH (08:07)
[2019-03-23] MEDS: LASIX 200 MG in NS 25 ML IV SCH ×2 (08:07→20:49)
[2019-03-23] MEDS: MORPHINE IV PRN (10:33)
[2019-03-23] MEDS ORDERED: NS 2,000 ML MISC PRN (11:06)
--- NOTE | 2019-03-23 13:08 | PROVIDER PROGRESS NOTE ---
Progress Note Subjective: Intubated and sedated. Staff voices her not able to attempt wean trials. Objective: temp 98.0, pulse 97, respirations 30, blood pressure 113/70, 02 sat 93% on 50% FiO2 mechanical ventilation. General: obese -[place] female lying in bed intubated in no acute distress. HEENT: normocephalic, atraumatic. Pupils equal and reactive, sluggish, trachea midline, endotracheal tube in place, NG tube in place. Skin: warm and dry. neck: supple, JVD observed. Cardiovascular: S1s2, no murmur. gallop noted. Enlarged PMI Respiratory: rhonchi bilaterally, diminished bases Abdomen: obese, soft, nontender, nondistended. Hypoactive bowel sounds. : none inspected, Robison in place with eric urine. Extremities: 3+ pitting Edema to BLE up to abdominal wall. Neurological: sedated. Labs: WBC 6.67, hemoglobin 7.7, hematocrit 25.7, platelet count 144, sodium 136, potassium 3.7, chloride 89, carbon dioxide 28, B1 110, creatinine 3.4. Intake 3006, output 1250. Impression: Acute kidney injury likely acute tubular necrosis from cardiac arrest. Creatinine trending up. Inadequate urine output on lasix 200 bid. We will plan to start hemodialysis. Blood pressure. In target. Electrolytes and acid base balance. Stable. Volume status. Expanded. Lasix maximized. Nutrition. Tube feeding in place. Medication review.
--- NOTE | 2019-03-23 13:10 | Diag Imaging Result Doc PS360 ---
EXAM: CHEST-PORTABLE 03/23/2019 HISTORY: vas cath placement TECHNIQUE: AP portable at 1255 COMMENT: There is a large bore catheter in the right internal jugular with its tip in the superior vena cava. There is no evidence of pneumothorax. There is a PICC line on the right with its tip apparently in the superior vena cava. There is a mitral valve prosthesis. There is alveolar opacification throughout much of the right lower and middle lobes. There is also some opacification of the lower portion of the upper lobe and questionably in the left lower lobe. The endotracheal tube tip is just above the damaris. The NG tube passes below the diaphragm. IMPRESSION: Pulmonary edema and/or pneumonia worse than on 03/23/2019 at 0527. Electronically signed by George Gentile 03/23/2019 1:08 PM
[2019-03-23] MEDS: LEVAQUIN 250 MG/D5W 250 MG/50 ML IVPB IV SCH (13:37)
--- NOTE | 2019-03-23 17:04 | OPERATIVE NOTE ---
PROCEDURE DATE: 03/23/2019 PREOPERATIVE DIAGNOSIS: Acute renal failure requiring hemodialysis. POSTOPERATIVE DIAGNOSIS: Acute renal failure requiring hemodialysis. PRINCIPAL PROCEDURE: Right internal jugular Vas-Cath using ultrasound. SURGEON: Mesha Diallo MD. ANESTHESIA: Local. ESTIMATED BLOOD LOSS: 25 mL. DRAINS: None. INDICATIONS: Vicki Rios is a 48-year-old morbidly obese black female in our ICU intubated and sedated. We were asked to place access for acute hemodialysis. DESCRIPTION OF PROCEDURE: The patient was placed supine in her bed ICU 6. Her head was turned to the left. Her right neck, shoulder, and anterior chest were prepped and draped in a sterile field. I used ultrasound to identify the right internal jugular vein between the 2 heads of the sternocleidomastoid muscle. Local anesthetic was used. I used an 18-gauge needle under ultrasound guidance to access the right internal jugular vein. A guidewire was placed through this needle into the right side of the heart. The needle was removed. A small asa was made in the skin with 11 blade scalpel. At the exit site of the guidewire. We placed sequential dilators over the guidewire into the internal jugular vein on the right. I then used a 13 cm in length Vas- Cath and placed it over the guidewire into the superior vena cava. The guidewire was removed and the ports were both functional and flushed with saline. I secured the catheter to the skin with two 3-0 nylon stitches. Dressings were applied. Plans are for a portable chest x-ray for placement and I notified Nephrology that the catheter was in place. cc: Mesha Diallo MD
--- NOTE | 2019-03-23 18:40 | INFECTIOUS DISEASE PROGRESS NO ---
DATE: 03/23/2019 PRESENT ILLNESS: The patient is being treated for the following infections. 1. Klebsiella pneumonia. 2. E coli urinary tract infection. 3. Pansinusitis. MEDICATIONS: This is day 6 of treatment with IV Levaquin. PHYSICAL EXAMINATION: Vital Signs: Temperature is 98 degrees, pulse 96, respirations 27, blood pressure 111/59. General: This is a morbidly obese, chronically ill-appearing middle-aged female. She is in no acute distress. Head/eyes/ears/nose/throat: She has an orotracheal tube in place and a nasogastric tube in place. There is no drainage from the nose or ears. Neck: No stiffness when I passively moved her neck. Lungs: Today there were bilateral rhonchi and the breath sounds were distant. Cardiovascular: Heart rate is irregular. Abdomen: Soft and not tender. Neurologic: The patient is sedated. She did not respond to verbal stimuli. LAB AND X-RAY: Chest x-ray shows improvement in the patient's infiltrate. The CBC shows a white count of 6670, hemoglobin 7.7, and platelet count 144,000. Blood gases show a pH of 7.32, a PO2 of 76, and a pCO2 of 60. Creatinine is 3.4. GFR is 17. Liver function studies are normal. ASSESSMENT AND PLAN: The patient is being treated for pneumonia, urinary tract infection and pants and pansinusitis. I plan on continuing Levaquin. The patient still has a procalcitonin level that has not yet been returned. COMORBIDITIES: The patient had a cardiac arrest. She has congestive heart failure, chronic obstructive pulmonary disease, gastroesophageal reflux disease, and acute renal injury. She also is in atrial fibrillation and she is morbidly obese. cc: Arvind Fair MD
--- NOTE | 2019-03-23 18:40 | PROGRESS NOTE ---
DATE: 03/23/2019 SUBJECTIVE: This morning Mr. Rios continues to be in the ICU intubated and sedated. There was no family member at the bedside at the time of the encounter. OBJECTIVE: Vital signs: Blood pressure is 102/68, pulse of 108, respirations 24, temperature is 97.4 degrees. General: Ms. Rios is a 48-year-old female. She is morbidly obese with a BMI of 65.6. She is in bed. She seems to be synchronizing well with the ventilator. Mucosa is pink. Anicteric. Chest: Air entry was bilaterally reduced. There are crackles in the posterior lung perry. There is a lot of transmitted sounds also from the ventilator. Cardiovascular: Irregularly irregular. Slightly tachycardic. GI: Abdomen is soft. It is distended. Bowel sounds present. Extremities: About 2 to 3+ pedal edema. CRNP: The patient is currently sedated, but will move to painful stimulation. PROCEDURES: She already had the placement of a right IJ dialysis catheter and dialysis was actually ongoing at the time of the encounter. LABORATORY DATA: Has also been reviewed. She is still anemic with a hemoglobin of 7.7. She is not showing any obvious bleeding. Her pH is 7.32, pCO2 of 60, PaO2 of 73. Chemistry is also consistent with renal failure with creatinine trending up and BUN also trending up. A chest x-ray that was done early on today shows slightly improving in the pulmonary edema and/or pneumonia. The one that has been done immediately after the placement of the tube shows pulmonary edema and/or pneumonia has gotten worse. ASSESSMENT: 1. Status post cardiopulmonary arrest. Patient continues to be on the ventilator. 2. Acute hypoxemic respiratory failure and acute on chronic hypercarbic respiratory failure. We are going to continue with the vent support. The patient is day 14 on the ventilator. I have spoken with Dr. Chambers who is the Pulmonary Medicine on board and he is going to consult surgery for tracheostomy. 3. Pulmonary edema secondary to congestive heart failure. The patient has been given multiple challenges of high doses of Lasix. She continues to be volume overload. 4. Chronic atrial fibrillation which went into rapid ventricular response during the initial stages of the hospital course. The patient is tolerating p.o. 5. Klebsiella pneumoniae pneumonia. The patient is on Levaquin. A chest x-ray just a while ago, seems to suggest worsening of the right lower lobe infiltrate. We will get a sputum culture and await Infectious Disease to evaluate her and see if they would want to make any changes in the antimicrobial coverage. 6. Hypothyroidism. Will continue with the Synthroid. 7. Acute kidney injury secondary to acute tubular necrosis. The patient has not shown any improvement. Her kidney function is actually getting worse, so she has been started on dialysis today. 8. Normocytic anemia with hemoglobin of 7.7. We are going to continue to monitor this. The patient will be transfuse if hemoglobin drops below 7. cc: Zafar Ma MD
[2019-03-23] MEDS ORDERED: SOLU-MEDROL IV SCH (20:00)
[2019-03-24] MEDS: DIPRIVAN 1% 1,000 MG/100 ML BOTTLE IV SCH ×3 (00:45→04:54)
[2019-03-24] MEDS: CARDIZEM NG SCH ×3 (02:17→15:13)
[2019-03-24] MEDS: ATROVENT NEB INH SCH ×4 (03:02→21:15)
[2019-03-24] MEDS: XOPENEX NEB INH SCH ×4 (03:02→21:15)
[2019-03-24 05:06] LABS: ALLEN TEST YES; BE 0.6 mmoll (-3.0-3.0); BLOOD TYPE ARTERIAL; HCO3-(ACT) 25.3 mmoll (20.0-26.0); METHB 0.7 % (0.0-1.5); O2(CT) 11.7 mL/dL (15.0-23.0); O2HB 92.7 % (95.0-99.0); PO2(98.6) 69 mmHg (60-100); SAMPLE BLOOD; SRATE 15 BPM; THB 8.9 g/dL (11.5-17.4); TVOL 500 mL; pH(98.6) 7.33 (7.35-7.45)
[2019-03-24 05:08] LABS: MODALITY VENTILATOR; PCO2(98.6) 51 mmHg (35-45)
[2019-03-24] MEDS ORDERED: NS 2,000 ML MISC PRN (06:18)
[2019-03-24 06:25] LABS: ALB/GLOB RATIO 1.2; ALBUMIN 3.8 g/dL (3.5-5.0); CALCIUM 8.6 mg/dL (8.8-10.2); CREATININE 2.6 mg/dL (0.5-0.9); POTASSIUM 4.4 mmol/L (3.5-5.1); TOTAL BILIRUBIN 0.41 mg/dL (0.20-1.00); TOTAL PROTEIN 7.1 g/dL (6.3-8.3)
[2019-03-24] MEDS: SYNTHROID PO SCH (06:27)
--- NOTE | 2019-03-24 07:29 | Diag Imaging Result Doc PS360 ---
EXAM: CHEST-1 VIEW INDICATION: SOB TECHNIQUE: One view COMPARISON: 03/23/2019 FINDINGS: Support tubes and lines are in stable positions. Hazy airspace consolidation throughout a majority of the right lung is again identified. It is marginally increased in density as compared to the previous study. This probably due to positioning, however. No new consolidation is identified, otherwise. Cardiac silhouette is stable. IMPRESSION: Slight increase in density of the right infiltrate as described. Electronically signed by Jann Mcknight 03/24/2019 7:26 AM
[2019-03-24 07:32] LABS: BASO# 0.12 X1000 (0.0-0.2); BASO% 0.6 % (0.0-0.8); EOS# 0.05 X1000 (0.0-0.7); EOS% 0.2 % (0.0-10.0); HEMATOCRIT 27.4 % (37.0-47.0); HEMOGLOBIN 8.3 g/dL (12.0-16.0); IMM GRAN# 0.85 X1000 (0.0-0.04); IMM GRAN% 4.2 % (0.0-0.5); LYMPH# 2.18 X1000 (1.2-3.4); LYMPH% 10.8 % (20.5-51.1); MCH 25.9 PG (27-31); MCHC 30.3 g/dL (33-37); MCV 85.4 FL (81-99); MONO# 2.03 X1000 (0.11-0.59); MPV 11.3 FL (7.4-10.4); NEUT# 14.99 X1000 (1.4-6.5); NEUT% 74.2 % (42.2-75.2); PLT 161 X1000 (130-400); RBC 3.21 XMIL (4.2-5.4); RDW 19.4 % (11.5-14.5); WBC 20.22 X1000 (4.8-10.8)
[2019-03-24] MEDS: ATIVAN IV PRN ×2 (07:35→12:02)
--- NOTE | 2019-03-24 07:47 | CONSULTATION ---
DATE OF CONSULTATION: 03/23/2019 HISTORY: Ms. Vicki Rios is a 48-year-old morbidly obese black female who is hospitalized in our ICU bed 6 on the ventilator, and being cared for by Dr. Chambers. We were asked to place a tracheostomy. Of note, she has had a previous tracheostomy in the past. She has a very large neck and is morbidly obese. She has been hospitalized since 03/09/2019. She was admitted through our emergency department with respiratory distress, and actually went through a code. I placed a Vas-Cath in her today before dialysis. She resides in a [facility]. PAST MEDICAL HISTORY: Coronary artery disease, congestive heart failure, hypertension, myocardial infarction, COPD, sleep apnea, gastroesophageal reflux disease, acute renal failure, history of stroke, thyroid disorder, diabetes, depression and anxiety. MEDICATIONS: She takes numerous medications including Lasix, Cardizem, Ambien, Bumex, carvedilol, Dexilant, Brinklow, Synthroid, and Xarelto. ALLERGIES: Darvocet and Keflex PHYSICAL EXAMINATION: On exam, Ms. Rios is morbidly obese. She is in our ICU on the ventilator. She has had a previous tracheostomy. She has a very large neck. She is not responsive because she is sedated. Her heart has a regular rate. Lungs have crackles bilaterally. Abdomen is distended, but no tenderness that we can tell. Rectal and vaginal exams are not performed. She did have palpable femoral pulses. Neurologically, she is sedated. IMPRESSION: Morbidly obese black female in our ICU with previous trach on the ventilator since 03/09/2019. PLAN: I will hold off on tracheostomy at this time. She has a very large neck. She is morbidly obese, and she has had previous tracheostomy. I think it would be very high risk to repeat a tracheostomy in her. We would also need specialized tracheostomy tube which is longer than normal. I would ask that she be treated with an endotracheal tube. Further decisions made for long-term care. cc: Mesha Diallo MD
[2019-03-24] MEDS: DUONEB (A & A) INH PRN (07:54)
[2019-03-24] MEDS: MUCOMYST 20% INH SCH ×2 (07:55→21:15)
[2019-03-24 09:07] LABS: BANDS 8 % (0-1); HYPOCHROM 1+; LYMPHS 6 % (21-51); NRBC 1 % (0-0); SEGS 84 % (42-75)
[2019-03-24] MEDS: LOVENOX SUBQ SCH (09:23)
[2019-03-24] MEDS: CARDIZEM 100 MG/NS 100 MG/100 ML IVPB IV SCH ×2 (09:23→15:52)
[2019-03-24] MEDS: LASIX 200 MG in NS 25 ML IV SCH ×2 (10:00→20:46)
[2019-03-24 11:06] LABS: HEPATITIS PROFILE ACUTE SEE COMMENTS
--- NOTE | 2019-03-24 13:25 | NEPHROLOGY PROGRESS NOTE ---
DATE: 03/24/2019 SUBJECTIVE: Sedated. Unresponsive. OBJECTIVE: Vital Signs: Blood pressure 84/56, heart rate 118, respirations 17, afebrile. Intake 2.8 L; output. 2.7 L by dialysis. This is not recorded. Generally: Unresponsive. Neck: Neck vein distention is not obvious today. Heart: Very distant, but regular. Lungs: Equal. Coarse. No crackles or wheezes. Abdomen: Obese, soft. Decreased bowel sounds. Extremities: 3+ edema. IMPRESSION: Acute kidney injury. She had her first treatment with slow, low efficiency dialysis yesterday. Repeat today. Four potassium bath, 30 bicarbonate, 4 to 6 liters ultrafiltration as tolerated. I will have vasopressor support available as needed. cc: Jose Luis Jean MD
--- NOTE | 2019-03-24 13:41 | PROGRESS NOTE ---
DATE: 03/24/2019 SUBJECTIVE: This morning, Ms. Rios continues to be intubated in the ICU. Per the nursing staff, she does not seem to be tolerating her tube feedings and that she has been having high residuals. OBJECTIVE: Vital signs: Blood pressure is 90/67 with a pulse of 117, temperature is 99.2 degrees. General exam: Ms. Rios is a 48-year-old, morbidly obese, female. She is in bed. HEENT: Mucosa is pink and moist. Anicteric. Acyanotic. Neck: Supple. Chest: Air entry is bilaterally reduced. Some transmitted sounds from the ventilator. Cardiovascular: Irregularly irregular, but rate controlled on the Cardizem drip. Extremities: About 2+ pedal edema. PROFESSOR OF LITERACY: Patient is currently intubated and sedated. She, however, has very good pupillary reflex, and per the nursing staff she also has gag. She will move lower extremities to painful stimulation. LABORATORY DATA: WBC is up to 20.22, hemoglobin is 8.3, platelet count of 161. Chemistry is also reviewed. Creatinine is down to 2.6. Obviously, she got dialyzed yesterday; I understand 2700 was pulled off. Her current sputum culture is still showing gram-negative anthony. Antibiotics have been changed to aztreonam. Levaquin has been discontinued. ASSESSMENT: 1. Status post cardiopulmonary arrest. 2. Acute hypoxemic respiratory failure and acute on chronic hypercarbic respiratory failure. The patient continues to be needing ventilator; today is day 15 on the ventilator. I think there is a consultation for Surgery to evaluate for tracheostomy. 3. Klebsiella pneumoniae pneumonia. Patient was on Levaquin yesterday. We did repeat a chest x- ray which did show some worsening on the right lower lobe. We repeated the culture from the sputum and is showing gram-negative anthony. I am not sure if it is the same Klebsiella or it is a different pathogen associated with ventilator-associated pneumonia. Antibiotics have been switched to aztreonam. Infectious Disease is on board. 4. Hypothyroidism. The patient is on Synthroid. 5. Chronic atrial fibrillation, went into rapid ventricular response. Because patient is currently not tolerating her diet, we will stop the oral Cardizem and switch her to intravenous drip. 6. Acute kidney injury secondary to acute tubular necrosis. Patient is currently on slow, low efficiency dialysis. 7. Normocytic anemia with hemoglobin of 8.3. Continue monitoring. No obvious signs of bleeding. 8. High residuals with the tube feedings. We are going to start Ms. Rios on Reglan to help with gastrointestinal tract motility. cc: Zafar Ma MD MTDD
--- NOTE | 2019-03-24 17:08 | INFECTIOUS DISEASE PROGRESS NO ---
DATE: 03/24/2019 PRESENT ILLNESS: Ms. Rios has been treated for Klebsiella pneumonia, an Escherichia coli urinary tract infection and a pansinusitis. Today she has had an increased leukocytosis as well as some worsening on the chest x-ray. MEDICATIONS: Today is day 7 of IV Levaquin as a single agent, renally dosed. PHYSICAL EXAMINATION: Vital Signs: Temperature is 99.2 degrees, pulse rate 115, respiratory rate 28, blood pressure 90/67, O2 saturation is 92% on a 60% FiO2 on a mechanical ventilator. General: This is a morbidly obese, critically ill-appearing, middle-aged female. She is lying in the bed on the mechanical ventilator and is also receiving SLED at this time. HEENT: Atraumatic, normocephalic. Oral mucous membranes are pink and dry. Conjunctivae are pale. Oral ET tube is in place as well as an NG tube which is clamped at this time. Respiratory: Lung sounds have coarse rhonchi bilaterally with tachypnea noted. The patient is breathing above the set rate on the ventilator. Cardiovascular: Irregularly irregular with atrial fibrillation on the monitor. Abdomen: Soft, obese, nontender. Bowel sounds are active. Neurologic: She is sedated, on the ventilator at this time. Integumentary: Skin is warm and moist to the intertriginous areas. There is a dialysis catheter, currently in use, to the right intrajugular. LABORATORY AND X-RAY: Today her white count is 20.22, hemoglobin 8.3, platelet count 161,000, pH is 7.33, pCO2 51, PO2 69, on a 50% FiO2 on the mechanical ventilator. Creatinine is 2.6, GFR 24. Most recently her repeat procalcitonin showed 0.55 making it very likely that there is a respiratory tract infection. Her repeat sputum from yesterday is growing a gram-negative anthony and also has gram-positive cocci in the Gram stain. Chest x-ray today shows a slight increase in the density of the right infiltrates. ASSESSMENT AND PLAN: Ms. Rios is being treated for Klebsiella pneumonia. The repeat sputum is growing another gram-negative anthony which may be a Klebsiella. She has also had an Escherichia coli urinary tract infection and a pansinusitis. There is also a leukocytosis which may be in part due to the administration of Solu-Medrol, however she has been on Solu-Medrol on and off without a spike this high. At this time, we will stop the Levaquin since she has gotten worse on that. I have spoken with Dr. Jean. We will provide her with gram-negative coverage using Azactam 1 gram in the evening after dialysis, since she is now on SLED. Also we will give her Zyvox 600 mg IV every 12 hours. Because the cara-synephrine is not compatible with Zyvox, and she has not been on it recently, we will remove it from the MAR at this time. These plans have been discussed with and recommended by Dr. Fair. COMORBIDITIES: For Ms. Rios include cardiac arrest, morbid obesity, congestive heart failure, COPD, gastroesophageal reflux disease, atrial fibrillation, and acute kidney injury with hemodialysis. Dictated by FIONA Welsh for Arvidn Fair MD cc: Arvind Fair MD [facility]
[2019-03-24] MEDS: ZYVOX 600 MG/D5W 600 MG/300 ML IVPB IV SCH (18:00)
[2019-03-24] MEDS: AZACTAM 1 GM in NS 50 ML IV SCH (18:01)
[2019-03-25] MEDS: CARDIZEM NG SCH ×2 (00:14→01:28)
[2019-03-25] MEDS: CARDIZEM 100 MG/NS 100 MG/100 ML IVPB IV SCH ×4 (00:15→19:30)
[2019-03-25] MEDS: ATROVENT NEB INH SCH ×4 (03:42→23:21)
[2019-03-25] MEDS: XOPENEX NEB INH SCH ×4 (03:42→23:21)
[2019-03-25 04:31] LABS: ALLEN TEST YES; BE -0.4 mmoll (-3.0-3.0); BLOOD TYPE ARTERIAL; HCO3-(ACT) 24.6 mmoll (20.0-26.0); METHB 1.2 % (0.0-1.5); O2(CT) 12.3 mL/dL (15.0-23.0); O2HB 95.3 % (95.0-99.0); PCO2(98.6) 38 mmHg (35-45); PO2(98.6) 83 mmHg (60-100); SAMPLE BLOOD; SAO2 98.2 % (95.0-100.0); SRATE 15 BPM; THB 9.1 g/dL (11.5-17.4); TVOL 500 mL; pH(98.6) 7.41 (7.35-7.45)
[2019-03-25 04:32] LABS: MODALITY VENTILATOR
[2019-03-25] MEDS: ZYVOX 600 MG/D5W 600 MG/300 ML IVPB IV SCH ×2 (04:49→17:27)
[2019-03-25] MEDS ORDERED: NS 2,000 ML MISC PRN (06:23)
[2019-03-25] MEDS: SYNTHROID PO SCH (06:39)
[2019-03-25 06:51] LABS: BASO# 0.14 X1000 (0.0-0.2); BASO% 0.5 % (0.0-0.8); EOS# 0.17 X1000 (0.0-0.7); EOS% 0.6 % (0.0-10.0); HEMATOCRIT 26.3 % (37.0-47.0); HEMOGLOBIN 7.9 g/dL (12.0-16.0); LYMPH# 4.03 X1000 (1.2-3.4); LYMPH% 13.4 % (20.5-51.1); MCH 24.9 PG (27-31); MONO# 2.72 X1000 (0.11-0.59); MONO% 9.1 % (1.7-9.3); MPV 10.7 FL (7.4-10.4); NEUT# 20.52 X1000 (1.4-6.5); NEUT% 68.4 % (42.2-75.2); PLT 212 X1000 (130-400); RBC 3.17 XMIL (4.2-5.4); RDW 18.9 % (11.5-14.5); WBC 29.98 X1000 (4.8-10.8)
--- NOTE | 2019-03-25 06:57 | Diag Imaging Result Doc PS360 ---
EXAM: CHEST-1 VIEW HISTORY: SOB TECHNIQUE: Single view COMPARISON: 03/24/2019 FINDINGS: No change in the endotracheal tube or nasogastric tube. The heart is enlarged. There is pulmonary edema and infiltrates. These are less dense than on the prior study. There are small pleural effusions. IMPRESSION: Mild interval improvement Electronically signed by Patrick Cárdenas 03/25/2019 6:55 AM
[2019-03-25 07:05] LABS: ALB/GLOB RATIO 1.2; ALBUMIN 3.7 g/dL (3.5-5.0); CALCIUM 9.3 mg/dL (8.8-10.2); CREATININE 2.2 mg/dL (0.5-0.9); POTASSIUM 3.7 mmol/L (3.5-5.1); TOTAL BILIRUBIN 0.47 mg/dL (0.20-1.00); TOTAL PROTEIN 6.9 g/dL (6.3-8.3)
[2019-03-25 07:49] LABS: BANDS 1 % (0-1); LYMPHS 13 % (21-51); MONO 10 % (1-9); NRBC 7 % (0-0); SEGS 75 % (42-75)
[2019-03-25] MEDS: DUONEB (A & A) INH PRN (08:10)
[2019-03-25] MEDS: MUCOMYST 20% INH SCH ×2 (08:10→23:21)
[2019-03-25] MEDS: LOVENOX SUBQ SCH (08:29)
[2019-03-25] MEDS: LASIX 200 MG in NS 25 ML IV SCH ×2 (09:14→20:49)
[2019-03-25] MEDS ORDERED: TIGHT: 0.2 ML/HR FOR DIALYSIS MISC PRN (10:00)
[2019-03-25] MEDS ORDERED: HEPARIN IV PRN (10:00)
--- NOTE | 2019-03-25 10:11 | PROGRESS NOTE ---
DATE: 03/25/2019 SUBJECTIVE: This morning Ms. Rios continues to be intubated. She still continues having very high residuals. Tube feedings have been withheld. OBJECTIVE: Vital signs: Blood pressure is 100/76, pulse of 114, respirations 26 and temperature 99.0 degrees. General exam: Ms. Rios is a 48-year-old, morbidly obese, female. She is in bed still intubated. HEENT: Mucosa is pink and moist. Anicteric. Acyanotic. Neck: Supple. There is an IJ Vas-Cath in the right. Chest: Air entry is bilaterally reduced. Some transmitted sounds from the ventilator. Cardiovascular: Irregularly irregular, tachycardic. No murmurs. Extremities: Trace pedal edema. RUG CLEANER: Patient is intubated. Will barely open the eyes to her name. She will move extremities to stimulation. LABORATORY DATA: WBC went up to 29.98, hemoglobin is 7.9, platelet count of 212. Chemistry is also reviewed. Creatinine is 2.2. The patient's intake and output was 5524 ultrafiltrated yesterday. She is still kind of positive for 9583. DIAGNOSTIC STUDIES: A chest x-ray this morning shows mild interval improvement. ASSESSMENT AND PLAN: 1. Status post cardiopulmonary arrest. 2. Acute hypoxemic respiratory failure and acute on chronic hypercarbic respiratory failure. The patient continues to be on the ventilator. Today is day 6. I understand Surgery evaluated for tracheostomy. However, they prefer not to do that. 3. Klebsiella pneumoniae pneumonia. The patient's chest x-ray got worse 3 days ago and yesterday. White cell count also jumped up. Antibiotics was changed to aztreonam. The sputum culture is growing a gram-negative anthony. We are still pending the identification and sensitivity. 4. Hypothyroidism. Patient is on Synthroid. 5. Chronic atrial fibrillation, went into rapid ventricular response. The patient is currently on intravenous Cardizem drip. 6. Acute kidney injury secondary to acute tubular necrosis. The patient is getting slow, low efficiency dialysis. 7. Normocytic anemia. Hemoglobin and hematocrit is stable. 8. High residuals with the tube feedings. The patient has been started on Reglan. Tube feedings is on hold. We will get a KUB this morning to rule out any obstruction. cc: Zafar Ma MD
[2019-03-25] MEDS ORDERED: LEVAQUIN 250 MG/D5W 250 MG/50 ML IVPB IV SCH (13:45)
--- NOTE | 2019-03-25 14:01 | PROVIDER PROGRESS NOTE ---
Progress Note Subjective: Pt has her eyes open, but not following commands Objective: temperature 99.0, pulse 118, respirations 27, blood pressure 100/76, O2 sat 89% On 50% FiO2 mechanical ventilation. General: obese -Iranian female lying in bed intubated in no acute distress. HEENT: normocephalic, atraumatic. Pupils equal and reactive, sluggish, trachea midline, endotracheal tube in place, NG tube in place. Skin: warm and dry. neck: supple, JVD observed. Cardiovascular: S1s2, no murmur. gallop noted. Enlarged PMI Respiratory: rhonchi and wheezes bilaterally, diminished bases Abdomen: obese, soft, nontender, nondistended. Hypoactive bowel sounds. : none inspected, Robison in place with dark eric to brown urine. Extremities:2+ pitting Edema to BLE up to abdominal wall. Neurological: eyes open, not following commands Labs: intake 1125, output 5984. Impression: Acute kidney injury likely acute tubular necrosis from cardiac arrest. Cr eatinine improving with hemodialysis. Continue current treatment. Blood pressure. Stable. Electrolytes. Stable. Acid base. Trending down. Will monitor closely. Volume status. Expanded, but improved. Remains 9.5 L positive since admission. Receiving her 3rd SLED currently. Nutrition. Tube feeding on hold for continued high residuals. Medication review. No changes.
[2019-03-25] MEDS: AZACTAM 1 GM in NS 50 ML IV SCH (17:27)
--- NOTE | 2019-03-25 17:32 | Diag Imaging Result Doc PS360 ---
EXAM: KUB ABDOMEN INDICATION: sob TECHNIQUE: 2 views COMPARISON: None. FINDINGS: There is what appears to be an NG tube that projects below the diaphragm and is assumed to be in the lumen of the stomach in the expected position. There is mild gaseous distention of the stomach. The lower abdomen is out of the [id number]. No obstructive bowel pattern is identified. IMPRESSION: Mild gaseous distention of the stomach. Electronically signed by Jann Mcknight 03/25/2019 5:30 PM
[2019-03-25] MEDS: LEVAQUIN 250 MG/D5W 250 MG/50 ML IVPB IV SCH (20:49)
--- NOTE | 2019-03-25 21:05 | INFECTIOUS DISEASE PROGRESS NO ---
DATE: 03/25/2019 PRESENT ILLNESS: The patient is being treated for the following infections: Klebsiella pneumonia, E coli urinary tract infection, and pansinusitis. MEDICATIONS: This is the 8th day of Levaquin treatment. I have restarted it and is the first day of treatment with aztreonam and Zyvox. PHYSICAL EXAMINATION: Vital Signs: Temperature is 99 degrees, pulse 123, respirations 27, blood pressure 140/42. General: This is a morbidly obese, ill-appearing, middle-aged female. She is lying in bed. She is receiving SLED. Head, eyes, ears, nose, and throat: There is no drainage from the nose or ears. Neck: The patient has a right-sided internal jugular vein catheter in place for use with dialysis. Lungs: Bilateral lungs have bilateral rhonchi. Cardiovascular: Heart rate is irregular at times and at other times it appears regular. Abdomen: Soft and nontender. Neurologic: The patient is sedated. She did not respond to verbal stimuli. LAB AND X-RAY: CBC shows a white count of 29,980, hemoglobin 7.9, platelet count 212,000. Blood gases show a pH of 7.41, a PO2 of 83, pCO2 of 38. Creatinine is 2.2. GFR is 29. Hepatitis panel is nonreactive. Chest x-ray shows bilateral pulmonary infiltrate and edema. ASSESSMENT AND PLAN: The patient is being treated for Klebsiella pneumonia, Escherichia coli urinary tract infection, and pansinusitis. I plan to continue with aztreonam and Zyvox which is day 1 of treatment and Levaquin which I added back right after I stopped it. So this is actually the 8th day of treatment with Levaquin. COMORBIDITIES: The patient is morbidly obese. She had a cardiac arrest and she also has congestive heart failure, chronic obstructive pulmonary disease, gastroesophageal reflux disease, atrial fibrillation, and acute kidney injury. cc: Arvind Fair MD
[2019-03-26] MEDS: CARDIZEM 100 MG/NS 100 MG/100 ML IVPB IV SCH ×2 (01:30→22:12)
[2019-03-26] MEDS: MORPHINE IV PRN (01:49)
[2019-03-26] MEDS: ATROVENT NEB INH SCH ×4 (03:15→23:00)
[2019-03-26] MEDS: XOPENEX NEB INH SCH ×4 (03:15→23:00)
[2019-03-26] MEDS: ZYVOX 600 MG/D5W 600 MG/300 ML IVPB IV SCH ×2 (04:58→16:48)
[2019-03-26 05:13] LABS: ALLEN TEST YES; BE -0.4 mmoll (-3.0-3.0); BLOOD TYPE ARTERIAL; HCO3-(ACT) 24.7 mmoll (20.0-26.0); METHB 0.6 % (0.0-1.5); O2(CT) 7.3 mL/dL (15.0-23.0); O2HB 97.2 % (95.0-99.0); PCO2(98.6) 33 mmHg (35-45); PO2(98.6) 119 mmHg (60-100); SAMPLE BLOOD; SRATE 15 BPM; THB 5.1 g/dL (11.5-17.4); TVOL 500 mL; pH(98.6) 7.46 (7.35-7.45)
[2019-03-26 05:14] LABS: MODALITY VENTILATOR
[2019-03-26] MEDS: SYNTHROID IV SCH (06:01)
[2019-03-26] MEDS: SODIUM CHLORIDE 0.9% INJ PRN (06:02)
[2019-03-26 06:42] LABS: ALB/GLOB RATIO 1.2; ALBUMIN 3.6 g/dL (3.5-5.0); CALCIUM 9.1 mg/dL (8.8-10.2); POTASSIUM 3.8 mmol/L (3.5-5.1); TOTAL BILIRUBIN 0.7 mg/dL (0.20-1.00); TOTAL PROTEIN 6.7 g/dL (6.3-8.3)
[2019-03-26 07:19] LABS: BASO# 0.12 X1000 (0.0-0.2); BASO% 0.5 % (0.0-0.8); EOS# 0.15 X1000 (0.0-0.7); EOS% 0.7 % (0.0-10.0); HEMOGLOBIN 6.2 g/dL (12.0-16.0); IMM GRAN% 8.8 % (0.0-0.5); LYMPH# 3.78 X1000 (1.2-3.4); LYMPH% 16.6 % (20.5-51.1); MCH 24.7 PG (27-31); MCHC 29.5 g/dL (33-37); MCV 83.7 FL (81-99); MONO# 1.97 X1000 (0.11-0.59); MONO% 8.7 % (1.7-9.3); MPV 10.8 FL (7.4-10.4); NEUT% 64.7 % (42.2-75.2); PLT 181 X1000 (130-400); RBC 2.51 XMIL (4.2-5.4); RDW 18.7 % (11.5-14.5); WBC 22.72 X1000 (4.8-10.8)
--- NOTE | 2019-03-26 07:22 | Diag Imaging Result Doc PS360 ---
EXAM: CHEST-PORTABLE INDICATION: dyspnea TECHNIQUE: One view COMPARISON: 03/25/2019 FINDINGS: Support tubes and lines are in stable positions. Bilateral infiltrates most compatible with pulmonary edema are essentially stable. No new consolidation is identified. Cardiac silhouette is stable. IMPRESSION: Stable chest. Electronically signed by Jann Mcknight 03/26/2019 7:20 AM
[2019-03-26 07:51] LABS: LYMPHS 14 % (21-51); NRBC 1 % (0-0); SEGS 84 % (42-75)
[2019-03-26] MEDS: MUCOMYST 20% INH SCH ×2 (07:52→23:00)
[2019-03-26] MEDS ORDERED: NS 2,000 ML MISC PRN (08:07)
[2019-03-26] MEDS ORDERED: HEPARIN IV PRN (08:07)
[2019-03-26] MEDS: LOVENOX SUBQ SCH (08:15)
[2019-03-26] MEDS ORDERED: NS 500 ML IV ONE (08:32)
[2019-03-26] MEDS: ATIVAN IV PRN ×2 (09:33→22:12)
[2019-03-26] MEDS: LASIX 200 MG in NS 25 ML IV SCH (12:19)
--- NOTE | 2019-03-26 17:55 | PROGRESS NOTE ---
DATE: 03/26/2019 SUBJECTIVE: This morning Ms. Rios continues to be intubated. No major changes. I understand she desaturates a couple of times overnight, so she was bumped up to 70 FiO2. This morning she is back to 65. OBJECTIVE: Vital signs: Blood pressure is 101/74, pulse of 125, respirations 28, temperature 99.3 degrees. General: Ms. Rios is a 48-year-old morbidly obese, female. She is in bed. She is intubated, synchronizing well with the ventilator. HEENT: Mucosa is pink and moist. Anicteric. Acyanotic. Neck: Supple. Chest: Good air entry bilaterally. A few transmitted sounds from the ventilator. There is an IJ Vas-Cath in the right. Cardiovascular: Irregularly irregular. Continues to be tachycardic. No murmurs. Extremities: Trace pedal edema. There is edema on the lateral aspect of the upper thighs as well as the abdominal wall. 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 Will open the eyes to her name, will move to painful stimulations. Seems to follow some basic commands. LABORATORY DATA: WBC is down to 22.72, hemoglobin is 6.2, platelet count of 180,000. Chemistry is also reviewed. IMAGING STUDIES: This morning, a chest x-ray show bilateral infiltrate most compatible with pulmonary edema, but essentially stable. A KUB yesterday shows mild gaseous distention of the stomach. ASSESSMENT: 1. Status post cardiopulmonary arrest. 2. Acute hypoxemic respiratory failure and acute on chronic hypercarbic respiratory failure. The patient continues to be on the ventilator. Today is day 17. 3. Klebsiella pneumoniae. We will continue with the intravenous antibiotics. Infectious Disease is on board. 4. Hypothyroidism. Patient is on Synthroid. 5. Chronic atrial fibrillation with rapid ventricular response. Patient is on Cardizem drip. Cardiology is on board. 6. Acute kidney injury secondary to acute tubular necrosis with no recovery. Patient is on SLED. 7. Normocytic anemia. Hemoglobin and hematocrit has dropped to 6.2 this morning. We are going to group and crossmatch and transfuse her two packed red blood cells during dialysis. 8. High residuals with the tube feedings. This has been withheld. Patient has been started on Reglan. We will keep her NPO, put the suction under continuous suctioning and discuss with the Nephrology team to assess for intradialytic parenteral nutrition during dialysis. . cc: Zafar Ma MD
[2019-03-26] MEDS ORDERED: LANOXIN IV ONE (18:48)
[2019-03-26] MEDS: AZACTAM 1 GM in NS 50 ML IV SCH (19:12)
--- NOTE | 2019-03-26 20:08 | INFECTIOUS DISEASE PROGRESS NO ---
DATE: 03/26/2019 PRESENT ILLNESS: Ms. Rios is being treated for Klebsiella pneumoniae, Escherichia coli urinary tract infection and pansinusitis. The patient has had a recent increase in leukocytosis, which is now improving. MEDICATIONS: Today is day 9 of Levaquin 250 mg IV as a modified renal dose. She is also receiving aztreonam 1 g IV every evening and Zyvox 600 mg IV every 12 hours. PHYSICAL EXAMINATION: Vital Signs: Temperature is 99.5 degrees, pulse rate 135, respiratory rate 20, blood pressure 100/67, O2 saturation is 97% on a 50% FiO2 on the mechanical ventilator. General: This is a morbidly obese, critically ill-appearing middle-aged female. She is lying in the bed currently sedated on the mechanical ventilator. HEENT: Oral ET tube and NG tubes are in place. Neck: Has a intrajugular line on the right through which she is receiving SLED. Cardiovascular: Irregularly irregular with atrial fibrillation on the monitor. Respiratory: Lung sounds have coarse rhonchi bilaterally. She is breathing above the set rate on the ventilator. Abdomen: Soft, obese and nontender. Bowel sounds are active. Neurologic: She is sedated, but arousable and will squeeze with her hands bilaterally. Integumentary: Skin is warm, and dry. There is a PICC line to the right upper arm. That site is without edema, erythema, or drainage. LABORATORY AND X-RAY: Today her white count is 22.72, hemoglobin 6.2, platelet count 181,000. PH is 7.46, pCO2 33, PO2 119 on 50% FiO2 on the mechanical ventilator. Creatinine is 2, GFR 32. Total bilirubin 0.7, AST 20, ALT 11, alkaline phosphatase 85. Her sputum has twice grown Klebsiella pneumoniae and urine has grown Escherichia coli. Chest x-ray today shows stable infiltrates bilaterally most compatible with pulmonary edema. ASSESSMENT AND PLAN: Ms. Rios is being treated for pneumonia, urinary tract infection and pansinusitis. She has been receiving Levaquin, aztreonam and Zyvox; all of which we will continue. Her white blood cell count is coming down at this point, so we will continue medications as ordered. These plans have been discussed with and recommended by Dr. Fair. COMORBIDITIES: For Ms. Rios include morbid obesity, cardiac arrest on admission, congestive heart failure, COPD gastroesophageal reflux disease, atrial fibrillation and acute kidney injury. Dictated by FIONA Welsh for Arvind Fair MD cc: Arvind Fair MD [facility]
[2019-03-26] MEDS: LEVAQUIN 250 MG/D5W 250 MG/50 ML IVPB IV SCH (20:29)
--- NOTE | 2019-03-26 21:14 | NEPHROLOGY PROGRESS NOTE ---
DATE: 03/26/2019 SUBJECTIVE: She attempts to open her eyes, but did not follow commands or fix on me. OBJECTIVE: Vital Signs: Blood pressure 100/67, heart rate 135, respiration 28, afebrile, intake 800 mL, output 6.4 L. Mental status: As above. Skin: Warm and dry. Neck: Neck veins are distended. Heart: Regular, distant. Lungs: Equal, coarse. No crackles. Abdomen: Obese, soft, nontender. Extremities: 3+ edema. IMPRESSION: Acute kidney injury with volume overload. Her oxygenation appears to be improving moderately with treatment. Her blood pressure has been marginal, but she has not required vasopressor support. Continue SLED today with a goal of 4 to 6 L ultrafiltration. , 4K bath, 30 bicarbonate. cc: Jose Luis Jean MD
--- NOTE | 2019-03-26 23:04 | PULMONOLOGY PROGRESS NOTE ---
DATE: 03/26/2019 SUBJECTIVE: The patient opens her eyes. She does not follow commands. She is overbreathing the set rate on mechanical ventilation. She is currently on dialysis. OBJECTIVE: Vital Signs: The patient has been afebrile for the last 24 hours. Blood pressure 101/74, heart rate 125, respiratory rate 28, oxygen saturation 97% on 60% FiO2. HEENT: Pupils are equal and reactive. Oropharynx evaluation is limited with endotracheal tube in place. Neck: Supple. Chest: Reveals coarse crackles bilaterally. Cardiac: Distant heart sounds. Normal S1, normal S2. Abdomen: Obese and soft. Extremities: Reveal 1 to 2+ pitting edema. LABORATORIES: Chest x-ray reveals cardiomegaly, vascular congestion with edema, no change from 03/15/2019. White blood count 22.7 thousand, hemoglobin 6.2, platelet count 181,000. Sodium 141, potassium 3.8, chloride 103, bicarbonate 21, BUN 41, creatinine 2.0. IMPRESSION: A 48-year-old with: 1. Acute on chronic hypoxemic respiratory failure. 2. Acute on chronic hypercapnic respiratory failure. 3. Morbid obesity with a body mass index greater than 60. 4. Pulmonary hypertension. 5. Obstructive sleep apnea. 6. Coronary artery disease. 7. Status post recurrent cardiac arrest. 8. Acute renal failure. PLAN: 1. Continue dialysis for volume removal as tolerated. 2. Daily weaning attempts. She failed today. 3. Consider tracheostomy which may aid in weaning and long-term management. 4. Prognosis is poor. Time spent in critical care management: Greater than 30 minutes cc: Julien Munroe MD [facility]
[2019-03-26] MEDS: TYLENOL PO PRN (23:24)
[2019-03-27] MEDS: ATIVAN IV PRN ×2 (01:15→05:02)
[2019-03-27] MEDS: ATROVENT NEB INH SCH ×4 (03:00→23:00)
[2019-03-27] MEDS: XOPENEX NEB INH SCH ×4 (03:00→23:00)
[2019-03-27 04:58] LABS: ALLEN TEST YES; BE 0.4 mmoll (-3.0-3.0); BLOOD TYPE ARTERIAL; HCO3-(ACT) 25.2 mmoll (20.0-26.0); METHB 1.5 % (0.0-1.5); O2(CT) 10.1 mL/dL (15.0-23.0); O2HB 95.6 % (95.0-99.0); PCO2(98.6) 34 mmHg (35-45); PO2(98.6) 118 mmHg (60-100); SAMPLE BLOOD; SAO2 99.5 % (95.0-100.0); SRATE 12 BPM; THB 7.3 g/dL (11.5-17.4); TVOL 500 mL; pH(98.6) 7.46 (7.35-7.45)
[2019-03-27 04:59] LABS: MODALITY VENTILATOR
[2019-03-27] MEDS: ZYVOX 600 MG/D5W 600 MG/300 ML IVPB IV SCH ×2 (05:01→16:19)
[2019-03-27] MEDS: SYNTHROID IV SCH ×2 (05:01→06:01)
[2019-03-27] MEDS: CARDIZEM 100 MG/NS 100 MG/100 ML IVPB IV SCH ×2 (05:01→20:47)
[2019-03-27 06:32] LABS: BASO# 0.05 X1000 (0.0-0.2); BASO% 0.3 % (0.0-0.8); EOS# 0.13 X1000 (0.0-0.7); EOS% 0.7 % (0.0-10.0); HEMATOCRIT 22.6 % (37.0-47.0); HEMOGLOBIN 6.9 g/dL (12.0-16.0); IMM GRAN# 1.56 X1000 (0.0-0.04); IMM GRAN% 8.6 % (0.0-0.5); LYMPH# 3.29 X1000 (1.2-3.4); LYMPH% 18.1 % (20.5-51.1); MCH 26.1 PG (27-31); MCHC 30.5 g/dL (33-37); MCV 85.6 FL (81-99); MONO% 9.9 % (1.7-9.3); MPV 11.3 FL (7.4-10.4); NEUT# 11.31 X1000 (1.4-6.5); NEUT% 62.4 % (42.2-75.2); PLT 160 X1000 (130-400); RBC 2.64 XMIL (4.2-5.4); RDW 18.9 % (11.5-14.5); WBC 18.14 X1000 (4.8-10.8)
[2019-03-27 06:51] LABS: ALB/GLOB RATIO 1.1; ALBUMIN 3.7 g/dL (3.5-5.0); CALCIUM 9.2 mg/dL (8.8-10.2); CREATININE 1.9 mg/dL (0.5-0.9); POTASSIUM 4.1 mmol/L (3.5-5.1); TOTAL BILIRUBIN 0.98 mg/dL (0.20-1.00)
[2019-03-27] MEDS ORDERED: NS 500 ML IV ONE (07:43)
[2019-03-27] MEDS: MUCOMYST 20% INH SCH ×2 (08:09→23:00)
[2019-03-27] MEDS: LOPRESSOR IV SCH ×3 (12:11→16:16)
[2019-03-27] MEDS: PROTONIX IV SCH (14:37)
[2019-03-27 15:18] LABS: INR 1.28; PROTIME 16.2 Seconds (11.0-16.0)
[2019-03-27] MEDS: AZACTAM 1 GM in NS 50 ML IV SCH (17:38)
[2019-03-27] MEDS: LEVAQUIN 250 MG/D5W 250 MG/50 ML IVPB IV SCH (20:46)
[2019-03-27] MEDS: HALDOL IV PRN (20:47)
--- NOTE | 2019-03-27 21:58 | PULMONOLOGY PROGRESS NOTE ---
DATE: 03/27/2019 SUBJECTIVE: The patient opens her eyes. She does not follow commands. She failed a spontaneous breathing trial this morning. OBJECTIVE: Maximum temperature in the last 24 hours 99.8 degrees, blood pressure 89/61, heart rate 86, respiratory rate 25, oxygen saturation 96% on 50% FiO2. HEENT: Pupils are equal and reactive. Oropharynx appears clear but evaluation is limited. Chest: Reveals distant breath sounds with scattered rhonchi. Cardiac: S1, S2. Abdomen: Obese and soft. Extremities: Reveal 1 to 2+ peripheral edema. LABORATORIES: Arterial blood gas reveals a pH 7.46, pCO2 of 34, PO2 of 118. Sodium 140, potassium 4.1, chloride 101, bicarbonate 21, BUN 32, creatinine 1.9. White blood count 18.14, hemoglobin 6.9, platelet count 160,000. IMPRESSION: A 48-year-old with 1. Acute on chronic hypoxemic respiratory failure. 2. Acute on chronic hypercapnic respiratory failure. 3. Morbid obesity with a body mass index greater than 60. 4. Severe pulmonary hypertension. 5. Obstructive sleep apnea. 6. Coronary artery disease. 7. Acute renal failure. 8. Status post cardiac arrest. DISCUSSION: Unfortunate 48-year-old white female with multiple medical problems, most of which appear to stem from her morbid obesity. She is marginal for weaning at this juncture and her rapid shallow breathing index remains greater than 100. Her long-term prognosis is poor. Her code status remains full. Palliative care discussions have been held with the family but have been unsuccessful in achieving a goal to allow the patient to have a natural if she fails extubation. PLAN: 1. Continue dialysis as tolerated. 2. Continue daily weaning trials. 3. Tracheostomy recommended if the patient's family wants aggressive management. 4. Prognosis is poor. Recommend ongoing palliative care discussions. Time spent in critical care management: 35 minutes cc: Julien Munroe MD [facility]
--- NOTE | 2019-03-28 01:04 | PROGRESS NOTE ---
DATE: 03/27/2019 SUBJECTIVE: This morning, Ms. Rios continues to be intubated and in the ICU. No family member at the bedside. Per the nursing staff, she has been fairly stable. She is still remains in atrial fibrillation. Early on today I was called and notified that her blood pressures were on the lower end. Last night, Ms. Rios started having coffee-grounds emesis. This morning her hemoglobin has dropped to 6.9, even after having been given 2 units of PRBC yesterday. OBJECTIVE: Vital signs: Blood pressure is currently 80/62, pulse of 93, respiration is 28, temperature 99.3 degrees. General: Ms. Rios is a 48-year-old female. She is in bed, continues to be intubated. HEENT: Mucosa is pink and moist. Anicteric. Acyanotic. Neck: Supple. The patient is synchronizing well with the ventilator. Chest: Air entry is bilaterally reduced. There is diffuse rhonchi and transmitted sounds from the ventilator. Cardiovascular: Irregularly irregular but rate controlled. No murmurs. Extremities: Some trace pedal edema. There is edema also on the upper thighs as well as the lateral aspect of the abdominal wall. 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 Will open her eyes to her name. She will move extremities to painful stimulation. Pupils: Equal and they are reactive. LABORATORY DATA: WBC is down to 18.14, hemoglobin is 6.9, platelet count of 160,000. Chemistry is also reviewed. Creatinine is 1.9. IMAGING STUDIES: None for today. Patient medications have all been reviewed. Lovenox has been discontinued because of the upper GI bleed. ASSESSMENT: 1. Status post cardiopulmonary arrest. 2. Acute hypoxemic respiratory failure and acute on chronic hypercarbic respiratory failure. The patient continues to be on the ventilator, today is day 18. 3. Klebsiella pneumoniae pneumonia. The patient is on IV antibiotics. Infectious Disease is on board. 4. Hypothyroidism. Will continue with Synthroid. 5. Chronic atrial fibrillation with rapid ventricular response. Patient continues to be on a Cardizem drip. Cardiology is on board. 6. Acute kidney injury secondary to acute tubular necrosis with no recovery. The patient gets SLED. Nephrology is on board. 7. Anemia of acute blood loss. The patient is status post 2 PRBC transfusions yesterday. H H just slightly went up to 6.9. We are going to give her 2 more units today. We will also check her INR to see if she also coagulopathic. 8. Upper gastrointestinal bleed. The patient has been having coffee-grounds emesis since yesterday. H H has also significantly dropped even after giving her 2 units of PRBC it has not improved significantly. But since she probably has ongoing bleed, we have consulted Gastroenterology and we have started the patient on Protonix b.i.d. 9. High residuals with the tube feedings. This has been withheld for now. cc: Zafar Ma MD
[2019-03-28] MEDS: PROTONIX IV SCH ×2 (02:18→13:23)
[2019-03-28] MEDS: CARDIZEM 100 MG/NS 100 MG/100 ML IVPB IV SCH ×4 (02:19→22:25)
[2019-03-28] MEDS: MORPHINE IV PRN ×2 (02:19→09:33)
[2019-03-28] MEDS: ATIVAN IV PRN (02:20)
[2019-03-28] MEDS: XOPENEX NEB INH SCH ×4 (03:36→21:50)
[2019-03-28] MEDS: ATROVENT NEB INH SCH ×4 (03:36→21:50)
[2019-03-28 04:40] LABS: ALLEN TEST YES; BE -0.2 mmoll (-3.0-3.0); BLOOD TYPE ARTERIAL; HCO3-(ACT) 24.8 mmoll (20.0-26.0); METHB 0.9 % (0.0-1.5); O2(CT) 10.7 mL/dL (15.0-23.0); O2HB 96.3 % (95.0-99.0); PCO2(98.6) 35 mmHg (35-45); PO2(98.6) 131 mmHg (60-100); SAMPLE BLOOD; SAO2 99.6 % (95.0-100.0); SRATE 12 BPM; THB 7.7 g/dL (11.5-17.4); TVOL 500 mL; pH(98.6) 7.44 (7.35-7.45)
[2019-03-28 04:41] LABS: MODALITY VENTILATOR
[2019-03-28] MEDS: SYNTHROID IV SCH ×2 (05:34→06:12)
[2019-03-28] MEDS: ZYVOX 600 MG/D5W 600 MG/300 ML IVPB IV SCH ×2 (05:34→17:10)
[2019-03-28 06:41] LABS: BASO# 0.02 X1000 (0.0-0.2); BASO% 0.2 % (0.0-0.8); EOS# 0.14 X1000 (0.0-0.7); EOS% 1.5 % (0.0-10.0); HEMATOCRIT 24.7 % (37.0-47.0); HEMOGLOBIN 7.5 g/dL (12.0-16.0); IMM GRAN# 0.42 X1000 (0.0-0.04); IMM GRAN% 4.4 % (0.0-0.5); LYMPH# 1.57 X1000 (1.2-3.4); LYMPH% 16.4 % (20.5-51.1); MCH 26.5 PG (27-31); MCHC 30.4 g/dL (33-37); MCV 87.3 FL (81-99); MONO# 0.85 X1000 (0.11-0.59); MONO% 8.9 % (1.7-9.3); MPV 11.2 FL (7.4-10.4); NEUT# 6.56 X1000 (1.4-6.5); NEUT% 68.6 % (42.2-75.2); PLT 140 X1000 (130-400); RBC 2.83 XMIL (4.2-5.4); RDW 19.2 % (11.5-14.5); WBC 9.56 X1000 (4.8-10.8)
--- NOTE | 2019-03-28 07:16 | Diag Imaging Result Doc PS360 ---
EXAM: CHEST-PORTABLE 03/28/2019 HISTORY: respiratory failure TECHNIQUE: AP portable upright at 0501 COMMENT: There is an NG tube which passes below the diaphragm. The endotracheal tube tip is at the damaris. There is cardiomegaly. There is interstitial pulmonary edema with alveolar opacity in the left lower lobe and to some extent the right lower lobe. There is fluid in the minor fissure on the right. Compared to 03/26/2019 the inspiration is less optimal, otherwise there has been no significant change. IMPRESSION: Cardiomegaly and pulmonary edema with pleural fluid on the right if not the left. The endotracheal tube has migrated downwards somewhat. Electronically signed by George Gentile 03/28/2019 7:14 AM
[2019-03-28 07:25] LABS: ALB/GLOB RATIO 1.1; ALBUMIN 3.4 g/dL (3.5-5.0); BANDS 2 % (0-1); CALCIUM 9.2 mg/dL (8.8-10.2); CREATININE 2.7 mg/dL (0.5-0.9); EOS 2 % (1-10); LYMPHS 14 % (21-51); MONO 6 % (1-9); NRBC 1 % (0-0); POTASSIUM 4.6 mmol/L (3.5-5.1); SEGS 72 % (42-75); TOTAL BILIRUBIN 0.97 mg/dL (0.20-1.00); TOTAL PROTEIN 6.5 g/dL (6.3-8.3)
--- NOTE | 2019-03-28 07:31 | GASTROENTEROLOGY CONSULTATION ---
DATE: 03/27/2019 REASON FOR CONSULTATION: Questionable GI bleeding, anemia. HISTORY OF PRESENT ILLNESS: This is an unfortunate, 48-year-old female, who was admitted to the hospital on 03/09/2019. She has a known history of COPD, coronary artery disease, hypothyroidism, atrial fibrillation, chronic kidney disease, congestive heart failure, morbid obesity. She presented to the emergency room from an extended care facility in cardiac and pulmonary arrest. She is currently on a ventilator. As noted, the patient has been in the hospital since 03/09/2019. Information is obtained from the nurse. The patient is intubated on mechanical ventilation, and no family is available at the time of my visit. The patient was receiving tube feedings, and apparently her feeding residual had been elevated, so they placed her nasogastric tube to intermittent suction. There was concern of possible bleeding at the time of my visit today. She does have some rust-color contents in the canister with possible coffee-ground sediment in the tubing. She has had a decrease in her hemoglobin and hematocrit. Today, her hemoglobin and hematocrit are 6.9 and 22.6. There has been no evidence of melena reported. Her last bowel movements reported were on 03/23/2019 and 03/24/2019, being liquid brown in color. PAST MEDICAL HISTORY: As reported above, coronary artery disease, congestive heart failure, COPD, hypothyroidism, Pickwickian syndrome, GERD, chronic kidney disease, atrial fibrillation, morbid obesity. PAST SURGICAL HISTORY: Vas-Cath placement/removal. SOCIAL HISTORY: She resides at a rehab facility/extended care facility. ALLERGIES: Keflex causing shortness of breath. Darvocet causing hives. HOME MEDICATIONS: Prior to admission: Pepto-Bismol 262 three times a day, Bumex 1 mg daily, carvedilol 3.125 twice a day, Dexilant 60 mg daily, Cardizem 240 daily, folic acid 1 mg daily, Lasix 40 mg twice a day, hydrocodone/acetaminophen 10/325 one three times a day as needed, inhaler every 4 hours as needed, ICar-C 1 twice daily, probiotic 1 daily, Synthroid 100 mcg daily, milk of magnesia 30 mL daily, MiraLAX 17 grams twice a day, Promethazine 12.5 mg every 6 hours as needed, Xarelto 10 mg daily, Ambien 10 mg every night as needed. OBJECTIVE: Vital Signs: Temperature 99.3 degrees, pulse 93, respirations 28, blood pressure 80/62. General: The patient is intubated on mechanical ventilation. Nonresponsive at the time of my evaluation. Respiratory: Some crackles/rhonchi bilaterally. Cardiovascular: Irregular rhythm. Abdomen: Obese, otherwise soft. Hypoactive bowel sounds. Extremities: Some lower extremity edema noted. The patient is on mechanical ventilation. The patient has NG tube to low intermittent suction, with some rust-colored drainage with possible coffee-ground sediment in tubing. LABORATORY DATA: Hematology: WBC 18.14, hemoglobin 6.9, hematocrit 22.6, MCV 85.6, platelets 160,000. Chemistry: Sodium 140, potassium 4.1, chloride 101, CO2 of 21, BUN 32, creatinine 1.9, glucose 97, calcium 9.2. Total bilirubin 0.98, AST 22, ALT 11, alkaline phosphatase 90. ASSESSMENT AND PLAN: 1. Status post respiratory and cardiac arrest. Continue current management. 2. Congestive heart failure. Continue current management. 3. Atrial fibrillation, on Cardizem. 4. Anemia with questionable gastrointestinal bleeding. Her feeding tube residuals have been high, and her nasogastric tube was connected to low intermittent suction. The patient will receive packed red blood cells today. Will monitor for further active bleeding. She has not had any melena that I see. We will continue to follow, and further plans to be made according to her progress. Repeat hemoglobin and hematocrit after blood transfusion. I have discussed this case with Dr. Montanez. Further plans will be made as needed. Thank you for this consultation. Dictated by FIONA Negro for Jonathon Montanez MD cc: FIONA Jackson MD
[2019-03-28] MEDS: HALDOL IV PRN (07:43)
--- NOTE | 2019-03-28 07:48 | NEPHROLOGY PROGRESS NOTE ---
DATE: 03/27/2019 SUBJECTIVE: Eyes are opened spontaneously today. She nods in response to questions. OBJECTIVE: Vital Signs: Blood pressure 90/59, heart rate 92, respirations 22, temperature 99.3 degrees. Intake 2.7 L. Output 7.4 L. General: No acute distress. Skin is warm and dry. Neck: Neck veins are not appreciated. Heart: Regular, distant. Lungs: Equal. No crackles. Abdomen: Soft. Decreased bowel sounds. Extremities: Really with minimal edema today. IMPRESSION: Acute kidney injury. No recovery. Volume status is much improved. Blood pressure too low for dialysis today. We will hold sustained low-efficiency dialysis over the weekend. cc: Jose Luis Jean MD
[2019-03-28] MEDS: MUCOMYST 20% INH SCH ×2 (08:14→21:50)
[2019-03-28] MEDS: LOPRESSOR IV SCH ×3 (08:52→17:09)
--- NOTE | 2019-03-28 11:05 | PROGRESS NOTE ---
DATE: 03/28/2019 SUBJECTIVE: This morning, Ms. Rios continues to be in the ICU. No family member at the bedside. She is currently intubated. She is not on any pressors. She is still on a Cardizem drip. OBJECTIVE: Vital Signs: Blood pressure is 90/71 with a MAP of 75, pulse of 84, respirations are 12, temperature is 98.8 degrees, patient is saturating 98% on the mechanical ventilator. General Examination: Ms. Rios is a 48-year-old, morbidly obese, -[place] female. She is in bed, intubated. No sedation. HEENT: Mucosa is pink and moist. Anicteric. Acyanotic. Neck: Supple. Chest: Good air entry bilaterally. There is diffuse rhonchi and transmitted sounds from the ventilator. Cardiovascular: Irregularly irregular but rate-controlled. No murmurs, no rubs, no gallops. GI: Abdomen is soft, distended. There is some edema on the lateral aspect of the abdominal wall. There is also edema on the upper thigh. SOLAR MANAGER: The patient is intubated. Will open eyes to her name. Moves extremities to painful stimulation. Pupils are equal and reactive. The patient has a very good cough reflex. The left breast is minimally swollen with dimples on the lateral aspect of the outer quadrants. The nipple looks normal and I did not feel any mass. Laboratory Data: WBC is down to 9.54, hemoglobin is 7.5, platelet count of 140,000. Chemistry is also reviewed. Creatinine is 2.7, BUN is 50. Patient did not have any dialysis yesterday. A chest x-ray this morning shows cardiomegaly and pulmonary edema with pleural fluid on the right, if not the left. CURRENT MEDICATIONS: The patient's current medications have been reviewed, includin. Aztreonam 1 g every 24 hours. Today is day 4. 2. Cardizem drip. 3. Haldol p.r.n. 4. Atrovent p.r.n. 5. Levofloxacin 250 every hour. Today is day 3. 6. Zyvox 600 every 12 hours. Today is day 4. 7. Metoprolol p.r.n. 8. Pantoprazole 40 mg IV q.12. 9. Phenylephrine if needed. So far, blood cultures have been unremarkable. Sputum cultures have shown Klebsiella pneumoniae. Urine culture shows E. coli. ASSESSMENT: 1. Status post cardiopulmonary arrest. Ms. Rios was resuscitated for over an hour in the emergency room. 2. Acute hypoxemic respiratory failure and acute on chronic hypercarbic respiratory failure. The patient is currently on the ventilator. Today is day 19. Her settings include FiO2 of 50, PEEP of 5, tidal volume of 500, and spontaneous rate of 12. Arterial blood gases have been reviewed. 3. Chronic atrial fibrillation with rapid ventricular response. The patient is on a Cardizem drip. Heart rate is better controlled. Cardiology is on board. 4. Acute kidney injury secondary to acute tubular necrosis, no recovery. The patient gets sustained low-efficiency dialysis. Yesterday, there was no dialysis. The creatinine and BUN seem to be creeping up and chest x-ray seems to suggest more fluid reaccumulation. 5. Anemia of acute blood loss. Patient is status post 2 unit packed red blood cell transfusion. Hemoglobin and hematocrit have improved. 6. Coffee-grounds emesis secondary to upper gastrointestinal bleed. The patient is currently on a proton pump inhibitor and gastroenterology is on board. 7. High residuals with tube feedings. This has been withheld. The patient is on Reglan. 8. Left breast swelling with erythematous changes. According to the family members, this seems to have been there for quite a while. We will re-evaluate this when she is out of the intensive care unit. 9. Congestive heart failure with ejection fraction of 35 to 40 percent noted. PLAN: In general, Ms. Rios continues to be intubated for the past 19 days. She has been evaluated by surgery for possible tracheostomy. However, they have recommended against this because of her large neck, previous trach. They think she is a very high risk for doing this procedure. They also recommend that the type of tracheostomy tube that she is going to be needing will be extremely longer than the regular one. For all of those purposes, they recommend treatment with an ET tube. We are pending another meeting with the family today to see what their recommendations will be. For now, Ms. Rios continues to be Full Code. Prognosis is remarkably poor/guarded. cc: MD NEELIMA Olivarez
[2019-03-28 11:45] LABS: ALLEN TEST YES; BE -1.5 mmoll (-3.0-3.0); BLOOD TYPE ARTERIAL; HCO3-(ACT) 23.7 mmoll (20.0-26.0); METHB 1.4 % (0.0-1.5); O2(CT) 10.7 mL/dL (15.0-23.0); O2HB 92.2 % (95.0-99.0); PCO2(98.6) 45 mmHg (35-45); PO2(98.6) 65 mmHg (60-100); SAMPLE BLOOD; SAO2 95.8 % (95.0-100.0); THB 8.2 g/dL (11.5-17.4); pH(98.6) 7.34 (7.35-7.45)
[2019-03-28 11:46] LABS: MODALITY VENTILATOR
[2019-03-28] MEDS: AZACTAM 1 GM in NS 50 ML IV SCH (17:08)
[2019-03-28] MEDS: LEVAQUIN 250 MG/D5W 250 MG/50 ML IVPB IV SCH (20:47)
--- NOTE | 2019-03-28 21:27 | PULMONOLOGY PROGRESS NOTE ---
DATE: 03/28/2019 SUBJECTIVE: Patient arouses to stimulation. OBJECTIVE: Vital Signs: The patient has been afebrile for the last 24 hours. Blood pressure 118/64, heart rate 89, respiratory rate 24, oxygen saturation 96%. HEENT: Pupils are equal and reactive. Oropharynx appears clear with slight increase in secretions. Cardiac: Irregular irregular rhythm. Chest: Reveals scattered rhonchi bilaterally. Abdomen: Obese and soft. Extremities: Reveal 1+ peripheral edema. LABORATORIES: White blood count 9.56, hemoglobin 7.5, platelet count 140,000. Sodium 143, potassium 4.6, chloride 104, bicarbonate 21, BUN 50, creatinine 2.7. Arterial blood gas, pH 7.44, pCO2 of 35, PO2 of 131. Arterial blood gas following spontaneous breathing trial, pH 7.34, pCO2 of 45, PO2 of 65. IMPRESSION: A 48-year-old with: 1. Acute on chronic hypoxemic respiratory failure. 2. Acute on chronic hypercapnic respiratory failure. 3. Morbid obesity with a body mass index greater than 60. 4. Severe pulmonary hypertension. 5. Coronary artery disease. 6. Obstructive sleep apnea. 7. Acute renal failure. 8. Status post recurrent cardiac arrest. DISCUSSION: A 48-year-old with problems outlined above. She has tolerated a spontaneous breathing trial. Overall, her prognosis is extremely poor. There has been reluctance to proceed with tracheostomy and she currently has passed a spontaneous breathing trial. She will be extubated with the addition of BiPAP at bedtime and p.r.n. if necessary. Her prognosis remains poor. PLAN: 1. Extubation today. 2. Initiate BiPAP at bedtime and p.r.n. 3. Continue dialysis as per the direction of Dr. Jean. 4. Overall prognosis remains poor. Time spent in critical care management: 35 minutes cc: Julien Munroe MD [facility]
[2019-03-29] MEDS: PROTONIX IV SCH ×2 (02:00→13:32)
[2019-03-29] MEDS: XOPENEX NEB INH SCH ×4 (03:13→19:43)
[2019-03-29] MEDS: ATROVENT NEB INH SCH ×4 (03:14→19:42)
[2019-03-29 04:21] LABS: BE -3.2 mmoll (-3.0-3.0); BLOOD TYPE ARTERIAL; HCO3-(ACT) 22.4 mmoll (20.0-26.0); METHB 0.8 % (0.0-1.5); O2(CT) 14.5 mL/dL (15.0-23.0); O2HB 95.7 % (95.0-99.0); PCO2(98.6) 43 mmHg (35-45); PO2(98.6) 96 mmHg (60-100); SAMPLE BLOOD; THB 10.7 g/dL (11.5-17.4); pH(98.6) 7.33 (7.35-7.45)
[2019-03-29 04:26] LABS: ALLEN TEST YES; MODALITY BI PAP
--- NOTE | 2019-03-29 04:44 | INFECTIOUS DISEASE PROGRESS NO ---
DATE: 03/28/2019 PRESENT ILLNESS: The patient is being treated for Klebsiella pneumonia and urinary tract infection. The patient also has pansinusitis. MEDICATIONS: The patient is receiving aztreonam for 4 days, Levaquin for 4 days, and Zyvox for 4 days. PHYSICAL EXAMINATION: Vital Signs: Temperature 98.1 degrees, pulse 117, respirations 33, and blood pressure 104/76. General: This is a morbidly obese, middle-aged female. She does not appear to be in any acute distress. Head eyes ears, nose and Throat: She has an oxygen mask in place. I could not get a good look into her mouth. I did not see any drainage from her nose or ears. Neck: On the right side, the patient has a dialysis catheter. The site is not purulent. Lungs: Bilateral rhonchi. Cardiovascular: Heart rate is irregular. Abdomen: Soft and not tender. Breasts: On the left breast site laterally, there is a large indurated mass that has peau da orange skin. I think this mass is just due to dependent edema, but when the patient is better further studies on the breast will be indicated. LABORATORY AND RADIOLOGY: Chest x-ray shows cardiomegaly and pulmonary edema. The patient's sputum grew Klebsiella. Urine grew E. Coli. CBC shows a white count of 9560, hemoglobin 7.5, and platelet count 140,000. ASSESSMENT AND PLAN: Patient is being treated for pneumonia, urinary tract infection, and pansinusitis. I plan to continue Levaquin, aztreonam, and Zyvox. As mentioned above, I think the left breast mass is due to dependent edema because there is peau da orange changes of the skin. COMORBIDITIES: The patient is morbidly obese. She had a cardiac arrest on admission. She has congestive heart failure, chronic obstructive pulmonary disease, gastroesophageal reflux disease, atrial fibrillation, and acute kidney injury. The patient has end stage renal disease. The patient's liver function studies are normal. cc: MD NEELIMA Boykin
[2019-03-29] MEDS: ZYVOX 600 MG/D5W 600 MG/300 ML IVPB IV SCH ×2 (05:59→16:56)
[2019-03-29] MEDS: SYNTHROID IV SCH (06:00)
[2019-03-29] MEDS ORDERED: NS 2,000 ML MISC PRN (06:27)
[2019-03-29 06:43] LABS: BASO# 0.02 X1000 (0.0-0.2); BASO% 0.2 % (0.0-0.8); EOS# 0.14 X1000 (0.0-0.7); EOS% 1.5 % (0.0-10.0); HEMATOCRIT 26.9 % (37.0-47.0); HEMOGLOBIN 7.9 g/dL (12.0-16.0); IMM GRAN# 0.09 X1000 (0.0-0.04); LYMPH# 1.03 X1000 (1.2-3.4); LYMPH% 11.2 % (20.5-51.1); MCH 26.1 PG (27-31); MCHC 29.4 g/dL (33-37); MCV 88.8 FL (81-99); MONO# 0.91 X1000 (0.11-0.59); MONO% 9.9 % (1.7-9.3); MPV 11.3 FL (7.4-10.4); NEUT# 6.98 X1000 (1.4-6.5); NEUT% 76.2 % (42.2-75.2); PLT 157 X1000 (130-400); RBC 3.03 XMIL (4.2-5.4); RDW 20.1 % (11.5-14.5); WBC 9.17 X1000 (4.8-10.8)
[2019-03-29 07:12] LABS: ALBUMIN 3.5 g/dL (3.5-5.0); CREATININE 3.1 mg/dL (0.5-0.9); POTASSIUM 4.4 mmol/L (3.5-5.1); TOTAL BILIRUBIN 1.11 mg/dL (0.20-1.00)
--- NOTE | 2019-03-29 07:24 | Diag Imaging Result Doc PS360 ---
EXAM: CHEST-PORTABLE INDICATION: respiratory failure TECHNIQUE: One view COMPARISON: 03/28/2019 FINDINGS: There has been interval extubation. The remaining support tubes and lines are in stable positions. There has been slight improvement of pulmonary edema and improvement of the consolidation at the right lower lung zone. No new consolidation is identified. Cardiac silhouette is stable. IMPRESSION: Interval slight improvement. Electronically signed by Jann Mcknight 03/29/2019 7:22 AM
[2019-03-29] MEDS: LOPRESSOR IV SCH ×3 (08:17→17:01)
[2019-03-29] MEDS: MUCOMYST 20% INH SCH ×2 (08:24→19:43)
[2019-03-29] MEDS: CARDIZEM 100 MG/NS 100 MG/100 ML IVPB IV SCH ×2 (09:03→20:08)
[2019-03-29] MEDS: ATIVAN IV PRN ×4 (09:16→23:21)
[2019-03-29] MEDS: MORPHINE IV PRN ×3 (10:42→23:21)
--- NOTE | 2019-03-29 13:01 | NEPHROLOGY PROGRESS NOTE ---
DATE: 03/29/2019 SUBJECTIVE: Patient is sitting up in bed. She has a BiPAP in place. She is currently undergoing SLED. OBJECTIVE: Vital Signs: Temperature 98.2 degrees, pulse 101, respiratory rate 27, blood pressure 109/69. Intake 1 L, output 645 mL. General: Chronically ill-appearing, middle-aged female, currently with a BiPAP in place. HEENT: Normocephalic, atraumatic. Oral mucosa dry. Neck: Supple. Positive JVD. Cardiovascular: Regular rate and rhythm. Pulmonary: Decreased breath sounds on the BiPAP. Abdomen: Obese, positive bowel sounds. : Robison catheter. Extremities: Trace edema. No clubbing or cyanosis. Integumentary: Skin is warm and dry. LAB DATA: Sodium 142, potassium 4.4, CO2 20, creatinine 3.1. Hemoglobin 7.9. ASSESSMENT AND PLAN: 1. Acute on chronic acute kidney disease. Patient has not had recovery as of yet and remains fluid volume overload. She dialyzed on SLED today. 2. Electrolytes, acid-base balance and anemia. These are stable. Hemoglobin has been slowly improving. 3. Hypercapnic hypoxemic respiratory failure. She is off the vent now, is on BiPAP. Again, we will continue to dialyze and remove fluid as tolerated to assist with that and with her decreased renal function. Dictated by FIONA Melara for Jose Luis Jean MD Face to face encounter, data reviewed, discussed with Amador Bray on 03/29/19. I agree with the above assessment and plan of care. cc: Jose Luis Jean MD [facility]
[2019-03-29] MEDS: SODIUM CHLORIDE 0.9% INJ SCH (13:32)
--- NOTE | 2019-03-29 15:18 | PROGRESS NOTE ---
DATE: 03/29/2019 SUBJECTIVE: This morning Ms. Rios was on the BiPAP. She was responsive. She refers to be doing well. She was not verbal because of the BiPAP. There was no family member at the bedside. OBJECTIVE: Vital signs: Blood pressure is 125/69, pulse of 104, respirations 36, temperature 98.0 degrees. General: Ms. Rios is a 48-year-old, morbidly obese, female. She is in bed. She does not seem to be in any obvious distress. HEENT: Mucosa is pink and moist. Anicteric. Acyanotic. Neck: Supple. Chest: Air entry is bilaterally reduced. There is still diffuse rhonchi and some crackles posteriorly. Cardiovascular: Irregularly irregular but rate controlled. No murmurs. No rubs. No gallops. GI: Abdomen is soft. It is distended. There is some edema on the lateral aspect of the abdominal wall. The patient also has edema on the upper thighs. [employer]: The patient is awake. Follows basic commands. Will move extremities upon command. Breasts: The left breast is swollen. Has some peau d'orange appearance. We think this is all due to edema. LABORATORY DATA: WBC is 9.17, hemoglobin is 7.9, platelet count of 157,000. Chemistry is also reviewed. Creatinine is up to 3.1. Patient is currently undergoing SLED. ASSESSMENT: 1. Status post cardiopulmonary arrest. Ms. Rios was resuscitated for over an hour in the emergency room. Subsequently, they were able to get return of spontaneous circulation. She was intubated. I understand the initial presentation is that she had agonal breathing at the emergency room. 2. Acute hypoxemic respiratory failure and acute on chronic hypercarbic respiratory failure. Ms. Rios was under the ventilator for 19 days, just up until yesterday; she was extubated. She seems to be doing well on the BiPAP. We will continue with recommendations from Pulmonary Medicine. 3. Chronic atrial fibrillation with rapid ventricular response. The patient is currently on a Cardizem drip. Cardiology is on board. 4. Acute kidney injury secondary to acute tubular necrosis. No recovery. Patient is getting SLED. 5. Anemia of acute blood loss during the hospital course. Patient is status post 2 PRBC transfusion. Hemoglobin and hematocrit have improved. 6. Coffee-grounds emesis secondary to upper gastrointestinal bleed. The patient is currently on PPI. GI is on board. 7. High residuals with the tube feedings. This has been withheld. The patient is on Reglan. 8. Left breast swelling with erythematous changes, presumed to be just part of the generalized edema. However, this will need to be re-evaluated when the patient is more medically stable. 9. Congestive heart failure, ejection fraction of 35 to 40%, associated with fluid overload. The patient is getting ultrafiltration through dialysis. 10. Multifocal Klebsiella pneumoniae/Escherichia coli urinary tract infection/pansinusitis. The patient is on antimicrobial therapy. PLAN: So in general, Ms. Rios 20 days in hospital. Was successfully extubated yesterday and transitioned to BiPAP which she seems to be tolerating well. She is still quite critical. She is getting SLED and she is still on the drip for her atrial fibrillation. Ms Rios is also on antibiotics and Infectious Disease is on board. We are going to continue her current care and follow up with further recommendations from the other subspecialties involved with her care. Ms. Rios is being seen by Infectious Disease, Nephrology, Surgery, Pulmonary Medicine, and Cardiology, and we appreciate their input. cc: Zafar Ma MD
[2019-03-29] MEDS: HALDOL IV PRN (16:13)
--- NOTE | 2019-03-29 16:18 | INFECTIOUS DISEASE PROGRESS NO ---
DATE: 03/29/2019 PRESENT ILLNESS: The patient is being treated for the following infections. 1. Klebsiella pneumonia. 2. E coli urinary tract infections. 3. Pansinusitis. MEDICATIONS: This is day 5 of treatment with aztreonam and Levaquin and Zyvox. PHYSICAL EXAMINATION: Vital Signs: Temperature is 98.8 degrees, pulse 100, respirations 26, blood pressure 111/69. General: This is a morbidly obese, middle-aged female. She is wearing a BiPAP mask. Head/eyes/ears/nose/throat: No drainage noted from the nose or ears. I could not get a good look into her mouth. Neck: The patient on the right side has an internal jugular vein dialysis catheter in place. The site is not bleeding or purulent. Lungs: Bilateral rhonchi. Cardiovascular: Heart rate is irregular. Abdomen: Soft and nontender. Patient has a large indurated mass on the left breast with peau d'orange skin. LAB AND X-RAY STUDIES: Chest x-ray shows improvement in the infiltrates. The CBC shows a white count of 9170, hemoglobin 7.9, platelet count 157,000. Blood gases show a pH of 7.33, a PO2 of 96, a pCO2 of 43. Creatinine is 3.1. GFR is 19. Liver function studies are normal. ASSESSMENT AND PLAN: The patient has pneumonia, urinary tract infection, and pansinusitis. I plan to continue with aztreonam, Levaquin and Zyvox. COMORBIDITIES: Include the patient is morbidly obese. She had a cardiac arrest during this admission. She has congestive heart failure, chronic obstructive pulmonary disease, gastroesophageal reflux disease, atrial fibrillation and acute kidney injury. The patient has end- stage renal disease and she is on dialysis for that. cc: Arvind Fair MD
[2019-03-29] MEDS: AZACTAM 1 GM in NS 50 ML IV SCH (16:59)
[2019-03-29] MEDS: LEVAQUIN 250 MG/D5W 250 MG/50 ML IVPB IV SCH (19:59)
[2019-03-30] MEDS: TYLENOL PO PRN (01:03)
[2019-03-30] MEDS: HALDOL IV PRN ×2 (01:03→08:27)
[2019-03-30 01:40] LABS: ALLEN TEST YES; BE -2.8 mmoll (-3.0-3.0); BLOOD TYPE ARTERIAL; HCO3-(ACT) 22.6 mmoll (20.0-26.0); METHB 0.9 % (0.0-1.5); O2(CT) 10.3 mL/dL (15.0-23.0); PCO2(98.6) 41 mmHg (35-45); SAMPLE BLOOD; SAO2 89.3 % (95.0-100.0); THB 8.5 g/dL (11.5-17.4); pH(98.6) 7.35 (7.35-7.45)
[2019-03-30 01:43] LABS: MODALITY BI PAP; PO2(98.6) 47 mmHg (60-100)
[2019-03-30] MEDS: PROTONIX IV SCH ×2 (02:36→15:02)
[2019-03-30] MEDS: ATIVAN IV PRN ×2 (02:39→08:40)
[2019-03-30] MEDS: XOPENEX NEB INH SCH ×4 (03:09→21:24)
[2019-03-30] MEDS: ATROVENT NEB INH SCH ×4 (03:09→21:24)
[2019-03-30 04:20] LABS: ALLEN TEST YES; BE -3.1 mmoll (-3.0-3.0); BLOOD TYPE ARTERIAL; HCO3-(ACT) 22.5 mmoll (20.0-26.0); METHB 0.9 % (0.0-1.5); O2(CT) 10.8 mL/dL (15.0-23.0); O2HB 94.1 % (95.0-99.0); PCO2(98.6) 43 mmHg (35-45); PO2(98.6) 72 mmHg (60-100); SAMPLE BLOOD; SAO2 97.5 % (95.0-100.0); SRATE 20 BPM; THB 8.1 g/dL (11.5-17.4); pH(98.6) 7.33 (7.35-7.45)
[2019-03-30 04:21] LABS: MODALITY BI PAP
[2019-03-30] MEDS: NEO-SYNEPHRINE 50 MG in NS 250 ML IV SCH (04:26)
[2019-03-30] MEDS: ZYVOX 600 MG/D5W 600 MG/300 ML IVPB IV SCH ×2 (04:31→16:41)
[2019-03-30] MEDS: CARDIZEM 100 MG/NS 100 MG/100 ML IVPB IV SCH (04:31)
[2019-03-30] MEDS: SYNTHROID IV SCH (06:16)
[2019-03-30] MEDS ORDERED: NS 2,000 ML MISC PRN (06:23)
[2019-03-30 06:31] LABS: BASO# 0.01 X1000 (0.0-0.2); BASO% 0.1 % (0.0-0.8); EOS# 0.15 X1000 (0.0-0.7); EOS% 1.7 % (0.0-10.0); HEMATOCRIT 25.5 % (37.0-47.0); HEMOGLOBIN 7.5 g/dL (12.0-16.0); IMM GRAN# 0.05 X1000 (0.0-0.04); IMM GRAN% 0.6 % (0.0-0.5); LYMPH# 1.21 X1000 (1.2-3.4); LYMPH% 13.9 % (20.5-51.1); MCH 26.5 PG (27-31); MCHC 29.4 g/dL (33-37); MCV 90.1 FL (81-99); MONO# 0.67 X1000 (0.11-0.59); MONO% 7.7 % (1.7-9.3); MPV 10.9 FL (7.4-10.4); NEUT# 6.64 X1000 (1.4-6.5); PLT 179 X1000 (130-400); RBC 2.83 XMIL (4.2-5.4); RDW 20.2 % (11.5-14.5); WBC 8.73 X1000 (4.8-10.8)
--- NOTE | 2019-03-30 06:45 | Diag Imaging Result Doc PS360 ---
CHEST-PORTABLE - 03/30/2019 INDICATION: respiratory failure COMPARISON: 03/29/2019 FINDINGS: Stable nasogastric tube in good position. There is worsening opacification of the left lung, likely largely atelectasis. Stable cardiomegaly and pulmonary vascular congestion. IMPRESSION: Significant worsening opacification of the left lung, likely largely atelectasis. Electronically signed by Dean Virk 03/30/2019 6:42 AM
[2019-03-30 07:15] LABS: ALBUMIN 3.3 g/dL (3.5-5.0); CALCIUM 8.7 mg/dL (8.8-10.2); CREATININE 2.3 mg/dL (0.5-0.9); POTASSIUM 4.7 mmol/L (3.5-5.1); TOTAL PROTEIN 6.7 g/dL (6.3-8.3)
--- NOTE | 2019-03-30 07:38 | GASTROENTEROLOGY PROGRESS NOTE ---
DATE: 03/29/2019 SUBJECTIVE: The patient has been extubated. She is on a BiPAP machine. Per nurse report, there has been no evidence of active GI bleeding. She has had some high residuals, so those have currently been placed on hold. The patient is on Reglan. OBJECTIVE: Vital Signs: Temperature 98.8 degrees, pulse 112, respirations 16, blood pressure 96/69. General: The patient is awake. She is on a BiPAP machine, so unable to talk at present time. LABORATORY DATA: Hematology: Hemoglobin 7.9, hematocrit 26.9. The patient has received packed red blood cells. Platelets 157,000. Chemistry: Sodium 142, potassium 4.4, chloride 103, CO2 of 20, BUN 62, creatinine 3.1, glucose 72. ASSESSMENT AND PLAN: 1. Acute respiratory failure. The patient has been extubated and is on bilevel positive airway pressure. 2. Status post cardiopulmonary arrest. Continue current management. 3. Chronic atrial fibrillation. She is on Cardizem drip. Cardiology is following. 4. Anemia. She has received packed red blood cells. 5. Recent coffee-grounds emesis, questionable gastrointestinal bleed. Currently, the patient has nasogastric tube clamped because of high residuals. No evidence of active gastrointestinal bleeding at the present time. Will continue to follow, and further plans will be made according to her progress. Monitor for further signs of active bleeding. Monitor hemoglobin and hematocrit, and transfuse further packed red blood cells as needed. I have discussed this case with Dr. Montanez. Dictated by FIONA Negro for Jonathon Montanez MD cc: FIONA Jackson MD
[2019-03-30] MEDS: ATIVAN 20 MG in NS 190 ML IV SCH ×2 (08:29→21:56)
[2019-03-30] MEDS ORDERED: AMIDATE ONE (08:34)
[2019-03-30] MEDS ORDERED: QUELICIN (DOSE) ONE (08:34)
[2019-03-30] MEDS: MUCOMYST 20% INH SCH ×2 (08:36→21:24)
--- NOTE | 2019-03-30 08:37 | Diag Imaging Result Doc PS360 ---
EXAM: CHEST-PORTABLE 03/30/2019 HISTORY: intubation TECHNIQUE: AP portable at 0827 COMMENT: There is an endotracheal tube with its tip slightly above the thoracic inlet and an NG tube which passes below the diaphragm. There is a right internal jugular central venous catheter with its tip in the right atrium. There is complete opacification of the left hemithorax. This was also the case on the previous radiograph at 0455. Overall there has been no appreciable change. IMPRESSION: Complete atelectasis of the left lung. The possibility of bronchial obstruction cannot be excluded. This may be on the basis of a mucous plug. Atelectasis versus pneumonia right lower lobe. Electronically signed by George Gentile 03/30/2019 8:34 AM
[2019-03-30] MEDS: LOPRESSOR IV SCH ×3 (09:18→16:35)
--- NOTE | 2019-03-30 13:02 | Diag Imaging Result Doc PS360 ---
CHEST-PORTABLE - 03/30/2019 12:47 PM INDICATION: intubation COMPARISON: 8:27 AM FINDINGS: There is an endotracheal tube in good position at T4-T5. Stable nasogastric tube off the bottom of the film. Stable double right central lines. There has been significant improvement in the consolidation or atelectasis throughout the left lung. Otherwise, there is stable persistent cardiomegaly, pulmonary vascular congestion, and central pulmonary edema. IMPRESSION: Significant improvement in the consolidation/atelectasis of the left lung. No complication or new abnormality. Electronically signed by Dean Virk 03/30/2019 1:00 PM
--- NOTE | 2019-03-30 15:54 | INFECTIOUS DISEASE PROGRESS NO ---
DATE: 03/30/2019 PRESENT ILLNESS: The patient has the following infections: 1. Klebsiella pneumonia. 2. E. coli urinary tract infection. 3. Pansinusitis. Currently the patient is being intubated due to respiratory failure. MEDICATIONS: This is the 6th day of treatment with aztreonam, Levaquin and Zyvox. PHYSICAL EXAMINATION: Vital Signs: Temperature is 100.4, heart rate is 70 and irregular, respiratory rate is 32, blood pressure is 99/54. General: This is a morbidly obese, middle-aged female. She currently is wearing a BiPAP mask and she appears to be in respiratory distress. Head/eyes/ears/nose/throat: No drainage noted from the nose or ears. The patient, as mentioned above, had a BiPAP mask on. Currently she is being intubated. Patient has a nasogastric tube in place. Neck: The patient has an internal jugular vein dialysis catheter in place. The site is not bleeding or purulent. Lungs: There were diminished breath sounds on the left side and on the right side there are rhonchi. Cardiovascular: Heart rate is irregular. Abdomen: Soft. It does not appear to be tender. Neurologic: The patient is obtunded. She did not respond to verbal stimuli. Breasts: The patient had a large mass on the lateral aspect of the left breast, which I think was due to the dependent edema. The skin had the appearance of peau d'orange. LAB AND RADIOLOGY: The CBC shows a white count of 8730, hemoglobin 7.5, platelet count is 179,000, blood gases show a pH of 7.35, PO2 of 47, a pCO2 of 41, creatinine is 2.3. GFR is 27. Liver function studies are normal. Chest x-ray shows worsening left lung opacity, most likely sent secondary to atelectasis. ASSESSMENT AND PLAN: The patient has pneumonia, urinary tract infection, and pansinusitis. I plan on continuing aztreonam, Levaquin, and Zyvox and as mentioned above, she is being intubated now. COMORBIDITIES: The patient is morbidly obese. She had a cardiac arrest during this admission. She has congestive heart failure, chronic obstructive pulmonary disease, gastroesophageal reflux disease, atrial fibrillation, and acute kidney injury. The patient is on dialysis for her acute renal failure. cc: Arvind Fair MD
--- NOTE | 2019-03-30 16:39 | PROVIDER PROGRESS NOTE ---
Progress Note Subjective: Pt has her eyes open, but not following commands Objective: temperature 99.0, pulse 118, respirations 27, blood pressure 100/76, O2 sat 89% On 50% FiO2 mechanical ventilation. General: obese -Serbian female lying in bed intubated in no acute distress. HEENT: normocephalic, atraumatic. Pupils equal and reactive, sluggish, trachea midline, endotracheal tube in place, NG tube in place. Skin: warm and dry. neck: supple, JVD observed. Cardiovascular: S1s2, no murmur. gallop noted. Enlarged PMI Respiratory: rhonchi and wheezes bilaterally, diminished bases Abdomen: obese, soft, nontender, nondistended. Hypoactive bowel sounds. : none inspected, Robison in place with dark eric to brown urine. Extremities:2+ pitting Edema to BLE up to abdominal wall. Neurological: eyes open, not following commands Labs: intake 1125, output 5984. Impression: Acute kidney injury likely acute tubular necrosis from cardiac arrest. Cr eatinine improving with slow hemodialysis (SLED). Continue current treatment. Because of her declining respiratory status and hypotension, we will hold dialysis until tomorrow. Blood pressure. Stable. Electrolytes. Stable. Acid base. Trending down. Will monitor closely. Volume status. Expanded, but improved. Remains 9.5 L positive since admission. Will stop lasix. Nutrition. Tube feeding on hold for continued high residuals. Medication review.
[2019-03-30] MEDS: AZACTAM 1 GM in NS 50 ML IV SCH (17:05)
--- NOTE | 2019-03-30 18:03 | PROGRESS NOTE ---
DATE: 03/30/2019 SUBJECTIVE: Ms. Rios had to be reintubated. She was extubated I think on Friday, today is Friday. Last night was wearing out and had to put her back on the ventilator. OBJECTIVE: Vital Signs: T-max is a 100.3 degrees, temperature at present is 99.2, pulse 77, respirations 16, blood pressure 91/59. HEENT: Pupils are equal and round. Difficult to do to see her neck veins. Lungs: Anterolateral are clear. Cardiovascular: Regular rate without murmur or S3. Abdomen: Soft. Skin: Warm and dry. Urine output is 2000 mL. ASSESSMENT AND PLAN: 1. Acute kidney injury, likely acute tubular necrosis from cardiac arrest. Creatinine is improving very slowly. I think they did sustained low-efficiency dialysis therapy hemodialysis yesterday but did not plan to do it today. Continue to work on her volume status. 2. She had to be reintubated for respiratory failure secondary to pulmonary venous hypertension and hypotension. 3. Blood pressures appear stable although on the low side. Electrolytes stable. Acid base is trending down, improving. They had stopped her Lasix and tube feeding on hold for continued high residuals. Chest x-ray from this morning, significant improvement in the consolidation atelectasis of the left lung. No complication or new abnormality. 4. Treating her for Klebsiella pneumonia, Escherichia coli urinary tract infection and pansinusitis. Currently on aztreonam, Levaquin and Zyvox. This is the sixth day. 5. Review of orders: I do not see any change. LABORATORY DATA: Hematocrit 25, hemoglobin 7.5, white blood cell count 8730, platelet count is 179,000. Sodium 138, potassium 4.7, chloride 101, BUN was 30, creatinine down to 2.3. cc: Nikunj Pittman MD
[2019-03-30] MEDS: LEVAQUIN 250 MG/D5W 250 MG/50 ML IVPB IV SCH (19:23)
[2019-03-31] MEDS: PROTONIX IV SCH ×2 (02:13→15:00)
[2019-03-31] MEDS: ATROVENT NEB INH SCH ×4 (03:13→21:31)
[2019-03-31] MEDS: XOPENEX NEB INH SCH ×4 (03:13→21:31)
--- NOTE | 2019-03-31 03:28 | GASTROENTEROLOGY PROGRESS NOTE ---
DATE: 03/30/2019 SUBJECTIVE: Since I saw patient yesterday she has had to be reintubated. She is intubated on mechanical ventilation. Her nurse reports there has been no evidence of active GI bleeding. She has had a slight drop in her hemoglobin and hematocrit today. The patient continues to receive SLED dialysis following with Nephrology. Her feedings had been on hold due to high residual, but there are plans to restart those feedings today. OBJECTIVE: Vital Signs: Temperature is 99.2 degrees, pulse 77, respirations 16, blood pressure 91/59. General: The patient is intubated on mechanical ventilation. LABORATORY: Hematology 8.73, hemoglobin 7.5, hematocrit 25.5, MCV 90.1, platelet 179,000. Coagulation: PTT 40.4. Chemistry: Sodium 138, potassium 4.7, chloride 101, CO2 of 19, BUN 30, creatinine 2.3. Glucose 72, calcium 8.7, total bilirubin 1.0, AST 13, ALT 8, alkaline phosphatase 91. IMAGING: Chest x-ray today showed significant improvement in consolidation/atelectasis of the left lung. ASSESSMENT AND PLAN: 1. Status post cardiopulmonary arrest. Patient had to be reintubated. 2. Respiratory failure on mechanical ventilation. 3. Acute kidney injury. Patient has received dialysis. Continue to follow with Nephrology. 4. Anemia. Patient had some reported coffee-grounds emesis several days ago. She has received packed red blood cells. There has been no evidence of active GI bleeding over the last several days. 5. Protein-calorie malnutrition. Patient's tube feedings have been on hold due to high residual. Patient is on Reglan. They will try to restart feedings today. 6. Continue current management. Continue proton pump inhibitor. We will continue to monitor hemoglobin and hematocrit. Transfuse packed red blood cells if needed. Monitor for any signs of active bleeding. Further plans to be made according to her progress. I have discussed this case with Dr. Montanez. Dictated by FIONA Negro for Jonathon Montanez MD cc: FIONA Jackson MD
[2019-03-31 04:21] LABS: BASO# 0.04 X1000 (0.0-0.2); BASO% 0.3 % (0.0-0.8); EOS# 0.22 X1000 (0.0-0.7); EOS% 1.7 % (0.0-10.0); HEMATOCRIT 27.1 % (37.0-47.0); IMM GRAN# 0.06 X1000 (0.0-0.04); IMM GRAN% 0.5 % (0.0-0.5); LYMPH# 1.61 X1000 (1.2-3.4); LYMPH% 12.5 % (20.5-51.1); MCH 26.3 PG (27-31); MCHC 29.5 g/dL (33-37); MCV 89.1 FL (81-99); MONO# 0.87 X1000 (0.11-0.59); MONO% 6.7 % (1.7-9.3); NEUT# 10.09 X1000 (1.4-6.5); NEUT% 78.3 % (42.2-75.2); PLT 244 X1000 (130-400); RBC 3.04 XMIL (4.2-5.4); RDW 20.1 % (11.5-14.5); WBC 12.89 X1000 (4.8-10.8)
[2019-03-31 04:39] LABS: ALB/GLOB RATIO 0.9; ALBUMIN 3.4 g/dL (3.5-5.0); CALCIUM 9.1 mg/dL (8.8-10.2); POTASSIUM 4.9 mmol/L (3.5-5.1); TOTAL BILIRUBIN 1.26 mg/dL (0.20-1.00)
[2019-03-31] MEDS: NEO-SYNEPHRINE 50 MG in NS 250 ML IV SCH ×2 (04:41→21:26)
[2019-03-31 04:48] LABS: ALLEN TEST YES; BE -5.2 mmoll (-3.0-3.0); BLOOD TYPE ARTERIAL; HCO3-(ACT) 20.9 mmoll (20.0-26.0); METHB 0.8 % (0.0-1.5); O2(CT) 8.1 mL/dL (15.0-23.0); O2HB 95.8 % (95.0-99.0); PCO2(98.6) 41 mmHg (35-45); PO2(98.6) 83 mmHg (60-100); SAMPLE BLOOD; SAO2 98.6 % (95.0-100.0); SRATE 16 BPM; THB 5.9 g/dL (11.5-17.4); TVOL 550 mL; pH(98.6) 7.31 (7.35-7.45)
[2019-03-31 04:49] LABS: MODALITY VENTILATOR
[2019-03-31] MEDS: ZYVOX 600 MG/D5W 600 MG/300 ML IVPB IV SCH ×2 (05:16→18:00)
[2019-03-31 05:33] LABS: EOS 1 % (1-10); LYMPHS 14 % (21-51); MONO 5 % (1-9); SEGS 80 % (42-75)
[2019-03-31] MEDS: CARDIZEM 100 MG/NS 100 MG/100 ML IVPB IV SCH ×2 (05:46→13:30)
[2019-03-31] MEDS: SYNTHROID IV SCH (06:14)
[2019-03-31] MEDS ORDERED: NS 2,000 ML MISC PRN ×2 (06:51→09:12)
[2019-03-31] MEDS ORDERED: TIGHT: 0.2 ML/HR FOR DIALYSIS MISC PRN (06:51)
[2019-03-31] MEDS ORDERED: HEPARIN IV PRN (06:51)
--- NOTE | 2019-03-31 07:34 | Diag Imaging Result Doc PS360 ---
EXAM: CHEST-PORTABLE INDICATION: respiratory failure TECHNIQUE: One view COMPARISON: 03/30/2019 FINDINGS: Support tubes and lines appear to be approximately stable positions. Pulmonary venous congestion and pulmonary edema are approximately stable. Atelectasis and/or infiltrate at the left lower lung zone is approximately stable. No new consolidation is identified. Cardiac silhouette is stable. IMPRESSION: Essentially stable chest. Electronically signed by Jann Mcknight 03/31/2019 7:31 AM
[2019-03-31] MEDS: MUCOMYST 20% INH SCH ×2 (08:10→21:31)
[2019-03-31] MEDS: DUONEB (A & A) INH PRN (08:10)
[2019-03-31] MEDS: ATIVAN 20 MG in NS 190 ML IV SCH ×2 (08:36→16:50)
[2019-03-31] MEDS: LOPRESSOR IV SCH ×3 (08:50→16:57)
[2019-03-31] MEDS: MORPHINE IV PRN (10:48)
--- NOTE | 2019-03-31 12:53 | INFECTIOUS DISEASE PROGRESS NO ---
DATE: 03/31/2019 PRESENT ILLNESS: The patient is being treated for the following infections: Klebsiella pneumonia, E coli urinary tract infection, and pansinusitis. MEDICATIONS: This is the 7th day of treatment with aztreonam and Zyvox, and a 6 day of treatment with Levaquin. PHYSICAL EXAMINATION: Vital Signs: Temperature is 98 degrees, pulse 100, respirations 16, blood pressure 89/70. General: This is a morbidly obese, middle-aged female. The patient is intubated. She has an orotracheal tube and a nasogastric tube in place. Head, eyes, ears, nose and throat: The head is as mentioned above. Patient has an orotracheal and nasogastric tube in place. There is no drainage from the nose or ears. Neck: The patient on the right side has a dialysis catheter in place in the internal jugular vein. There is no bleeding or purulence. Lungs: Clear to auscultation. Cardiovascular: Heart rate is irregular. Abdomen: Soft. It does not appear to be tender. Neurologic: The patient is obtunded. She did open her eyes when I started talking to her, and when I asked her to move her legs and arms, about the only thing she moved was a finger on the left hand. Breasts: On the left breast, there is a large indurated mass with Peau d'orange changes in the skin. As I mentioned before, I think this is due to accumulation of fluid in the tissue causing the mass and the change in the skin. Abdomen: Soft and did not appear to be tender. Neurologic: Patient is very lethargic. I requested her to move her extremities, and the only thing she did move was a finger on her left hand. LAB AND RADIOLOGY TESTS: The patient's CBC shows a white count of 12,890, hemoglobin 8, platelet count 244,000. Blood gases show a pH 7.31, a PO2 of 83, a pCO2 of 41. Creatinine is 3. GFR is 20. Alkaline phosphatase is 118. Chest x-ray shows pulmonary edema with left lower lobe infiltrate and/or atelectasis. ASSESSMENT AND PLAN: Patient has pneumonia, urinary tract infection and pansinusitis. For now, I plan on continuing aztreonam, Levaquin and Zyvox. COMORBIDITIES: The patient is morbidly obese. She had a cardiac arrest during this admission. She also has congestive heart failure, chronic obstructive pulmonary disease, gastroesophageal reflux disease, atrial fibrillation and acute kidney injury. The patient is on dialysis. cc: Arvind Fair MD
--- NOTE | 2019-03-31 13:29 | PROVIDER PROGRESS NOTE ---
Progress Note Subjective: Intubated and sedated Objective: temperature 97.8, pulse 97, respirations 17, blood pressure 83/63, but he sat 97% on 100% mechanical ventilation. General: obese -[place]yr[place] female lying in bed intubated in no acute distress. HEENT: normocephalic, atraumatic. Pupils equal and reactive, sluggish, trachea midline, endotracheal tube in place, NG tube in place. Skin: warm and dry. Right vas cath in place. neck: supple, JVD unobserved due to body habitus. Cardiovascular: S1s2, no murmur. gallop noted. Enlarged PMI Respiratory: rhonchi and wheezes bilaterally, diminished bases Abdomen: obese, soft, nontender, nondistended. Hypoactive bowel sounds. : none inspected, Robison in place with dark eric to brown urine. Extremities:2+ pitting Edema to BLE up to abdominal wall. Neurological: sedated, not following commands. On Ativan gtt Labs: WBC 12.89, hemoglobin eight, hematocrit 27.1, platelet count 244, sodium 137, potassium 4.9, chloride 101, carbon dioxide 17, BUN 40, creatinine 3.0. Intake 1325, output 125. Impression: Acute kidney injury likely acute tubular necrosis from cardiac arrest. No change in renal function. We will SLED today with plans for 4L output. Continue current treatment. Blood pressure. Stable on neosynephrine Electrolytes. Stable. Acid base. Trending down. Will monitor closely. Volume status. Expanded, receiving slow hemodialysis today. Nutrition. Tube feeding in place Medication review.
[2019-03-31] MEDS: REGLAN LIQUID PO SCH ×2 (13:30→21:34)
--- NOTE | 2019-03-31 14:07 | PROGRESS NOTE ---
DATE: 03/31/2019 SUBJECTIVE: Ms. Rios is on the ventilator. There was some question of whether she was clamping down on the ET tube. She was getting dialysis at the time. She remains afebrile. OBJECTIVE: Temperature 97.3 degrees, pulse 84, respirations 19, blood pressure 120/64. Pupils are equal and round. Lungs are clear in all lung perry. Cardiovascular Examination: Regular rhythm and rate without murmur or S3. Abdomen is soft. Skin is warm and dry. Urine output is 3800 mL. ASSESSMENT AND PLAN: 1. This is the seventh day of treatment with aztreonam and Zyvox, and day 6 of treatment of Levaquin. She has Klebsiella pneumonia, Escherichia coli urinary tract infection, and pansinusitis. 2. Acute kidney injury. Likely, it was acute tubular necrosis. Very slow improvement. Getting sustained low-efficiency dialysis therapy today. 3. Intubated. She had respiratory failure secondary to pulmonary venous hypertension and hypotension. 4. Blood pressures appear to be doing better. She was having hypotension upon presentation. 5. History of Klebsiella pneumonia and Escherichia coli urinary tract infection. REVIEW OF ORDERS: I do not see any significant change. LABORATORY DATA: Reviewed from today. White count 12,890, hematocrit is 27, hemoglobin 8, platelet count 244,000. Electrolytes: Sodium 137, potassium 4.09, chloride 101, BUN is 40, creatinine 3.0. cc: Nikunj Pittman MD
--- NOTE | 2019-03-31 18:30 | GASTROENTEROLOGY PROGRESS NOTE ---
DATE: 03/31/2019 PROGRESS NOTE: The patient is intubated on mechanical ventilation. She did not arouse with mild stimulus. She has NG with feeding that is about to be restarted. Per nurse report, there has been some high residuals. There was a reported dark stool, yesterday. None reported today. OBJECTIVE: Vital Signs: Temperature 97.7 degrees, pulse 75, pulse 101, respirations 27, blood pressure 82/56. Currently patient is intubated on mechanical ventilation. Chest x-ray showed a stable chest. LABORATORY: Hematology: WBC 12.89, hemoglobin 8.0, hematocrit 27.1, MCV 89.1, platelets 244,000. Chemistry: Sodium 137, potassium 4.9, chloride 101, CO2 17, BUN 40, creatinine 3.0, glucose 89, total bilirubin 1.26, AST 19, ALT 11, alkaline phosphatase 118. ASSESSMENT AND PLAN: 1. Respiratory failure. 2. Status post cardiopulmonary arrest. 3. Acute kidney injury receiving dialysis. 4. Anemia slightly improved today. Due to high residuals, we will start Reglan. There was an interaction but we will start low-dose Reglan 3 times a day liquid via PEG 2. Watch for tardive dyskinesia and stop if noted. Continue proton pump inhibitors. We will continue to follow and further plans to be made according to her progress. I have discussed this case with Dr. Montanez. Dictated by FIONA Negro for Jonathon Montanez MD cc: FIONA Jackson MD
[2019-03-31] MEDS: AZACTAM 1 GM in NS 50 ML IV SCH (19:00)
[2019-03-31] MEDS: LEVAQUIN 250 MG/D5W 250 MG/50 ML IVPB IV SCH (21:15)
[2019-04-01] MEDS: ATIVAN 20 MG in NS 190 ML IV SCH ×3 (01:26→16:07)
[2019-04-01] MEDS: SODIUM CHLORIDE 0.9% INJ SCH ×3 (02:03→14:58)
[2019-04-01] MEDS: PROTONIX IV SCH ×2 (02:03→14:59)
[2019-04-01] MEDS: XOPENEX NEB INH SCH ×4 (03:20→21:15)
[2019-04-01] MEDS: ATROVENT NEB INH SCH ×4 (03:20→21:15)
[2019-04-01 04:44] LABS: ALLEN TEST YES; BE -6.2 mmoll (-3.0-3.0); BLOOD TYPE ARTERIAL; HCO3-(ACT) 20.1 mmoll (20.0-26.0); O2(CT) 11.7 mL/dL (15.0-23.0); O2HB 98.4 % (95.0-99.0); PCO2(98.6) 34 mmHg (35-45); PO2(98.6) 166 mmHg (60-100); SAMPLE BLOOD; SAO2 100.6 % (95.0-100.0); SRATE 16 BPM; THB 8.2 g/dL (11.5-17.4); TVOL 550 mL; pH(98.6) 7.35 (7.35-7.45)
[2019-04-01] MEDS: CARDIZEM 100 MG/NS 100 MG/100 ML IVPB IV SCH ×2 (04:45→15:53)
[2019-04-01 04:50] LABS: MODALITY VENTILATOR
[2019-04-01] MEDS: REGLAN LIQUID PO SCH ×3 (04:50→20:23)
[2019-04-01] MEDS: ZYVOX 600 MG/D5W 600 MG/300 ML IVPB IV SCH ×2 (04:51→18:00)
[2019-04-01 05:54] LABS: BASO# 0.03 X1000 (0.0-0.2); BASO% 0.2 % (0.0-0.8); EOS# 0.14 X1000 (0.0-0.7); EOS% 0.8 % (0.0-10.0); HEMATOCRIT 27.1 % (37.0-47.0); IMM GRAN# 0.06 X1000 (0.0-0.04); IMM GRAN% 0.4 % (0.0-0.5); LYMPH# 1.52 X1000 (1.2-3.4); LYMPH% 8.9 % (20.5-51.1); MCH 26.4 PG (27-31); MCHC 29.5 g/dL (33-37); MCV 89.4 FL (81-99); MONO# 1.23 X1000 (0.11-0.59); MONO% 7.2 % (1.7-9.3); MPV 10.4 FL (7.4-10.4); NEUT# 14.02 X1000 (1.4-6.5); NEUT% 82.5 % (42.2-75.2); PLT 283 X1000 (130-400); RBC 3.03 XMIL (4.2-5.4); RDW 20.5 % (11.5-14.5)
[2019-04-01 06:00] LABS: ALB/GLOB RATIO 0.9; ALBUMIN 3.4 g/dL (3.5-5.0); CALCIUM 9.2 mg/dL (8.8-10.2); CREATININE 2.2 mg/dL (0.5-0.9); POTASSIUM 4.7 mmol/L (3.5-5.1); TOTAL BILIRUBIN 1.44 mg/dL (0.20-1.00); TOTAL PROTEIN 7.3 g/dL (6.3-8.3)
[2019-04-01] MEDS: SYNTHROID IV SCH (06:41)
--- NOTE | 2019-04-01 07:11 | Diag Imaging Result Doc PS360 ---
EXAM: CHEST-PORTABLE 04/01/2019 HISTORY: respiratory failure TECHNIQUE: AP portable upright at 0456 COMMENT: There is an endotracheal tube with its tip slightly below the thoracic inlet and an NG tube which passes below the diaphragm. There is cardiomegaly. There is interstitial and alveolar opacity particularly in the left lower lobe. IMPRESSION: Pulmonary edema and cardiomegaly. Essentially stable since 03/31/2019. Slightly improved with regard to the left upper lobe since 03/30/2019. Electronically signed by George Gentile 04/01/2019 7:08 AM
[2019-04-01] MEDS: MUCOMYST 20% INH SCH ×2 (08:43→21:15)
[2019-04-01] MEDS: DUONEB (A & A) INH PRN (08:43)
[2019-04-01] MEDS: LOPRESSOR IV SCH ×3 (09:52→17:50)
--- NOTE | 2019-04-01 10:03 | PROGRESS NOTE ---
DATE: 04/01/2019 SUBJECTIVE: Blanca is still on the ventilator, sedated. OBJECTIVE: Vital Signs: Temp 98.2 degrees, pulse 106, respirations 25, blood pressure 109/68. HEENT: Pupils are equal and round. Lungs: Clear in all lung perry. Cardiovascular: Regular rhythm and rate without murmur or S3. Urine output is 4100 mL. IMAGING AND LABORATORY DATA: Lab reviewed from yesterday, electrolytes. Creatinine had actually come down to 2.2, which is encouraging. Chest x-ray showed pulmonary edema, cardiomegaly essentially stable since 03/31/2019, slightly improved with regard to left upper lobe since 03/30/2019. ASSESSMENT AND PLAN: 1. This is the eighth day of treatment with aztreonam and Zyvox, and day 7 of treatment with Levaquin for Klebsiella pneumoniae Escherichia coli urinary tract infection and pansinusitis. 2. Acute kidney injury, which shows some improvement. Likely this is acute tubular necrosis. Creatinine is coming down. 3. Intubated. Respiratory failure. Continue to try weaning efforts. REVIEW OF ORDERS: Patient with history of gastroparesis and getting Reglan 5 mg p.o. every 8 hours, aztreonam 1 gram daily, levofloxacin 250 mg IV every 24 hours, Synthroid 50 mcg IV daily, Protonix 40 mg IV every 12 hours, and then linezolid 600 mg IV every 12 hours. cc: Nikunj Pittman MD
[2019-04-01] MEDS: NEO-SYNEPHRINE 50 MG in NS 250 ML IV SCH (10:48)
[2019-04-01] MEDS: MORPHINE IV PRN (11:29)
--- NOTE | 2019-04-01 14:56 | INFECTIOUS DISEASE PROGRESS NO ---
DATE: 04/01/2019 PRESENT ILLNESS: The patient has the following infections: Klebsiella pneumonia, Escherichia coli urinary tract infection, and pansinusitis. The patient's white blood cell count is gradually increasing. MEDICATIONS: This is the eighth day of treatment with aztreonam and Zyvox, and the seventh day of treatment with Levaquin. PHYSICAL EXAMINATION: Vital Signs: Temperature is 98.2 degrees, pulse 99, respirations 17, blood pressure 91/69. General: This is a morbidly obese, middle-aged female. She does not appear to be in any acute distress. HEENT: She has an orotracheal and a nasotracheal tube in place. There is no drainage from the nose or ears. Neck: Moving her neck passively did not seem to cause her any pain. The patient has a right-sided internal jugular venous catheter in place. The site is not bleeding or purulent. Lungs: Clear to auscultation. Cardiovascular: Heart rate is irregular. Abdomen: Soft. It is not tender. Neurologic: The patient is very lethargic. She did not respond to verbal stimuli today. Breasts: The patient continues to have the large indurated mass on the left side with peau d'orange changes in the skin. Extremities: The patient has a PICC in the left arm. That site also is not purulent or bleeding. IMAGING AND LABORATORY DATA: The chest x-ray shows improvement in the left upper lobe opacity. The patient's CBC shows a white count of 17,000, hemoglobin 8, platelet count 283,000. Blood gases show a pH of 7.35, a PO2 of 166, and a pCO2 of 34. The creatinine is 2.2. GFR is 29. Alkaline phosphatase is 137. ASSESSMENT AND PLAN: The patient has a Klebsiella pneumonia, Escherichia coli urinary tract infection, and pansinusitis, but her white count continues to increase. I am going to continue her current antibiotics, and I have gone ahead and ordered repeat blood, urine, and sputum cultures. The patient's nurse said that she is not having diarrhea. Therefore, testing for Clostridium difficile antigen and toxin is not necessary. COMORBIDITIES: The patient is morbidly obese. She had a cardiac arrest during this admission. She has the following illnesses: Congestive heart failure, chronic obstructive pulmonary disease, gastroesophageal reflux disease, atrial fibrillation, and acute kidney injury, for which the patient is on dialysis. cc: Arvind Fair MD
--- NOTE | 2019-04-01 15:30 | PROVIDER PROGRESS NOTE ---
Progress Note Subjective: Intubated and sedated Objective: temperature 97.8, pulse 97, respirations 17, blood pressure 83/63, but he sat 97% on 100% mechanical ventilation. General: obese -Angolan female lying in bed intubated in no acute distress. HEENT: normocephalic, atraumatic. Pupils equal and reactive, sluggish, trachea midline, endotracheal tube in place, NG tube in place. Skin: warm and dry. Right vas cath in place. neck: supple, JVD unobserved due to body habitus. Cardiovascular: S1s2, tachycardic, irregular rate and rhythm. no murmur or gallop. Enlarged PMI Respiratory: rhonchi and wheezes bilaterally, diminished bases Abdomen: obese, soft, nontender, nondistended. Hypoactive bowel sounds. : none inspected, Robison in place with eric urine. Extremities: 1+ pitting Edema to BLE up to abdominal wall. Neurological: sedated, not following commands. On Ativan gtt Labs: WBC 12.89, hemoglobin eight, hematocrit 27.1, platelet count 244, sodium 137, potassium 4.9, chloride 101, carbon dioxide 17, BUN 40, creatinine 3.0. Intake 1325, output 125. Impression: Acute kidney injury likely acute tubular necrosis from cardiac arrest. Creatinine improved with SLED yesterday. No SLED today. Will continue to monitor. Blood pressure. Stable on neosynephrine Electrolytes. Stable. Acid base. Carbon dioxide Continues to trending down. Anion gap 19. Volume status. Expanded, receiving slow hemodialysis today. Nutrition. Tube feeding in place Medication review. Reglan was added yesterday.
[2019-04-01] MEDS: AZACTAM 1 GM in NS 50 ML IV SCH (18:05)
[2019-04-01] MEDS: LEVAQUIN 250 MG/D5W 250 MG/50 ML IVPB IV SCH (20:23)
--- NOTE | 2019-04-01 21:31 | GASTROENTEROLOGY PROGRESS NOTE ---
DATE: 04/01/2019 SUBJECTIVE: The patient is continued on mechanical ventilation, intubated. Per nurse report, she is still having some high residuals. She was started on Reglan. There was reported a dark stool. Hemoglobin and hematocrit have remained stable over the last 2 days. OBJECTIVE: Vital Signs: Temperature is 98.2 degrees, pulse 96, respirations 16, blood pressure 129/80. General: The patient is intubated on mechanical ventilation. GI: Feeding tube on hold due to high residuals. LABORATORY: Hematology: WBCs 17.0 hemoglobin 8.0, hematocrit 27.1, MCV 89.4, platelets 283. Chemistry: Sodium 135, potassium 4.7, chloride 99. CO2 is 17, BUN 23, creatinine 2.2. Glucose 94, calcium 9.2. Total bilirubin 1.44, AST 24, ALT 14, alkaline phosphatase 137. ASSESSMENT AND PLAN: 1. Respiratory failure, on mechanical ventilation. 2. Status post cardiopulmonary arrest. 3. Acute kidney injury receiving dialysis. 4. Anemia with hemoglobin and hematocrit stable over the last several days. 5. Nutritional status. Patient has had high residuals. We have started Reglan. Continue to monitor and adjust feeding as needed. We will continue to follow during her progress. Further plans to be made as needed. I have discussed this case with Dr. Montanez. Dictated by FIONA Negro for Jonathon Montanez MD cc: FIONA Jackson MD
--- NOTE | 2019-04-01 21:59 | GENERAL SURGERY CONSULTATION ---
DATE: 04/01/2019 REFERRING PHYSICIAN: Dr. Chambers. CONSULTING SURGEON: Lex Hamilton MD. REASON FOR CONSULTATION: Tracheostomy. HISTORY OF PRESENT ILLNESS: This is a 48-year-old female with a complicated medical history, who has been admitted since 03/09/2019, when she presented with acute respiratory failure and cardiopulmonary arrest. She has been intubated since that time. She has failed an extubation trial earlier this week. She has pneumonia, COPD, morbid obesity, Pickwickian syndrome, among other chronic medical comorbidities. We have been asked to perform a tracheostomy for persistent respiratory failure and inability to wean from the ventilator. PAST MEDICAL HISTORY: As described above in HPI. Atrial fibrillation, congestive heart failure, chronic kidney disease, gastroesophageal reflux disease, anxiety. PAST SURGICAL HISTORY: Tracheostomy, tunneled dialysis catheter placement. FAMILY HISTORY: Unknown. ALLERGIES: Keflex, propoxyphene. SOCIAL HISTORY: She is a resident of [facility]. Apparently, no alcohol, tobacco, or illicit drug use per chart review. REVIEW OF SYSTEMS: Unable to be obtained. CURRENT MEDICATIONS: DuoNeb, aztreonam, Cardizem drip, Haldol, Xopenex, Levaquin, Synthroid, Zyvox, Ativan, Reglan, Lopressor, Protonix, Luke-Synephrine. PHYSICAL EXAMINATION: Vital Signs: Temperature 98.1 degrees, pulse 97 to 109, blood pressure 111/65, O2 saturation 100%. General: She is sedated, but responds to painful stimuli. Neck: Very short. There is a previous tracheostomy scar. She does have copious secretions around her mouth and ET tube. Chest: Coarse bilateral breath sounds. She is on a ventilator at 100% FiO2, PEEP of 10, peak airway pressures are 30 to 40, up to 50 with agitation or stimulation. Cardiovascular: Regular rate and rhythm. Gastrointestinal: Super obese. No apparent tenderness. Extremities: She seems to be perfusing her extremities. I do not see any digital infarcts. There is some edema diffusely. LABORATORY: White blood cell count 17,000, hemoglobin 8, hematocrit 27. PH 7.35, pCO2 of 34, PaO2 of 166, bicarbonate 20, base deficit -6.2. Electrolytes were reviewed and show a CO2 of 17, BUN 23, creatinine 2.2. IMAGING: A chest x-ray this morning, shows pulmonary edema and cardiomegaly, stable since yesterday. ASSESSMENT AND PLAN: A 48-year-old female with persistent respiratory failure due to pneumonia and severe obesity. She is status post cardiopulmonary arrest. Her prognosis appears quite poor. It does appear that she will ultimately need a tracheostomy. However, I have discussed with Dr. Chambers, her current status, and I think performing a tracheostomy is somewhat risky at this time. He will work on trying to decrease her airway pressures and FiO2 over the weekend, and we will look to get the tracheostomy done next week if the family still desires it. cc: Lex Hamilton MD
[2019-04-02] MEDS: ATIVAN 20 MG in NS 190 ML IV SCH ×3 (00:08→16:53)
[2019-04-02] MEDS: CARDIZEM 100 MG/NS 100 MG/100 ML IVPB IV SCH ×3 (00:33→18:15)
[2019-04-02] MEDS: PROTONIX IV SCH ×2 (01:07→15:21)
[2019-04-02] MEDS: NEO-SYNEPHRINE 50 MG in NS 250 ML IV SCH ×2 (01:07→16:54)
[2019-04-02] MEDS: SODIUM CHLORIDE 0.9% INJ SCH ×2 (01:07→15:21)
[2019-04-02] MEDS: XOPENEX NEB INH SCH ×4 (03:23→19:12)
[2019-04-02] MEDS: ATROVENT NEB INH SCH ×4 (03:23→19:12)
[2019-04-02] MEDS: ZYVOX 600 MG/D5W 600 MG/300 ML IVPB IV SCH ×2 (04:38→18:14)
[2019-04-02] MEDS: REGLAN LIQUID PO SCH ×3 (04:38→20:20)
[2019-04-02 04:59] LABS: ALLEN TEST YES; BE -8.6 mmoll (-3.0-3.0); BLOOD TYPE ARTERIAL; HCO3-(ACT) 18.2 mmoll (20.0-26.0); METHB 2.8 % (0.0-1.5); MODALITY VENTILATOR; O2(CT) 12.5 mL/dL (15.0-23.0); O2HB 94.1 % (95.0-99.0); PCO2(98.6) 27 mmHg (35-45); PO2(98.6) 143 mmHg (60-100); SAMPLE BLOOD; SAO2 98.8 % (95.0-100.0); SRATE 16 BPM; THB 9.2 g/dL (11.5-17.4); TVOL 550 mL; pH(98.6) 7.37 (7.35-7.45)
[2019-04-02 05:34] LABS: BASO# 0.03 X1000 (0.0-0.2); BASO% 0.2 % (0.0-0.8); EOS# 0.06 X1000 (0.0-0.7); EOS% 0.4 % (0.0-10.0); HEMATOCRIT 27.5 % (37.0-47.0); HEMOGLOBIN 8.3 g/dL (12.0-16.0); IMM GRAN# 0.06 X1000 (0.0-0.04); IMM GRAN% 0.4 % (0.0-0.5); LYMPH# 1.52 X1000 (1.2-3.4); LYMPH% 10.5 % (20.5-51.1); MCH 27.8 PG (27-31); MCHC 30.2 g/dL (33-37); MONO# 1.23 X1000 (0.11-0.59); MONO% 8.5 % (1.7-9.3); MPV 10.8 FL (7.4-10.4); NEUT# 11.56 X1000 (1.4-6.5); PLT 241 X1000 (130-400); RBC 2.99 XMIL (4.2-5.4); RDW 21.6 % (11.5-14.5); WBC 14.46 X1000 (4.8-10.8)
[2019-04-02] MEDS: SYNTHROID IV SCH (05:59)
[2019-04-02] MEDS: SODIUM CHLORIDE 0.9% INJ PRN (06:01)
[2019-04-02 06:07] LABS: ALB/GLOB RATIO 0.7; CALCIUM 9.3 mg/dL (8.8-10.2); CREATININE 3.4 mg/dL (0.5-0.9); POTASSIUM 4.9 mmol/L (3.5-5.1); TOTAL BILIRUBIN 1.51 mg/dL (0.20-1.00); TOTAL PROTEIN 7.4 g/dL (6.3-8.3)
[2019-04-02 06:59] LABS: ANISOCYTOSIS 1+; LYMPHS 10 % (21-51); MONO 8 % (1-9); NRBC 1 % (0-0); SEGS 82 % (42-75)
[2019-04-02 07:00] LABS: HYPOCHROM 1+; POIKILOCYTOSIS 1+
[2019-04-02] MEDS ORDERED: NS 2,000 ML MISC PRN (07:00)
--- NOTE | 2019-04-02 07:21 | Diag Imaging Result Doc PS360 ---
EXAM: CHEST-PORTABLE 04/02/2019 HISTORY: respiratory failure TECHNIQUE: AP portable at 0535 COMMENT: There is an endotracheal tube with its tip at the damaris. There is an NG tube which passes below the diaphragm. There is a large bore catheter in the right internal jugular with its tip in the superior vena cava. There is also a PICC line on the right the tip of which is not clearly visible. There is cardiomegaly. There is increased pulmonary vascularity. There is bibasilar opacity particularly in the retrocardiac left lower lobe. This appears to have improved slightly since 04/01/2019. IMPRESSION: Cardiomegaly and pulmonary edema slightly improved. Electronically signed by George Gentile 04/02/2019 7:19 AM
[2019-04-02] MEDS: MUCOMYST 20% INH SCH ×2 (08:05→19:11)
[2019-04-02] MEDS: DUONEB (A & A) INH PRN (08:06)
--- NOTE | 2019-04-02 08:24 | INFECTIOUS DISEASE PROGRESS NO ---
DATE: 04/02/2019 PRESENT ILLNESS: The patient has the following infections: 1. Klebsiella pneumoniae. 2. E. coli urinary tract infection. 3. Pansinusitis. The patient's white blood cell count is also increasing. MEDICATIONS: This is the 9th day of aztreonam and Zyvox and the 8th day of treatment with Levaquin. OBJECTIVE: Vital signs: Temperature is 98, pulse 93, respirations 23, blood pressure 122/86. General: This is a morbidly obese middle-aged female. She does not appear to be in any acute distress. Head, eyes, ears, nose and throat: She has an orotracheal tube and a nasogastric tube in place. There is no drainage from her nose or ears. Neck: The patient has a right-sided internal jugular venous dialysis catheter in place. The site is not bleeding or purulent. Lungs: Clear to auscultation. Cardiovascular: The patient's heart rate is irregular. Abdomen is soft, and it was not tender. Neurologic: The patient is obtunded. She did not respond to verbal stimuli. She does not have a tremor. DIAGNOSTIC DATA: CBC shows the white count is 14,460, hemoglobin 8.3, platelet count 241,000. Blood gases show a pH of 7.37, pO2 of 143, and a pCO2 of 27. The creatinine is 3.4, GFR is 17, alkaline phosphatase is 130. Chest x-ray shows improvement in the bibasilar opacities. Repeat blood, urine and sputum cultures are pending. ASSESSMENT AND PLAN: As mentioned above, the patient has pneumonia, urinary tract infection and pansinusitis. Also, her white count is increasing. I am going to continue the current antibiotics pending the results blood, urine and sputum cultures. COMORBIDITIES: The patient is morbidly obese. She had a cardiac arrest during this admission. She also has congestive heart failure, chronic obstructive pulmonary disease, gastroesophageal reflux disease, atrial fibrillation, acute kidney injury, and the patient is receiving dialysis also. cc: Arvind Fair MD
[2019-04-02] MEDS: LOPRESSOR IV SCH ×3 (08:25→18:09)
--- NOTE | 2019-04-02 14:23 | PROGRESS NOTE ---
DATE: 04/02/2019 SUBJECTIVE: Ms. Rios is intubated and sedated. OBJECTIVE: Temp is 99 degrees, pulse 94, respirations 20, blood pressure 95/66. Pupils are equal and round. Lungs are clear in all lung perry. Cardiovascular regular rate without murmur or S3. Abdomen is soft skin is warm and dry. Urine output is 1200 mL. ASSESSMENT AND PLAN: 1. Klebsiella pneumonia. 2. Escherichia coli urinary tract infection. 3. Pansinusitis. This is the 9th day of aztreonam and Zyvox, 8th day of treatment on Levaquin. 4. Respiratory failure. Chest x-ray shows cardiomegaly. Pulmonary edema has slightly improved. Continue attempts for toward weaning off the ventilator. 5. Acute kidney injury, suspect acute tubular necrosis. Getting sustained low-efficiency dialysis therapy which seems to be helping improving her volume. 6. Status post cardiopulmonary arrest. 7. Trying to give her NG feeding. REVIEW OF HER ORDERS: She is getting Tylenol 650 mg q.6 hours p.r.n., breathing treatments, albuterol/ ipratropium. She gets aztreonam 1 g IV daily, diltiazem drip, levofloxacin 250 mg IV q.24 hours, Synthroid 50 mcg IV daily, Ativan 2 mg IV q.2 hours p.r.n., metoprolol 5 mg IV q. t.i.d., Protonix 40 mg IV q.12 and linezolid 600 mg IV. cc: Nikunj Pittman MD
[2019-04-02] MEDS: AZACTAM 1 GM in NS 50 ML IV SCH (18:14)
--- NOTE | 2019-04-02 18:17 | GENERAL SURGERY PROGRESS NOTE ---
DATE: 04/02/2019 SUBJECTIVE: There have been no acute events overnight. OBJECTIVE: She is afebrile. Pulse is in the 90s to 100 range. Systolic blood pressure is 95 to 110. O2 saturation 95 to 98 percent.General: She remains sedated, but responsive to stimulation. Respiratory: Coarse bilateral breath sounds. Her FiO2 is now down to 80%. Her peak pressure is at 36 currently. Cardiovascular: Tachycardic and regular. LABORATORY: White blood cell count 14,000, hemoglobin 8.3. PH 7.37, pCO2 of 27, PaO2 of 143, base deficit -8, lactate 3.4. ASSESSMENT AND PLAN: A 48-year-old female with prolonged respiratory failure, pneumonia, morbid obesity, Pickwickian syndrome, who will need a tracheostomy in the near future. Dr. Chambers is working on weaning her some off the high FiO2 and hopefully will be able to get the tracheostomy done next week. cc: Lex Hamilton MD
--- NOTE | 2019-04-02 19:03 | GASTROENTEROLOGY PROGRESS NOTE ---
DATE: 04/02/2019 SUBJECTIVE: Patient remains on mechanical ventilation, intubated. Per nurse report, she is having large amount of residuals and large amount of stomach contents. Her feeding is on hold. We had started her on Reglan with no real improvement in her gastric emptying. OBJECTIVE: Vital Signs: Temperature 99 degrees, pulse 99, respirations 20, blood pressure 98/80. The patient is on mechanical ventilation. Intubated. Feedings are on hold due to high residual. LABORATORY: Hematology: WBC 14.46, hemoglobin 8.3, hematocrit 27.5, MCV 92.0. Chemistry: Sodium 135, potassium 4.9, chloride 100, CO2 15 BUN 35, creatinine 3.4, glucose 92, calcium 9.3, total bilirubin 1.51, AST 37, ALT 22, alkaline phosphatase 130. ASSESSMENT AND PLAN: 1. Respiratory failure on mechanical ventilation. 2. Status post cardiopulmonary arrest. 3. Acute kidney injury requiring dialysis. 4. Anemia, hemoglobin and hematocrit have remained stable. There is no sign of active gastrointestinal bleeding. 5. Nutritional status. Patient has had high residuals and her feedings have had to be on hold. We had started Reglan with no improvement. I have discussed this case with Dr. Montanez. Would recommend possible total parenteral nutrition to allow gastric emptying to improve and hold feedings for now since she is not tolerating them. Continue other management. Further plans to be made according to her progress. Dictated by FIONA Negro for Jonathon Montanez MD cc: FIONA Jackson MD
[2019-04-02] MEDS: LEVAQUIN 250 MG/D5W 250 MG/50 ML IVPB IV SCH (20:20)
--- NOTE | 2019-04-02 21:13 | NEPHROLOGY PROGRESS NOTE ---
DATE: 04/02/2019 SUBJECTIVE: Patient currently resting in bed, undergoing SLED. OBJECTIVE: Vital signs: Temperature 99 degrees, pulse 94, respiratory rate 20, blood pressure 95/66. Intake 2.6 L, output 660 mL.General: Critically ill-appearing middle-aged female, resting in bed. She is currently sedated. HEENT: Normocephalic, atraumatic. Oral mucosa dry. Neck is supple, without JVD. Cardiovascular: Irregularly irregular rhythm. Controlled rate. Pulmonary: Decreased breath sounds. Mechanically ventilated. Abdomen soft. Hypoactive. : Robison catheter. Extremities: Trace to 1+ edema, bilateral lower extremities. She continues with some dependent edema up to the thighs, hips and back. Neurologic: Sedated. LABORATORY DATA: WBC of 14.4, hemoglobin 8.3. Sodium 135, potassium 4.9, CO2 is 15, creatinine 3.4. ASSESSMENT AND PLAN: 1. Acute kidney injury, acute tubular necrosis secondary to cardiac arrest. We are doing sustained low-efficiency dialysis 3 days a week. We will plan for 4 L fluid removal today. 2. Electrolytes, acid-base balance, anemia. She will dialyze on a regular 4 K bath on sustained low-efficiency dialysis. 3. Fluid volume. Again, 4 L attempt fluid removal. Dictated by FIONA Melara for Jose Luis Jean MD cc: Jose Luis Jean MD
[2019-04-03] MEDS: PROTONIX IV SCH ×2 (01:24→13:50)
[2019-04-03] MEDS: SODIUM CHLORIDE 0.9% INJ SCH ×2 (01:24→13:51)
[2019-04-03] MEDS: NEO-SYNEPHRINE 50 MG in NS 250 ML IV SCH ×3 (01:30→17:32)
[2019-04-03] MEDS: ATIVAN 20 MG in NS 190 ML IV SCH ×3 (01:31→22:54)
[2019-04-03] MEDS: ATROVENT NEB INH SCH ×4 (02:56→22:06)
[2019-04-03] MEDS: XOPENEX NEB INH SCH ×4 (02:56→22:05)
[2019-04-03 04:28] LABS: ALLEN TEST YES; BE -7.8 mmoll (-3.0-3.0); BLOOD TYPE ARTERIAL; HCO3-(ACT) 18.8 mmoll (20.0-26.0); METHB 0.7 % (0.0-1.5); O2(CT) 11.1 mL/dL (15.0-23.0); PCO2(98.6) 33 mmHg (35-45); PO2(98.6) 73 mmHg (60-100); SAMPLE BLOOD; SAO2 98.1 % (95.0-100.0); SRATE 16 BPM; THB 8.2 g/dL (11.5-17.4); TVOL 550 mL; pH(98.6) 7.33 (7.35-7.45)
[2019-04-03] MEDS: REGLAN LIQUID PO SCH ×3 (04:30→20:34)
[2019-04-03] MEDS: ZYVOX 600 MG/D5W 600 MG/300 ML IVPB IV SCH ×2 (04:30→16:46)
[2019-04-03 04:32] LABS: MODALITY VENTILATOR
[2019-04-03 06:02] LABS: BASO# 0.04 X1000 (0.0-0.2); BASO% 0.2 % (0.0-0.8); EOS# 0.25 X1000 (0.0-0.7); EOS% 1.4 % (0.0-10.0); HEMATOCRIT 27.3 % (37.0-47.0); HEMOGLOBIN 8.1 g/dL (12.0-16.0); IMM GRAN# 0.07 X1000 (0.0-0.04); IMM GRAN% 0.4 % (0.0-0.5); LYMPH% 11.1 % (20.5-51.1); MCH 26.6 PG (27-31); MCHC 29.7 g/dL (33-37); MCV 89.5 FL (81-99); MONO# 1.52 X1000 (0.11-0.59); MONO% 8.5 % (1.7-9.3); MPV 10.1 FL (7.4-10.4); NEUT# 14.09 X1000 (1.4-6.5); NEUT% 78.4 % (42.2-75.2); PLT 303 X1000 (130-400); RBC 3.05 XMIL (4.2-5.4); RDW 21.2 % (11.5-14.5); WBC 17.97 X1000 (4.8-10.8)
[2019-04-03] MEDS: SYNTHROID IV SCH (06:02)
[2019-04-03] MEDS: SODIUM CHLORIDE 0.9% INJ PRN (06:03)
[2019-04-03] MEDS: CARDIZEM 100 MG/NS 100 MG/100 ML IVPB IV SCH ×2 (06:09→14:46)
[2019-04-03 06:20] LABS: ALB/GLOB RATIO 0.8; ALBUMIN 3.2 g/dL (3.5-5.0); CREATININE 2.9 mg/dL (0.5-0.9); POTASSIUM 4.7 mmol/L (3.5-5.1); TOTAL BILIRUBIN 1.6 mg/dL (0.20-1.00); TOTAL PROTEIN 7.4 g/dL (6.3-8.3)
--- NOTE | 2019-04-03 07:03 | Diag Imaging Result Doc PS360 ---
EXAM: CHEST-PORTABLE HISTORY: respiratory failure TECHNIQUE: Single view COMPARISON: 04/02/2019 FINDINGS: No change in the right jugular line, the right-sided PICC line, endotracheal tube, or in the nasogastric tube. The heart remains enlarged. There is vascular distention. Small left pleural effusion. The findings are slightly less prominent. IMPRESSION: Mild interval improvement Electronically signed by Patrick Cárdenas 04/03/2019 7:01 AM
[2019-04-03] MEDS: MUCOMYST 20% INH SCH ×2 (09:24→19:04)
[2019-04-03] MEDS: LOPRESSOR IV SCH ×3 (12:00→17:57)
--- NOTE | 2019-04-03 12:12 | PROGRESS NOTE ---
DATE: 04/03/2019 SUBJECTIVE: Ms. Rios is still intubated and sedated. I think the plan is to try and pursue a tracheostomy. She remains afebrile. OBJECTIVE: Vital Signs: Temperature 99.1 degrees, pulse 100, respirations 25, blood pressure 81/61. Eyes: Pupils are equal and round. Lungs: Clear in all lung perry. Cardiovascular exam: Regular rhythm and rate without murmur or S3. Abdomen: Soft. Skin: Skin is warm and dry. : Urine output is 4400 mL. X-RAYS: No chest x-ray from this morning. Mild interval improvement. No change in the right jugular line, right-sided PICC line, endotracheal tube or nasogastric tube. Heart remains enlarged. There is vascular distention, small left pleural effusion. Findings are slightly less prominent. ASSESSMENT AND PLAN: 1. Acute kidney injury, acute tubular necrosis secondary to cardiac arrest. Sustained low efficiency dialysis 3 days last week and continued trying to remove fluid. 2. Electrolytes, acid base and anemia are stable. 3. Fluid overload again. Continue to try and diurese some fluid off. 4. Klebsiella pneumoniae, Escherichia coli urinary tract infection, pansinusitis. On aztreonam and Zyvox. She is status post cardiopulmonary arrest, unable to extubate. And so I think we are going to pursue a tracheotomy for further ventilatory support. REVIEW OF HER ORDERS: I do not see any change. cc: Nikunj Pittman MD
[2019-04-03] MEDS: AZACTAM 1 GM in NS 50 ML IV SCH (17:58)
--- NOTE | 2019-04-03 19:03 | NEPHROLOGY PROGRESS NOTE ---
DATE: 04/03/2019 SUBJECTIVE: Patient remains sedated and mechanically ventilated. OBJECTIVE: Vital Signs: Temperature 98.4 degrees, pulse 81, respiratory rate 22, blood pressure 109/68. Intake 2 L, output 3.4 L, and 1.8 of this was UF removal, 1.6 of this was NG tube drainage. General: Chronically ill-appearing, critically ill-appearing female, currently sedated and mechanically ventilated. HEENT: Normocephalic, atraumatic. Orally intubated. Oral mucosa dry. Neck: Supple. Unable to determine JVD. Cardiovascular: Irregular irregular rhythm. Controlled rate. Pulmonary: She has wheezes bilaterally. Coarse rhonchi. Abdomen: Soft with positive bowel sounds. Genitourinary: Robison catheter. Extremities: Edema 1+. Integumentary: Skin is warm and dry. Neurologic: Sedated. LABORATORY AND DIAGNOSTIC DATA: WBC of 17.9, hemoglobin 8.1. Sodium 135, potassium 4.7, CO2 of 15, creatinine 2.7. Chest x-ray with improved pleural effusion and mild interval improvement. ASSESSMENT AND PLAN: 1. Acute on chronic kidney disease, acute tubular necrosis secondary to cardiac arrest. We tried SLED yesterday. We were able to run most of her treatment. She did have some hypotension and we had did have to cut that short. We will plan to dialyze her again on Friday. 2. Electrolytes, acid-base balance, anemia. These have been stable. Mildly acidotic, but CO2 is stable. 3. Fluid volume. We were able to remove almost 2 L yesterday. She had almost 1.5 L of NG tube fluid out, so she is technically negative 1.5 L overall. Dictated by FIONA Melara for Jose Luis Jean MD cc: Jose Luis Jean MD
[2019-04-03] MEDS: LEVAQUIN 250 MG/D5W 250 MG/50 ML IVPB IV SCH (20:34)
[2019-04-04] MEDS: NEO-SYNEPHRINE 50 MG in NS 250 ML IV SCH ×4 (01:23→22:08)
[2019-04-04] MEDS: PROTONIX IV SCH ×2 (01:23→13:40)
[2019-04-04] MEDS: CARDIZEM 100 MG/NS 100 MG/100 ML IVPB IV SCH ×3 (01:24→20:11)
[2019-04-04] MEDS: XOPENEX NEB INH SCH ×4 (03:40→22:39)
[2019-04-04] MEDS: ATROVENT NEB INH SCH ×4 (03:40→22:39)
[2019-04-04 04:20] LABS: ALLEN TEST YES; BE -10.2 mmoll (-3.0-3.0); BLOOD TYPE ARTERIAL; METHB 0.8 % (0.0-1.5); O2HB 97.3 % (95.0-99.0); PCO2(98.6) 24 mmHg (35-45); PO2(98.6) 131 mmHg (60-100); SAMPLE BLOOD; SAO2 100.7 % (95.0-100.0); SRATE 16 BPM; THB 7.8 g/dL (11.5-17.4); TVOL 550 mL; pH(98.6) 7.37 (7.35-7.45)
[2019-04-04 04:21] LABS: MODALITY VENTILATOR
[2019-04-04] MEDS: REGLAN LIQUID PO SCH ×3 (05:26→20:10)
[2019-04-04] MEDS: ZYVOX 600 MG/D5W 600 MG/300 ML IVPB IV SCH (05:26)
[2019-04-04] MEDS: SYNTHROID IV SCH (06:11)
[2019-04-04 06:35] LABS: BASO# 0.05 X1000 (0.0-0.2); BASO% 0.3 % (0.0-0.8); EOS% 1.2 % (0.0-10.0); HEMATOCRIT 25.9 % (37.0-47.0); HEMOGLOBIN 7.7 g/dL (12.0-16.0); IMM GRAN# 0.07 X1000 (0.0-0.04); IMM GRAN% 0.4 % (0.0-0.5); LYMPH# 2.79 X1000 (1.2-3.4); LYMPH% 16.1 % (20.5-51.1); MCH 26.6 PG (27-31); MCHC 29.7 g/dL (33-37); MCV 89.3 FL (81-99); MONO# 1.27 X1000 (0.11-0.59); MONO% 7.3 % (1.7-9.3); MPV 10.4 FL (7.4-10.4); NEUT% 74.7 % (42.2-75.2); PLT 274 X1000 (130-400); RDW 21.2 % (11.5-14.5); WBC 17.28 X1000 (4.8-10.8)
[2019-04-04 07:34] LABS: ALB/GLOB RATIO 0.7; CALCIUM 8.9 mg/dL (8.8-10.2); CREATININE 3.7 mg/dL (0.5-0.9); POTASSIUM 5.2 mmol/L (3.5-5.1); TOTAL PROTEIN 7.2 g/dL (6.3-8.3)
--- NOTE | 2019-04-04 07:54 | Diag Imaging Result Doc PS360 ---
EXAM: CHEST-PORTABLE INDICATION: respiratory failure TECHNIQUE: One view COMPARISON: 04/03/2019 FINDINGS: Support tubes and lines are in stable positions. Pulmonary venous congestion and interstitial edema is unchanged. Small left pleural effusion is stable. No new consolidation is identified. Cardiac silhouette is stable. IMPRESSION: Stable chest. Electronically signed by Jann Mcknight 04/04/2019 7:52 AM
--- NOTE | 2019-04-04 08:19 | PROGRESS NOTE ---
DATE: 04/04/2019 SUBJECTIVE: It looks like she has had uneventful night. Her FiO2 they have been able to decrease which is encouraging. OBJECTIVE: Vital Signs: Her temperature is 99.3 degrees, pulse 100, respirations 26, blood pressure 95/67. HEENT: Pupils are equal and round. Lungs: Clear in all lung perry. Cardiovascular: Regular rhythm and rate without murmur or S3. Abdomen: Soft. Skin: Warm and dry. Urine output was 1600 mL. DIAGNOSTIC DATA: Chest x-ray from this morning, stable chest, support tubes and lines in stable position, pulmonary venous congestion, interstitial edema unchanged, small left pleural effusions are stable. No new consolidation. Cardiac silhouette is stable. ASSESSMENT AND PLAN: 1. Acute kidney injury, acute tubular necrosis in the face of anasarca, volume overload and hypotension. Her electrolytes and acid base are stable. Anemia is stable. 2. Anasarca, volume overload with hypotension. 3. Klebsiella pneumonia, Escherichia coli urinary tract infection and sinusitis. Continue aztreonam and Zyvox. Continue SLED therapy is as necessary. I think the plan is to maybe pursue tracheostomy. Continue trying to wean her off the ventilator. REVIEW OF HER ORDERS: She is on aztreonam 1 g IV q.24 hours, on Cardizem drip. She is getting ipratropium bromide inhalation treatments 0.5 q.6 hours, levofloxacin 250 mg IV q.24 hours, Synthroid 50 mcg IV daily, Protonix 40 mg IV q.12h, linezolid 600 mg IV q.12. REVIEW OF LABS: White count 17,280, hematocrit is 25, platelet count is 274,000. Sodium 137, potassium 5.2, chloride 99, BUN 42, creatinine 3.7. cc: Nikunj Pittman MD
[2019-04-04] MEDS: ATIVAN 20 MG in NS 190 ML IV SCH ×3 (08:29→22:57)
[2019-04-04] MEDS: LOPRESSOR IV SCH ×3 (09:24→18:02)
[2019-04-04] MEDS: MUCOMYST 20% INH SCH ×2 (09:44→22:39)
--- NOTE | 2019-04-04 12:18 | INFECTIOUS DISEASE PROGRESS NO ---
DATE: 04/04/2019 PRESENT ILLNESS: The patient has the following infections: 1. Klebsiella pneumoniae. 2. Escherichia coli urinary tract infection. 3. Pansinusitis. The patient's white blood cell count remains elevated. MEDICATIONS: The patient is on a combination of aztreonam and Zyvox for 11 days and Levaquin for 10 days. PHYSICAL EXAMINATION: Vital Signs: Temperature is 97 degrees, pulse 83, respirations 26, blood pressure is 102/67. General: This is a morbidly obese, middle-aged female. She does not appear to be in any acute distress. HEENT: She has an orotracheal tube and a nasogastric tube in place. She does not have any drainage from her nose or ears. Neck: The patient has a right-sided internal jugular vein dialysis catheter in place. There is no bleeding or purulence at the entrance site. Lungs: Clear to auscultation. Cardiovascular: Heart rate is irregular. Abdomen: Soft and does not appear to be tender. Extremities: Patient has a PICC in her right arm. That site also is not bleeding or purulent. Neurologic: The patient did not respond to oral requests such as opening the eyelids or moving her extremity. LAB AND RADIOLOGY: CBC-WBC 17.28, hgb 7.7, platelets 274K. Creatinine-3.7. GFR- >60. Chest x-ray shows pulmonary venous congestion. ASSESSMENT AND PLAN: The patient has pneumonia, urinary tract infection and pansinusitis. Her white count remains elevated, and her the repeat cultures are still growing Klebsiella. Therefore, I think that the current antibiotics are not working well, especially aztreonam. I am going to go ahead and place the patient on ertapenem. I have ordered that the nurse is to watch the patient during the first dose. The patient's chart says that she is allergic to cephalexin and that she got short of breath. However, in the past, the patient has been on Zosyn and tolerated it well. Therefore, I think she should tolerate carbapenems, namely ertapenem also. Also, it is noted that the patient has orotracheal tube down, so the likelihood of her becoming short of breath would be very unlikely. COMORBIDITIES: The patient is morbidly obese. She had a cardiac arrest during this admission. She also has congestive heart failure, chronic obstructive pulmonary disease, gastroesophageal reflux disease, atrial fibrillation, acute kidney injury, and the patient is receiving dialysis. cc: Arvind Fair MD MTDD
[2019-04-04] MEDS: SODIUM CHLORIDE 0.9% INJ SCH (13:40)
--- NOTE | 2019-04-04 15:23 | NEPHROLOGY PROGRESS NOTE ---
DATE: 04/04/2019 SUBJECTIVE: No changes overnight. OBJECTIVE: Vital Signs: Temperature 99.3 degrees, pulse 101, respiratory rate 26, blood pressure 95/67. Continues on norepinephrine. Intake 2.3 L. Output 1 L; this was NG-tube drainage. General: Critically ill-appearing, middle-aged female, resting in bed. She does not appear in acute distress. HEENT: Remains orally intubated. Pupils are sluggish. Neck: Thick. Unable to determine JVD. Cardiovascular: Irregularly irregular rhythm. Pulmonary: Wheezes and rhonchi bilaterally. Abdomen: Soft. Positive bowel sounds. : Robison catheter dark urine. Extremities: Have 1+ edema. Chronic lower extremity vascular changes noted. Integumentary: Skin is warm and dry. Neurologic: Sedated. LAB DATA: WBC of 17.2, hemoglobin 7.7. Sodium 137, potassium 5.2, CO2 12, creatinine 3.7. ASSESSMENT AND PLAN: 1. Acute on chronic kidney disease in the sitting of acute tubular necrosis secondary to cardiac arrest. Anticipate SLED on Friday. Urine output remains essentially aneuric. Check labs in the morning to determine her dialysis bath. 2. Electrolytes, acid-base balance, anemia. These have been stable. Continue dialysis. 3. Fluid volume. Again, she is having copious amounts of fluid out the NG tube. 4. Klebsiella pneumonia and Escherichia coli urinary tract infection, along with sinusitis. Is Zyvox and ertapenem. 5. Hypertension. Continue pressor support as needed. Dictated by FIONA Melara for Jose Luis Jean MD cc: Jose Luis Jean MD
[2019-04-04] MEDS ORDERED: INVANZ 0.5 GM in NS 50 ML IV SCH (20:00)
[2019-04-05] MEDS: CARDIZEM 100 MG/NS 100 MG/100 ML IVPB IV SCH (01:31)
[2019-04-05] MEDS: PROTONIX IV SCH ×2 (02:15→15:17)
[2019-04-05] MEDS: XOPENEX NEB INH SCH ×3 (03:20→15:47)
[2019-04-05] MEDS: ATROVENT NEB INH SCH ×3 (03:20→15:47)
[2019-04-05 04:16] LABS: ALLEN TEST YES; BE -24.5 mmoll (-3.0-3.0); BLOOD TYPE ARTERIAL; HCO3-(ACT) 5.9 mmoll (20.0-26.0); METHB 0.9 % (0.0-1.5); O2(CT) 11.8 mL/dL (15.0-23.0); O2HB 97.7 % (95.0-99.0); PO2(98.6) 197 mmHg (60-100); SAMPLE BLOOD; SAO2 100.6 % (95.0-100.0); SRATE 16 BPM; THB 8.2 g/dL (11.5-17.4); TVOL 500 mL
[2019-04-05 04:18] LABS: PCO2(98.6) 15 mmHg (35-45); pH(98.6) 7.04 (7.35-7.45)
[2019-04-05 04:19] LABS: MODALITY VENTILATOR
[2019-04-05] MEDS: NEO-SYNEPHRINE 50 MG in NS 250 ML IV SCH ×6 (04:49→17:44)
[2019-04-05 04:57] LABS: ALLEN TEST YES; BE -24.7 mmoll (-3.0-3.0); BLOOD TYPE ARTERIAL; HCO3-(ACT) 5.5 mmoll (20.0-26.0); METHB 0.9 % (0.0-1.5); O2(CT) 10.6 mL/dL (15.0-23.0); PCO2(98.6) 23 mmHg (35-45); PO2(98.6) 61 mmHg (60-100); SAMPLE BLOOD; SAO2 91.1 % (95.0-100.0); SRATE 16 BPM; THB 8.5 g/dL (11.5-17.4); TVOL 500 mL
[2019-04-05 05:00] LABS: pH(98.6) 6.97 (7.35-7.45)
[2019-04-05 05:01] LABS: MODALITY VENTILATOR; O2HB 88.5 % (95.0-99.0)
[2019-04-05] MEDS ORDERED: SODIUM BICARBONATE 8.4% IV PUSH ONE ×4 (05:20→09:18)
[2019-04-05 05:34] LABS: BASO# 0.08 X1000 (0.0-0.2); BASO% 0.4 % (0.0-0.8); EOS# 0.03 X1000 (0.0-0.7); EOS% 0.2 % (0.0-10.0); HEMATOCRIT 28.4 % (37.0-47.0); HEMOGLOBIN 7.9 g/dL (12.0-16.0); IMM GRAN# 0.18 X1000 (0.0-0.04); IMM GRAN% 0.9 % (0.0-0.5); LYMPH# 3.13 X1000 (1.2-3.4); LYMPH% 16.1 % (20.5-51.1); MCH 26.6 PG (27-31); MCHC 27.8 g/dL (33-37); MCV 95.6 FL (81-99); MONO# 0.96 X1000 (0.11-0.59); MONO% 4.9 % (1.7-9.3); MPV 10.2 FL (7.4-10.4); NEUT# 15.07 X1000 (1.4-6.5); NEUT% 77.5 % (42.2-75.2); PLT 163 X1000 (130-400); RBC 2.97 XMIL (4.2-5.4); RDW 22.4 % (11.5-14.5); WBC 19.45 X1000 (4.8-10.8)
[2019-04-05] MEDS: LEVOPHED 8 MG in D5 1/2 NS 250 ML IV SCH ×3 (06:16→15:14)
[2019-04-05] MEDS ORDERED: NS 2,000 ML MISC PRN (06:33)
[2019-04-05] MEDS ORDERED: HEPARIN IV PRN (06:33)
[2019-04-05] MEDS: REGLAN LIQUID PO SCH ×2 (06:35→15:43)
[2019-04-05] MEDS: SYNTHROID IV SCH (06:35)
--- NOTE | 2019-04-05 07:45 | Diag Imaging Result Doc PS360 ---
CHEST-PORTABLE - 04/05/2019 INDICATION: respiratory failure COMPARISON: 04/04/2019 FINDINGS: Support lines and tubes are stable. Stable cardiomegaly and pulmonary vascular congestion. There is worsening bilateral central infiltrates/edema. There are at least small bilateral pleural effusions. IMPRESSION: Worsening bilateral pulmonary edema. Electronically signed by Dean Virk 04/05/2019 7:43 AM
[2019-04-05 07:58] LABS: ANISOCYTOSIS 2+; BANDS 12 % (0-1); HYPOCHROM 1+; LYMPHS 16 % (21-51); MONO 2 % (1-9); NRBC 3 % (0-0); SEGS 70 % (42-75)
[2019-04-05 09:09] LABS: POTASSIUM 7.2 mmol/L (3.5-5.1)
[2019-04-05 09:11] LABS: AGAP 33; ALB/GLOB RATIO 0.8; ALBUMIN 2.9 g/dL (3.5-5.0); ALKALINE PHOSPHATASE 142 U/L (32-104); BUN 55 mg/dL (8-22); CALCIUM 8.6 mg/dL (8.8-10.2); CHLORIDE 97 mmol/L (98-107); COSMO 287; ESTIMATED GFR 11; GLUCOSE 3 mg/dL (70-104); GOT > 7000 U/L (10-30); GPT 1250 U/L (10-36); SODIUM 139 mmol/L (136-145); TCO2 9 mmol/L (25-35); TOTAL PROTEIN 6.7 g/dL (6.3-8.3)
[2019-04-05] MEDS ORDERED: VELTASSA PO ONE (09:18)
[2019-04-05] MEDS: ATIVAN 20 MG in NS 190 ML IV SCH (09:22)
[2019-04-05] MEDS ORDERED: D50W SYRINGE IV ONE ×2 (09:30→10:15)
[2019-04-05] MEDS: MUCOMYST 20% INH SCH ×2 (09:34→20:22)
[2019-04-05] MEDS: LOPRESSOR IV SCH ×3 (09:42→16:38)
[2019-04-05] MEDS ORDERED: D50W SYRINGE IV PRN ×2 (10:02→10:04)
--- NOTE | 2019-04-05 10:36 | PROGRESS NOTE ---
DATE: 04/05/2019 Her blood pressure has dropped. Her potassium is above 7, and they called and said she had a blood sugar of 3. We gave her an amp of D50, an amp of bicarbonate. She is already on two vasopressors. She is getting ertapenem, and treating her for potential pneumonia. Liver enzymes have bumped up. Her AST is greater than 7000, ALT is 1250. I suspect this is ischemic hepatopathy, so we are going to give her some D50, try and get her sugar up. She is acidotic, and the prognosis is very poor. cc: Nikunj Pittman MD
[2019-04-05] MEDS: PITRESSIN 40 UNIT in NS 100 ML IV SCH ×3 (10:53→17:44)
[2019-04-05] MEDS ORDERED: D10W 1,000 ML IV SCH (11:15)
--- NOTE | 2019-04-05 13:14 | GASTROENTEROLOGY PROGRESS NOTE ---
DATE: 04/05/2019 SUBJECTIVE: Unfortunately, patient has had decline in her status over the weekend. She is on several vasopressors. Potassium is over 7. Liver enzymes have increased significantly. Most likely, ischemic injury to the liver. Her blood sugar is low. Her tube feedings are on hold and she is having a large amount of output from her NG tube. OBJECTIVE: Vital Signs: Temperature 100 degrees, pulse 124, respirations 29, and blood pressure 70/46. LABORATORY: Hematology: WBC 19.45, hemoglobin 7.9, hematocrit 28.4, MCV 95.6, platelet 163,000. Chemistry: Sodium 139, potassium 7.2, chloride 97, CO2 9, BUN 55, creatinine 5.0, glucose 3, fingerstick blood glucose was 20, calcium 8.6, total bilirubin 4.0, AST greater than 7000, ALT 1250. Alkaline phosphatase 142. ASSESSMENT: 1. Respiratory failure on mechanical ventilation. 2. Status post cardiopulmonary arrest. 3. Acute kidney injury. On dialysis. 4. Hypotension. Patient is now on several vasopressors. 5. Nutritional status. The patient has been unable to tolerate tube feedings and is having a large amount of output per her nasogastric tube. 6. Klebsiella pneumonia and Escherichia coli on antibiotics. 7. Electrolyte imbalance. PLAN: Unfortunately, patient has had decrease in her status. There is no evidence of active gastrointestinal bleeding. She has not tolerated her tube feeding and is having a large amount of contents from her NG tube. Patient is now on several vasopressors. Unfortunately, her prognosis is poor. GI will be available as needed. We will continue to follow peripherally. I have discussed this case with Dr. Montanez. Dictated by FIONA Negro for Jonathon Montanez MD cc: FIONA Jackson MD [facility]
[2019-04-05] MEDS: SODIUM CHLORIDE 0.9% INJ SCH (15:17)
[2019-04-05 16:17] VITALS: BP 65/29
--- NOTE | 2019-04-06 11:27 | NEPHROLOGY PROGRESS NOTE ---
DATE: 04/05/2019 The patient is currently on maximum dose of 3 vasopressor agents with irregular blood pressure and heart rate. Likely imminent demise. Family seems to understand that. Please call if needed. cc: Jose Luis Jean MD
--- NOTE | 2019-04-23 14:43 | DISCHARGE SUMMARY ---
ADMISSION DATE: 03/09/2019 DISCHARGE DATE: 04/05/2019 HOSPITAL COURSE: This was a patient of Dr. Lazaro Noyola. She came to the emergency room on 03/09/2019. She had power of attorney recruiter in two female family members; she was a resident of [facility] for the past 3 months. According to power of attorney recruiter, she had limited mobility on home O2. Understand that for the past 4 days she had been having more difficulty breathing. Morning of admission, [facility] called and said the patient was having more difficulty breathing, not saturating well, going to bring her to the emergency room. She did have agonal breathing. There was no pulse. Both BLS and ACLS protocols were instituted. Resuscitated almost an hour and admitted status post cardiopulmonary arrest. Initial events appeared to be more respiratory failure progressively led to cardiac failure, loss of pulse. She has been resuscitated and secured the airway, intubated. She has underlying cardiomegaly, pulmonary edema, elevated proBNP concerning for congestive heart failure, left ventricular systolic dysfunction, hypotension, was on vasopressors and had acute on chronic renal failure, morbid obesity with a body mass index of 64.6, acute on chronic hypercarbic respiratory failure as well. Cardiology was consulted. They tried to diurese. She was administered 60 mg IV of Lasix and tried to help diuresis the pulmonary edema. Renal ultrasound was obtained. No evidence of obstructive uropathy. Infectious Disease was asked to see Dr. rAvind Fair. She had bilateral pulmonary infiltrates, which may be due to pneumonia, but felt it was predominantly pulmonary venous hypertension. She has severe cephalexin allergy so was put on aztreonam and Zyvox. Pulmonary is consulted, Dr. Chambers, acute on chronic hypercapnic respiratory failure, acute on chronic hypoxic respiratory failure, status post cardiopulmonary arrest, congestive heart failure, possible septic shock, acute on chronic kidney disease. The patient continued treatment. [place] like her oxygenation was improving. Given her renal dysfunction, tried to be careful with diuresing. Very difficult time trying to wean her off the ventilator. She has her AA gradient that improved with reduction FiO2. Received a dose of Lasix which did not seem to change her urine output. She continued to require the ventilator, and she had biventricular enlargement on echocardiogram, pulmonary edema, elevated proBNP. Her hypotension made this difficult. She developed atrial fibrillation with rapid ventricular rate. Tried to control rate. [place] she had pulmonary edema superimposed Klebsiella pneumonia. Infectious Disease was following. Continued broad-spectrum antibiotic and acute kidney injury, making some urine, but continued to have a positive balance. Dr. Jean was following. [place] she had acute kidney injury secondary to acute tubular necrosis, and she continued to require mechanical ventilation. Discussing the need for tracheotomy. Tried to extubate, initiate BiPAP which she did not tolerate, and had to be put back on the ventilator and blood pressure started dropping. Gastroenterology was asked to see. Her liver enzymes jumped up dramatically, felt it was ischemic liver injury with transaminases. AST greater than 7000, ALT 1250. Blood sugar dropped into the 20s. We gave her back some sugar. Very poor prognosis. On 04/05/2019 at 2243 hours, she was pronounced . cc: Nikunj Pittman MD
== END 2019-04-05 23:00 | disposition expired | DRG 870 ==
LOC: SUPCPDRO → ED 13:43 → ICU 16:43 → SUATTDRO 16:43
PROVIDERS: ATTEND Emergency Medicine